=== PATIENT | male | born 1945 | race Two or more races ===

== ENCOUNTER 2024-11-23 13:42 | Inpatient (IN) | payer OTHER, MEDICAID, MEDICARE, SELFPAY ==
[2024-11-23] VITALS (22 sets, daily range): BP systolic 98–176; BP diastolic 49–132; PULSE 79–108; RESP 15–92; TEMP 37–39.9; O2SAT 89–98; BMI 40.5
--- NOTE | 2024-11-23 14:17 | EKG_ITS ---
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
--- NOTE | 2024-11-23 14:17 | XR_ITS ---
Examination: AP chest single view Technique one AP portable upright chest single view Exam date and time: November 23, 2024 1445 hrs. Comparison March 26, 2022 Indications: Sepsis today. Findings: Moderate enlargement cardiac contour Mild vascular congestion. No lobar pneumonia Prominent osteopenia Impression: Moderate enlargement cardiac contour Mild vascular congestion No lobar pneumonia
--- NOTE | 2024-11-23 14:19 | EDNOTE_ITS ---
<Statement entered by Carmina Santos MD - 11/25/24 07:00> As co-signing physician, I was present and available for consult prn. I concur with the plan and care as documented by the midlevel provider. ED SOB =RME/HPI General Chief Complaint: Shortness of Breath/Dyspnea Stated Complaint: SHORTNESS OF BREATH Time Seen by Provider: 11/23/24 14:04 Arrival date/time: 11/23/24 13:42 RME / HPI RME / HPI Narrative: 78-year-old male patient with significant history of BPH, on self catheterization, diabetes hypertension, came in for evaluation regarding shortness of breath. Patient has been having worsening shortness of breath for the last 1 to 2 days, associated with hypoxemia, when the EMS arrived patient was satting 88% on room air. On my initial evaluation patient was satting 92% on room air. Patient also complained of pain discomfort with catheterization. Patient was also noted to be febrile, and tachycardic. Sepsis alert was initiated right away. Related Data Home Medications ?Medication ?Instructions ?Recorded ?Confirmed carvedilol 25 mg tablet (Coreg) 25 mg PO QDAY #0 tabs 04/05/14 07/20/23 spironolactone 25 mg tablet 25 mg PO BID ##0 08/23/15 07/20/23 tamsulosin 0.4 mg capsule (Flomax) 0.4 mg PO BID ##0 0 08/23/15 07/20/23 finasteride 5 mg tablet (Proscar) 5 mg PO QDAY #0 tabs 01/12/17 07/20/23 gemfibrozil 600 mg tablet (Lopid) 600 mg PO HS #0 tabs 01/12/17 07/20/23 valsartan 40 mg tablet (Diovan) 40 mg PO QDAY #0 tabs 01/12/17 07/20/23 atorvastatin 10 mg tablet 10 mg PO QPM 03/21/20 furosemide 20 mg tablet 20 mg PO QDAY 03/21/2007/20 metformin 500 mg tablet 500 mg PO BID 03/21/2007/20 Held on 03/21/20. Instructions: Resume on 03/24/20. clonidine HCl 0.1 mg tablet 0.1 mg PO BID 03/30/2201/05 gabapentin 100 mg capsule 100 mg PO BID 03/30/2207/20 albuterol sulfate 90 mcg/actuation 1 inh inhalation QI D 03/31/22 07/20/23 aerosol inhaler (Ventolin HFA) fluticasone propionate 50 1 spray intranasal QDAY 03/1607/20/23 mcg/actuation nasal spray,suspension Allergies Allergy/AdvReac Type Severity Reaction Status Date / Time No Known Allergies Allergy Verified 03/30/22 12:48 Review of Systems Review of Systems Narrative Review of Systems: Review of system reviewed and within normal limits except mentioned in HPI ED Exam Narrative Physical exam: VITAL SIGNS: Reviewed. GENERAL APPEARANCE: Alert and interactive, follows commands, no acute distress, febrile HEAD AND FACE: Non-traumatic. ENT: PERRL, pink conjunctivitis, eyelid no trauma, Mucous membrane moist. NECK: Supple, nontender, no nuchal rigidity. CHEST: No tenderness, no crepitus, no paradoxical movement, no retractions. LUNGS: Clear, well ventilated, symmetric, no rales, no wheezing, no ronchi, no stridor, good breath sounds bilaterally. HEART: Regular rate, regular rhythm, no murmur, no gallops. ABDOMEN: Soft, positive bowel sounds, nondistended, no guarding, nontender, no rebound, no masses, RECTAL: Deferred. GENITAL: Deferred. NEUROLOGICAL: Gross motor function intact sensory function intact, Appropriate for age. MUSCULOSKELETAL: low back nontender, full range of motion. EXTREMITIES: Nontender, full range of motion. SKIN: Color pink, dry, no rash, no lacerations, no abrasions, no contusions. LYMPHATICS: Deferred. 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 STAT Care 11/23/24 14:17 Completed Continuous Pulse Oximetry STAT Care 11/23/24 14:17 Completed Decision to Admit X1 Care 11/23/24 16:16 Completed EKG (ED ONLY) *Do not use* NOW Care 11/23/24 14:17 Completed Foss [Urinary Catheter] QS Care 11/23/24 14:17 Active Insert IV NOW Care 11/23/24 14:17 Completed NPO STAT Care 11/23/24 14:17 Completed Strict Intake and Output Routine Care 11/23/24 14:17 Ordered EKG (ED Only) Stat Exams 11/23/24 14:17 Draft XR chest 1V SEPSIS PROTOCOL Stat Exams 11/23/24 14:17 Completed B-Type Natriuretic Peptide Stat Lab 11/23/24 14:55 Completed Blood Culture (Lab) Stat Lab 11/23/24 14:55 Received CBC Stat Lab 11/23/24 14:55 Completed Comprehensive Metabolic Panel Stat Lab 11/23/24 14:55 Completed LDH (Lactate Dehydrogenase) Stat Lab 11/23/24 14:55 Completed Lactate (Lactic Acid) Stat Lab 11/23/24 14:55 Completed Lipase Stat Lab 11/23/24 14:55 Completed Magnesium Stat Lab 11/23/24 14:55 Completed Partial Thromboplastin Time Stat Lab 11/23/24 14:55 Completed Phosphorous Stat Lab 11/23/24 14:55 Completed Procalcitonin Stat Lab 11/23/24 14:55 Completed Prothrombin Time with INR Stat Lab 11/23/24 14:55 Completed Troponin I Stat Lab 11/23/24 14:55 Completed Urinalysis Stat Lab 11/23/24 15:11 Completed Urine Culture Stat Lab 11/23/24 15:11 Received Acetaminophen Tab [Tylenol ES Tab] Med 11/23/24 14:17 Discontinued 1,000 mg PO X1 ONE Acetaminophen Tab [Tylenol ES Tab] Med 11/23/24 20:08 Discontinued 1,000 mg PO X1 ONE Ringers Lactated 1000 ml [Lactated Ringers] 1,000 ml Med 11/23/24 16:12 Discontinued IV 999 mls/hr Sodium Chloride 0.9% 1000 ml [Ns] 1,000 ml Med 11/23/24 14:18 Discontinued IV 999 mls/hr cefTRIAXone/D5w 1gm IV premix [Rocephin/D5w 1gm IV Med 11/23/24 14:18 Discontinued premix] 1 gm in 50 ml IV X1 Oxygen Delivery NOW RT 11/23/24 14:17 Completed Vital Signs Vital signs: Vital Signs Pulse Rate 106 H 11/23/24 14:08 Respiratory Rate 25 H 11/23/24 14:08 Blood Pressure 141/91 H 11/23/24 14:08 Pulse Oximetry (%) 93 L 11/23/24 14:08 Shortness of Breath / Dyspnea MDM Narrative MDM Narrative:: 78-year-old male patient with significant history of BPH, on self catheterization, diabetes hypertension, came in for evaluation regarding shortness of breath. Patient has been having worsening shortness of breath for the last 1 to 2 days, associated with hypoxemia, when the EMS arrived patient was satting 88% on room air. On my initial evaluation patient was satting 92% on room air. Patient also complained of pain discomfort with catheterization. Patient was also noted to be febrile, and tachycardic. Sepsis alert was initiated right away. Patient's workup is significant for UTI. Slight leukocytosis noted. Chest x- ray showed no pneumonia. Currently patient is satting 96% on room air. Patient received 2 L of IV fluids, IV ceftriaxone and Tylenol. Case discussed with patient's PCP Dr. Villegas who admitted the patient. Patient data External records reviewed:: None Clinical information provided by:: patient Social determinants that could affect healthcare access:: none Patient has the following chronic illnesses:: Diabetes mellitus hypertension, BPH How is presenting disease/condition affected by chronic disease/condition?: exacerbated by Evaluation data The following diagnostics were reviewed and interpreted by me:: lab results, radiology exam(s) and EKG tracing(s) Lab and/or radiology exams considered but not ordered:: None Interpretation Summary: See results [facility] EKG shows sinus rhythm, ventricular rate of 97 bpm, no ST segment elevation depression noted. Medications / Prescriptions Medications or Prescriptions considered but not ordered:: None Medication administrations:: Medication Administration History Discontinued Medications Acetaminophen (Acetaminophen 500 Mg Tablet) 1,000 mg PO X1 ONE Stop: 11/23/24 14:18 Last Admin: 11/23/24 14:35 Dose: 1,000 mg Documented By: TEMITOPE Acetaminophen (Acetaminophen 500 Mg Tablet) 1,000 mg PO X1 ONE Stop: 11/23/24 20:09 Last Admin: 11/23/24 20:15 Dose: 1,000 mg Documented By: FELECIA Sodium Chloride (Ns) 1,000 mls @ 999 mls/hr IV .Q1H1M ONE Stop: 11/23/24 15:18 Last Infusion: 11/23/24 17:02 Dose: Infused Documented By: Admin: 11/23/24 14:43 Dose: 999 mls/hr Documented By: TEMITOPE Ceftriaxone Sodium/Dextrose (Rocephin/D5w 1gm Iv Premix) 1 gm in 50 mls @ 100 mls/hr IV X1 ONE Stop: 11/23/24 14:47 Last Infusion: 11/23/24 15:30 Dose: Infused Documented By: Infusion: 11/23/24 14:59 Dose: 100 mls/hr Documented By: Infusion: 11/23/24 14:53 Dose: 0 mls/hr Documented By: Admin: 11/23/24 14:53 Dose: 100 mls/hr Documented By: TEMITOPE Lactated Ringer's (Lactated Ringers) 1,000 mls @ 999 mls/hr IV .Q1H1M ONE Stop: 11/23/24 17:12 Last Infusion: 11/23/24 18:40 Dose: Infused Documented By: Admin: 11/23/24 17:11 Dose: 999 mls/hr Documented By: TEMITOPE Ceftriaxone IV, IV fluids Tylenol Consultations Consultation(s) initiated? (list below): No Diagnosis Shortness of Breath Differential Diagnosis: community acquired pneumonia and other (Sepsis, UTI) Most likely diagnosis given after review of the tests above:: Sepsis, UTI Admission Indicated Admission indicated?: indicated Admission Request Was there a request for admission?: Yes Admission Attestation Admission request attestation: Discussed case with [] from Hospitalist service regarding admission. Discussed patients ED course, exam findings, labs, and radiology results. The Hospitalist [agrees,declines] to accept the patient for admission. Disposition Plan Disposition Plan: Admit Discharge Plan Plan Patient Disposition: Admit Acute Care w/in Hospital Prescriptions/Referrals Prescriptions/Med Rec: No Action carvedilol [Coreg] 25 MG tablet 25 mg PO QDAY Qty: 0 spironolactone 25 MG tablet 25 mg PO BID Qty: 0 tamsulosin [Flomax] 0.4 MG capsule,extended release 24hr 0.4 mg PO BID Qty: 0 valsartan [Diovan] 40 MG tablet 40 mg PO QDAY Qty: 0 gemfibrozil [Lopid] 600 MG tablet 600 mg PO HS Qty: 0 finasteride [Proscar] 5 MG tablet 5 mg PO QDAY Qty: 0 metformin 500 mg Tablet 500 mg PO BID atorvastatin 10 mg Tablet 10 mg PO QPM furosemide 20 mg Tablet 20 mg PO QDAY clonidine HCl 0.1 mg tablet 0.1 mg PO BID gabapentin 100 mg capsule 100 mg PO BID fluticasone propionate [Flonase] 50 mcg/actuation [place],Suspension 1 spray INTRANASAL QDAY Rx Instructions: administer into each nostril albuterol sulfate [Ventolin HFA] 90 mcg/actuation Hfa Aerosol Inhaler 1 inh INHALATION QID Referrals: Brandin Villegas MD [Primary Care Provider] - In 1 week Problem List Clinical Impression: Sepsis, UTI (urinary tract infection) Patient/Caregiver Discharge Instructions Print Language: Maltese Stand Alone Forms: Lavinia Award Info., Patient Portal Info Letter
[2024-11-23] MEDS: ACETAMINOPHEN 500 MG TABLET 1000 MG PO ×2 (14:35→20:15)
[2024-11-23] MEDS: SODIUM CHLORIDE 0.9% 1000 ML 1,000 ML 999 ML IV (14:43)
[2024-11-23] MEDS: cefTRIAXone/D5w 1gm IV premix 1 GM/50 ML BAG IV (14:53)
[2024-11-23 15:18] LABS: Lactate (Lactic Acid) 1.5 mMol/L (0.4-2.0)
[2024-11-23 15:23] LABS: Basophils % (Auto) 0 % (0-2.5); Eosinophils % (Auto) 0 % (0-10); Hematocrit 34.4 % (41.0-53.0); Hemoglobin 11.2 g/dL (13.5-16.0); Immature Granulocytes % (Auto) 0 % (0-0); Immature Granulocytes Auto 0.04 Thou/mm3 (0.00-0.00); Lymphocytes # (Auto) 1.2 Thou/mm3 (1.0-4.8); Lymphocytes % (Auto) 9 % (10-50); Mean Corpuscular HGB Conc 32.6 g/dl (31.0-37.0); Mean Corpuscular Hemoglobin 28.6 pg (25.0-35.0); Mean Corpuscular Volume 88 fL (80-100); Monocytes # (Auto) 1.1 Thou/mm3 (0.0-0.8); Monocytes % (Auto) 8 % (0-12); Neutrophils # (Auto) 11.5 Thou/mm3 (1.8-7.7); Neutrophils % (Auto) 83 % (37-80); Nucleated Red Blood Cell # 0.02 Thou/mm3 (0.00-0.00); Nucleated Red Blood Cell % 0 /100 WBC (0); Platelet Count 253 Thou/mm3 (140-440); RDW Standard Deviation 43.3 fL (35.1-43.9); Red Blood Count 3.92 Miln/mm3 (4.50-5.90); White Blood Count 13.8 Thou/mm3 (3.8-10.6)
[2024-11-23 15:30] LABS: Collection Type, Urine Clean Catch
[2024-11-23 15:46] LABS: Bacteria,Urine 4+; Bilirubin,Urine Negative (Negative); Blood,Urine 1+ (Negative); Color,Urine Yellow (Lt Yel-Yel); Glucose, Urine Negative (Negative); Ketones,Urine Negative (Negative); Leukocyte Esterase,Urine Positive (Negative); Nitrite,Urine Negative (Negative); Protein,Urine 1+ (Neg - Trace); RBC,Urine 6 /hpf (0-3); Specific Gravity,Urine 1.014 (1.001-1.035); Squamous Epithelial Cell,Urine < 1 /hpf (0-5); WBC,Urine 41 /hpf (0-5)
[2024-11-23 15:47] LABS: INR 1.1 (0.9-1.3); Partial Thromboplastin Time 35.2 Seconds (22.0-36.0); Prothrombin Time 12.4 Seconds (9.0-12.2)
[2024-11-23 15:51] LABS: B-Type Natriuretic Peptide 109 pg/mL (0-100)
[2024-11-23 15:55] LABS: Clarity,Urine Hazy (Clear/Hazy)
[2024-11-23 16:00] LABS: Alanine Aminotransferase 36 U/L (10-49); Albumin, Serum 3.9 gm/dL (3.4-4.8); Albumin/Globulin Ratio 1.2 (1.2-2.2); Alkaline Phosphatase 117 U/L (46-116); Anion Gap 7 (7-16); Aspartate Amino Transferase 44 U/L (0-34); BUN/Creatinine Ratio 17 Ratio (12-20); Bilirubin,Total 0.9 mg/dL (0.3-1.2); Blood Urea Nitrogen 26 mg/dL (9-23); Calcium 8.7 mg/dL (8.3-10.6); Calcium (Corrected) 8.8 mg/dL (8.5-10.1); Carbon Dioxide 27.6 mMol/L (20.0-31.0); Chloride 97 mMol/L (98-107); Creatinine (Component) 1.5 mg/dL (0.6-1.3); Estimated Creatinine Clearance 46.8 mL/min (>60); Globulin 3.3 gm/dL (2.3-3.5); Glucose 189 mg/dL (74-106); LDH (Lactate Dehydrogenase) 197 U/L (120-246); Lipase 34 U/L (12-53); Osmolality,Calculated 274 (275-295); Phosphorous 1.5 mg/dL (2.4-5.1); Potassium 3.8 mMol/L (3.4-5.1); Procalcitonin 3.01 ng/ml (0.0-0.49); Sodium 132 mMol/L (136-145); Total Protein 7.2 gm/dL (5.7-8.2); Troponin I 0.029 ng/mL (0.0-0.045); eGFR 47 See Note
[2024-11-23] MEDS: RINGERS LACTATED 1000 ML 1,000 ML 999 ML IV (17:11)
--- NOTE | 2024-11-23 17:59 | PC.NURSE ---
PT HAD BM; LIQUID IN NATURE AND BROWN IN COLOR. PT GIVEN PERINEAL CARE WITH WARM BATH CLOTHS; LINEN CHANGE AND NEW CHUCKS PLACED UNDER PT. PT LAYING IN BED COMFORTABLE AT THIS TIME; EQUAL CHEST RISE & FALL NOTED.
--- NOTE | 2024-11-23 19:51 | PC.NURSE ---
Assisted pt up in bed. With that little activity pt was moderatly SOB and O2 sats dropped to 87. placed pt on 2L O2 NC
--- NOTE | 2024-11-23 21:28 | PD.NEPHHP ---
Documentation for date of: 11/23/24 History of Present Illness History of Present Illness Chief complaint: Shortness of breath History of present illness: Mr. 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 Grider) history of CHF, history of pituitary adenoma which was removed presented to the emergency department with significant shortness of breath and her daughter called paramedics. When paramedics arrived his O2 sat was less than 88%. Chest x-ray showed mild vascular congestion and no pneumonia. Admitted to the hospital with hypoxic respiratory failure ED COURSE: T103.8, HR 106, BP 141/91, satting 93% on 2 L NC. WBC 13.8, Hgb 11.2, PLT 253. Normal coag studies. CHEM panel significant for BUN 26, CR 1.5, EGFR 47, GLUCOSE 189, A1c 6.8, phosphorus 1.5, AST 44, AST 36, ALP 117, BNP 109, troponin 0.029, Pro-Calc 3.01. UA showed positive LE, RBC 6, WBC 41, urea 4+. EKG sinus rhythm without acute ST changes. CXR mild vascular congestion, no lobar pneumonia. ED gave 2 L IVF, CEFTRIAXONE 1 g x 1. Will admit for sepsis in settings of UTI. PMHx: HTN, DM, BPH with self cath. PSHx: Coronary artery stent MEDS: Pending med rec ALLERGIES: NKA FHx: Nonsignificant SH: Alcohol, drug or tobacco use. Meds Home Medications and Allergies Home Medications ?Medication ?Instructions ?Recorded ?Confirmed ?Type carvedilol 25 mg tablet (Coreg) 25 mg PO QDAY #0 tabs 04/05/14 07/20/23 History spironolactone 25 mg tablet 25 mg PO BID ##0 08/23/15 07/20/23 History tamsulosin 0.4 mg capsule (Flomax) 0.4 mg PO BID ##0 08/23/15 07/20/23 History finasteride 5 mg tablet (Proscar) 5 mg PO QDAY #0 tabs 01/12/17 07/20/23 History gemfibrozil 600 mg tablet (Lopid) 600 mg PO HS #0 tabs 01/12/17 07/20/23 History valsartan 40 mg tablet (Diovan) 40 mg PO QDAY #0 tabs 01/12/17 07/20/23 History atorvastatin 10 mg tablet 10 mg PO QPM 03/21/20 07/20/23 History furosemide 20 mg tablet 20 mg PO QDAY 03/21/20 07/20/23 History metformin 500 mg tablet 500 mg PO BID 03/21/20 07/20/23 History Held on 03/21/20. Instructions: Resume on 03/24/20. clonidine HCl 0.1 mg tablet 0.1 mg PO BID 03/30/22 07/20/23 History gabapentin 100 mg capsule 100 mg PO BID 03/30/22 07/20/23 History albuterol sulfate 90 mcg/actuation 1 inh inhalation QID 03/31/22 07/20/23 History aerosol inhaler (Ventolin HFA) fluticasone propionate 50 1 spray intranasal QDAY 03/31/22 07/20/23 History mcg/actuation nasal spray,suspension Allergies Allergy/AdvReac Type Severity Reaction Status Date / Time No Known Allergies Allergy Verified 03/30/22 12:48 Exam Vital Signs Temp Pulse Resp BP Pulse Ox O2 Del Method O2 Flow Rate 37.0 C 93 25 H 145/79 H 97 Nasal Cannula 2 11/23/24 20:15 11/23/24 19:31 11/23/24 19:31 11/23/24 19:31 11/23/24 19:31 11/23/24 19:31 11/23/24 19:31 Narrative Exam GENERAL APPEARANCE patient currently seen in the emergency department NECK: Neck supple, no JVD or bruit CARDIOVASCULAR: Heart regular, no murmurs LUNGS/CHEST: Chest clear to auscultation. No rales, rhonchi, wheezing ABDOMEN: Soft, nontender, nondistended. No masses. Normal bowel sounds. EXTREMITIES: No edema, clubbing or cyanosis. SKIN: Skin exam normal without any rashes MUSCULOSKELETAL: Musculoskeletal exam normal PSYCHIATRIC: Normal mood, affect LYMPHATICS: No lymphadenopathy noted NEUROLOGICAL : No neurological deficits Results: Labs 11/25/24 04:43 11/25/24 04:43 Labs: Short CBC 11/23/24 Range/Units 14:55 WBC 13.8 H (3.8-10.6) Thou/mm3 Hgb 11.2 L (13.5-16.0) g/dL Hct 34.4 L (41.0-53.0) % Plt Count 253 (140-440) Thou/mm3 BMP 11/23/24 14:55 Sodium 132 L Potassium 3.8 Chloride 97 L Carbon Dioxide 27.6 BUN 26 H Creatinine 1.5 H Glucose 189 H Calcium 8.7 Cardiac Enzymes 11/23/24 Range/Units 14:55 Troponin I 0.029 (0.0-0.045) ng/mL Liver Function 11/23/24 Range/Units 14:55 Total Bilirubin 0.9 (0.3-1.2) mg/dL AST 44 H (0-34) U/L ALT 36 (10-49) U/L Alkaline Phosphatase 117 H (46-116) U/L Albumin 3.9 (3.4-4.8) gm/dL Urine 11/23/24 Range/Units 15:11 Urine Color Yellow (Lt Yel-Yel) Urine Clarity Hazy (Clear/Hazy) Urine pH 6.0 (5.0-7.0) Ur Specific [place] 1.014 (1.001-1.035) Urine Protein 1+ A (Neg - Trace) Urine Glucose (UA) Negative (Negative) Assessment & Plan Assessment and plan (1) UTI (urinary tract infection): Status: Acute Assessment and plan: Patient noted to have significant UTI with sepsis. Antibiotics, fluids given. Admitted to medical floor (2) Sepsis: Status: Acute Assessment and plan: Patient was given fluids. Hold blood pressure medications (3) Type 2 diabetes mellitus: Status: Acute Assessment and plan: Accu-Cheks, sliding scale (4) Hypertension: Status: Acute Assessment and plan: Currently blood pressure on the lower side (5) Hyperlipidemia: Status: Acute Assessment and plan: On statin (6) Acute renal failure (ARF): Status: Acute Assessment and plan: ROSEANNE secondary to prerenal azotemia. Will hold spironolactone, metformin, Diovan, Lasix. Continue with fluids Additional Assessment & Plan Additional Plan: Estimated length of stay 2 to 3 days DVT prophylaxis heparin GI prophylaxis not needed CODE STATUS full code Quality Measures Quality Measures none Advance care planning discussed with:: patient
[2024-11-23] MEDS: HEPARIN SOD INJ 5000 UNIT/ML VIAL SC (22:48)
[2024-11-24] VITALS (17 sets, daily range): BP systolic 95–143; BP diastolic 54–78; PULSE 58–103; RESP 18–24; TEMP 36.2–36.9; O2SAT 91–100; BMI 44.3; BMI 11.0
[2024-11-24 00:08] LABS: Glucose Estimated Average 148 mg/dL (80-131); Hemoglobin A1C 6.8 % Hgb (4.8-6.0)
--- NOTE | 2024-11-24 01:33 | PC.NURSE ---
Report called to Lolis MARR.
[2024-11-24] MEDS: SODIUM CHLORIDE 0.9% 1000 ML 1,000 ML 125 ML IV ×2 (02:02→02:10)
[2024-11-24] MEDS: HEPARIN SOD INJ 5000 UNIT/ML VIAL SC ×3 (05:21→21:00)
[2024-11-24 05:42] LABS: Basophils % (Auto) 0 % (0-2.5); Eosinophils % (Auto) 0 % (0-10); Hematocrit 35.6 % (41.0-53.0); Hemoglobin 11.4 g/dL (13.5-16.0); Immature Granulocytes % (Auto) 1 % (0-0); Immature Granulocytes Auto 0.06 Thou/mm3 (0.00-0.00); Lymphocytes % (Auto) 8 % (10-50); Mean Corpuscular Hemoglobin 28.4 pg (25.0-35.0); Mean Corpuscular Volume 89 fL (80-100); Monocytes # (Auto) 1.2 Thou/mm3 (0.0-0.8); Monocytes % (Auto) 9 % (0-12); Neutrophils # (Auto) 10.3 Thou/mm3 (1.8-7.7); Neutrophils % (Auto) 82 % (37-80); Nucleated Red Blood Cell % 0 /100 WBC (0); Platelet Count 172 Thou/mm3 (140-440); RDW Standard Deviation 43.9 fL (35.1-43.9); Red Blood Count 4.01 Miln/mm3 (4.50-5.90); White Blood Count 12.7 Thou/mm3 (3.8-10.6)
[2024-11-24 06:10] LABS: Alanine Aminotransferase 38 U/L (10-49); Albumin, Serum 3.7 gm/dL (3.4-4.8); Albumin/Globulin Ratio 1.2 (1.2-2.2); Alkaline Phosphatase 126 U/L (46-116); Anion Gap 7 (7-16); Aspartate Amino Transferase 52 U/L (0-34); BUN/Creatinine Ratio 18 Ratio (12-20); Bilirubin,Total 0.7 mg/dL (0.3-1.2); Blood Urea Nitrogen 27 mg/dL (9-23); Calcium 8.7 mg/dL (8.3-10.6); Calcium (Corrected) 8.9 mg/dL (8.5-10.1); Carbon Dioxide 28.7 mMol/L (20.0-31.0); Cardiac Risk Estimate 6.8 RATIO (4.0-6.7); Chloride 100 mMol/L (98-107); Cholesterol 129 mg/dL (132-200); Creatinine (Component) 1.5 mg/dL (0.6-1.3); Estimated Creatinine Clearance 46.8 mL/min (>60); Globulin 3.2 gm/dL (2.3-3.5); Glucose 164 mg/dL (74-106); HDL Cholesterol 19 mg/dL (40-60); LDL Cholesterol,Calculated 54 mg/dL (0-130); Osmolality,Calculated 281 (275-295); Potassium 4.4 mMol/L (3.4-5.1); Sodium 136 mMol/L (136-145); Total Protein 6.9 gm/dL (5.7-8.2); Triglycerides 281 mg/dL (30-150); eGFR 47 See Note
[2024-11-24] MEDS: INSULIN LISPRO (AdmeLOG) 1 UNIT/0.01 ML UNIT SC ×3 (07:53→17:46)
[2024-11-24] MEDS: GABAPENTIN 100 MG CAPSULE PO ×2 (07:53→20:59)
[2024-11-24] MEDS: TAMSULOSIN HCL 0.4 MG CAPSULE PO ×2 (07:53→20:59)
[2024-11-24] MEDS: cloNIDine HCL 0.1 MG TABLET PO (07:54)
[2024-11-24] MEDS: FINASTERIDE 5 MG TABLET PO (07:55)
[2024-11-24] MEDS: carVEDILOL 12.5 MG TABLET 25 MG PO (07:56)
--- NOTE | 2024-11-24 09:08 | ESHP_ITS ---
Documentation for date of: 11/24/24 [facility] History of Present Illness History of present illness: This is a 70-year-old male PMHx of CAD with stents, HTN, DM, BPH with self- catheterization, presented to ED with SOB. Reports worsening SOB over the last 2 days, found to have saturation of 88% by EMS. He has been using catheterization for years now, has at home nursing assistance. Reports about a week of pain and discomfort with catheterization, associated with subjective fever and racing sensation in his heart. Denies headaches, fall, chills, LOC, syncope, chest pain, cough, abdominal pain, N/V/D/C, hematuria, urinary frequency or urgency. ED COURSE: T103.8, HR 106, BP 141/91, satting 93% on 2 L NC. WBC 13.8, Hgb 11.2, PLT 253. Normal coag studies. CHEM panel significant for BUN 26, CR 1.5, EGFR 47, GLUCOSE 189, A1c 6.8, phosphorus 1.5, AST 44, AST 36, ALP 117, BNP 109, troponin 0.029, Pro-Calc 3.01. UA showed positive LE, RBC 6, WBC 41, urea 4+. EKG sinus rhythm without acute ST changes. CXR mild vascular congestion, no lobar pneumonia. ED gave 2 L IVF, CEFTRIAXONE 1 g x 1. Will admit for sepsis in settings of UTI. PMHx: HTN, DM, BPH with self cath. PSHx: Coronary artery stent MEDS: Pending med rec ALLERGIES: NKA FHx: Nonsignificant SH: Alcohol, drug or tobacco use. Exam Vital Signs Temp Pulse Resp BP Pulse Ox O2 Del Method O2 Flow Rate 98.5 F 83 24 H 143/71 H 91 L Nasal Cannula 2 11/24/24 08:00 11/24/24 08:00 11/24/24 08:00 11/24/24 08:00 11/24/24 08:00 11/24/24 08:00 11/24/24 08:00 Narrative Exam GENERAL * Normal appearing elderly male, NAD HEENT * NCAT.?YOLI. Oral mucosa is moist. Patent Nares NECK * Supple, nontender, no thyromegaly, no meningismus, no JVD, no step offs CHEST * RRR, no m/g/r * CTAB, no w/r/r. Symmetrical chest rise. No intercostal subcostal retraction * Atraumatic, nontender, no crepitus, symmetrical expansion. ABDOMEN * Soft, flat, nontender. No guarding/rebound tenderness/masses. * Bowel sounds presents EXTREMITIES * No edema/cyanosis.? SKIN * Warm and dry, no jaundice/rashes. NEUROMUSCULAR * No lumbar or midline, no CVA, no paraspinal muscle spasm or tenderness. * Moves all 4 extremities well, with full ROM and good CSM. * RANKIN x4, CN II-XII grossly intact. * No focal neurologic deficits. PSYCHIATRY * Normal mood and affect, cooperative, no SI or HI or hallucinations. Results: Labs 11/25/24 04:43 11/25/24 04:43 Labs: Short CBC 11/23/24 11/24/24 Range/Units 14:55 04:47 WBC 13.8 H 12.7 H (3.8-10.6) Thou/mm3 Hgb 11.2 L 11.4 L (13.5-16.0) g/dL Hct 34.4 L 35.6 L (41.0-53.0) % Plt Count 253 172 D (140-440) Thou/mm3 BMP 11/23/24 11/24/24 14:55 04:47 Sodium 132 L 136 Potassium 3.8 4.4 D Chloride 97 L 100 Carbon Dioxide 27.6 28.7 BUN 26 H 27 H Creatinine 1.5 H 1.5 H Glucose 189 H 164 H Calcium 8.7 8.7 Cardiac Enzymes 11/23/24 Range/Units 14:55 Troponin I 0.029 (0.0-0.045) ng/mL Liver Function 11/23/24 11/24/24 Range/Units 14:55 04:47 Total Bilirubin 0.9 0.7 (0.3-1.2) mg/dL AST 44 H 52 H (0-34) U/L ALT 36 38 (10-49) U/L Alkaline Phosphatase 117 H 126 H (46-116) U/L Albumin 3.9 3.7 (3.4-4.8) gm/dL Urine 11/23/24 Range/Units 15:11 Urine Color Yellow (Lt Yel-Yel) Urine Clarity Hazy (Clear/Hazy) Urine pH 6.0 (5.0-7.0) Ur Specific Bedias 1.014 (1.001-1.035) Urine Protein 1+ A (Neg - Trace) Urine Glucose (UA) Negative (Negative) Quality Measures Quality Measures none Advance care planning discussed with:: patient Medications Home Medications and Allergies Home Medications ?Medication ?Instructions ?Recorded ?Confirmed ?Type carvedilol 25 mg tablet (Coreg) 25 mg PO QDAY #0 tabs 04/05/14 07/20/23 History spironolactone 25 mg tablet 25 mg PO BID ##0 08/23/15 07/20/23 History tamsulosin 0.4 mg capsule (Flomax) 0.4 mg PO BID ##0 0 08/23/15 07/20/23 History finasteride 5 mg tablet (Proscar) 5 mg PO QDAY #0 tabs 01/12/17 07/20/23 History gemfibrozil 600 mg tablet (Lopid) 600 mg PO HS #0 tabs 01/12/17 07/20/23 History valsartan 40 mg tablet (Diovan) 40 mg PO QDAY #0 tabs 01/12/17 07/20/23 History atorvastatin 10 mg tablet 10 mg PO QPM 03/21/20 History furosemide 20 mg tablet 20 mg PO QDAY 03/21/2007/20 History metformin 500 mg tablet 500 mg PO BID 03/21/2007/20 History Held on 03/21/20. Instructions: Resume on 03/24/20. clonidine HCl 0.1 mg tablet 0.1 mg PO BID 03/30/2201/05 History gabapentin 100 mg capsule 100 mg PO BID 03/30/2207/20 History albuterol sulfate 90 mcg/actuation 1 inh inhalation QI D 03/31/22 07/20/23 History aerosol inhaler (Ventolin HFA) fluticasone propionate 50 1 spray intranasal QDAY 03/1607/20/23 History mcg/actuation nasal spray,suspension Allergies Allergy/AdvReac Type Severity Reaction Status Date / Time No Known Allergies Allergy Verified 03/30/22 12:48 Visit Medications Albuterol (Albuterol Inh 8 Gm) 1 puff INH QID PRINCESS Stop: 12/24/24 05:59 Atorvastatin Calcium (Atorvastatin Calcium 10 Mg Tablet) 10 mg PO QPM PRINCESS Stop: 12/24/24 20:59 Carvedilol (Carvedilol 12.5 Mg Tablet) 25 mg PO QDAY [facility] Stop: 12/24/24 08:59 Last Admin: 11/24/24 07:56 Dose: 25 mg Clonidine (Clonidine Hcl 0.1 Mg Tablet) 0.1 mg PO BID PRINCESS Stop: 12/24/24 08:59 Last Admin: 11/24/24 07:54 Dose: 0.1 mg Dextrose (Dextrose 50%-Water Inj 50 Ml Syringe) 25 ml IV Q15MIN PRN PRN Reason: BG 50-70 responsive npo pt Stop: 12/23/24 21:20 Finasteride (Finasteride 5 Mg Tablet) 5 mg PO QDAY [facility] Stop: 12/24/24 08:59 Last Admin: 11/24/24 07:55 Dose: 5 mg Fluticasone Propionate (Fluticasone [place] 0.05% 16 Gm Btl) 1 spray NASAL QDAY [facility] Stop: 12/24/24 08:59 Gabapentin (Gabapentin 100 Mg Capsule) 100 mg PO BID [facility] Stop: 12/24/24 08:59 Last Admin: 11/24/24 07:53 Dose: 100 mg Glucagon (Glucagon Inj 1 Mg Vial) 1 mg IM Q15MIN PRN PRN Reason: BG <70, and no IV access Heparin Sodium (Porcine) (Heparin Sod Inj 5000 Unit/Ml Vial) 5,000 unit SC Q8HR PRINCESS Stop: 12/07/24 21:59 Last Admin: 11/24/24 05:21 Dose: 5,000 unit Sodium Chloride (Ns) 1,000 mls @ 125 mls/hr IV .Q10H PRINCESS Stop: 12/23/24 21:25 Last Admin: 11/24/24 02:10 Dose: 125 mls/hr Insulin Human Lispro (Insulin Lispro (Admelog) 1 Unit/0.01 Ml Unit) 0 unit SC AC [facility]; Protocol Stop: 12/24/24 07:29 Last Admin: 11/24/24 07:53 Dose: 1 unit Tamsulosin HCl (Tamsulosin Hcl 0.4 Mg Capsule) 0.4 mg PO BID PRINCESS Stop: 12/24/24 08:59 Last Admin: 11/24/24 07:53 Dose: 0.4 mg Discontinued Medications Acetaminophen (Acetaminophen 500 Mg Tablet) 1,000 mg PO X1 ONE Stop: 11/23/24 14:18 Last Admin: 11/23/24 14:35 Dose: 1,000 mg Acetaminophen (Acetaminophen 500 Mg Tablet) 1,000 mg PO X1 ONE Stop: 11/23/24 20:09 Last Admin: 11/23/24 20:15 Dose: 1,000 mg Sodium Chloride (Ns) 1,000 mls @ 999 mls/hr IV .Q1H1M ONE Stop: 11/23/24 15:18 Last Infusion: 11/23/24 17:02 Dose: Infused Ceftriaxone Sodium/Dextrose (Rocephin/D5w 1gm Iv Premix) 1 gm in 50 mls @ 100 mls/hr IV X1 ONE Stop: 11/23/24 14:47 Last Infusion: 11/23/24 15:30 Dose: Infused Lactated Ringer's (Lactated Ringers) 1,000 mls @ 999 mls/hr IV .Q1H1M ONE Stop: 11/23/24 17:12 Last Infusion: 11/23/24 18:40 Dose: Infused Assessment & Plan Plan In summary: 70-year-old male PMHx of CAD with stents, HTN, DM, BPH with self- catheterization, presented to ED with SOB. Admitted for AHRF 2/2 suspected sepsis in settings of UTI. Acute hypoxemic respiratory failure Suspected sepsis 4/4 SIRS positive UTI Presenting with SOB, desatting 88 at home. Chronic self-catheterization, has 1 week of fever, dysuria and discomfort with catheterization. UTI source likely 2/2 chronic cath use. Has upcoming appt with Dr. Tam later this month. Met 4/4 SIRS criteria. PRO-LIONEL 3.01. Lactic acid normal. UA showed positive LE, RBC 6, WBC 41, urea 4+. EKG sinus rhythm without acute ST changes. CXR mild vascular congestion, no lobar pneumonia. Received total 2 L IVF's and CEFTRIAXONE x 1 in ED. Currently afebrile, tachycardia resolved, RR 24, satting mid 90s on 2 L NC. WBC 14.8 > 12.7. ? Continue NS at 125 cc/80 ? Continue CEFTRIAXONE 2 g daily (11/24 to present) ? Continue ALBUTEROL 1 puff QID ? Pending culture: Urine and blood ? Pending PT ROSEANNE (stable) In settings of dehydration and UTI. No history of CKD. Admission BUN 26, CR 1.5, EGFR 47. Today renal function unchanged. ? Anticipate improvement with IVFs as above ? Renally dose meds, avoid overdiuresis and NEPHROTOXINS ? Daily CMP HTN HLD Hx of CAD s/p stents Currently asymptomatic. Troponin 0.029. EKG sinus rhythm without acute ST changes. Vital stable. ? Continue home CARVEDILOL 25 mg q. day ? Continue home ATORVASTATIN 10 mg daily ? Continue home CLONIDINE 0.1 mg BID ? Daily vitals T2DM A1c 6.8 this visit. GLUCOSE 164 today. ? INSULIN sliding scale ? Accu-Cheks Peripheral neuropathy ? Continue home GABAPENTIN 100 mg BID BPH ? Continue home TAMSULOSIN 0.4 mg BID ? Continue home FINASTERIDE 5 mg daily Mild transaminitis Likely 2/2 poor perfusion in settings of ?sepsis AST 44, AST 36, ALP 117. No history of alcohol use. Ultrasound from 12/2022 showed fatty liver. ? Anticipate improvement with fluids. ? Daily labs Health maintenance Diet: Cardiac GI prophylaxis: Not indicated DVT prophylaxis: HEPARIN subcu Antibiotics: CEFTRIAXONE CODE STATUS: Full code Disposition: Treating UTI and ROSEANNE Patient case was discussed with attending, Dr. Villegas. Oli Gomez DO PGYI Attending Provider Attestation/Addendum Patient seen and examined with resident physician Dr. Baird. Note reviewed, agree with findings and recommendations. Patient admitted with UTI/sepsis Continue with fluids, antibiotics. Clinically he seems to be slightly better than yesterday. Physical therapy ordered
--- NOTE | 2024-11-24 10:40 | PC.SS ---
STRATEGIC INTELLIGENCE OFFICER conducted phone contact with the patient?s daughter, Ludy Kirkpatrick ; to conduct initial assessment and to discuss discharge planning.? Patient resides at home with spouse.? Patient does not possess a walker to assist with ambulation.? Patient does not utilize home oxygen.? Patient currently on 2L nasal cannula.? Patient requires assistance with completion of ADL?s.? Patient has applied for IHSS decision pending.? Patient?s surrogate medical decision maker is daughter, Ludy Kirkpatrick.? Patient?s PCP is Dr. Villegas.? Patient?s director of securities and real estate is Dr. Tinajero.? Patient does not participate with dialysis.? Patient utilizes [employer] [facility] for medication services.? Patient in possession of self-catheter.? If home oxygen required no preferred vendor identified. ?Patient?s daughter requesting rollating walker for the patient due to the patient?s increased weakness. ?If home health recommended no preferred agency identified.? Discharge plan is for the patient to return home.? Family will provide transportation on behalf of the patient. ?No further discharge needs identified by the patient.? No further intervention required at this time, social worker aide will be available to address any further concerns.? Next of Kin: Ludy Kirkpatrick D/C Plan: Home
[2024-11-24] MEDS: cefTRIAXone/D5w 2gm 2 GM/50 ML BAG IV (11:02)
[2024-11-24] MEDS: ALBUTEROL INH 8 GM 1 PUFF INH ×3 (13:45→22:46)
--- NOTE | 2024-11-24 16:08 | PC.PT ---
Federico complete, see documentation. Pt can ambulate with staff and family and should use a walker while he's here for safety.
[2024-11-24] MEDS: ATORVASTATIN CALCIUM 10 MG TABLET PO (20:59)
[2024-11-25] VITALS (37 sets, daily range): BP systolic 88–159; BP diastolic 46–82; PULSE 43–70; RESP 18–33; TEMP 34.4–36.8; O2SAT 93–100; BMI 40.5
[2024-11-25] MEDS: SODIUM CHLORIDE 0.9% 1000 ML 1,000 ML 125 ML IV ×2 (00:09→08:45)
[2024-11-25] MEDS: HEPARIN SOD INJ 5000 UNIT/ML VIAL SC ×3 (05:04→21:54)
[2024-11-25 05:33] LABS: Basophils % (Auto) 0 % (0-2.5); Eosinophils # (Auto) 0.1 Thou/mm3 (0.0-0.5); Eosinophils % (Auto) 1 % (0-10); Hematocrit 34.1 % (41.0-53.0); Hemoglobin 10.6 g/dL (13.5-16.0); Immature Granulocytes % (Auto) 1 % (0-0); Lymphocytes # (Auto) 1.5 Thou/mm3 (1.0-4.8); Lymphocytes % (Auto) 11 % (10-50); Mean Corpuscular HGB Conc 31.1 g/dl (31.0-37.0); Mean Corpuscular Hemoglobin 28.5 pg (25.0-35.0); Mean Corpuscular Volume 92 fL (80-100); Monocytes # (Auto) 1.2 Thou/mm3 (0.0-0.8); Monocytes % (Auto) 9 % (0-12); Neutrophils # (Auto) 10.6 Thou/mm3 (1.8-7.7); Neutrophils % (Auto) 78 % (37-80); Nucleated Red Blood Cell % 0 /100 WBC (0); Platelet Count 214 Thou/mm3 (140-440); Red Blood Count 3.72 Miln/mm3 (4.50-5.90); White Blood Count 13.5 Thou/mm3 (3.8-10.6)
[2024-11-25 06:00] LABS: Alanine Aminotransferase 39 U/L (10-49); Albumin, Serum 3.5 gm/dL (3.4-4.8); Albumin/Globulin Ratio 1.1 (1.2-2.2); Alkaline Phosphatase 150 U/L (46-116); Anion Gap 6 (7-16); Aspartate Amino Transferase 47 U/L (0-34); BUN/Creatinine Ratio 24 Ratio (12-20); Bilirubin,Total 0.5 mg/dL (0.3-1.2); Blood Urea Nitrogen 34 mg/dL (9-23); Calcium 8.3 mg/dL (8.3-10.6); Calcium (Corrected) 8.7 mg/dL (8.5-10.1); Carbon Dioxide 27.3 mMol/L (20.0-31.0); Chloride 103 mMol/L (98-107); Creatinine (Component) 1.4 mg/dL (0.6-1.3); Estimated Creatinine Clearance 52.7 mL/min (>60); Globulin 3.1 gm/dL (2.3-3.5); Glucose 152 mg/dL (74-106); Osmolality,Calculated 282 (275-295); Potassium 4.1 mMol/L (3.4-5.1); Sodium 136 mMol/L (136-145); Total Protein 6.6 gm/dL (5.7-8.2); eGFR 51 See Note
--- NOTE | 2024-11-25 06:19 | PC.NURSE ---
called to give report to Flor RN to Rm [id number], wasn't able to take report said she will call back.
--- NOTE | 2024-11-25 06:33 | PC.NURSE ---
gave report to Flor MARR for RM [id number]
[2024-11-25] MEDS: INSULIN LISPRO (AdmeLOG) 1 UNIT/0.01 ML UNIT SC ×2 (07:38→13:54)
[2024-11-25] MEDS: cloNIDine HCL 0.1 MG TABLET PO (08:43)
[2024-11-25] MEDS: TAMSULOSIN HCL 0.4 MG CAPSULE PO ×2 (08:43→21:54)
[2024-11-25] MEDS: GABAPENTIN 100 MG CAPSULE PO ×2 (08:44→21:54)
[2024-11-25] MEDS: carVEDILOL 12.5 MG TABLET 25 MG PO (08:44)
[2024-11-25] MEDS: FINASTERIDE 5 MG TABLET PO (08:44)
[2024-11-25] MEDS: PHENAZOPYRIDINE HCL 100 MG TABLET PO ×2 (08:56→21:53)
[2024-11-25] MEDS: ACETAMINOPHEN 325 MG TABLET 650 MG PO (08:56)
--- NOTE | 2024-11-25 10:31 | XR_ITS ---
Examination: Abdomen AP single view Technique: AP portable supine abdomen, single view Exam date and time: 11/25/2024, 10:38 AM INDICATION: Phipps, distention. FINDINGS: Stomach appears dilated and partially air-filled. Otherwise nonobstructed nondilated bowel gas pattern. Multiple pelvic phleboliths. Otherwise no evidence of abnormal calcifications or masses. Impression: Dilated stomach. Otherwise nonobstructed nondilated bowel gas pattern
[2024-11-25] MEDS: cefTRIAXone/D5w 2gm 2 GM/50 ML BAG IV (10:50)
--- NOTE | 2024-11-25 10:51 | PC.NURSE ---
Rocephin administered late due to medication being delivered from pharmacy at approx 10:50.
--- NOTE | 2024-11-25 12:03 | XR_ITS ---
Examination: Abdomen AP single view Technique: AP portable supine abdomen, single view Exam date and time: 11/25/2024, 12:18 PM INDICATION: Tube placement COMPARISON: Earlier today FINDINGS: interval placement of NG tube with distal tip positioned within the stomach. Stomach remains gaseously distended without significant change. Otherwise stable exam. IMPRESSION: NG tube appears appropriately positioned as above.
--- NOTE | 2024-11-25 12:10 | XR_ITS ---
Exam: Chest 1 view, AP Date and time of exam: 11/25/2024, 12:13 PM INDICATION: NG tube placement Comparison 11/23/2024 Findings: Normal heart size. No mediastinal adenopathy. No acute fracture No pulmonary edema or pneumonia. Impression: Interval placement of NG tube. Distal tip extends past the inferior edge of the film and is not visualized. Cardiac silhouette remains enlarged. No significant changes. IMPRESSION: NG tube placement as above
--- NOTE | 2024-11-25 12:10 | EKG_ITS ---
[facility] Test Date: 2024-11-25 Pat Name: LEE BAPTISTE [facility] Management Coordinator: MARTÍN : 1945 Requested By: Oli Gomez Order Number: [id number] Reading MD: Oli Gomez Measurements Intervals [place] Rate: 56 P: 103 VT: 178 QRS: -16 QRSD: 110 T: -51 QT: 480 QTc: 464 Interpretive Statements SINUS BRADYCARDIA LOW QRS VOLTAGE IN EXTREMITY LEADS MODERATE ST DEPRESSION PROLONGED QT INTERVAL Compared to ECG 11/23/2024 14:55:55 Low QRS voltage now present ST (T wave) deviation now present Prolonged QT interval now present Sinus rhythm no longer present Myocardial infarct finding no longer present /store/S0/[id number].pdf
[2024-11-25 12:21] LABS: Allen Test Performed/OK; Base Excess -1 (-3-3); HCO3 29 mEq/L (20-26); Inspired Oxygen, FIO2 21 %; O2 Saturation 72 % (91-98); PCO2 83 mmHg (32.0-48.0); Puncture Site Left Brachial
[2024-11-25 12:23] LABS: PO2 43 mmHg (83-108); pH, Arterial 7.15 (7.35-7.45)
[2024-11-25] MEDS: SODIUM CHLORIDE 0.9% 1000 ML 1,000 ML 999 ML IV (12:59)
[2024-11-25] MEDS: ALBUTEROL INH 8 GM 1 PUFF INH (13:05)
--- NOTE | 2024-11-25 13:13 | PD.RESEVENT ---
Documentation for date of: 11/25/24 Event Note Event Note: Around 1:40 AM, rapid was called as patient found lethargic, slightly altered, with low blood pressure. On arrival patient appeared in mild distress, AOA x 2, BP 93/53, HR 57, RR 20, satting 97% on 4L NC. Cardiovascular exam normal. Abdominal exam + BS, distended/nontender abdomen. Neurological exam normal, PERRLA, no facial droop or asymmetry, speech intact, strength and sensation symmetrical and intact in all extremities. Denies fever, chills, headaches, chest pain, sob, cough, GI or urinary symptoms. 1 L NS bolus was initiated with improvement of blood pressure, BP 101/57, MAP 71. Rectal temperature 97.4, BS 220. ABG showed pH 7.15, pCO2 83, PO243, bicarb 29. Patient started on BiPAP 15/. CBC relatively unchanged from this morning with WBC 13.6, Hgb 10.5, PLT 222. Pending CHEM panel and blood culture. EKG showed sinus bradycardia with HR 56. No significant acute ST changes. Abdominal x-ray earlier today showed dilated stomach, repeat x-ray done. Rapid showed persistent distended stomach, appropriate position of NG tube. CXR without acute pulmonary pathology. Will continue on BiPAP, repeat ABG 1 hour after. Follow-up on remainder Agree with the resident's note.
[2024-11-25 13:24] LABS: Basophils % (Auto) 0 % (0-2.5); Eosinophils % (Auto) 0 % (0-10); Hematocrit 34.3 % (41.0-53.0); Hemoglobin 10.5 g/dL (13.5-16.0); Immature Granulocytes % (Auto) 1 % (0-0); Immature Granulocytes Auto 0.11 Thou/mm3 (0.00-0.00); Lymphocytes # (Auto) 1.1 Thou/mm3 (1.0-4.8); Lymphocytes % (Auto) 8 % (10-50); Mean Corpuscular HGB Conc 30.6 g/dl (31.0-37.0); Mean Corpuscular Hemoglobin 28.8 pg (25.0-35.0); Mean Corpuscular Volume 94 fL (80-100); Monocytes # (Auto) 1.1 Thou/mm3 (0.0-0.8); Monocytes % (Auto) 8 % (0-12); Neutrophils # (Auto) 11.2 Thou/mm3 (1.8-7.7); Neutrophils % (Auto) 83 % (37-80); Nucleated Red Blood Cell % 0 /100 WBC (0); Platelet Count 222 Thou/mm3 (140-440); Red Blood Count 3.64 Miln/mm3 (4.50-5.90); White Blood Count 13.6 Thou/mm3 (3.8-10.6)
[2024-11-25 13:57] LABS: Alanine Aminotransferase 36 U/L (10-49); Albumin, Serum 3.5 gm/dL (3.4-4.8); Albumin/Globulin Ratio 1.2 (1.2-2.2); Alkaline Phosphatase 150 U/L (46-116); Anion Gap 7 (7-16); Aspartate Amino Transferase 42 U/L (0-34); BUN/Creatinine Ratio 24 Ratio (12-20); Bilirubin,Total 0.3 mg/dL (0.3-1.2); Blood Urea Nitrogen 34 mg/dL (9-23); Calcium 8.1 mg/dL (8.3-10.6); Calcium (Corrected) 8.5 mg/dL (8.5-10.1); Carbon Dioxide 24.5 mMol/L (20.0-31.0); Chloride 105 mMol/L (98-107); Creatinine (Component) 1.4 mg/dL (0.6-1.3); Estimated Creatinine Clearance 50.2 mL/min (>60); Globulin 2.9 gm/dL (2.3-3.5); Glucose 198 mg/dL (74-106); Osmolality,Calculated 285 (275-295); Sodium 136 mMol/L (136-145); Total Protein 6.4 gm/dL (5.7-8.2); Troponin I < 0.020 ng/mL (0.0-0.045); eGFR 51 See Note
[2024-11-25 14:15] LABS: Base Excess -3 (-3-3); HCO3 26 mEq/L (20-26); O2 Saturation 96 % (91-98); PCO2 71 mmHg (32.0-48.0); PO2 87 mmHg (83-108)
[2024-11-25 14:23] LABS: Allen Test Performed/OK; Puncture Site Right Brachial; pH, Arterial 7.18 (7.35-7.45)
[2024-11-25 14:24] LABS: Inspired Oxygen, FIO2 21 %
--- NOTE | 2024-11-25 14:53 | ESPR_ITS ---
Documentation for date of: 11/25/24 Subjective Subjective Interval history: This is a 70-year-old male PMHx of CAD with stents, HTN, DM, BPH with self- catheterization, presented to ED with SOB. Reports worsening SOB over the last 2 days, found to have saturation of 88% by EMS. He has been using catheterization for years now, has at home nursing assistance. Reports about a week of pain and discomfort with catheterization, associated with subjective fever and racing sensation in his heart. Denies headaches, fall, chills, LOC, syncope, chest pain, cough, abdominal pain, N/V/D/C, hematuria, urinary frequency or urgency. ED COURSE: T103.8, HR 106, BP 141/91, satting 93% on 2 L NC. WBC 13.8, Hgb 11.2, PLT 253. Normal coag studies. CHEM panel significant for BUN 26, CR 1.5, EGFR 47, GLUCOSE 189, A1c 6.8, phosphorus 1.5, AST 44, AST 36, ALP 117, BNP 109, troponin 0.029, Pro-Calc 3.01. UA showed positive LE, RBC 6, WBC 41, urea 4+. EKG sinus rhythm without acute ST changes. CXR mild vascular congestion, no lobar pneumonia. ED gave 2 L IVF, CEFTRIAXONE 1 g x 1. Will admit for sepsis in settings of UTI. PMHx: HTN, DM, BPH with self cath. PSHx: Coronary artery stent MEDS: Pending med rec ALLERGIES: NKA FHx: Nonsignificant SH: Alcohol, drug or tobacco use. 11/25/2024 during morning rounds, complained of feeling tired and bloated. He was AOA x 4, compensated, answer question appropriately. During the afternoon, RR was called as he was found altered and hypotensive (please see event note for details). Initial workup showed respiratory acidosis and hypercapnia. NG tube was placed for stomach acid on x-ray, which has improved. He continued on BiPAP, repeat ABG improved acidosis and hypercapnia. Mentation overall improved, AAO x 4 on repeat evaluation this afternoon. Able to answer questions appropriately. Denies pain. Will continue on BiPAP and repeat ABG later. Exam Vital Signs Temp Pulse Resp BP Pulse Ox O2 Del Method O2 Flow Rate 98.2 F 62 22 H 94/50 L 98 Nasal Cannula 3 11/25/24 12:00 11/25/24 13:10 11/25/24 13:10 11/25/24 12:00 11/25/24 13:10 11/25/24 12:00 11/25/24 12:00 FiO2 50 11/25/24 13:10 Narrative Exam GENERAL * Normal appearing elderly male, NAD HEENT * NCAT.?YOLI. Oral mucosa is moist. Patent Nares NECK * Supple, nontender, no thyromegaly, no meningismus, no JVD, no step offs CHEST * RRR, no m/g/r * CTAB, no w/r/r. Symmetrical chest rise. No intercostal subcostal retraction * Atraumatic, nontender, no crepitus, symmetrical expansion. ABDOMEN * Significantly distended, tympanitic, nontender abdomen. * Bowel sounds presents EXTREMITIES * No edema/cyanosis.? SKIN * Warm and dry, no jaundice/rashes. NEUROMUSCULAR * No lumbar or midline, no CVA, no paraspinal muscle spasm or tenderness. * Moves all 4 extremities well, with full ROM and good CSM. * RANKIN x4, CN II-XII grossly intact. * No focal neurologic deficits. PSYCHIATRY * Normal mood and affect, cooperative, no SI or HI or hallucinations. Objective Labs 11/26/24 04:37 11/26/24 04:37 Labs: Laboratory Results - last 24 hr 11/25/24 11/25/24 11/25/24 04:43 12:15 12:45 WBC 13.5 H 13.6 H RBC 3.72 L 3.64 L Hgb 10.6 L 10.5 L Hct 34.1 L 34.3 L MCV 92 94 MCH 28.5 28.8 MCHC 31.1 30.6 L RDW Std Deviation 47.0 H 48.0 H Plt Count 214 D 222 Neut % (Auto) 78 83 H Lymph % (Auto) 11 8 L [place] % (Auto) 9 8 Eos % (Auto) 1 0 Baso % (Auto) 0 0 Neut # (Auto) 10.6 H 11.2 H Lymph # (Auto) 1.5 1.1 [place] # (Auto) 1.2 H 1.1 H Eos # (Auto) 0.1 0.0 Baso # (Auto) 0.0 0.0 Immature Gran # (Auto) 0.10 H 0.11 H Absolute Nucleated RBC 0.00 0.00 Immature Gran % 1 H 1 H Nucleated RBC % 0 0 Puncture Site Left Brachial ABG pH 7.15 L* ABG pCO2 83 H* ABG pO2 43 L* ABG HCO3 29 H ABG O2 Saturation 72 L ABG Base Excess -1 FiO2 21 Sodium 136 136 Potassium 4.1 5.0 D Chloride 103 105 Carbon Dioxide 27.3 24.5 Anion Gap 6 L 7 BUN 34 H 34 H Creatinine 1.4 H 1.4 H Estim Creat Clear Calc 52.7 L 50.2 L eGFR 51 L 51 L BUN/Creatinine Ratio 24 H 24 H Glucose 152 H 198 H Calculated Osmolality 282 285 Lactic Acid 1.0 Calcium 8.3 8.1 L Corrected Calcium 8.7 8.5 Total Bilirubin 0.5 0.3 AST 47 H 42 H ALT 39 36 Alkaline Phosphatase 150 H D 150 H Troponin I < 0.020 Total Protein 6.6 6.4 Albumin 3.5 3.5 Globulin 3.1 2.9 Albumin/Globulin Ratio 1.1 L 1.2 11/25/24 13:59 WBC RBC Hgb Hct MCV MCH MCHC RDW Std Deviation Plt Count Neut % (Auto) Lymph % (Auto) [place] % (Auto) Eos % (Auto) Baso % (Auto) Neut # (Auto) Lymph # (Auto) [place] # (Auto) Eos # (Auto) Baso # (Auto) Immature Gran # (Auto) Absolute Nucleated RBC Immature Gran % Nucleated RBC % Puncture Site Right Brachial ABG pH 7.18 L* ABG pCO2 71 H* D ABG pO2 87 D ABG HCO3 26 ABG O2 Saturation 96 ABG Base Excess -3 FiO2 21 Sodium Potassium Chloride Carbon Dioxide Anion Gap BUN Creatinine Estim Creat Clear Calc eGFR BUN/Creatinine Ratio Glucose Calculated Osmolality Lactic Acid Calcium Corrected Calcium Total Bilirubin AST ALT Alkaline Phosphatase Troponin I Total Protein Albumin Globulin Albumin/Globulin Ratio ABG Interpretation ABG results: 11/25/24 11/25/24 12:15 13:59 ABG pH 7.15 L* 7.18 L* ABG pCO2 83 H* 71 H* D ABG pO2 43 L* 87 D ABG HCO3 29 H 26 ABG O2 Saturation 72 L 96 ABG Base Excess -1 -3 Quality Measures Quality Measures none Advance care planning discussed with:: patient Assessment & Plan Assessment Current Active Medications: Generic Name Dose Route Start Last Admin Trade Name Freq PRN Reason Stop Dose Admin Acetaminophen 650 mg 11/25/24 08:49 11/25/24 08:56 Acetaminophen 325 Mg Tablet PO 12/25/24 08:48 650 mg Q6HR PRN Administration PAIN Albuterol 1 puff 11/24/24 06:00 11/25/24 13:05 Albuterol Inh 8 Gm INH 12/24/24 05:59 1 puff QID PRINCESS Administration Atorvastatin Calcium 10 mg 11/24/24 21:00 11/24/24 20:59 Atorvastatin Calcium 10 Mg Tablet PO 12/24/24 20:59 10 mg QPM PRINCESS Administration Carvedilol 25 mg 11/24/24 09:00 11/25/24 08:44 Carvedilol 12.5 Mg Tablet PO 12/24/24 08:59 25 mg QDAY PRINCESS Administration Clonidine 0.1 mg 11/24/24 09:00 11/25/24 08:43 Clonidine Hcl 0.1 Mg Tablet PO 12/24/24 08:59 0.1 mg BID PRINCESS Administration Dextrose 25 ml 11/23/24 21:21 Dextrose 50%-Water Inj 50 Ml Syringe IV 12/23/24 21:20 Q15MIN PRN BG 50-70 responsive npo pt Finasteride 5 mg 11/24/24 09:00 11/25/24 08:44 Finasteride 5 Mg Tablet PO 12/24/24 08:59 5 mg QDAY PRINCESS Administration Fluticasone Propionate 1 spray 11/24/24 09:00 11/25/24 12:59 Fluticasone Rahul [place] 0.05% 16 Gm Btl NASAL 12/24/24 08:59 Not Given QDAY PRINCESS Gabapentin 100 mg 11/24/24 09:00 11/25/24 08:44 Gabapentin 100 Mg Capsule PO 12/24/24 08:59 100 mg BID PRINCESS Administration Glucagon 1 mg 11/23/24 21:21 Glucagon Inj 1 Mg Vial IM Q15MIN PRN BG <70, and no IV access Heparin Sodium (Porcine) 5,000 unit 11/23/24 22:00 11/25/24 13:53 Heparin Sod Inj 5000 Unit/Ml Vial SC 12/07/24 21:59 5,000 unit Q8HR PRINCESS Administration Sodium Chloride 1,000 mls @ 125 mls/hr 11/23/24 21:26 11/25/24 08:45 Ns IV 12/23/24 21:25 125 mls/hr .Q10H PRINCESS Administration Ceftriaxone Sodium/Dextrose 2 gm in 50 mls @ 100 mls/hr 11/24/24 09:15 11/25/24 10:50 Rocephin/D5w 2gm IV 12/01/24 09:14 100 mls/hr QDAY PRINCESS Administration Insulin Human Lispro 0 unit 11/24/24 07:30 11/25/24 13:54 Insulin Lispro (Admelog) 1 Unit/0.01 Ml Unit SC 12/24/24 07:29 2 unit AC PRINCESS Administration Protocol Phenazopyridine HCl 100 mg 11/25/24 09:00 11/25/24 08:56 Phenazopyridine Hcl 100 Mg Tablet PO 11/27/24 21:01 100 mg BID PRINCESS Administration Tamsulosin HCl 0.4 mg 11/24/24 09:00 11/25/24 08:43 Tamsulosin Hcl 0.4 Mg Capsule PO 12/24/24 08:59 0.4 mg BID PRINCESS Administration Plan In summary: 70-year-old male PMHx of CAD with stents, HTN, DM, BPH with self- catheterization, presented to ED with SOB. Admitted for AHRF 2/2 suspected sepsis in settings of UTI. RR was called earlier today for AMS and hypotension. Workup showed respiratory acidosis pH 7.15, and hypercapnia 83. CBS unchanged from this morning. EKG bradycardia. CXR no significant finding. BS 220, normal lactic acid, normal troponin, normal electrolytes except for potassium slightly high at 5.0. Renal function stable. Blood cultures pending. Continued on NGT for abdominal distention. Continued on BiPAP. Repeat ABG with improving acidosis. BP improved with 1 L NS bolus. Mentation overall improved, AOA x 3. Physical exam, including neuro is benign, expect for distended, non-tender abdomen. Will continue BIPAP, repeat ABG at 18:00. Acute encephalopathy Acute hypoxemic respiratory failure Primary respiratory acidosis, compensated 4/4 SIRS positive (resolved) E. coli UTI Presenting with SOB, desatting 88 at home. Chronic self-catheterization, has 1 week of fever, dysuria and discomfort with catheterization. UTI source likely 2/2 chronic cath use. Has upcoming appt with Dr. Tam later this month. Met 4/4 SIRS criteria. PRO-LINOEL 3.01. Lactic acid normal. UA showed positive LE, RBC 6, WBC 41, urea 4+. EKG sinus rhythm without acute ST changes. CXR mild vascular congestion, no lobar pneumonia. Received total 2 L IVF's and CEFTRIAXONE x 1 in ED. Currently afebrile, tachycardia resolved, on BiPAP. WBC 13.5, improved. Urine grew E. coli, sensitive to CTX. 48-hour PP negative. ABG today showed pH 7.15, pCO2 83, bicarb 29, with slight AMS. ABG improved after BiPAP, on repeat 7.18, pCO2 71. Mentation improved, now at baseline, AOA x 3. ? Continue NS at 125 cc/80 ? Continue CEFTRIAXONE 2 g daily (11/24 to present) ? Continue ALBUTEROL 1 puff QID ? Pending culture: Urine and blood ? Pending repeat blood culture 11/25 ? Pending PT Mild hyperkalemia Potassium 5.0. Received 2 unit INSULIN SS, anticipate improvement of hyperK. ? KAYEXALATE 30 mg x 1 Abdominal distention On exam this morning, abdomen distended and tympanitic, nontender, bowel sounds present all quadrants. No signs of constipation, had large BM this morning. X-ray showed abdominal gas, no bowel obstruction. Improved with NG tube intermittent suction. ? Continue NG tube ROSEANNE (improving) In settings of dehydration and UTI. No history of CKD. Admission BUN 26, CR 1.5, EGFR 47. Today, BUN 34, CR 1.4, EGFR 51. Good urine output. ? Anticipate improvement with IVFs as above ? Renally dose meds, avoid overdiuresis and NEPHROTOXINS ? Daily CMP HTN HLD Hx of CAD s/p stents Currently asymptomatic. Troponin 0.029. EKG sinus rhythm without acute ST changes. Vital stable. ? Continue home CARVEDILOL 25 mg q. day ? Continue home ATORVASTATIN 10 mg daily ? Continue home CLONIDINE 0.1 mg BID ? Daily vitals T2DM A1c 6.8 this visit. GLUCOSE 1984 today. ? INSULIN sliding scale ? Accu-Cheks Peripheral neuropathy ? Continue home GABAPENTIN 100 mg BID BPH ? Continue home TAMSULOSIN 0.4 mg BID ? Continue home FINASTERIDE 5 mg daily Mild transaminitis (stable) Likely 2/2 poor perfusion in settings of ?sepsis AST 44, AST 36, ALP 117. No history of alcohol use. Ultrasound from 12/2022 showed fatty liver. ? Anticipate improvement with fluids. ? Daily labs Health maintenance Diet: Cardiac GI prophylaxis: Not indicated DVT prophylaxis: HEPARIN subcu Antibiotics: CEFTRIAXONE CODE STATUS: Full code Disposition: Treating UTI and ROSEANNE Patient case was discussed with attending, Dr. Villegas. Oli Gomez DO PGYI Attending Provider Attestation/Addendum Patient seen and examined with resident physician Dr. Baird. Note reviewed, agree with findings and recommendations. Patient admitted with UTI/sepsis Continue with fluids, antibiotics. Patient currently seen in chair. Noted to have significant abdominal distention. KUB ordered. Showed a huge gastric bubble. Complaining of significant distention. NG tube will be inserted.
--- NOTE | 2024-11-25 15:52 | PC.NURSE ---
SURVEY RESEARCH PROFESSOR Called at approx 12pm for altered mental status. Patient who was alert and oriented, talking and sitting in chair this morning for breakfast has become difficult to arouse.
--- NOTE | 2024-11-25 16:36 | EKG_ITS ---
[facility] Test Date: 2024-11-25 Pat Name: LEE BAPTISTE [facility] Gender: Male Manager Background: JAVI : 1945 Requested By: Darwin Black Order Number: [id number] Reading MD: Darwin Black Measurements Intervals [place] Rate: 79 P: -40 GA: 167 QRS: -10 QRSD: 110 T: 57 QT: 394 QTc: 452 Interpretive Statements SINUS RHYTHM LOW QRS VOLTAGE IN EXTREMITY LEADS Compared to ECG 11/25/2024 13:11:59 Sinus bradycardia no longer present ST (T wave) deviation no longer present Prolonged QT interval no longer present /store/S0/[id number]/[id number].pdf
--- NOTE | 2024-11-25 16:36 | XR_ITS ---
Examination: AP chest single view Technique one AP portable supine chest single view Exam date and time: November 25, 2024 1653 hrs. Comparison November 25, 2024 12:16 PM Indications: Hypoxic respiratory failure, post cardiac arrest, post intubation Findings: Moderate CHF Moderate enlargement cardiac contour Endotracheal tube tip 21 mm above mati Orogastric tube is in the stomach Prominent osteopenia No pneumothorax Clavicles and ribs appear grossly intact Impression: Moderate CHF including moderate enlargement cardiac contour Tracheal tube tip 21 mm above mati No pneumothorax Orogastric tube is in the stomach, the tip is below the level of the film
[2024-11-25] MEDS: Norepinephrine/D5W 8mg/250ml 8 MG/250 ML BAG 10.465 MG IV (16:45)
[2024-11-25] MEDS: RINGERS LACTATED 1000 ML 1,000 ML 999 ML IV ×3 (16:49→20:54)
[2024-11-25 16:50] LABS: Basophils # (Auto) 0.1 Thou/mm3 (0.0-0.2); Basophils % (Auto) 0 % (0-2.5); Eosinophils % (Auto) 0 % (0-10); Hematocrit 35.7 % (41.0-53.0); Hemoglobin 11.2 g/dL (13.5-16.0); Immature Granulocytes % (Auto) 1 % (0-0); Immature Granulocytes Auto 0.24 Thou/mm3 (0.00-0.00); Lactate (Lactic Acid) 2.5 mMol/L (0.4-2.0); Lymphocytes # (Auto) 2.7 Thou/mm3 (1.0-4.8); Lymphocytes % (Auto) 16 % (10-50); Mean Corpuscular HGB Conc 31.4 g/dl (31.0-37.0); Mean Corpuscular Hemoglobin 28.8 pg (25.0-35.0); Mean Corpuscular Volume 92 fL (80-100); Monocytes # (Auto) 1.2 Thou/mm3 (0.0-0.8); Monocytes % (Auto) 7 % (0-12); Neutrophils # (Auto) 12.7 Thou/mm3 (1.8-7.7); Neutrophils % (Auto) 75 % (37-80); Nucleated Red Blood Cell % 0 /100 WBC (0); Platelet Count 244 Thou/mm3 (140-440); RDW Standard Deviation 47.8 fL (35.1-43.9); Red Blood Count 3.89 Miln/mm3 (4.50-5.90); White Blood Count 16.9 Thou/mm3 (3.8-10.6)
--- NOTE | 2024-11-25 16:58 | EVENTNT_ITS ---
Documentation for date of: 11/25/24 Event Note Event Note: Eder mcgregor called at approximately 4:15 PM on my arrival, patient was without a pulse with rhythm showing asystole. ACLS performed with 5 rounds prior to ROSC. Family was present at the hospital during the code. Patient was transferred to ICU for continued management. Family was updated in person. LEADING EVENTS: During rounds this morning, he was complaining of abdominal distention. Denies any time of pain at that time. He was A&Ox2, abdomen was distended but non- tender, remainder exam was normal. Abd XR showed stomach gas, without obstruction or pneumoperitoneum. NGT sucction was initiated. Around 1:40PM, RR was called as patient found to have AMS and hypotensive. Work-up at the time showed respiratory acidosis (refer to event note). He was started on BiPAP, 1L NS bolus was given with improvement of BP, NGT suctioning continued. On re-evaluation around 2:30PM, ABG showed improvement. Patient was A&Ox4, conversation, denied any symptoms at the time. Daughter was at bedside, and family was on the phone. He reported feeling better, we had normal conversation, there were no signs of AMS at the time. He denied having history of sleep apnea or underlying cardiopulmonary disease. Around 3:30PM I was called to the room as patient was agitated, wanting to remove the BiPAP. He was examined at bedside, more family was at bedside at the time. We had another discussion regarding continuing BiPAP. He had agreed to continue on BiPAP. There were no signs of agitation or distress at the time. Around 4 PM, he was complaining of feeling nauseous. BiPAP was discontinued and GT suctioning continued. An order for ZOFRAN was placed. Around 4:15 PM, he appeared to have aspirated and was unresponsive. CODE BLUE was initiated. Thank you for the opportunity to participate in the patient's care. Case was discussed with attending, Dr. Villegas. Oli Gomez, DO PGYI Agree with the resident's note. Dr. Baird has been communicating with me regarding plan of care and treatment options. Patient aspirated and went into cardiorespiratory arrest, successfully resuscitated and transferred to ICU for further care. He got intubated. Resident did talk to family.
[2024-11-25 16:59] LABS: Allen Test Not Performed; Base Excess -2 (-3-3); HCO3 28 mEq/L (20-26); O2 Saturation 91 % (91-98); PCO2 82 mmHg (32.0-48.0); PO2 69 mmHg (83-108); Puncture Site Right Radial
[2024-11-25 17:00] LABS: Inspired Oxygen, FIO2 100 %; pH, Arterial 7.14 (7.35-7.45)
[2024-11-25] MEDS: VASOPRESSIN IN NS IVPB 20 UNIT/100 ML BAG 9 UNIT IV (17:00)
[2024-11-25 17:11] LABS: Alanine Aminotransferase 54 U/L (10-49); Albumin, Serum 3.5 gm/dL (3.4-4.8); Albumin/Globulin Ratio 1.1 (1.2-2.2); Alkaline Phosphatase 165 U/L (46-116); Anion Gap 7 (7-16); Aspartate Amino Transferase 76 U/L (0-34); BUN/Creatinine Ratio 24 Ratio (12-20); Bilirubin,Total 0.4 mg/dL (0.3-1.2); Blood Urea Nitrogen 36 mg/dL (9-23); Calcium (Corrected) 9.4 mg/dL (8.5-10.1); Carbon Dioxide 27.4 mMol/L (20.0-31.0); Chloride 105 mMol/L (98-107); Creatinine (Component) 1.5 mg/dL (0.6-1.3); Estimated Creatinine Clearance 46.8 mL/min (>60); Globulin 3.1 gm/dL (2.3-3.5); Glucose 223 mg/dL (74-106); Magnesium 2.4 mg/dL (1.6-2.6); Osmolality,Calculated 292 (275-295); Potassium 4.6 mMol/L (3.4-5.1); Sodium 139 mMol/L (136-145); Total Protein 6.6 gm/dL (5.7-8.2); eGFR 47 See Note
[2024-11-25 17:28] LABS: Troponin I < 0.020 ng/mL (0.0-0.045)
--- NOTE | 2024-11-25 17:29 | PC.RT ---
Withdrew ET Tube 2 cm to 25 cm at the teeth
--- NOTE | 2024-11-25 17:39 | XR_ITS ---
Examination: CT abdomen and pelvis without contrast. Coronal 3-D reconstructions. Sagittal 2-D reconstructions. Date and time of exam:November 26, 2024 0116 hrs. Indications: Abdominal pain and distention beginning 2 days ago CTDI: vol (mGy): 21.5 DLP: (mGycm): 1483 Technique: Axial images of the abdomen have been obtained, 3 mm slice thickness Intravenous contrast material has not been administered. Low dose protocols were performed. One or more of the following dose reduction techniques were used; automated exposure control, adjustment of the mA and/or KV according to patient size, use of iterative reconstruction technique. Findings: Moderate to large right pleural effusion Mild left pleural effusion Mild enlargement cardiac contour Prominent vascular congestion pneumonia both lung bases Liver is enlarged and irregular in contour with fatty infiltration Gallbladder sludge and/or gallstones with thickened gallbladder wall No extrahepatic biliary tract dilatation No pancreatic mass No hydronephrosis Right renal arterial calcification Contrast in bowel loops No pericecal inflammatory change Mild ascites including mild free fluid in the pelvis Colon diverticulosis, no diverticulitis Urinary bladder is contracted around a Foss catheter with urinary bladder wall thickening Impression: Moderate to large left pleural effusion Prominent vascular congestion Bibasilar pneumonia Hepatomegaly, cirrhosis versus primary hepatocellular disease Mild ascites Recommend HIDA scan or MRCP follow-up to confirm acute calculus cholecystitis No bowel obstruction Thickening of the urinary bladder wall, differential would include cystitis
[2024-11-25] MEDS: ROCURONIUM INJ 10 MG/ML VIAL 10 ML 100 MG IV ×2 (17:48→23:03)
[2024-11-25] MEDS: fentaNYL 2,500 MCG/250 ML BAG 2,500 MCG/250 ML BAG IV (17:50)
--- NOTE | 2024-11-25 17:51 | PC.NURSE ---
Addendum entered by Rae Broderick RN 11/26/24 07:28: Patient complained of nausea and began dry heaving. Patient BIPAP removed immediately and patient placed on simple mask 15L. MD Called. This RN went to check on patient and make him aware that he will be getting Zofran shortly. Patient responded ok , and this Rn (Rae Broderick) went to check if the medication had been ordered and approved by pharmacy. Seconds after walking out of the room, patient family began running out of the room screaming. Patient was discovered purple and pulseless. CPR started immediately. Original Note: Patient complained of nausea and dry heaving. Patient BIPAP removed and placed on simple mask 15L. MD Called. This RN went to check on patient and make him aware that he will be getting Zofran shortly. Patient responded that ok , abd this Rn (Rae Broderick) went to gather the check if the medication had been ordered and approved by pharmacy. Seconds after walking out of the room, patient family began running out of the room screaming. Patient was discovered purple and pulseless and CPR started immediately.
--- NOTE | 2024-11-25 18:12 | XR_ITS ---
Examination: AP chest single view Technique: AP portable supine chest single view Exam date and time: November 25, 2024 1823 hrs. Comparison November 25, 2024 1657 hrs. Indications: Post central line placement. Findings: Interval diffuse severe right lung pneumonia Right internal jugular central line tip SVC satisfactory position Tracheal tube tip 3.2 cm above mati Mild CHF with enlarged cardiac contour Orogastric tube is in the stomach, the tip is below the level film Impression: Right internal jugular central line tip SVC satisfactory position Interval severe diffuse right lung pneumonia Mild CHF
--- NOTE | 2024-11-25 18:43 | PD.EDADDENDU ---
Emergency Room Addendum <Stephanie Miranda - Last Filed: 11/25/24 18:46> Addendum Narrative: Chuy mcgregor was called overhead to room 372. On my arrival CPR was in progress and bagged via BVM. I intubated the patient successfully with 7.5 ET measuring 24cm at the teeth. <Carmina Santos MD - Last Filed: 11/27/24 17:14> Addendum Narrative: Responded to CHUY MCGREGOR On my arrival CPR was in progress with patient ventilated via BVM. I intubated the patient emergently. See code sheet for medication , code, and rhythm details. ED Procedures <Stephanie Miranda - Last Filed: 11/25/24 18:46> Intubation Time out performed: No (Performed emergently ) sedative: none Laryngoscope: Hassan ET Tube Size: 7.5 ET Tube Uncuffed: No Tube Secured Depth (cm): 24 Tube Secured Location: teeth Tube Placement Confirmation: visualized tube passing through cords, equal breath sounds bilaterally, no breath sounds over epigastrium and confirmation by capnometry Patient Tolerated Procedure: well and no complications Intubation Complications: none <Carmina Santos MD - Last Filed: 11/27/24 17:14> Intubation Laryngoscope: Lesly
--- NOTE | 2024-11-25 19:07 | PD.RESPROC ---
Procedures Procedure Date / Time 11/25/24 1800 Procedural Time Out Time out performed: 1745 Central Line Placement Right IJ: Indication(s): shock Informed consent obtained: obtained from surrogate decision maker Time out done, and the following verified: correct patient, side and site, procedure, patient position and implants and/or equipment Patient placed on monitor/pulse ox: Yes Hand Hygiene: scrub, soap & water and alcohol-based hand rub Max Sterile Barrier Techniques used: cap, mask, sterile gown, sterile gloves and sterile full body drape Central line prep: Chlorhexidine scrub and sterile drapes applied Local anesthesia used: lidocaine 1% Amount of anesthesia used (mL): 2 Ultrasound used for placement: Yes Sterile Technique if Ultrasound used, including sterile gel: yes Central line lumen inserted: triple Post procedure: sutured in place, good blood return, all ports aspirated, flushed, capped and sterile dressing applied Post procedure x-ray: tip of catheter in good position Patient tolerated procedure: well EBL(ml): 1 Complications: none
--- NOTE | 2024-11-25 19:08 | PD.RESCONSUL ---
HPI Data of Consult Requesting Physician: Brandin Villegas MD Admitting Provider: Brandin Villegas MD Attending Provider: Brandin Villegas MD Primary Care Provider: Brandin Villegas MD Consult Narrative Reason for consult: Post cardiac arrest History of present illness: 78-year-old male with past medical history of CAD status post stents, hypertension, DM2, BPH with self-catheterization, and CHF (no echo on file) was admitted to the medical floors on 11/23/2024 due to sepsis likely secondary to complicated UTI in the setting of ROSEANNE and a positive urine analysis. Patient was admitted to the ICU on 11/25/2024 after cardiac arrest and ROSC was achieved. On this day patient had a rapid response called earlier in the morning due to lethargy, hypotension, and abdominal distention. At this time patient's blood pressure was around 93/53 and he was AO x 2. Primary care team give the patient 1 L bolus of NS which improved the blood pressure and started the patient on BiPAP after he was found to have an ABG of pH 7.15, PCO2 of 83, and PO2 of 43. During this time due to the new onset of abdominal distention and abdominal x-ray was ordered and only showed dilated stomach with nonobstructed nondilated bowel gas pattern, but no perforation. Later on the afternoon patient remained on the BiPAP before complaining of feeling nauseated around 4 PM at this time the BiPAP was discontinued and then patient's NG tube was placed to suctioning. At around 4:15 PM CHUY SENIOR was called to the patient's room as he was found to be pulseless after he appeared to have aspirated. Patient was coded and had a total of 5 rounds of epi, half atropine, 2 amp of sodium bicarb, and ROSC was achieved. At this time patient was intubated and was placed on dopamine drip and transferred to the ICU. Given the acuity of the event most of the history was taken from chart review. PMHx: HTN, DM, BPH with self cath. Surgical Hx: Stents ALLERGIES: NK DA cc:: cc: Brandin Villegas MD Review of Systems Review of Systems ROS Unobtainable: unobtainable due to mental status, unobtainable due to medical condition and due to endotracheal tube Past Medical History Past Medical History NEUROLOGIC: Positive Neurological Disorders and Meningitis CARDIAC: Positive Cardiac Disorders, Myocardial Infarction, Coronary Artery Disease, Hypercholesterolemia and Hypertension RESPIRATORY: Positive Bronchitis GENITOURINARY: Positive Genitourinary Disorders (self caths) and Benign Prostatic Hyperplasia MUSCULOSKELETAL: Positive Musculoskeletal Disorders and Arthritis ENT: Positive Cataracts ENDOCRINE: Positive Endocrine Disorders and Diabetes Mellitus Type 2 HEMATOLOGIC: Positive Blood Disorders and Anemia PSYCHO/SOCIAL: Positive Depression and Anxiety OTHER HISTORY: Positive Chicken Pox Family History FAMILY HISTORY: Positive Family Cardiac Disorders Surgical History SURGICAL: Positive Coronary Stent, Cardiac Catheterization and Angiogram Social History SMOKING STATUS: Never smoker SUBSTANCE USE: does not use ALCOHOL: Never Travel History EBOLA RISK: No Exam Vital Signs Temp Pulse Resp BP Pulse Ox O2 Del Method O2 Flow Rate 98.2 F 62 22 H 159/82 H 94 L Nasal Cannula 3 11/25/24 12:00 11/25/24 18:10 11/25/24 13:10 11/25/24 18:10 11/25/24 18:10 11/25/24 12:00 11/25/24 12:00 FiO2 100 11/25/24 18:15 Narrative Exam General: Mechanically ventilated and sedated Eyes: Pupils reactive to light Ears: No visible ear discharge Nose: No visible nasal discharge. Mouth/Throat: Moist mucous membranes, no redness, no lesions. Neck: Short neck, no cervical lymphadenopathy. Lungs: Clear on the left side, but crackles on the right side. Cardio: Normal S1/S2, regular rhythm, no murmurs, no JVD Abdomen: Firm and distended, no palpable masses, peristalsis present, no guarding or rebound. Extremities: Symmetrical, no significant deformities, trace peripheral edema , non-tender, peripheral pulses presents. Skin: No rashes, no lesions, warm to touch. Neuro: Reactive to painful stimuli, pupils were equally reactive Results Labs 11/25/24 16:46 11/25/24 16:46 Labs: Short CBC 11/25/24 11/25/24 11/25/24 Range/Units 04:43 12:45 16:46 WBC 13.5 H 13.6 H 16.9 H (3.8-10.6) Thou/mm3 Hgb 10.6 L 10.5 L 11.2 L (13.5-16.0) g/dL Hct 34.1 L 34.3 L 35.7 L (41.0-53.0) % Plt Count 214 D 222 244 (140-440) Thou/mm3 BMP 11/25/24 11/25/24 11/25/24 04:43 12:45 16:46 Sodium 136 136 139 Potassium 4.1 5.0 D 4.6 Chloride 103 105 105 Carbon Dioxide 27.3 24.5 27.4 BUN 34 H 34 H 36 H Creatinine 1.4 H 1.4 H 1.5 H Glucose 152 H 198 H 223 H Calcium 8.3 8.1 L 9.0 Cardiac Enzymes 11/25/24 11/25/24 Range/Units 12:45 16:46 Troponin I < 0.020 < 0.020 (0.0-0.045) ng/mL Liver Function 11/25/24 11/25/24 11/25/24 Range/Units 04:43 12:45 16:46 Total Bilirubin 0.5 0.3 0.4 (0.3-1.2) mg/dL AST 47 H 42 H 76 H (0-34) U/L ALT 39 36 54 H (10-49) U/L Alkaline Phosphatase 150 H D 150 H 165 H (46-116) U/L Albumin 3.5 3.5 3.5 (3.4-4.8) gm/dL ABG Interpretation ABG results: 11/25/24 11/25/24 11/25/24 12:15 13:59 16:51 ABG pH 7.15 L* 7.18 L* 7.14 L* ABG pCO2 83 H* 71 H* D 82 H* D ABG pO2 43 L* 87 D 69 L ABG HCO3 29 H 26 28 H ABG O2 Saturation 72 L 96 91 ABG Base Excess -1 -3 -2 Quality Measures Quality Measures none Advance care planning discussed with:: child and legal surragate Medications Home Medications and Allergies Home Medications ?Medication ?Instructions ?Recorded ?Confirmed ?Type carvedilol 25 mg tablet (Coreg) 25 mg PO QDAY #0 tabs 04/05/14 07/20/23 History spironolactone 25 mg tablet 25 mg PO BID ##0 08/23/15 07/20/23 History tamsulosin 0.4 mg capsule (Flomax) 0.4 mg PO BID ##0 08/23/15 07/20/23 History finasteride 5 mg tablet (Proscar) 5 mg PO QDAY #0 tabs 01/12/17 07/20/23 History gemfibrozil 600 mg tablet (Lopid) 600 mg PO HS #0 tabs 01/12/17 07/20/23 History valsartan 40 mg tablet (Diovan) 40 mg PO QDAY #0 tabs 01/12/17 07/20/23 History atorvastatin 10 mg tablet 10 mg PO QPM 03/21/20 07/20/23 History furosemide 20 mg tablet 20 mg PO QDAY 03/21/20 07/20/23 History metformin 500 mg tablet 500 mg PO BID 03/21/20 07/20/23 History Held on 03/21/20. Instructions: Resume on 03/24/20. clonidine HCl 0.1 mg tablet 0.1 mg PO BID 03/30/22 07/20/23 History gabapentin 100 mg capsule 100 mg PO BID 03/30/22 07/20/23 History albuterol sulfate 90 mcg/actuation 1 inh inhalation QID 03/31/22 07/20/23 History aerosol inhaler (Ventolin HFA) fluticasone propionate 50 1 spray intranasal QDAY 03/31/22 07/20/23 History mcg/actuation nasal spray,suspension Allergies Allergy/AdvReac Type Severity Reaction Status Date / Time No Known Allergies Allergy Verified 03/30/22 12:48 Visit Medications Acetaminophen (Acetaminophen 325 Mg Tablet) 650 mg PO Q6HR PRN PRN Reason: PAIN Stop: 12/25/24 08:48 Last Admin: 11/25/24 08:56 Dose: 650 mg Albuterol (Albuterol Inh 8 Gm) 1 puff INH QID [facility] Stop: 12/24/24 05:59 Last Admin: 11/25/24 16:48 Dose: Not Given Atorvastatin Calcium (Atorvastatin Calcium 10 Mg Tablet) 10 mg PO QPM [facility] Stop: 12/24/24 20:59 Last Admin: 11/24/24 20:59 Dose: 10 mg Carvedilol (Carvedilol 12.5 Mg Tablet) 25 mg PO QDAY [facility] Stop: 12/24/24 08:59 Last Admin: 11/25/24 08:44 Dose: 25 mg Clonidine (Clonidine Hcl 0.1 Mg Tablet) 0.1 mg PO BID [facility] Stop: 12/24/24 08:59 Last Admin: 11/25/24 08:43 Dose: 0.1 mg Dextrose (Dextrose 50%-Water Inj 50 Ml Syringe) 25 ml IV Q15MIN PRN PRN Reason: BG 50-70 responsive npo pt Stop: 12/23/24 21:20 Finasteride (Finasteride 5 Mg Tablet) 5 mg PO QDAY [facility] Stop: 12/24/24 08:59 Last Admin: 11/25/24 08:44 Dose: 5 mg Fluticasone Propionate (Fluticasone [place]ul [place] 0.05% 16 Gm Btl) 1 spray NASAL QDAY [facility] Stop: 12/24/24 08:59 Last Admin: 11/25/24 12:59 Dose: Not Given Gabapentin (Gabapentin 100 Mg Capsule) 100 mg PO BID [facility] Stop: 12/24/24 08:59 Last Admin: 11/25/24 08:44 Dose: 100 mg Glucagon (Glucagon Inj 1 Mg Vial) 1 mg IM Q15MIN PRN PRN Reason: BG <70, and no IV access Heparin Sodium (Porcine) (Heparin Sod Inj 5000 Unit/Ml Vial) 5,000 unit SC Q8HR [facility] Stop: 12/07/24 21:59 Last Admin: 11/25/24 13:53 Dose: 5,000 unit Sodium Chloride (Ns) 1,000 mls @ 125 mls/hr IV .Q10H [facility] Stop: 12/23/24 21:25 Last Admin: 11/25/24 08:45 Dose: 125 mls/hr Ceftriaxone Sodium/Dextrose (Rocephin/D5w 2gm) 2 gm in 50 mls @ 100 mls/hr IV QDAY [facility] Stop: 12/01/24 09:14 Last Admin: 11/25/24 10:50 Dose: 100 mls/hr Norepinephrine/Dextrose (Levophed In D5w 8mg/250ml) 8 mg in 250 mls @ 10.465 mls/hr IV .[id number] PRN; Protocol PRN Reason: PER PROTOCOL Stop: 12/25/24 16:36 Last Titration: 11/25/24 18:34 Dose: 0.18 mcg/kg/min, 37.675 mls/hr Vasopressin/Sodium Chloride (Vasostrict/Ns Ivpb) 20 unit in 100 mls @ 9 mls/hr IV .Q11H7M PRN; Protocol PRN Reason: PER PROTOCOL Stop: 12/25/24 16:36 Last Admin: 11/25/24 17:00 Dose: 0.03 unit/min, 9 mls/hr Piperacillin/Tazobactam/Dextrose (Zosyn) 3.375 gm in 50 mls @ 12.5 mls/hr IV Q8HR [facility] Stop: 12/02/24 21:59 Fentanyl Citrate (Sublimaze Inj 2,500 Mcg/250 Ml Bag) 2,500 mcg in 250 mls @ 2.5 mls/hr IV .Q24H PRN; Protocol PRN Reason: PER PROTOCOL Stop: 11/30/24 17:36 Last Admin: 11/25/24 17:50 Dose: 25 mcg/hr, 2.5 mls/hr Vancomycin HCl 1,500 mg/ (Sodium Chloride) 500 mls @ 200 mls/hr IV QDAY@1400 [facility] Stop: 12/02/24 18:29 Insulin Human Lispro (Insulin Lispro (Admelog) 1 Unit/0.01 Ml Unit) 0 unit SC [facility]; Protocol Stop: 12/24/24 07:29 Last Admin: 11/25/24 18:16 Dose: Not Given Pharmacy Consult (Vancomycin Pharmacy To Dose 1 Each Each) 1 each IV QDAY PRN PRN Reason: PROTOCOL Stop: 12/25/24 17:44 Phenazopyridine HCl (Phenazopyridine Hcl 100 Mg Tablet) 100 mg PO BID [facility] Stop: 11/27/24 21:01 Last Admin: 11/25/24 08:56 Dose: 100 mg Tamsulosin HCl (Tamsulosin Hcl 0.4 Mg Capsule) 0.4 mg PO BID [facility] Stop: 12/24/24 08:59 Last Admin: 11/25/24 08:43 Dose: 0.4 mg Discontinued Medications Acetaminophen (Acetaminophen 500 Mg Tablet) 1,000 mg PO X1 ONE Stop: 11/23/24 14:18 Last Admin: 11/23/24 14:35 Dose: 1,000 mg Acetaminophen (Acetaminophen 500 Mg Tablet) 1,000 mg PO X1 ONE Stop: 11/23/24 20:09 Last Admin: 11/23/24 20:15 Dose: 1,000 mg Sodium Chloride (Ns) 1,000 mls @ 999 mls/hr IV .Q1H1M ONE Stop: 11/23/24 15:18 Last Infusion: 11/23/24 17:02 Dose: Infused Ceftriaxone Sodium/Dextrose (Rocephin/D5w 1gm Iv Premix) 1 gm in 50 mls @ 100 mls/hr IV X1 ONE Stop: 11/23/24 14:47 Last Infusion: 11/23/24 15:30 Dose: Infused Lactated Ringer's (Lactated Ringers) 1,000 mls @ 999 mls/hr IV .Q1H1M ONE Stop: 11/23/24 17:12 Last Infusion: 11/23/24 18:40 Dose: Infused Ceftriaxone Sodium 2 gm/ (Sodium Chloride) 50 mls @ 100 mls/hr IV QDAY [facility]ESS Stop: 12/01/24 09:12 Sodium Chloride (Ns) 1,000 mls @ 999 mls/hr IV .Q1H1M ONE Stop: 11/25/24 13:51 Last Admin: 11/25/24 12:59 Dose: 999 mls/hr Lactated Ringer's (Lactated Ringers) 1,000 mls @ 999 mls/hr IV .Q1H1M ONE Stop: 11/25/24 17:49 Last Admin: 11/25/24 16:49 Dose: 999 mls/hr Lactated Ringer's (Lactated Ringers) 1,000 mls @ 999 mls/hr IV .Q1H1M ONE Stop: 11/25/24 17:49 Last Admin: 11/25/24 17:49 Dose: 999 mls/hr Piperacillin Sod/Tazobactam (Sod 4.5 gm/ Sodium Chloride) 100 mls @ 200 mls/hr IV X1 ONE Stop: 11/25/24 18:14 Fentanyl Citrate (Sublimaze Inj 2,500 Mcg/250 Ml Bag) 2,500 mcg in 250 mls @ 2.5 mls/hr IV .Q24H PRN; Protocol PRN Reason: PER PROTOCOL Stop: 11/30/24 17:42 Rocuronium [place] (Rocuronium Inj 10 Mg/Ml Vial 10 Ml) 100 mg IV X1 ONE Stop: 11/25/24 17:35 Last Admin: 11/25/24 17:48 Dose: 100 mg Rocuronium [place] (Rocuronium Inj 10 Mg/Ml Vial 10 Ml) 100 mg IV X1 ONE Stop: 11/25/24 17:43 Sodium Polystyrene Sulfonate (Sod Polystyrene Sulfon Susp 15 Gm/60 Ml Btl) 30 gm NG X1 ONE Stop: 11/25/24 15:33 Assessment & Plan Plan 78-year-old male with past medical history of CAD status post stents, hypertension, DM2, BPH with self-catheterization, and CHF (no echo on file) was upgraded to the ICU on 11/25/2024 due to postcardiac arrest. [employer]: #Acute encephalopathy #Sedated Patient was more confused and agitated earlier prior to the code Could be a component of hypoxia versus metabolic Will continue to monitor neurological recovery CVS: #Shock #Postcardiac arrest Source of shock is unknown at this time Currently on Levophed and vasopressin Started Zosyn and vancomycin for now due to unknown etiology of shock and episode of aspiration Continue ceftriaxone 2 L boluses given Echo ordered #Hx of CAD s/p stents #History of heart failure Patient has a history of heart failure, but there is no echo on file Troponins were negative Will follow-up on echo Respiratory: #Acute hypoxic respiratory failure #Aspiration pneumonia? #Aspiration pneumonitis Patient had episode of aspiration which is causing her to become hypoxic and eventually coded Chest x-ray that showed new infiltrate in the right lower lobe which could be pneumonia versus chest inflammation from gastric acid aspirated. Intubated on 11/25/2024 Started Zosyn and vancomycin Will discontinue vancomycin if MRSA nares negative Renal: #Acute kidney injury Patient came in with creatinine of 1.5 from his baseline of 0.6-0.8 Having good urine output Avoid nephrotoxic agent Renally dose medication IV fluids #Lactic acidosis Lactic acid 2.5 after patient coded This is most likely due to hypoperfusion Will continue to trend GI: #Abdominal distention Abdominal x-ray only showed distended stomach and distended bowel, but no perforation NG tube in place with suction Ordered abdomen/pelvis CT with oral contrast #Transaminitis On review patient has had liver ultrasound that showed mild hepatomegaly Patient has a history of transaminitis in the past AST 76, ALT 54, alkaline phosphatase 165 today Ordered hepatitis panel Ordered abdomen/pelvis CT with oral contrast : #Complicated UTI, E. coli Patient had a positive UA and urine culture grew E. coli Will continue Rocephin for now as E. coli is sensitive to Rocephin Heme: #Normocytic normochromic anemia Patient has a base hemoglobin of around 12-13 Patient hemoglobin today 11.2 Could be hemodilutional No active signs of bleeding We will continue to monitor ID: #E. coli UTI #Possible aspiration pneumonia Blood cultures ordered Sputum cultures ordered Will continue with vancomycin, Zosyn, and Rocephin Will discontinue vancomycin if MRSA nares negative Hospital Maintenance: Diet: NPO DVT ppx: Heparin subcu GI ppx: Protonix IV IV lines: PIV, CIV Sanabria: sanabria cath Code status: Full code Dispo: ICU post cardiac arrest Case disclosed with Attending Dr. Kai Black PGY1
--- NOTE | 2024-11-25 19:09 | PD.RESPROC ---
Procedures Procedure Date / Time 11/25/24 18:25 Procedural Time Out Time out performed: yes Procedure Narrative Procedure Narrative: A time out was performed. My hands were washed immediately prior to the procedure. I wore a surgical cap, mask, sterile gown and sterile gloves throughout the procedure.The Right wrist was prepped using chlorhexidine scrub and draped in sterile fashion. The radial pulse was identified and the wrist was positioned in the usual fashion. Using the Arrow Radial Arterial Line Kit and ultrasound guidance, a needle was inserted into the radial artery. Arterial blood was seen to pulsate in the flash chamber, but when internal guidewire was advanced the arterial blood flow was lost, reattempt to place line again was unsuccessfull therefore moved to Left wrist was prepped. New arterial line kit was used for left radial artery, but was also unsuccessfull at the time of advancing guidewire even though arterial blood flow was seen and on US catheter was in radial artery. At this time it was decided to withdraw and will reattempt tomorrow. Patient did not have any signs of hematoma or other complications and blood loss was 14 ml. Case discussed and supervised by attending Dr. Kai Black MD PGY1 Arterial Line Indication(s): frequent arterial line sampling and shock Informed consent obtained: obtained from surrogate decision maker Time out done, and the following verified: correct patient, side and site, procedure, patient position and implants and/or equipment Technique used: guide wire technique Patient tolerated procedure: well Site: left, right and radial Procedure comment: unsuccessful line placement
[2024-11-25 19:31] LABS: Base Excess -1 (-3-3); HCO3 27 mEq/L (20-26); Inspired Oxygen, FIO2 100 %; O2 Saturation 97 % (91-98); PCO2 58 mmHg (32.0-48.0); PO2 87 mmHg (83-108); pH, Arterial 7.27 (7.35-7.45)
[2024-11-25] MEDS: Vancomycin Inj 1,500 MG in SODIUM CHLORIDE 0.9% 500 ML 500 ML 200 MG IV (19:33)
[2024-11-25 19:35] LABS: Allen Test Performed/OK; Puncture Site Right Radial
[2024-11-25] MEDS: Norepinephrine/D5W 8mg/250ml 8 MG/250 ML BAG 41.861 MG IV (19:44)
[2024-11-25 19:48] LABS: Reflex Lactate? Y
[2024-11-25 20:38] LABS: Lactic Acid, 3 HR 1.3 mMol/L (0.4-2.0)
[2024-11-25] MEDS: PIPER/TAZO INJ 4.5 GM in SODIUM CHLORIDE 0.9% (POP) 100 ML IV (20:53)
[2024-11-25] MEDS: PANTOPRAZOLE INJ 40 MG VIAL IV (21:53)
[2024-11-25] MEDS: ATORVASTATIN CALCIUM 10 MG TABLET PO (21:54)
[2024-11-25] MEDS: PROPOFOL 1,000 MG IVPB 1,000 MG/100 ML VIAL 3.349 MG IV (23:04)
[2024-11-25] MEDS: ALBUTEROL/IPRATROPIUM (Duoneb) RT SOL 3 ML NEBU INH (23:05)
[2024-11-25 23:35] LABS: Base Excess -2 (-3-3); HCO3 26 mEq/L (20-26); Inspired Oxygen, FIO2 21 %; O2 Saturation 98 % (91-98); PCO2 54 mmHg (32.0-48.0); PO2 92 mmHg (83-108); pH, Arterial 7.29 (7.35-7.45)
[2024-11-25 23:51] LABS: Allen Test Performed/OK; Puncture Site Right Radial
[2024-11-26] VITALS (121 sets, daily range): BP systolic 0–163; BP diastolic 0–86; PULSE 40–54; RESP 0–39; TEMP 35.8–36.6; O2SAT 84–99
[2024-11-26] MEDS: INSULIN LISPRO (AdmeLOG) 1 UNIT/0.01 ML UNIT SC ×2 (00:36→06:30)
[2024-11-26] MEDS: VASOPRESSIN IN NS IVPB 20 UNIT/100 ML BAG 9 UNIT IV ×2 (00:58→12:56)
[2024-11-26] MEDS: Norepinephrine/D5W 8mg/250ml 8 MG/250 ML BAG 33.489 MG IV (02:20)
[2024-11-26] MEDS: ALBUTEROL/IPRATROPIUM (Duoneb) RT SOL 3 ML NEBU INH ×5 (02:34→22:10)
--- NOTE | 2024-11-26 03:21 | PRELIM_ITS ---
CT scan of the abdomen and pelvis without intravenous contrast with oral contrast (axial sections with sagittal and coronal reformats) November 26, 2024 0116 hours Clinical History: Abdominal distention. Comparison: None. Findings: Bilateral pleural effusions. Bilateral basal lung consolidations. Dilated left atrium. Coronary arteries calcifications. The pancreas, spleen, kidneys and adrenals are unremarkable on this noncontrast study. Gallstones. Gallbladder wall thickening. Pericholecystic fat stranding. Mild irregular liver margins. No evidence of bowel obstruction. No evidence of appendicitis. There is no mesenteric or retroperitoneal adenopathy. Foss catheter in place. The urinary bladder is not distended, probable thickening of the urinary bladder wall. Diverticulosis of the colon. There is no free air. Small amount of complex free fluid in the right abdomen. Degenerative changes of the imaged portions of the spine. Chronic multilevel disc disease. No acute fractures. Vascular calcifications. Impression: 1. Probable acute calculus cholecystitis. 2. Possible cystitis. 3. Complex free fluid in the right abdomen, probably infectious inflammatory in etiology. Consider surgical consult. 4. Possible cirrhosis. 5. Bilateral pleural effusions. 6. Multifocal pneumonia. Report Electronically Signed By: Domingo Keller 11/26/2024 3:20:40 AM [EST]
[2024-11-26 04:57] LABS: Base Excess -1 (-3-3); HCO3 26 mEq/L (20-26); Inspired Oxygen, FIO2 100 %; O2 Saturation 95 % (91-98); PCO2 56 mmHg (32.0-48.0); PO2 76 mmHg (83-108); pH, Arterial 7.28 (7.35-7.45)
[2024-11-26 05:08] LABS: Puncture Site Right Radial
[2024-11-26 05:09] LABS: Allen Test Performed/OK
[2024-11-26 05:55] LABS: Basophils % (Auto) 0 % (0-2.5); Eosinophils % (Auto) 0 % (0-10); Hematocrit 31.4 % (41.0-53.0); Hemoglobin 9.7 g/dL (13.5-16.0); Immature Granulocytes % (Auto) 1 % (0-0); Immature Granulocytes Auto 0.14 Thou/mm3 (0.00-0.00); Lymphocytes # (Auto) 1.4 Thou/mm3 (1.0-4.8); Lymphocytes % (Auto) 10 % (10-50); Mean Corpuscular HGB Conc 30.9 g/dl (31.0-37.0); Mean Corpuscular Hemoglobin 28.3 pg (25.0-35.0); Mean Corpuscular Volume 92 fL (80-100); Monocytes # (Auto) 0.9 Thou/mm3 (0.0-0.8); Monocytes % (Auto) 7 % (0-12); Neutrophils # (Auto) 11.2 Thou/mm3 (1.8-7.7); Neutrophils % (Auto) 82 % (37-80); Nucleated Red Blood Cell % 0 /100 WBC (0); Platelet Count 266 Thou/mm3 (140-440); Red Blood Count 3.43 Miln/mm3 (4.50-5.90); White Blood Count 13.6 Thou/mm3 (3.8-10.6)
--- NOTE | 2024-11-26 06:00 | XR_ITS ---
Examination: AP chest single view Technique one AP portable semiupright chest single view Exam date and time: November 28, 2024 0537 hrs. Comparison November 25, 2024 Indications: Hypoxic respiratory failure, diffuse right lung pneumonia on November 25, 2024 examination Findings: Diffuse right lung pneumonia Moderate enlargement cardiac contour Moderate vascular congestion. Right internal jugular central line tip SVC satisfactory position Endotracheal tube tip 3.6 cm above mati. Orogastric tube is in the stomach, the tip is below the level of the film Impression: Partial clearing of diffuse pneumonia right lung Mild heart failure
[2024-11-26 06:21] LABS: Alanine Aminotransferase 59 U/L (10-49); Albumin, Serum 3.1 gm/dL (3.4-4.8); Albumin/Globulin Ratio 1.1 (1.2-2.2); Alkaline Phosphatase 145 U/L (46-116); Anion Gap 10 (7-16); Aspartate Amino Transferase 69 U/L (0-34); BUN/Creatinine Ratio 28 Ratio (12-20); Bilirubin,Total 0.5 mg/dL (0.3-1.2); Blood Urea Nitrogen 37 mg/dL (9-23); Calcium 8.2 mg/dL (8.3-10.6); Calcium (Corrected) 8.9 mg/dL (8.5-10.1); Carbon Dioxide 24.5 mMol/L (20.0-31.0); Chloride 104 mMol/L (98-107); Creatinine (Component) 1.3 mg/dL (0.6-1.3); Globulin 2.9 gm/dL (2.3-3.5); Glucose 188 mg/dL (74-106); Magnesium 2.2 mg/dL (1.6-2.6); Osmolality,Calculated 289 (275-295); Potassium 4.9 mMol/L (3.4-5.1); Sodium 138 mMol/L (136-145); eGFR 56 See Note
[2024-11-26] MEDS: ALBUTEROL INH 8 GM 1 PUFF INH ×5 (06:26→18:20)
[2024-11-26] MEDS: HEPARIN SOD INJ 5000 UNIT/ML VIAL SC (06:31)
[2024-11-26] MEDS: PIPER/TAZO 3.375 GM PREMIX 3.375 GM/50 ML BAG IV ×3 (06:32→21:26)
[2024-11-26] MEDS: PANTOPRAZOLE INJ 40 MG VIAL IV (09:49)
[2024-11-26] MEDS: cefTRIAXone/D5w 2gm 2 GM/50 ML BAG IV (09:49)
--- NOTE | 2024-11-26 10:00 | PD.NEPHPROG ---
Documentation for date of: 11/26/24 Subjective Subjective Interval history: Mr. 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 Grider) history of CHF, history of pituitary adenoma which was removed presented to the emergency department with significant shortness of breath and her daughter called paramedics. When paramedics arrived his O2 sat was less than 88%. Chest x-ray showed mild vascular congestion and no pneumonia. Admitted to the hospital with hypoxic respiratory failure ED COURSE: T103.8, HR 106, BP 141/91, satting 93% on 2 L NC. WBC 13.8, Hgb 11.2, PLT 253. Normal coag studies. CHEM panel significant for BUN 26, CR 1.5, EGFR 47, GLUCOSE 189, A1c 6.8, phosphorus 1.5, AST 44, AST 36, ALP 117, BNP 109, troponin 0.029, Pro-Calc 3.01. UA showed positive LE, RBC 6, WBC 41, urea 4+. EKG sinus rhythm without acute ST changes. CXR mild vascular congestion, no lobar pneumonia. ED gave 2 L IVF, CEFTRIAXONE 1 g x 1. Will admit for sepsis in settings of UTI. 11/26/2024 patient currently seen in ICU. Apparently yesterday after I saw the patient with the resident that he had a few events where rapid response was called in the beginning during NG tube insertion for abdominal distention/ileus. Subsequently he coded secondary to aspiration pneumonia, intubated and transferred to ICU. Currently on pressors. Dr. Quinn and ICU team at bedside. Family at bedside. Labs/medications reviewed. On broad-spectrum antibiotics. WBC 13.6, hemoglobin 9.7, platelets 266. ABG showing pH 7.28, [id number], pO2 67, HCO3 26. Sodium 138, potassium 4.9, BUN 37, creatinine 1.3, lactic acid 1.3, calcium 8.9, magnesium 2.2, AST 69, ALT 59, ammonia 50, albumin 3.1,Chest x-ray showed pneumonia in the right lung. Review of Systems Review of Systems ROS Unobtainable: due to endotracheal tube Exam Vital Signs Temp Pulse Resp BP Pulse Ox O2 Del Method O2 Flow Rate 36.6 C 44 L 33 H 107/56 L 93 L Mechanical Ventilation 3 11/26/24 07:15 11/26/24 07:45 11/26/24 06:27 11/26/24 07:45 11/26/24 07:45 11/26/24 07:15 11/25/24 12:00 FiO2 100 11/26/24 07:15 Narrative Exam GENERAL APPEARANCE patient currently seen in ICU. Orotracheal intubation noted CARDIOVASCULAR: Heart regular, no murmurs LUNGS/CHEST: decreased breath sounds bilaterally ABDOMEN: Soft, nontender, significant disten tion. No masses. Normal bowel sounds. EXTREMITIES: No edema, clubbing or cyanosis. SKIN: Skin exam normal without any rashes MUSCULOSKELETAL: in bed NEUROLOGICAL : Intubated, sedated Objective Labs 11/26/24 04:37 11/26/24 04:37 Labs: Laboratory Results - last 24 hr 11/25/24 11/25/24 11/25/24 12:15 12:45 13:59 WBC 13.6 H RBC 3.64 L Hgb 10.5 L Hct 34.3 L MCV 94 MCH 28.8 MCHC 30.6 L RDW Std Deviation 48.0 H Plt Count 222 Neut % (Auto) 83 H Lymph % (Auto) 8 L [place] % (Auto) 8 Eos % (Auto) 0 Baso % (Auto) 0 Neut # (Auto) 11.2 H Lymph # (Auto) 1.1 [place] # (Auto) 1.1 H Eos # (Auto) 0.0 Baso # (Auto) 0.0 Immature Gran # (Auto) 0.11 H Absolute Nucleated RBC 0.00 Immature Gran % 1 H Nucleated RBC % 0 Puncture Site Left Brachial Right Brachial ABG pH 7.15 L* 7.18 L* ABG pCO2 83 H* 71 H* D ABG pO2 43 L* 87 D ABG HCO3 29 H 26 ABG O2 Saturation 72 L 96 ABG Base Excess -1 -3 FiO2 21 21 Sodium 136 Potassium 5.0 D Chloride 105 Carbon Dioxide 24.5 Anion Gap 7 BUN 34 H Creatinine 1.4 H Estim Creat Clear Calc 50.2 L eGFR 51 L BUN/Creatinine Ratio 24 H Glucose 198 H Calculated Osmolality 285 Lactic Acid 1.0 Calcium 8.1 L Corrected Calcium 8.5 Magnesium Total Bilirubin 0.3 AST 42 H ALT 36 Alkaline Phosphatase 150 H Troponin I < 0.020 Total Protein 6.4 Albumin 3.5 Globulin 2.9 Albumin/Globulin Ratio 1.2 11/25/24 11/25/24 11/25/24 16:46 16:51 19:23 WBC 16.9 H RBC 3.89 L Hgb 11.2 L Hct 35.7 L MCV 92 MCH 28.8 MCHC 31.4 RDW Std Deviation 47.8 H Plt Count 244 Neut % (Auto) 75 Lymph % (Auto) 16 [place] % (Auto) 7 Eos % (Auto) 0 Baso % (Auto) 0 Neut # (Auto) 12.7 H Lymph # (Auto) 2.7 [place] # (Auto) 1.2 H Eos # (Auto) 0.0 Baso # (Auto) 0.1 Immature Gran # (Auto) 0.24 H Absolute Nucleated RBC 0.00 Immature Gran % 1 H Nucleated RBC % 0 Puncture Site Right Radial Right Radial ABG pH 7.14 L* 7.27 L D ABG pCO2 82 H* D 58 H D ABG pO2 69 L 87 ABG HCO3 28 H 27 H ABG O2 Saturation 91 97 ABG Base Excess -2 -1 FiO2 100 100 Sodium 139 Potassium 4.6 Chloride 105 Carbon Dioxide 27.4 Anion Gap 7 BUN 36 H Creatinine 1.5 H Estim Creat Clear Calc 46.8 L eGFR 47 L BUN/Creatinine Ratio 24 H Glucose 223 H Calculated Osmolality 292 Lactic Acid 2.5 H Calcium 9.0 Corrected Calcium 9.4 Magnesium 2.4 Total Bilirubin 0.4 AST 76 H ALT 54 H Alkaline Phosphatase 165 H Troponin I < 0.020 Total Protein 6.6 Albumin 3.5 Globulin 3.1 Albumin/Globulin Ratio 1.1 L 11/25/24 11/25/24 11/26/24 20:15 23:21 04:37 WBC 13.6 H RBC 3.43 L Hgb 9.7 L Hct 31.4 L MCV 92 MCH 28.3 MCHC 30.9 L RDW Std Deviation 48.0 H Plt Count 266 Neut % (Auto) 82 H Lymph % (Auto) 10 [place] % (Auto) 7 Eos % (Auto) 0 Baso % (Auto) 0 Neut # (Auto) 11.2 H Lymph # (Auto) 1.4 [place] # (Auto) 0.9 H Eos # (Auto) 0.0 Baso # (Auto) 0.0 Immature Gran # (Auto) 0.14 H Absolute Nucleated RBC 0.00 Immature Gran % 1 H Nucleated RBC % 0 Puncture Site Right Radial ABG pH 7.29 L ABG pCO2 54 H ABG pO2 92 ABG HCO3 26 ABG O2 Saturation 98 ABG Base Excess -2 FiO2 21 Sodium 138 Potassium 4.9 Chloride 104 Carbon Dioxide 24.5 Anion Gap 10 BUN 37 H Creatinine 1.3 Estim Creat Clear Calc 54.0 L eGFR 56 L BUN/Creatinine Ratio 28 H Glucose 188 H Calculated Osmolality 289 Lactic Acid 1.3 Calcium 8.2 L Corrected Calcium 8.9 Magnesium 2.2 Total Bilirubin 0.5 AST 69 H ALT 59 H Alkaline Phosphatase 145 H D Troponin I Total Protein 6.0 Albumin 3.1 L Globulin 2.9 Albumin/Globulin Ratio 1.1 L 11/26/24 04:48 WBC RBC Hgb Hct MCV MCH MCHC RDW Std Deviation Plt Count Neut % (Auto) Lymph % (Auto) [place] % (Auto) Eos % (Auto) Baso % (Auto) Neut # (Auto) Lymph # (Auto) [place] # (Auto) Eos # (Auto) Baso # (Auto) Immature Gran # (Auto) Absolute Nucleated RBC Immature Gran % Nucleated RBC % Puncture Site Right Radial ABG pH 7.28 L ABG pCO2 56 H ABG pO2 76 L ABG HCO3 26 ABG O2 Saturation 95 ABG Base Excess -1 FiO2 100 Sodium Potassium Chloride Carbon Dioxide Anion Gap BUN Creatinine Estim Creat Clear Calc eGFR BUN/Creatinine Ratio Glucose Calculated Osmolality Lactic Acid Calcium Corrected Calcium Magnesium Total Bilirubin AST ALT Alkaline Phosphatase Troponin I Total Protein Albumin Globulin Albumin/Globulin Ratio ABG Interpretation ABG results: 11/25/24 11/25/24 11/25/24 12:15 13:59 16:51 ABG pH 7.15 L* 7.18 L* 7.14 L* ABG pCO2 83 H* 71 H* D 82 H* D ABG pO2 43 L* 87 D 69 L ABG HCO3 29 H 26 28 H ABG O2 Saturation 72 L 96 91 ABG Base Excess -1 -3 -2 11/25/24 11/25/24 11/26/24 19:23 23:21 04:48 ABG pH 7.27 L D 7.29 L 7.28 L ABG pCO2 58 H D 54 H 56 H ABG pO2 87 92 76 L ABG HCO3 27 H 26 26 ABG O2 Saturation 97 98 95 ABG Base Excess -1 -2 -1 Assessment & Plan Assessment and plan (1) UTI (urinary tract infection): Status: Acute (2) Sepsis: Status: Acute (3) Type 2 diabetes mellitus: Status: Acute (4) Hypertension: Status: Acute (5) Hyperlipidemia: Status: Acute (6) Acute renal failure (ARF): Status: Acute Additional Assessment & Plan Additional Plan: 1) UTI (urinary tract infection): Status: Acute Assessment and plan: Patient noted to have significant UTI with sepsis. Antibiotics, fluids given. (2) status post cardiorespiratory arrest secondary to aspiration pneumonia Status: Acute Assessment and plan: on ventilator (3) Type 2 diabetes mellitus: Status: Acute Assessment and plan: Accu-Cheks, sliding scale (4) sepsis//hypotension Status: Acute Assessment and plan: Currently on pressors (5) Hyperlipidemia: Status: Acute Assessment and plan: On statin (6) Acute renal failure (ARF): Status: Acute Assessment and plan: ROSEANNE secondary to prerenal azotemia. Will hold spironolactone, metformin, Diovan, Lasix. Continue with fluids Care discussed with ICU team and family at bedside CODE STATUS full code
--- NOTE | 2024-11-26 10:25 | ESPR_ITS ---
Documentation for date of: 11/26/24 Subjective Subjective Interval history: 78-year-old male with past medical history of CAD status post stents, hypertension, DM2, BPH with self-catheterization, and CHF (no echo on file) was admitted to the medical floors on 11/23/2024 due to sepsis likely secondary to complicated UTI in the setting of ROSEANNE and a positive urine analysis. Patient was admitted to the ICU on 11/25/2024 after cardiac arrest and ROSC was achieved. On this day patient had a rapid response called earlier in the morning due to lethargy, hypotension, and abdominal distention. At this time patient's blood pressure was around 93/53 and he was AO x 2. Primary care team give the patient 1 L bolus of NS which improved the blood pressure and started the patient on BiPAP after he was found to have an ABG of pH 7.15, PCO2 of 83, and PO2 of 43. During this time due to the new onset of abdominal distention and abdominal x-ray was ordered and only showed dilated stomach with nonobstructed nondilated bowel gas pattern, but no perforation. Later on the afternoon patient remained on the BiPAP before complaining of feeling nauseated around 4 PM at this time the BiPAP was discontinued and then patient's NG tube was placed to suctioning. At around 4:15 PM CHUY SENIOR was called to the patient's room as he was found to be pulseless after he appeared to have aspirated. Patient was coded and had a total of 5 rounds of epi, half atropine, 2 amp of sodium bicarb, and ROSC was achieved. At this time patient was intubated and was placed on dopamine drip and transferred to the ICU. 11/26/2024: Patient seen and examined at bedside this morning. Overnight patient became hypothermic at 96.5, but on rectal temperature he was 97.5 this morning. Patient was slowly weaned down on vasopressors, but he was placed on propofol overnight and was given 2 more doses of rocuronium given that he was breathing over the vent. Patient opening eyes spontaneously, had good pain response, pupils were reactive bilaterally. Patient underwent abdomen/pelvis CT with showed consolidation of the lower lobes therefore consent was taken for bronchoscopy. Patient underwent bronchoscopy and there was friable mucosa seen in the bronchoscopy with some bile secretions appreciated also during bronchoscopy. Patient was placed on his left side to help with oxygenation. Will get ammonia levels, ABG, and will start CPT and Mucomyst every 4 hours with DuoNebs. Successfully placed on arterial line today. Exam Vital Signs Temp Pulse Resp BP Pulse Ox O2 Del Method O2 Flow Rate 97.9 F 44 L 33 H 107/56 L 93 L Mechanical Ventilation 3 11/26/24 07:15 11/26/24 07:45 11/26/24 06:27 11/26/24 07:45 11/26/24 07:45 11/26/24 07:15 11/25/24 12:00 FiO2 100 11/26/24 07:15 Narrative Exam General: Mechanically ventilated and sedated, responsive to painful stimuli and has spontaneous eye opening Eyes: Pupils reactive to light and spontaneous eye opening Ears: No visible ear discharge Nose: No visible nasal discharge. Mouth/Throat: Moist mucous membranes, no redness, no lesions. Neck: Short neck, no cervical lymphadenopathy. Lungs: Clear on the left side, but crackles on the right side. Cardio: Normal S1/S2, regular rhythm, no murmurs, no JVD Abdomen: Firm and distended, no palpable masses, peristalsis present, no guarding or rebound. Extremities: Symmetrical, no significant deformities, trace peripheral edema , non-tender, peripheral pulses presents. Skin: No rashes, no lesions, warm to touch. Neuro: Reactive to painful stimuli, pupils were equally reactive, spontaneous eye opening Objective Labs 11/26/24 04:37 11/26/24 04:37 Labs: Laboratory Results - last 24 hr 11/25/24 11/25/24 11/25/24 12:15 12:45 13:59 WBC 13.6 H RBC 3.64 L Hgb 10.5 L Hct 34.3 L MCV 94 MCH 28.8 MCHC 30.6 L RDW Std Deviation 48.0 H Plt Count 222 Neut % (Auto) 83 H Lymph % (Auto) 8 L [place] % (Auto) 8 Eos % (Auto) 0 Baso % (Auto) 0 Neut # (Auto) 11.2 H Lymph # (Auto) 1.1 [place] # (Auto) 1.1 H Eos # (Auto) 0.0 Baso # (Auto) 0.0 Immature Gran # (Auto) 0.11 H Absolute Nucleated RBC 0.00 Immature Gran % 1 H Nucleated RBC % 0 Puncture Site Left Brachial Right Brachial ABG pH 7.15 L* 7.18 L* ABG pCO2 83 H* 71 H* D ABG pO2 43 L* 87 D ABG HCO3 29 H 26 ABG O2 Saturation 72 L 96 ABG Base Excess -1 -3 FiO2 21 21 Sodium 136 Potassium 5.0 D Chloride 105 Carbon Dioxide 24.5 Anion Gap 7 BUN 34 H Creatinine 1.4 H Estim Creat Clear Calc 50.2 L eGFR 51 L BUN/Creatinine Ratio 24 H Glucose 198 H Calculated Osmolality 285 Lactic Acid 1.0 Calcium 8.1 L Corrected Calcium 8.5 Magnesium Total Bilirubin 0.3 AST 42 H ALT 36 Alkaline Phosphatase 150 H Troponin I < 0.020 Total Protein 6.4 Albumin 3.5 Globulin 2.9 Albumin/Globulin Ratio 1.2 11/25/24 11/25/24 11/25/24 16:46 16:51 19:23 WBC 16.9 H RBC 3.89 L Hgb 11.2 L Hct 35.7 L MCV 92 MCH 28.8 MCHC 31.4 RDW Std Deviation 47.8 H Plt Count 244 Neut % (Auto) 75 Lymph % (Auto) 16 [place] % (Auto) 7 Eos % (Auto) 0 Baso % (Auto) 0 Neut # (Auto) 12.7 H Lymph # (Auto) 2.7 [place] # (Auto) 1.2 H Eos # (Auto) 0.0 Baso # (Auto) 0.1 Immature Gran # (Auto) 0.24 H Absolute Nucleated RBC 0.00 Immature Gran % 1 H Nucleated RBC % 0 Puncture Site Right Radial Right Radial ABG pH 7.14 L* 7.27 L D ABG pCO2 82 H* D 58 H D ABG pO2 69 L 87 ABG HCO3 28 H 27 H ABG O2 Saturation 91 97 ABG Base Excess -2 -1 FiO2 100 100 Sodium 139 Potassium 4.6 Chloride 105 Carbon Dioxide 27.4 Anion Gap 7 BUN 36 H Creatinine 1.5 H Estim Creat Clear Calc 46.8 L eGFR 47 L BUN/Creatinine Ratio 24 H Glucose 223 H Calculated Osmolality 292 Lactic Acid 2.5 H Calcium 9.0 Corrected Calcium 9.4 Magnesium 2.4 Total Bilirubin 0.4 AST 76 H ALT 54 H Alkaline Phosphatase 165 H Troponin I < 0.020 Total Protein 6.6 Albumin 3.5 Globulin 3.1 Albumin/Globulin Ratio 1.1 L 11/25/24 11/25/24 11/26/24 20:15 23:21 04:37 WBC 13.6 H RBC 3.43 L Hgb 9.7 L Hct 31.4 L MCV 92 MCH 28.3 MCHC 30.9 L RDW Std Deviation 48.0 H Plt Count 266 Neut % (Auto) 82 H Lymph % (Auto) 10 [place] % (Auto) 7 Eos % (Auto) 0 Baso % (Auto) 0 Neut # (Auto) 11.2 H Lymph # (Auto) 1.4 [place] # (Auto) 0.9 H Eos # (Auto) 0.0 Baso # (Auto) 0.0 Immature Gran # (Auto) 0.14 H Absolute Nucleated RBC 0.00 Immature Gran % 1 H Nucleated RBC % 0 Puncture Site Right Radial ABG pH 7.29 L ABG pCO2 54 H ABG pO2 92 ABG HCO3 26 ABG O2 Saturation 98 ABG Base Excess -2 FiO2 21 Sodium 138 Potassium 4.9 Chloride 104 Carbon Dioxide 24.5 Anion Gap 10 BUN 37 H Creatinine 1.3 Estim Creat Clear Calc 54.0 L eGFR 56 L BUN/Creatinine Ratio 28 H Glucose 188 H Calculated Osmolality 289 Lactic Acid 1.3 Calcium 8.2 L Corrected Calcium 8.9 Magnesium 2.2 Total Bilirubin 0.5 AST 69 H ALT 59 H Alkaline Phosphatase 145 H D Troponin I Total Protein 6.0 Albumin 3.1 L Globulin 2.9 Albumin/Globulin Ratio 1.1 L 11/26/24 04:48 WBC RBC Hgb Hct MCV MCH MCHC RDW Std Deviation Plt Count Neut % (Auto) Lymph % (Auto) [place] % (Auto) Eos % (Auto) Baso % (Auto) Neut # (Auto) Lymph # (Auto) [place] # (Auto) Eos # (Auto) Baso # (Auto) Immature Gran # (Auto) Absolute Nucleated RBC Immature Gran % Nucleated RBC % Puncture Site Right Radial ABG pH 7.28 L ABG pCO2 56 H ABG pO2 76 L ABG HCO3 26 ABG O2 Saturation 95 ABG Base Excess -1 FiO2 100 Sodium Potassium Chloride Carbon Dioxide Anion Gap BUN Creatinine Estim Creat Clear Calc eGFR BUN/Creatinine Ratio Glucose Calculated Osmolality Lactic Acid Calcium Corrected Calcium Magnesium Total Bilirubin AST ALT Alkaline Phosphatase Troponin I Total Protein Albumin Globulin Albumin/Globulin Ratio ABG Interpretation ABG results: 11/25/24 11/25/24 11/25/24 12:15 13:59 16:51 ABG pH 7.15 L* 7.18 L* 7.14 L* ABG pCO2 83 H* 71 H* D 82 H* D ABG pO2 43 L* 87 D 69 L ABG HCO3 29 H 26 28 H ABG O2 Saturation 72 L 96 91 ABG Base Excess -1 -3 -2 11/25/24 11/25/24 11/26/24 19:23 23:21 04:48 ABG pH 7.27 L D 7.29 L 7.28 L ABG pCO2 58 H D 54 H 56 H ABG pO2 87 92 76 L ABG HCO3 27 H 26 26 ABG O2 Saturation 97 98 95 ABG Base Excess -1 -2 -1 Quality Measures Quality Measures none Advance care planning discussed with:: child and legal surragate Assessment & Plan Assessment Current Active Medications: Generic Name Dose Route Start Last Admin Trade Name Freq PRN Reason Stop Dose Admin Acetaminophen 650 mg 11/25/24 08:49 11/25/24 08:56 Acetaminophen 325 Mg Tablet PO 12/25/24 08:48 650 mg Q6HR PRN Administration PAIN Albuterol 1 puff 11/24/24 06:00 11/26/24 06:26 Albuterol Inh 8 Gm INH 12/24/24 05:59 1 puff QID PRINCESS Administration Albuterol/Ipratropium 3 ml 11/25/24 23:00 11/26/24 02:34 Albuterol/Ipratropium (Duoneb) Rt Pati 3 Ml Nebu INH 12/25/24 22:59 3 ml Q4HRRT PRINCESS Administration Atorvastatin Calcium 10 mg 11/24/24 21:00 11/25/24 21:54 Atorvastatin Calcium 10 Mg Tablet PO 12/24/24 20:59 10 mg QPM PRINCESS Administration Carvedilol 25 mg 11/24/24 09:00 11/26/24 08:06 Carvedilol 12.5 Mg Tablet PO 12/24/24 08:59 Not Given QDAY PRINCESS Clonidine 0.1 mg 11/24/24 09:00 11/26/24 08:06 Clonidine Hcl 0.1 Mg Tablet PO 12/24/24 08:59 Not Given BID PRINCESS Dextrose 25 ml 11/23/24 21:21 Dextrose 50%-Water Inj 50 Ml Syringe IV 12/23/24 21:20 Q15MIN PRN BG 50-70 responsive npo pt Finasteride 5 mg 11/24/24 09:00 11/26/24 09:49 Finasteride 5 Mg Tablet PO 12/24/24 08:59 5 mg QDAY PRINCESS Administration Fluticasone Propionate 1 spray 11/24/24 09:00 11/26/24 08:08 Fluticasone Rahul [place] 0.05% 16 Gm Btl NASAL 12/24/24 08:59 Not Given QDAY PRINCESS Gabapentin 100 mg 11/24/24 09:00 11/26/24 08:07 Gabapentin 100 Mg Capsule PO 12/24/24 08:59 Not Given BID PRINCESS Glucagon 1 mg 11/23/24 21:21 Glucagon Inj 1 Mg Vial IM Q15MIN PRN BG <70, and no IV access Heparin Sodium (Porcine) 5,000 unit 11/23/24 22:00 11/26/24 06:31 Heparin Sod Inj 5000 Unit/Ml Vial SC 12/07/24 21:59 5,000 unit Q8HR PRINCESS Administration Sodium Chloride 1,000 mls @ 125 mls/hr 11/23/24 21:26 11/25/24 08:45 Ns IV 12/23/24 21:25 125 mls/hr .Q10H PRINCESS Administration Ceftriaxone Sodium/Dextrose 2 gm in 50 mls @ 100 mls/hr 11/24/24 09:15 11/26/24 09:49 Rocephin/D5w 2gm IV 12/01/24 09:14 100 mls/hr QDAY PRINCESS Administration Norepinephrine/Dextrose 8 mg in 250 mls @ 10.465 mls/hr 11/25/24 16:37 11/26/24 09:45 Levophed In D5w 8mg/250ml IV 12/25/24 16:36 0 mcg/kg/min .[id number] PRN 0 mls/hr PER PROTOCOL Titration Protocol 0.05 MCG/KG/MIN Vasopressin/Sodium Chloride 20 unit in 100 mls @ 9 mls/hr 11/25/24 16:37 11/26/24 00:58 Vasostrict/Ns Ivpb IV 12/25/24 16:36 0.03 unit/min .Q11H7M PRN 9 mls/hr PER PROTOCOL Administration Protocol 0.03 UNIT/MIN Piperacillin/Tazobactam/Dextrose 3.375 gm in 50 mls @ 12.5 mls/hr 11/25/24 22:00 11/26/24 06:32 Zosyn IV 12/02/24 21:59 12.5 mls/hr Q8HR PRINCESS Administration Fentanyl Citrate 2,500 mcg in 250 mls @ 2.5 mls/hr 11/25/24 17:37 11/26/24 07:00 Sublimaze Inj 2,500 Mcg/250 Ml Bag IV 11/30/24 17:36 75 mcg/hr .Q24H PRN 7.5 mls/hr PER PROTOCOL Titration Protocol 25 MCG/HR Vancomycin HCl 1,500 mg/ 500 mls @ 200 mls/hr 11/25/24 18:30 11/25/24 19:33 Sodium Chloride IV 12/02/24 18:29 10 mg/min QDAY@1400 PRINCESS 200 mls/hr Administration 10 MG/MIN Propofol 1,000 mg in 100 mls @ 3.349 mls/hr 11/25/24 22:59 11/26/24 07:15 Diprivan Ivpb IV 12/25/24 22:58 10 mcg/kg/min .Q24H PRN 6.698 mls/hr PER PROTOCOL Titration Protocol 5 MCG/KG/MIN Insulin Human Lispro 0 unit 11/26/24 00:00 11/26/24 06:30 Insulin Lispro (Admelog) 1 Unit/0.01 Ml Unit SC 12/26/24 00:00 1 unit Q6H PRINCESS Administration Protocol Pantoprazole Sodium 40 mg 11/25/24 21:00 11/26/24 09:49 Pantoprazole Inj 40 Mg Vial IV 12/25/24 20:59 40 mg BID PRINCESS Administration Pharmacy Consult 1 each 11/25/24 17:45 Vancomycin Pharmacy To Dose 1 Each Each IV 12/25/24 17:44 QDAY PRN PROTOCOL Phenazopyridine HCl 100 mg 11/25/24 09:00 11/26/24 09:49 Phenazopyridine Hcl 100 Mg Tablet PO 11/27/24 21:01 100 mg BID PRINCESS Administration Tamsulosin HCl 0.4 mg 11/24/24 09:00 11/26/24 08:06 Tamsulosin Hcl 0.4 Mg Capsule PO 12/24/24 08:59 Not Given BID PRINCESS Plan 78-year-old male with past medical history of CAD status post stents, hypertension, DM2, BPH with self-catheterization, and CHF (no echo on file) was upgraded to the ICU on 11/25/2024 due to postcardiac arrest. 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: #Acute encephalopathy #Sedated Patient was more confused and agitated earlier prior to the code Could be a component of hypoxia versus metabolic .Ammonia levels given cirrhosis seen on Abdomen/pelvis CT Increase sedation to achieve a RASS of -4 CVS: #Shock #Postcardiac arrest Source of shock is unknown at this time [place] done overnight showed patient was fluid responsive Got a total of 3 L of IV fluids since ICU admission Currently on Levophed and vasopressin Continue Zosyn and vancomycin for now Echo ordered #Hx of CAD s/p stents #History of heart failure Patient has a history of heart failure, but there is no echo on file Troponins were negative Will follow-up on echo Respiratory: #Acute hypoxic respiratory failure #Aspiration pneumonia? #Aspiration pneumonitis Patient had episode of aspiration which is causing her to become hypoxic and eventually coded Chest x-ray that showed new infiltrate in the right lower lobe which could be pneumonia versus chest inflammation from gastric acid aspirated. Intubated on 11/25/2024 Bronchoscopy on 11/26/2024 that showed friable mucosa with biliary fluid appreciated Continue Zosyn and vancomycin Will discontinue vancomycin if MRSA nares negative Chest physiotherapy, Mucomyst, and DuoNebs every 4 hours Daily ABGs and chest x-rays Renal: #Acute kidney injury, improving Patient came in with creatinine of 1.5 from his baseline of 0.6-0.8 Creatinine 1.3 today Having good urine output Avoid nephrotoxic agent Renally dose medication #Lactic acidosis, resolved GI: #Abdominal distention NG tube in place suction Abdomen/pelvis CT did not show any perforation or bowel obstruction. #Hepatomegaly #Transaminitis On review patient has had liver ultrasound that showed mild hepatomegaly Patient has a history of transaminitis in the past Pending hepatitis panel #Possible calculus cholecystitis Abdomen/pelvis CT that show some calculus cholecystitis Will order abdominal ultrasound to better assess : #Complicated UTI, E. coli Patient had a positive UA and urine culture grew E. coli Will continue with Zosyn and discontinue ceftriaxone Heme: #Normocytic normochromic anemia Patient has a base hemoglobin of around 12-13 Patient hemoglobin today 9.7 Could be hemodilutional given he was aggressively fluid resuscitated overnight No active signs of bleeding We will continue to monitor ID: #E. coli UTI #Possible aspiration pneumonia Blood cultures ordered Sputum cultures ordered Will continue with vancomycin and Zosyn Discontinue Rocephin Will discontinue vancomycin if MRSA nares negative Hospital Maintenance: Diet: NPO DVT ppx: Heparin subcu GI ppx: Protonix IV IV lines: PIV, CIV, A-line Sanabria: sanabria cath Code status: Full code Dispo: ICU post cardiac arrest Case disclosed with Attending Dr. Kai Black PGY1
--- NOTE | 2024-11-26 10:48 | PC.RT ---
RT responsible asked me to chart not given. Uncharted due to pt not being mine at time tx was due.
[2024-11-26] MEDS: LIDOCAINE HCL 1% 20 ML VIAL 5 ML INFL (11:03)
--- NOTE | 2024-11-26 12:30 | PD.RESPROC ---
Procedures Procedure Date / Time 11/26/24 1207 Procedural Time Out Time out performed: yes Procedure Narrative Procedure Narrative: A time out was performed. My hands were washed immediately prior to the procedure. I wore a surgical cap, mask, sterile gown and sterile gloves throughout the procedure.The Right wrist was prepped using chlorhexidine scrub and draped in sterile fashion. The radial pulse was identified and the wrist was positioned in the usual fashion. Using the Arrow Radial Arterial Line Kit, a needle was inserted into the radial artery. Arterial blood was seen to pulsate in the flash chamber. The internal guidewire was advanced easily into the radial artery. The catheter was then advanced over the wire and the needle and wire were withdrawn. The catheter was sutured in place. A sterile opsite was placed over the catheter at the insertion site. The patient tolerated the procedure without any hemodynamic compromise. At the time of procedure completion, the catheter was connected to the incident response specialist and calibrated. Appropriate waveform and blood pressure tracing was observed. Case discussed and supervised by attending Dr. Kai Black MD PGY1 Arterial Line Indication(s): frequent arterial line sampling, hypoxic resp failure and shock Informed consent obtained: obtained from surrogate decision maker Time out done, and the following verified: correct patient, side and site, procedure, patient position and implants and/or equipment Size (Gauge): 20 Technique used: guide wire technique Post-Procedure: line sutured into place and dry sterile dressing placed Patient tolerated procedure: well EBL(ml): 5 Complications: none Site: right and radial Procedure comment: Attending note: I was present for procedure and available for campbell aspects
--- NOTE | 2024-11-26 12:33 | ESPR_ITS ---
Documentation for date of: 11/26/24 Subjective Subjective Interval history: This is a 78-year-old male who was admitted to the ICU yesterday status postcardiac arrest. The patient had been experiencing acute hypercapnic respiratory failure yesterday and placed on a BiPAP. He also had some abdominal distention. Yesterday afternoon he complained of feeling nauseous the BiPAP was removed and he vomited. He aspirated at that point in time and arrested. Patient's downtime was less than 15 minutes prior to ROSC. He was brought to the ICU and initially was difficult to oxygenate. He had high peak inspiratory pressures. Sedation was started and a one-time dose of adriana was given. The vent was adjusted and patient's oxygenation improved. Overnight there were no acute events. He has had decent urinary output and is currently afebrile. This morning he remains on 100% FiO2 with a PEEP of 12 satting in the low 90s. The patient is quick to desat and slow to recover. CT performed yesterday shows dense bilateral consolidation right greater than left. He remains in shock but with decreasing vasopressor requirements. Critical Care Note Critical care time (min.): 45 Exam Vital Signs Temp Pulse Resp BP Pulse Ox O2 Del Method O2 Flow Rate 97.9 F 41 L 32 H 100/49 L 93 L Mechanical Ventilation 3 11/26/24 07:15 11/26/24 11:31 11/26/24 11:31 11/26/24 11:31 11/26/24 11:31 11/26/24 07:15 11/25/24 12:00 FiO2 80 11/26/24 11:31 Narrative Exam Gen- ill appearing, morbidly obese, GCS 9T (E4, V1, M4) HEENT- NC/AT, mucosa hydrated, sclera anicteric, PERRL, ETT/NGT in place Chest- coarse, diminished, no increase in WOB, HRRR Abd- obese, s/nt/bs+ Ext- trace edema b/l LE, pulses palp, no clubbing, no mottling, withdraws to noxious stimuli Vent AC VC Drips levo fent prop vaso Physical Exam Completion Physical Exam Complete?: Yes Objective - Cancer Genetic Counselor Labs 11/27/24 04:22 11/27/24 04:22 Labs: Laboratory Results - last 24 hr 11/25/24 11/25/24 11/25/24 12:45 13:59 16:46 WBC 13.6 H 16.9 H RBC 3.64 L 3.89 L Hgb 10.5 L 11.2 L Hct 34.3 L 35.7 L MCV 94 92 MCH 28.8 28.8 MCHC 30.6 L 31.4 RDW Std Deviation 48.0 H 47.8 H Plt Count 222 244 Neut % (Auto) 83 H 75 Lymph % (Auto) 8 L 16 [place] % (Auto) 8 7 Eos % (Auto) 0 0 Baso % (Auto) 0 0 Neut # (Auto) 11.2 H 12.7 H Lymph # (Auto) 1.1 2.7 [place] # (Auto) 1.1 H 1.2 H Eos # (Auto) 0.0 0.0 Baso # (Auto) 0.0 0.1 Immature Gran # (Auto) 0.11 H 0.24 H Absolute Nucleated RBC 0.00 0.00 Immature Gran % 1 H 1 H Nucleated RBC % 0 0 Puncture Site Right Brachial ABG pH 7.18 L* ABG pCO2 71 H* D ABG pO2 87 D ABG HCO3 26 ABG O2 Saturation 96 ABG Base Excess -3 FiO2 21 Sodium 136 139 Potassium 5.0 D 4.6 Chloride 105 105 Carbon Dioxide 24.5 27.4 Anion Gap 7 7 BUN 34 H 36 H Creatinine 1.4 H 1.5 H Estim Creat Clear Calc 50.2 L 46.8 L eGFR 51 L 47 L BUN/Creatinine Ratio 24 H 24 H Glucose 198 H 223 H Calculated Osmolality 285 292 Lactic Acid 1.0 2.5 H Calcium 8.1 L 9.0 Corrected Calcium 8.5 9.4 Magnesium 2.4 Total Bilirubin 0.3 0.4 AST 42 H 76 H ALT 36 54 H Alkaline Phosphatase 150 H 165 H Troponin I < 0.020 < 0.020 Total Protein 6.4 6.6 Albumin 3.5 3.5 Globulin 2.9 3.1 Albumin/Globulin Ratio 1.2 1.1 L 11/25/24 11/25/24 11/25/24 16:51 19:23 20:15 WBC RBC Hgb Hct MCV MCH MCHC RDW Std Deviation Plt Count Neut % (Auto) Lymph % (Auto) [place] % (Auto) Eos % (Auto) Baso % (Auto) Neut # (Auto) Lymph # (Auto) [place] # (Auto) Eos # (Auto) Baso # (Auto) Immature Gran # (Auto) Absolute Nucleated RBC Immature Gran % Nucleated RBC % Puncture Site Right Radial Right Radial ABG pH 7.14 L* 7.27 L D ABG pCO2 82 H* D 58 H D ABG pO2 69 L 87 ABG HCO3 28 H 27 H ABG O2 Saturation 91 97 ABG Base Excess -2 -1 FiO2 100 100 Sodium Potassium Chloride Carbon Dioxide Anion Gap BUN Creatinine Estim Creat Clear Calc eGFR BUN/Creatinine Ratio Glucose Calculated Osmolality Lactic Acid 1.3 Calcium Corrected Calcium Magnesium Total Bilirubin AST ALT Alkaline Phosphatase Troponin I Total Protein Albumin Globulin Albumin/Globulin Ratio 11/25/24 11/26/24 11/26/24 23:21 04:37 04:48 WBC 13.6 H RBC 3.43 L Hgb 9.7 L Hct 31.4 L MCV 92 MCH 28.3 MCHC 30.9 L RDW Std Deviation 48.0 H Plt Count 266 Neut % (Auto) 82 H Lymph % (Auto) 10 [place] % (Auto) 7 Eos % (Auto) 0 Baso % (Auto) 0 Neut # (Auto) 11.2 H Lymph # (Auto) 1.4 [place] # (Auto) 0.9 H Eos # (Auto) 0.0 Baso # (Auto) 0.0 Immature Gran # (Auto) 0.14 H Absolute Nucleated RBC 0.00 Immature Gran % 1 H Nucleated RBC % 0 Puncture Site Right Radial Right Radial ABG pH 7.29 L 7.28 L ABG pCO2 54 H 56 H ABG pO2 92 76 L ABG HCO3 26 26 ABG O2 Saturation 98 95 ABG Base Excess -2 -1 FiO2 21 100 Sodium 138 Potassium 4.9 Chloride 104 Carbon Dioxide 24.5 Anion Gap 10 BUN 37 H Creatinine 1.3 Estim Creat Clear Calc 54.0 L eGFR 56 L BUN/Creatinine Ratio 28 H Glucose 188 H Calculated Osmolality 289 Lactic Acid Calcium 8.2 L Corrected Calcium 8.9 Magnesium 2.2 Total Bilirubin 0.5 AST 69 H ALT 59 H Alkaline Phosphatase 145 H D Troponin I Total Protein 6.0 Albumin 3.1 L Globulin 2.9 Albumin/Globulin Ratio 1.1 L Assessment & Plan Problem List (1) UTI (urinary tract infection): Status: Acute (2) Sepsis: Status: Acute (3) Type 2 diabetes mellitus: Status: Acute (4) Hypertension: Status: Acute (5) Hyperlipidemia: Status: Acute (6) Acute renal failure (ARF): Status: Acute Additional Plan Additional Plan: In summary this is a 78yo M s/p aspiration and cardiac arrest s/p SKIN DIVER Encephalopathy- in the setting of cardiac arrest, pt does not follow commands however does open eyes. increasing sedation due to vent requirements CV Shock- in the setting of cardiac arrest. given volume for fluid responsiveness yesterday. Resp Acute hypoxic resp failure- intubated, MV, fu on ABG and CXR. dense consolidation seen on CT, b/l R>L 2/2 aspiration - started on mucomyst with nebs q4hr and CPT with percussion to R q4h as well - CT read as pleural effusion however appears to be more dense consolidation Aspiration Pneumonitis- bronch done and biliary secretions noted throughout bronchial tree, on abx for any superimposed bacterial component ARDS- 2/2 aspiration - on LTVV - high PEEP/low FiO2 table - unable to prone due to body habitus - p/f ratio 76 - deep sedation and NMB as needed - permissive hypercapnea Renal ROSEANNE- seen and followed by nephrology. monitor i/os, avoid nephrotoxins, improving GI Transaminitis- long standing for several yrs. viral panel ordered and pending - will need further workup Abd distention- NGT placed for decompression Endo DM- SSI FS q6h Heme Leukocytosis- reactive v infectious Anemia- small drop from yesterday however felt to be dilutional at this point in time DVT proph- heparin 7500 q8 ID Aspiration- on abx UTI- on abx, growing E. coli case d/w ICU team and nephrology labs, imaging, records reviewed ~45ccmin required for eval, exam, review, intervention, discussion and formulation of POC for this critically ill pt with shock and acute resp failure at high risk for further and ongoing decompensation Provider Notation Provider Notation: Although this document has been carefully reviewed, there may still be some phonetic and other typographical errors. These errors are purely grammatical due to imperfections in the software program and should not be construed in any way to compromise the substance of the patient's medical care during this visit. Thank you for the opportunity and privilege in assisting you with this patient's care and management.
[2024-11-26 12:34] LABS: Inspired O2, VO2 Liters 92 L/min; Inspired Oxygen, FIO2 80 %; O2 Saturation 92 % (91-98); PCO2 59 mmHg (32.0-48.0); PO2 67 mmHg (83-108); pH, Arterial 7.28 (7.35-7.45)
[2024-11-26 12:35] LABS: HCO3 26 mEq/L (20-26); Puncture Site Arterial Line
[2024-11-26 12:36] LABS: Allen Test Not Performed
[2024-11-26 12:43] LABS: Base Excess -1 (-3-3)
[2024-11-26] MEDS: PROPOFOL 1,000 MG IVPB 1,000 MG/100 ML VIAL 20.093 MG IV (12:56)
--- NOTE | 2024-11-26 13:03 | PD.INTPROC ---
Procedures Procedure Date / Time 11/26/24 1303 Bronchoscopy Bronscopy indication(s): removal of secretions Informed consent obtained from: surrogate Time out done and the following verified: correct patient, side and site, procedure and patient position Oxygen delivery: via mechanical vent. Trachea: mid appears normal and distal appears normal Macy: sharp in angle RUL & subsegmental branches: inflammation RML & subsegmental branches: inflammation RLL & subsegmental branches: inflammation CHARMAINE & subsegmental branches: inflammation LLL & subsegmental branches: inflammation EBL: 0 Patient tolerated procedure: other (desatted and required manual bagging) Complications: No Procedure comment: petechial hemorrhages noted throughout with submucosa hemorrage much more pronounced on L . NS used to lavage and some clots were aspirated on the L. biliary secretions were noted bilaterally
[2024-11-26 13:09] LABS: Ammonia 50 uMol/L (11-32)
--- NOTE | 2024-11-26 13:50 | XR_ITS ---
Examination: Abdomen sonogram, complete Date and time of exam: November 26, 2024 1450 hours INDICATIONS: CT examination November 26, 2024 cirrhosis, acute calculus cholecystitis. Technique: Multiple real-time grayscale transabdominal sonographic images of the abdomen have been obtained. Findings: Gallbladder sludge versus small stones Gallbladder wall 0.3 cm no edema Common bile duct 0.3 cm Pancreas and aorta obscured by bowel gas Hepatomegaly 19.8 cm irregular contour fatty infiltration Normal hepatopedal portal venous flow Patent IVC Right kidney 11.6 cm renal cortex 1.5 cm Left kidney obscured by patient's defibrillator pad Spleen obscured by the defibrillator pad IMPRESSION: Limited study Small gallstones versus gallbladder sludge Negative for cholecystitis Moderate hepatomegaly primary hepatocellular disease fatty infiltration
[2024-11-26] MEDS: ACETYLCYSTEINE RT SOL 10% 4 ML NEBU 3 ML INH ×3 (14:21→22:10)
[2024-11-26] MEDS: HEPARIN SOD INJ 5000 UNIT/ML VIAL 7500 UNIT SC ×2 (14:32→21:25)
[2024-11-26] MEDS: Vancomycin Inj 1,500 MG in SODIUM CHLORIDE 0.9% 500 ML 500 ML 200 MG IV (14:33)
[2024-11-26] MEDS: PROPOFOL 1,000 MG IVPB 1,000 MG/100 ML VIAL 16.744 MG IV (18:43)
[2024-11-26] MEDS: fentaNYL 2,500 MCG/250 ML BAG 2,500 MCG/250 ML BAG 12.5 MCG IV (20:18)
[2024-11-26] MEDS: ATORVASTATIN CALCIUM 10 MG TABLET PO (20:36)
[2024-11-26] MEDS: TAMSULOSIN HCL 0.4 MG CAPSULE PO (20:36)
[2024-11-26] MEDS: PHENAZOPYRIDINE HCL 100 MG TABLET PO (20:36)
[2024-11-26] MEDS: LACTULOSE SYRUP 20 GM/30 ML UDC PO (21:26)
[2024-11-27] VITALS (106 sets, daily range): BP systolic 0–145; BP diastolic 0–71; PULSE 44–57; RESP 24–54; TEMP 36.3–36.8; O2SAT 92–100; BMI 43.1
[2024-11-27] MEDS: VASOPRESSIN IN NS IVPB 20 UNIT/100 ML BAG 9 UNIT IV ×2 (01:32→12:47)
[2024-11-27 01:44] LABS: Hepatitis A Antibody IgM Non Reactive (Non React); Hepatitis B Core Antibody IgM Non Reactive (Non React); Hepatitis B Surface Antigen Non Reactive (Non React); Hepatitis C Antibody Non Reactive (Non React)
[2024-11-27] MEDS: PROPOFOL 1,000 MG IVPB 1,000 MG/100 ML VIAL 16.744 MG IV ×4 (01:50→19:13)
[2024-11-27] MEDS: ALBUTEROL/IPRATROPIUM (Duoneb) RT SOL 3 ML NEBU INH ×6 (02:45→22:30)
[2024-11-27] MEDS: ACETYLCYSTEINE RT SOL 10% 4 ML NEBU 3 ML INH ×6 (02:45→22:30)
--- NOTE | 2024-11-27 06:00 | XR_ITS ---
Examination: AP chest single view Technique: AP portable semiupright chest single view Exam date and time: November 28, 2019 5054 hrs. Comparison November 26, 2024 Indications: Hypoxic respiratory failure difficulty breathing today Findings: Diffuse bilateral pneumonia again depicted Right internal jugular central line tip SVC satisfactory position Orogastric tube in the stomach. Endotracheal tube tip 4.4 cm above mati Enlarged left ventricle. Pneumonia left base Impression: Bilateral pneumonia ARDS, diffuse and significant in the right lung again noted
[2024-11-27] MEDS: LACTULOSE SYRUP 20 GM/30 ML UDC PO ×3 (06:03→21:49)
[2024-11-27] MEDS: HEPARIN SOD INJ 5000 UNIT/ML VIAL 7500 UNIT SC ×3 (06:04→21:49)
[2024-11-27] MEDS: PIPER/TAZO 3.375 GM PREMIX 3.375 GM/50 ML BAG IV ×3 (06:04→21:49)
[2024-11-27 06:05] LABS: Basophils # (Auto) 0.1 Thou/mm3 (0.0-0.2); Basophils % (Auto) 1 % (0-2.5); Eosinophils # (Auto) 0.1 Thou/mm3 (0.0-0.5); Eosinophils % (Auto) 1 % (0-10); Hematocrit 28.7 % (41.0-53.0); Immature Granulocytes % (Auto) 1 % (0-0); Immature Granulocytes Auto 0.15 Thou/mm3 (0.00-0.00); Lymphocytes # (Auto) 1.6 Thou/mm3 (1.0-4.8); Lymphocytes % (Auto) 15 % (10-50); Mean Corpuscular HGB Conc 31.4 g/dl (31.0-37.0); Mean Corpuscular Hemoglobin 28.5 pg (25.0-35.0); Mean Corpuscular Volume 91 fL (80-100); Monocytes # (Auto) 0.7 Thou/mm3 (0.0-0.8); Monocytes % (Auto) 7 % (0-12); Neutrophils # (Auto) 7.8 Thou/mm3 (1.8-7.7); Neutrophils % (Auto) 75 % (37-80); Nucleated Red Blood Cell # 0.02 Thou/mm3 (0.00-0.00); Nucleated Red Blood Cell % 0 /100 WBC (0); Platelet Count 291 Thou/mm3 (140-440); RDW Standard Deviation 48.7 fL (35.1-43.9); Red Blood Count 3.16 Miln/mm3 (4.50-5.90); White Blood Count 10.4 Thou/mm3 (3.8-10.6)
[2024-11-27] MEDS: ALBUTEROL INH 8 GM 1 PUFF INH ×4 (06:23→18:20)
[2024-11-27 06:29] LABS: Alanine Aminotransferase 55 U/L (10-49); Albumin/Globulin Ratio 1.1 (1.2-2.2); Alkaline Phosphatase 121 U/L (46-116); Anion Gap 9 (7-16); Aspartate Amino Transferase 124 U/L (0-34); BUN/Creatinine Ratio 34 Ratio (12-20); Bilirubin,Total 0.5 mg/dL (0.3-1.2); Blood Urea Nitrogen 41 mg/dL (9-23); Calcium 8.1 mg/dL (8.3-10.6); Calcium (Corrected) 8.9 mg/dL (8.5-10.1); Carbon Dioxide 25.2 mMol/L (20.0-31.0); Chloride 105 mMol/L (98-107); Creatinine (Component) 1.2 mg/dL (0.6-1.3); Estimated Creatinine Clearance 60.5 mL/min (>60); Globulin 2.8 gm/dL (2.3-3.5); Glucose 162 mg/dL (74-106); Magnesium 2.4 mg/dL (1.6-2.6); Osmolality,Calculated 291 (275-295); Potassium 4.7 mMol/L (3.4-5.1); Sodium 139 mMol/L (136-145); Total Protein 5.8 gm/dL (5.7-8.2); eGFR > 60 See Note
[2024-11-27 07:09] LABS: Base Excess 1 (-3-3); HCO3 28 mEq/L (20-26); Inspired Oxygen, FIO2 65 %; O2 Saturation 94 % (91-98); PCO2 55 mmHg (32.0-48.0); PO2 80 mmHg (83-108); pH, Arterial 7.32 (7.35-7.45)
[2024-11-27 07:10] LABS: Puncture Site Arterial Line
[2024-11-27] MEDS: FINASTERIDE 5 MG TABLET PO (08:24)
[2024-11-27] MEDS: TAMSULOSIN HCL 0.4 MG CAPSULE PO (08:24)
[2024-11-27] MEDS: PANTOPRAZOLE INJ 40 MG VIAL IV (08:24)
--- NOTE | 2024-11-27 09:03 | PD.RESPRO ---
Documentation for date of: 11/27/24 Subjective Subjective Interval history: Mr. 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 Grider) history of CHF, history of pituitary adenoma which was removed presented to the emergency department with significant shortness of breath and her daughter called paramedics. When paramedics arrived his O2 sat was less than 88%. Chest x-ray showed mild vascular congestion and no pneumonia. Admitted to the hospital with hypoxic respiratory failure ED COURSE: T103.8, HR 106, BP 141/91, satting 93% on 2 L NC. WBC 13.8, Hgb 11.2, PLT 253. Normal coag studies. CHEM panel significant for BUN 26, CR 1.5, EGFR 47, GLUCOSE 189, A1c 6.8, phosphorus 1.5, AST 44, AST 36, ALP 117, BNP 109, troponin 0.029, Pro-Calc 3.01. UA showed positive LE, RBC 6, WBC 41, urea 4+. EKG sinus rhythm without acute ST changes. CXR mild vascular congestion, no lobar pneumonia. ED gave 2 L IVF, CEFTRIAXONE 1 g x 1. Will admit for sepsis in settings of UTI. 11/26/2024 patient currently seen in ICU. Apparently yesterday after I saw the patient with the resident that he had a few events where rapid response was called in the beginning during NG tube insertion for abdominal distention/ileus. Subsequently he coded secondary to aspiration pneumonia, intubated and transferred to ICU. Currently on pressors. Dr. Quinn and ICU team at bedside. Family at bedside. Labs/medications reviewed. On broad-spectrum antibiotics. WBC 13.6, hemoglobin 9.7, platelets 266. ABG showing pH 7.28, MCM646, pO2 67, HCO3 26. Sodium 138, potassium 4.9, BUN 37, creatinine 1.3, lactic acid 1.3, calcium 8.9, magnesium 2.2, AST 69, ALT 59, ammonia 50, albumin 3.1,Chest x-ray showed pneumonia in the right lung. 11/27/2024 examined in ICU. Sedated on MV, no signs of distress. Broch showed friable mucosa secondary to bile. Suspected ARDS, however improving. On pressors, vitals WNL, although slightly bradycardic. CT from 11/25 with left pleural effusion, vascular congestion, pneumonia, hepatomegaly, ascites, possible cystitis, no bowel obstruction. Abdominal ultrasound pending. Leukocytosis resolved. Hgb 9.0. Renal function stable and normal. AST 124, ALT 55, ALP 121. Hep panel was negative. 24-hour blood culture negative. Sputum culture pending. Exam Vital Signs Temp Pulse Resp BP Pulse Ox O2 Del Method O2 Flow Rate 98.2 F 45 L 32 H 112/60 96 Mechanical Ventilation 90 11/27/24 08:00 11/27/24 08:00 11/27/24 06:24 11/27/24 08:00 11/27/24 08:00 11/27/24 04:01 11/26/24 08:00 FiO2 65 11/27/24 08:00 Narrative Exam GENERAL APPEARANCE patient currently seen in ICU. Orotracheal intubation noted CARDIOVASCULAR: Heart regular, no murmurs LUNGS/CHEST: decreased breath sounds bilaterally ABDOMEN: Soft, nontender, significant distention. No masses. Normal bowel sounds. EXTREMITIES: No edema, clubbing or cyanosis. SKIN: Skin exam normal without any rashes MUSCULOSKELETAL: in bed NEUROLOGICAL : Intubated, sedated Objective Labs 11/27/24 04:22 11/27/24 04:22 Labs: Laboratory Results - last 24 hr 11/25/24 11/26/24 11/26/24 16:46 12:15 12:42 WBC RBC Hgb Hct MCV MCH MCHC RDW Std Deviation Plt Count Neut % (Auto) Lymph % (Auto) [place] % (Auto) Eos % (Auto) Baso % (Auto) Neut # (Auto) Lymph # (Auto) [place] # (Auto) Eos # (Auto) Baso # (Auto) Immature Gran # (Auto) Absolute Nucleated RBC Immature Gran % Nucleated RBC % Puncture Site Arterial Line ABG pH 7.28 L ABG pCO2 59 H ABG pO2 67 L ABG HCO3 26 ABG O2 Saturation 92 ABG Base Excess -1 Oxygen Liter Flow 92 FiO2 80 Sodium Potassium Chloride Carbon Dioxide Anion Gap BUN Creatinine Estim Creat Clear Calc eGFR BUN/Creatinine Ratio Glucose Calculated Osmolality Calcium Corrected Calcium Magnesium Total Bilirubin AST ALT Alkaline Phosphatase Ammonia 50 H Total Protein Albumin Globulin Albumin/Globulin Ratio Hepatitis A IgM Ab Non Reactive Hep Bs Antigen Non Reactive Hep B Core IgM Ab Non Reactive Hepatitis C Antibody Non Reactive 11/27/24 11/27/24 04:22 07:01 WBC 10.4 RBC 3.16 L Hgb 9.0 L Hct 28.7 L MCV 91 MCH 28.5 MCHC 31.4 RDW Std Deviation 48.7 H Plt Count 291 Neut % (Auto) 75 Lymph % (Auto) 15 [place] % (Auto) 7 Eos % (Auto) 1 Baso % (Auto) 1 Neut # (Auto) 7.8 H Lymph # (Auto) 1.6 [place] # (Auto) 0.7 Eos # (Auto) 0.1 Baso # (Auto) 0.1 Immature Gran # (Auto) 0.15 H Absolute Nucleated RBC 0.02 H Immature Gran % 1 H Nucleated RBC % 0 Puncture Site Arterial Line ABG pH 7.32 L ABG pCO2 55 H ABG pO2 80 L ABG HCO3 28 H ABG O2 Saturation 94 ABG Base Excess 1 Oxygen Liter Flow FiO2 65 Sodium 139 Potassium 4.7 Chloride 105 Carbon Dioxide 25.2 Anion Gap 9 BUN 41 H Creatinine 1.2 Estim Creat Clear Calc 60.5 L eGFR > 60 BUN/Creatinine Ratio 34 H Glucose 162 H Calculated Osmolality 291 Calcium 8.1 L Corrected Calcium 8.9 Magnesium 2.4 Total Bilirubin 0.5 AST 124 H ALT 55 H Alkaline Phosphatase 121 H D Ammonia Total Protein 5.8 Albumin 3.0 L Globulin 2.8 Albumin/Globulin Ratio 1.1 L Hepatitis A IgM Ab Hep Bs Antigen Hep B Core IgM Ab Hepatitis C Antibody ABG Interpretation ABG results: 11/25/24 11/25/24 11/25/24 12:15 13:59 16:51 ABG pH 7.15 L* 7.18 L* 7.14 L* ABG pCO2 83 H* 71 H* D 82 H* D ABG pO2 43 L* 87 D 69 L ABG HCO3 29 H 26 28 H ABG O2 Saturation 72 L 96 91 ABG Base Excess -1 -3 -2 11/25/24 11/25/24 11/26/24 19:23 23:21 04:48 ABG pH 7.27 L D 7.29 L 7.28 L ABG pCO2 58 H D 54 H 56 H ABG pO2 87 92 76 L ABG HCO3 27 H 26 26 ABG O2 Saturation 97 98 95 ABG Base Excess -1 -2 -1 11/26/24 11/27/24 12:15 07:01 ABG pH 7.28 L 7.32 L ABG pCO2 59 H 55 H ABG pO2 67 L 80 L ABG HCO3 26 28 H ABG O2 Saturation 92 94 ABG Base Excess -1 1 Quality Measures Quality Measures none Advance care planning discussed with:: patient Assessment & Plan Assessment Current Active Medications: Generic Name Dose Route Start Last Admin Trade Name Freq PRN Reason Stop Dose Admin Acetaminophen 650 mg 11/25/24 08:49 11/25/24 08:56 Acetaminophen 325 Mg Tablet PO 12/25/24 08:48 650 mg Q6HR PRN Administration PAIN Acetylcysteine 3 ml 11/26/24 15:00 11/27/24 06:22 Acetylcysteine Rt Pati 10% 4 Ml Nebu INH 12/26/24 14:59 3 ml Q4HRRT PRINCESS Administration Albuterol 1 puff 11/24/24 06:00 11/27/24 06:23 Albuterol Inh 8 Gm INH 12/24/24 05:59 1 puff QID PRINCESS Administration Albuterol/Ipratropium 3 ml 11/25/24 23:00 11/27/24 06:22 Albuterol/Ipratropium (Duoneb) Rt Apti 3 Ml Nebu INH 12/25/24 22:59 3 ml Q4HRRT PRINCESS Administration Atorvastatin Calcium 10 mg 11/24/24 21:00 11/26/24 20:36 Atorvastatin Calcium 10 Mg Tablet PO 12/24/24 20:59 10 mg QPM PRINCESS Administration Carvedilol 25 mg 11/24/24 09:00 11/26/24 08:06 Carvedilol 12.5 Mg Tablet PO 12/24/24 08:59 Not Given QDAY PRINCESS Clonidine 0.1 mg 11/24/24 09:00 11/26/24 08:06 Clonidine Hcl 0.1 Mg Tablet PO 12/24/24 08:59 Not Given BID PRINCESS Dextrose 25 ml 11/23/24 21:21 Dextrose 50%-Water Inj 50 Ml Syringe IV 12/23/24 21:20 Q15MIN PRN BG 50-70 responsive npo pt Finasteride 5 mg 11/24/24 09:00 11/27/24 08:24 Finasteride 5 Mg Tablet PO 12/24/24 08:59 5 mg QDAY PRINCESS Administration Fluticasone Propionate 1 spray 11/24/24 09:00 11/26/24 08:08 Fluticasone [facility] [place] 0.05% 16 Gm Btl NASAL 12/24/24 08:59 Not Given QDAY PRINCESS Gabapentin 100 mg 11/24/24 09:00 11/26/24 08:07 Gabapentin 100 Mg Capsule PO 12/24/24 08:59 Not Given BID PRINCESS Glucagon 1 mg 11/23/24 21:21 Glucagon Inj 1 Mg Vial IM Q15MIN PRN BG <70, and no IV access Heparin Sodium (Porcine) 7,500 unit 11/26/24 14:00 11/27/24 06:04 Heparin Sod Inj 5000 Unit/Ml Vial SC 12/10/24 13:59 7,500 unit Q8HR PRINCESS Administration Sodium Chloride 1,000 mls @ 125 mls/hr 11/23/24 21:26 11/25/24 08:45 Ns IV 12/23/24 21:25 125 mls/hr .Q10H PRINCESS Administration Norepinephrine/Dextrose 8 mg in 250 mls @ 10.465 mls/hr 11/25/24 16:37 11/27/24 04:20 Levophed In D5w 8mg/250ml IV 12/25/24 16:36 0 mcg/kg/min .[id number] PRN 0 mls/hr PER PROTOCOL Titration Protocol 0.05 MCG/KG/MIN Vasopressin/Sodium Chloride 20 unit in 100 mls @ 9 mls/hr 11/25/24 16:37 11/27/24 01:32 Vasostrict/Ns Ivpb IV 12/25/24 16:36 0.03 unit/min .Q11H7M PRN 9 mls/hr PER PROTOCOL Administration Protocol 0.03 UNIT/MIN Piperacillin/Tazobactam/Dextrose 3.375 gm in 50 mls @ 12.5 mls/hr 11/25/24 22:00 11/27/24 06:04 Zosyn IV 12/02/24 21:59 12.5 mls/hr Q8HR PRINCESS Administration Fentanyl Citrate 2,500 mcg in 250 mls @ 2.5 mls/hr 11/25/24 17:37 11/27/24 06:00 Sublimaze Inj 2,500 Mcg/250 Ml Bag IV 11/30/24 17:36 125 mcg/hr .Q24H PRN 12.5 mls/hr PER PROTOCOL Titration Protocol 25 MCG/HR Vancomycin HCl 1,500 mg/ 500 mls @ 200 mls/hr 11/25/24 18:30 11/26/24 17:57 Sodium Chloride IV 12/02/24 18:29 Infused QDAY@1400 PRINCESS Infusion 10 MG/MIN Propofol 1,000 mg in 100 mls @ 3.349 mls/hr 11/25/24 22:59 11/27/24 07:31 Diprivan Ivpb IV 12/25/24 22:58 25 mcg/kg/min .Q24H PRN 16.744 mls/hr PER PROTOCOL Administration Protocol 5 MCG/KG/MIN Insulin Human Lispro 0 unit 11/26/24 00:00 11/27/24 05:55 Insulin Lispro (Admelog) 1 Unit/0.01 Ml Unit SC 12/26/24 00:00 Not Given Q6H PRINCESS Protocol Lactulose 20 gm 11/26/24 22:00 11/27/24 06:03 Lactulose Syrup 20 Gm/30 Ml Udc PO 12/26/24 21:59 20 gm TID PRINCESS Administration Protocol Pantoprazole Sodium 40 mg 11/27/24 09:00 11/27/24 08:24 Pantoprazole Inj 40 Mg Vial IV 12/27/24 08:59 40 mg QDAY PRINCESS Administration Pharmacy Consult 1 each 11/25/24 17:45 Vancomycin Pharmacy To Dose 1 Each Each IV 12/25/24 17:44 QDAY PRN PROTOCOL Tamsulosin HCl 0.4 mg 11/24/24 09:00 11/27/24 08:24 Tamsulosin Hcl 0.4 Mg Capsule PO 12/24/24 08:59 0.4 mg BID PRINCESS Administration Plan In summary: 70-year-old male PMHx of CAD with stents, HTN, DM, BPH with self-catheterization, presented to ED with SOB. Admitted for AHRF 2/2 suspected sepsis in settings of UTI. ARDS, no in ICU on MV. ROSEANNE Renal function stable and normal. No electrolyte abnormalities. On pressors, vitals WNL except slight bradycardia. ? Renally dose meds, avoid overdiuresis and NEPHROTOXINS ? Daily CMP #Acute encephalopathy #Sedated #Shock #Postcardiac arrest #Hx of CAD s/p stents #History of heart failure #Acute hypoxic respiratory failure #Aspiration pneumonia? #Aspiration pneumonitis #Abdominal distention #Hepatomegaly #Transaminitis #Possible calculus cholecystitis #Complicated UTI, E. coli #Normocytic normochromic anemia #E. coli UTI #Possible aspiration pneumonia Managed by radiology supervisor team Case was discussed with attending, Dr. Villegas. Oli Gomez DO PGYI Attending Provider Attestation/Addendum Patient seen and examined with resident physician Dr. Baird. Note reviewed, agree with findings and recommendations. Patient admitted with UTI/sepsis Continue with fluids, antibiotics. Patient currently seen in ICU. On the ventilator. Bronchoscopy showed friable mucosa. Patient currently seems to be in ARDS. ICU on the case.
--- NOTE | 2024-11-27 09:55 | PD.RESPRO ---
Documentation for date of: 11/27/24 Subjective Subjective Interval history: 78-year-old male with past medical history of CAD status post stents, hypertension, DM2, BPH with self-catheterization, and CHF (no echo on file) was admitted to the medical floors on 11/23/2024 due to sepsis likely secondary to complicated UTI in the setting of ROSEANNE and a positive urine analysis. Patient was admitted to the ICU on 11/25/2024 after cardiac arrest and ROSC was achieved. On this day patient had a rapid response called earlier in the morning due to lethargy, hypotension, and abdominal distention. At this time patient's blood pressure was around 93/53 and he was AO x 2. Primary care team give the patient 1 L bolus of NS which improved the blood pressure and started the patient on BiPAP after he was found to have an ABG of pH 7.15, PCO2 of 83, and PO2 of 43. During this time due to the new onset of abdominal distention and abdominal x-ray was ordered and only showed dilated stomach with nonobstructed nondilated bowel gas pattern, but no perforation. Later on the afternoon patient remained on the BiPAP before complaining of feeling nauseated around 4 PM at this time the BiPAP was discontinued and then patient's NG tube was placed to suctioning. At around 4:15 PM CHUY SENIOR was called to the patient's room as he was found to be pulseless after he appeared to have aspirated. Patient was coded and had a total of 5 rounds of epi, half atropine, 2 amp of sodium bicarb, and ROSC was achieved. At this time patient was intubated and was placed on dopamine drip and transferred to the ICU. 11/26/2024: Patient seen and examined at bedside this morning. Overnight patient became hypothermic at 96.5, but on rectal temperature he was 97.5 this morning. Patient was slowly weaned down on vasopressors, but he was placed on propofol overnight and was given 2 more doses of rocuronium given that he was breathing over the vent. Patient opening eyes spontaneously, had good pain response, pupils were reactive bilaterally. Patient underwent abdomen/pelvis CT with showed consolidation of the lower lobes therefore consent was taken for bronchoscopy. Patient underwent bronchoscopy and there was friable mucosa seen in the bronchoscopy with some bile secretions appreciated also during bronchoscopy. Patient was placed on his left side to help with oxygenation. Will get ammonia levels, ABG, and will start CPT and Mucomyst every 4 hours with DuoNebs. Successfully placed on arterial line today. 11/27/2024: Patient seen and examined at bedside this morning. No overnight events. Patient was taken off Levophed and is currently only on vasopressin. Patient did not have any desaturations overnight and his FiO2 has been weaned down to 50% this a.m. Chest x-ray done this a.m. showed improvement opacities, but there appears to be some retrocardiac opacification blunting the diaphragm on the left side and there is a possible new pleural effusion on the right side. Patient's blood cultures have been negative and sputum cultures have been negative for now. Still pending read of abdominal ultrasound. Echo was taken today, pending read. PF ratio today was 123, will continue patient on CPT, Mucomyst, and DuoNebs every 4 hours as well as maintain him laying mostly on his left side. Exam Vital Signs Temp Pulse Resp BP Pulse Ox O2 Del Method O2 Flow Rate 98.2 F 48 L 32 H 109/63 93 L Mechanical Ventilation 90 11/27/24 08:00 11/27/24 09:45 11/27/24 06:24 11/27/24 09:45 11/27/24 09:45 11/27/24 04:01 11/26/24 08:00 FiO2 65 11/27/24 08:00 Narrative Exam General: Mechanically ventilated and sedated, responsive to painful stimuli and pupils reactive to light. Eyes: Pupils reactive to light Ears: No visible ear discharge Nose: No visible nasal discharge. Mouth/Throat: Moist mucous membranes, no redness, no lesions. Neck: Short neck, no cervical lymphadenopathy. Lungs: Clear to lay on the right side, but still some rhonchi appreciated on the right side and decreased breath sounds on the left. Cardio: Normal S1/S2, regular rhythm, no murmurs, no JVD Abdomen: Firm and distended, no palpable masses, peristalsis present, no guarding or rebound. Extremities: Symmetrical, no significant deformities, 1+ peripheral edema , non-tender, peripheral pulses presents, bilateral upper extremity swelling most likely third spacing Skin: No rashes, no lesions, warm to touch. Neuro: Reactive to painful stimuli, pupils were equally reactive Objective Labs 11/27/24 04:22 11/27/24 04:22 Labs: Laboratory Results - last 24 hr 11/25/24 11/26/24 11/26/24 16:46 12:15 12:42 WBC RBC Hgb Hct MCV MCH MCHC RDW Std Deviation Plt Count Neut % (Auto) Lymph % (Auto) [place] % (Auto) Eos % (Auto) Baso % (Auto) Neut # (Auto) Lymph # (Auto) [place] # (Auto) Eos # (Auto) Baso # (Auto) Immature Gran # (Auto) Absolute Nucleated RBC Immature Gran % Nucleated RBC % Puncture Site Arterial Line ABG pH 7.28 L ABG pCO2 59 H ABG pO2 67 L ABG HCO3 26 ABG O2 Saturation 92 ABG Base Excess -1 Oxygen Liter Flow 92 FiO2 80 Sodium Potassium Chloride Carbon Dioxide Anion Gap BUN Creatinine Estim Creat Clear Calc eGFR BUN/Creatinine Ratio Glucose Calculated Osmolality Calcium Corrected Calcium Magnesium Total Bilirubin AST ALT Alkaline Phosphatase Ammonia 50 H Total Protein Albumin Globulin Albumin/Globulin Ratio Hepatitis A IgM Ab Non Reactive Hep Bs Antigen Non Reactive Hep B Core IgM Ab Non Reactive Hepatitis C Antibody Non Reactive 11/27/24 11/27/24 04:22 07:01 WBC 10.4 RBC 3.16 L Hgb 9.0 L Hct 28.7 L MCV 91 MCH 28.5 MCHC 31.4 RDW Std Deviation 48.7 H Plt Count 291 Neut % (Auto) 75 Lymph % (Auto) 15 [place] % (Auto) 7 Eos % (Auto) 1 Baso % (Auto) 1 Neut # (Auto) 7.8 H Lymph # (Auto) 1.6 [place] # (Auto) 0.7 Eos # (Auto) 0.1 Baso # (Auto) 0.1 Immature Gran # (Auto) 0.15 H Absolute Nucleated RBC 0.02 H Immature Gran % 1 H Nucleated RBC % 0 Puncture Site Arterial Line ABG pH 7.32 L ABG pCO2 55 H ABG pO2 80 L ABG HCO3 28 H ABG O2 Saturation 94 ABG Base Excess 1 Oxygen Liter Flow FiO2 65 Sodium 139 Potassium 4.7 Chloride 105 Carbon Dioxide 25.2 Anion Gap 9 BUN 41 H Creatinine 1.2 Estim Creat Clear Calc 60.5 L eGFR > 60 BUN/Creatinine Ratio 34 H Glucose 162 H Calculated Osmolality 291 Calcium 8.1 L Corrected Calcium 8.9 Magnesium 2.4 Total Bilirubin 0.5 AST 124 H ALT 55 H Alkaline Phosphatase 121 H D Ammonia Total Protein 5.8 Albumin 3.0 L Globulin 2.8 Albumin/Globulin Ratio 1.1 L Hepatitis A IgM Ab Hep Bs Antigen Hep B Core IgM Ab Hepatitis C Antibody ABG Interpretation ABG results: 11/25/24 11/25/24 11/25/24 12:15 13:59 16:51 ABG pH 7.15 L* 7.18 L* 7.14 L* ABG pCO2 83 H* 71 H* D 82 H* D ABG pO2 43 L* 87 D 69 L ABG HCO3 29 H 26 28 H ABG O2 Saturation 72 L 96 91 ABG Base Excess -1 -3 -2 11/25/24 11/25/24 11/26/24 19:23 23:21 04:48 ABG pH 7.27 L D 7.29 L 7.28 L ABG pCO2 58 H D 54 H 56 H ABG pO2 87 92 76 L ABG HCO3 27 H 26 26 ABG O2 Saturation 97 98 95 ABG Base Excess -1 -2 -1 11/26/24 11/27/24 12:15 07:01 ABG pH 7.28 L 7.32 L ABG pCO2 59 H 55 H ABG pO2 67 L 80 L ABG HCO3 26 28 H ABG O2 Saturation 92 94 ABG Base Excess -1 1 Quality Measures Quality Measures none Advance care planning discussed with:: child Assessment & Plan Assessment Current Active Medications: Generic Name Dose Route Start Last Admin Trade Name Freq PRN Reason Stop Dose Admin Acetaminophen 650 mg 11/25/24 08:49 11/25/24 08:56 Acetaminophen 325 Mg Tablet PO 12/25/24 08:48 650 mg Q6HR PRN Administration PAIN Acetylcysteine 3 ml 11/26/24 15:00 11/27/24 06:22 Acetylcysteine Rt Pati 10% 4 Ml Nebu INH 12/26/24 14:59 3 ml Q4HRRT PRINCESS Administration Albuterol 1 puff 11/24/24 06:00 11/27/24 06:23 Albuterol Inh 8 Gm INH 12/24/24 05:59 1 puff QID PRINCESS Administration Albuterol/Ipratropium 3 ml 11/25/24 23:00 11/27/24 06:22 Albuterol/Ipratropium (Duoneb) Rt Pati 3 Ml Nebu INH 12/25/24 22:59 3 ml Q4HRRT PRINCESS Administration Atorvastatin Calcium 10 mg 11/24/24 21:00 11/26/24 20:36 Atorvastatin Calcium 10 Mg Tablet PO 12/24/24 20:59 10 mg QPM PRINCESS Administration Carvedilol 25 mg 11/24/24 09:00 11/26/24 08:06 Carvedilol 12.5 Mg Tablet PO 12/24/24 08:59 Not Given QDAY PRINCESS Clonidine 0.1 mg 11/24/24 09:00 11/26/24 08:06 Clonidine Hcl 0.1 Mg Tablet PO 12/24/24 08:59 Not Given BID PRINCESS Dextrose 25 ml 11/23/24 21:21 Dextrose 50%-Water Inj 50 Ml Syringe IV 12/23/24 21:20 Q15MIN PRN BG 50-70 responsive npo pt Finasteride 5 mg 11/24/24 09:00 11/27/24 08:24 Finasteride 5 Mg Tablet PO 12/24/24 08:59 5 mg QDAY PRINCESS Administration Fluticasone Propionate 1 spray 11/24/24 09:00 11/26/24 08:08 Fluticasone [place] 0.05% 16 Gm Btl NASAL 12/24/24 08:59 Not Given QDAY PRINCESS Gabapentin 100 mg 11/24/24 09:00 11/26/24 08:07 Gabapentin 100 Mg Capsule PO 12/24/24 08:59 Not Given BID PRINCESS Glucagon 1 mg 11/23/24 21:21 Glucagon Inj 1 Mg Vial IM Q15MIN PRN BG <70, and no IV access Heparin Sodium (Porcine) 7,500 unit 11/26/24 14:00 11/27/24 06:04 Heparin Sod Inj 5000 Unit/Ml Vial SC 12/10/24 13:59 7,500 unit Q8HR PRINCESS Administration Sodium Chloride 1,000 mls @ 125 mls/hr 11/23/24 21:26 11/25/24 08:45 Ns IV 12/23/24 21:25 125 mls/hr .Q10H PRINCESS Administration Norepinephrine/Dextrose 8 mg in 250 mls @ 10.465 mls/hr 11/25/24 16:37 11/27/24 04:20 Levophed In D5w 8mg/250ml IV 12/25/24 16:36 0 mcg/kg/min .[id number] PRN 0 mls/hr PER PROTOCOL Titration Protocol 0.05 MCG/KG/MIN Vasopressin/Sodium Chloride 20 unit in 100 mls @ 9 mls/hr 11/25/24 16:37 11/27/24 01:32 Vasostrict/Ns Ivpb IV 12/25/24 16:36 0.03 unit/min .Q11H7M PRN 9 mls/hr PER PROTOCOL Administration Protocol 0.03 UNIT/MIN Piperacillin/Tazobactam/Dextrose 3.375 gm in 50 mls @ 12.5 mls/hr 11/25/24 22:00 11/27/24 06:04 Zosyn IV 12/02/24 21:59 12.5 mls/hr Q8HR PRINCESS Administration Fentanyl Citrate 2,500 mcg in 250 mls @ 2.5 mls/hr 11/25/24 17:37 11/27/24 06:00 Sublimaze Inj 2,500 Mcg/250 Ml Bag IV 11/30/24 17:36 125 mcg/hr .Q24H PRN 12.5 mls/hr PER PROTOCOL Titration Protocol 25 MCG/HR Vancomycin HCl 1,500 mg/ 500 mls @ 200 mls/hr 11/25/24 18:30 11/26/24 17:57 Sodium Chloride IV 12/02/24 18:29 Infused QDAY@1400 PRINCESS Infusion 10 MG/MIN Propofol 1,000 mg in 100 mls @ 3.349 mls/hr 11/25/24 22:59 11/27/24 07:31 Diprivan Ivpb IV 12/25/24 22:58 25 mcg/kg/min .Q24H PRN 16.744 mls/hr PER PROTOCOL Administration Protocol 5 MCG/KG/MIN Insulin Human Lispro 0 unit 11/26/24 00:00 11/27/24 05:55 Insulin Lispro (Admelog) 1 Unit/0.01 Ml Unit SC 12/26/24 00:00 Not Given Q6H PRINCESS Protocol Lactulose 20 gm 11/26/24 22:00 11/27/24 06:03 Lactulose Syrup 20 Gm/30 Ml Udc PO 12/26/24 21:59 20 gm TID PRINCESS Administration Protocol Pantoprazole Sodium 40 mg 11/27/24 09:00 11/27/24 08:24 Pantoprazole Inj 40 Mg Vial IV 12/27/24 08:59 40 mg QDAY PRINCESS Administration Pharmacy Consult 1 each 11/25/24 17:45 Vancomycin Pharmacy To Dose 1 Each Each IV 12/25/24 17:44 QDAY PRN PROTOCOL Tamsulosin HCl 0.4 mg 11/24/24 09:00 11/27/24 08:24 Tamsulosin Hcl 0.4 Mg Capsule PO 12/24/24 08:59 0.4 mg BID PENDING SALE TO [facility] Administration Plan 78-year-old male with past medical history of CAD status post stents, hypertension, DM2, BPH with self-catheterization, and CHF (no echo on file) was upgraded to the ICU on 11/25/2024 due to postcardiac arrest. 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 #Sedated Patient was more confused and agitated earlier prior to the code Could be a component of hypoxia versus metabolic Continue lactulose 20 3 times daily given possible component of hepatic encephalopathy CVS: #Shock #Postcardiac arrest Source of shock is unknown at this time Currently on vasopressin only Continue Zosyn and vancomycin for now until MRSA nares come back Echo pending #Hx of CAD s/p stents #History of heart failure Patient has a history of heart failure, but there is no echo on file Troponins were negative Will follow-up on echo Respiratory: #Acute hypoxic respiratory failure #ARDS #Aspiration pneumonia? #Aspiration pneumonitis Patient had episode of aspiration which is causing him to become hypoxic and eventually coded Intubated on 11/25/2024 Bronchoscopy on 11/26/2024 that showed friable mucosa with biliary fluid appreciated PF ratio of 123 today compared to 76 yesterday Continue Zosyn and vancomycin Will discontinue vancomycin if MRSA nares negative Chest physiotherapy, Mucomyst, and DuoNebs every 4 hours Daily ABGs and chest x-rays Laying mostly on the left side Renal: #Acute kidney injury, improving Patient came in with creatinine of 1.5 from his baseline of 0.6-0.8 Creatinine 1.2 Having good urine output, but less than previous day Avoid nephrotoxic agent Renally dose medication #Lactic acidosis, resolved GI: #Abdominal distention NG tube in place suction Abdomen/pelvis CT did not show any perforation or bowel obstruction. #Hepatomegaly #Transaminitis On review patient has had liver ultrasound that showed mild hepatomegaly Patient has a history of transaminitis in the past Hepatitis panel negative Will stop atorvastatin #Possible calculus cholecystitis Abdomen/pelvis CT that show some calculus cholecystitis Pending abdominal ultrasound read : #Complicated UTI, E. coli Patient had a positive UA and urine culture grew E. coli Will continue with Zosyn. Heme: #Normocytic normochromic anemia Patient has a base hemoglobin of around 12-13 Patient hemoglobin today 9 Could be hemodilutional No active signs of bleeding We will continue to monitor ID: #E. coli UTI #Possible aspiration pneumonia Blood cultures negative in 24 hours Sputum cultures negative Will continue with vancomycin and Zosyn Will discontinue vancomycin if MRSA nares negative Hospital Maintenance: Diet: NPO DVT ppx: Heparin subcu GI ppx: Protonix IV IV lines: PIV, CIV, A-line Sanabria: sanabria cath Code status: Full code Dispo: ICU post cardiac arrest Case disclosed with Attending Dr. Kai Black PGY1
[2024-11-27] MEDS: FLUTICASONE NAS SPRAY 0.05% 16 GM BTL 1 SPRAY NASAL (10:29)
--- NOTE | 2024-11-27 10:33 | ESPR_ITS ---
Documentation for date of: 11/27/24 Subjective Subjective Interval history: This is a 78-year-old male who was admitted to the ICU yesterday status postcardiac arrest. The patient had been experiencing acute hypercapnic respiratory failure yesterday and placed on a BiPAP. He also had some abdominal distention. Yesterday afternoon he complained of feeling nauseous the BiPAP was removed and he vomited. He aspirated at that point in time and arrested. Patient's downtime was less than 15 minutes prior to ROSC. He was brought to the ICU and initially was difficult to oxygenate. He had high peak inspiratory pressures. Sedation was started and a one-time dose of adriana was given. The vent was adjusted and patient's oxygenation improved. Overnight there were no acute events. He has had decent urinary output and is currently afebrile. This morning he remains on 100% FiO2 with a PEEP of 12 satting in the low 90s. The patient is quick to desat and slow to recover. CT performed yesterday shows dense bilateral consolidation right greater than left. He remains in shock but with decreasing vasopressor requirements. 11/27- no acute overnight events, good UOP, afebrile, remains with RASS -4, able to come down on FiO2 from 100% to 60% this AM, underwent bronch yesterday which showed diffuse submucosal hemorrhage L>R along with biliary secretions in the bronchial tree Critical Care Note Critical care time (min.): 40 Exam Vital Signs Temp Pulse Resp BP Pulse Ox O2 Del Method O2 Flow Rate 98.2 F 45 L 33 H 116/47 L 98 Mechanical Ventilation 90 11/27/24 08:00 11/27/24 10:20 11/27/24 10:20 11/27/24 10:17 11/27/24 10:20 11/27/24 04:01 11/26/24 08:00 FiO2 50 11/27/24 10:20 Narrative Exam General-intubated, sedated, morbidly obese HEENT-normocephalic, atraumatic, sclera icteric, pupils small but brisk and reactive, ET tube and NG tube in place Chest-diminished and coarse breath sounds, posterior crackles, heart rate regular, no bruits murmurs auscultated times exam, no increased work of breathing Abdomen-soft, obese, bowel sounds present, no palpable organomegaly Extremities-1+ pitting edema bilateral lower extremities, increased edema of both hands, pulses palpable, no clubbing, no mottling Vent AC VC Drips Propofol Fentanyl Physical Exam Completion Physical Exam Complete?: Yes 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 11/28/24 08:00 11/28/24 08:00 Labs: Laboratory Results - last 24 hr 11/25/24 11/26/24 11/26/24 16:46 12:15 12:42 WBC RBC Hgb Hct MCV MCH MCHC RDW Std Deviation Plt Count Neut % (Auto) Lymph % (Auto) [place] % (Auto) Eos % (Auto) Baso % (Auto) Neut # (Auto) Lymph # (Auto) [place] # (Auto) Eos # (Auto) Baso # (Auto) Immature Gran # (Auto) Absolute Nucleated RBC Immature Gran % Nucleated RBC % Puncture Site Arterial Line ABG pH 7.28 L ABG pCO2 59 H ABG pO2 67 L ABG HCO3 26 ABG O2 Saturation 92 ABG Base Excess -1 Oxygen Liter Flow 92 FiO2 80 Sodium Potassium Chloride Carbon Dioxide Anion Gap BUN Creatinine Estim Creat Clear Calc eGFR BUN/Creatinine Ratio Glucose Calculated Osmolality Calcium Corrected Calcium Magnesium Total Bilirubin AST ALT Alkaline Phosphatase Ammonia 50 H Total Protein Albumin Globulin Albumin/Globulin Ratio Hepatitis A IgM Ab Non Reactive Hep Bs Antigen Non Reactive Hep B Core IgM Ab Non Reactive Hepatitis C Antibody Non Reactive 11/27/24 11/27/24 04:22 07:01 WBC 10.4 RBC 3.16 L Hgb 9.0 L Hct 28.7 L MCV 91 MCH 28.5 MCHC 31.4 RDW Std Deviation 48.7 H Plt Count 291 Neut % (Auto) 75 Lymph % (Auto) 15 [place] % (Auto) 7 Eos % (Auto) 1 Baso % (Auto) 1 Neut # (Auto) 7.8 H Lymph # (Auto) 1.6 [place] # (Auto) 0.7 Eos # (Auto) 0.1 Baso # (Auto) 0.1 Immature Gran # (Auto) 0.15 H Absolute Nucleated RBC 0.02 H Immature Gran % 1 H Nucleated RBC % 0 Puncture Site Arterial Line ABG pH 7.32 L ABG pCO2 55 H ABG pO2 80 L ABG HCO3 28 H ABG O2 Saturation 94 ABG Base Excess 1 Oxygen Liter Flow FiO2 65 Sodium 139 Potassium 4.7 Chloride 105 Carbon Dioxide 25.2 Anion Gap 9 BUN 41 H Creatinine 1.2 Estim Creat Clear Calc 60.5 L eGFR > 60 BUN/Creatinine Ratio 34 H Glucose 162 H Calculated Osmolality 291 Calcium 8.1 L Corrected Calcium 8.9 Magnesium 2.4 Total Bilirubin 0.5 AST 124 H ALT 55 H Alkaline Phosphatase 121 H D Ammonia Total Protein 5.8 Albumin 3.0 L Globulin 2.8 Albumin/Globulin Ratio 1.1 L Hepatitis A IgM Ab Hep Bs Antigen Hep B Core IgM Ab Hepatitis C Antibody Assessment & Plan Problem List (1) UTI (urinary tract infection): Status: Acute (2) Sepsis: Status: Acute (3) Type 2 diabetes mellitus: Status: Acute (4) Hypertension: Status: Acute (5) Hyperlipidemia: Status: Acute (6) Acute renal failure (ARF): Status: Acute Additional Plan Additional Plan: In summary this is a 78yo M s/p aspiration and 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 increasing sedation due to vent requirements - Remains on deep sedation CV Shock- in the setting of cardiac arrest. given volume for fluid responsiveness yesterday. - Likely distributive in nature - Bedside echo done and shows adequate LV contractility however it is not hyperdynamic, no significant pericardial effusion - No signs of hypovolemic or obstructive etiology - On broad-spectrum antibiotics, cultures pending, significant decrease in vasopressor requirements Resp Acute hypoxic resp failure- intubated, MV, fu on ABG and CXR. dense consolidation seen on CT, b/l R>L 2/2 aspiration - started on mucomyst with nebs q4hr and CPT with percussion to R q4h as well - CT read as pleural effusion however appears to be more dense consolidation Aspiration Pneumonitis- bronch done and biliary secretions noted throughout bronchial tree, on abx for any superimposed bacterial component ARDS- 2/2 aspiration - on LTVV - high PEEP/low FiO2 table and wean accordingly - unable to prone due to body habitus - p/f ratio 76 -> improved to 120s today - deep sedation however has not required neuromuscular blockade - permissive hypercapnea - Improving FiO2 requirements Renal ROSEANNE- seen and followed by nephrology. monitor i/os, avoid nephrotoxins, improving - Good urinary output GI Transaminitis- long standing for several yrs. viral panel ordered and resulted negative - will need further workup -On a statin and will hold for now -Question underlying FINK -Started on lactulose for slightly elevated ammonia Abd distention- NGT placed for decompression - Patient currently is having bowel movements - Some improvement from arrival Endo DM- SSI FS q6h Heme Leukocytosis- reactive v infectious Anemia- small drop from yesterday however felt to be dilutional at this point in time -Stable with no active bleed DVT proph- heparin 7500 q8 ID Aspiration- on abx UTI- on abx, growing E. coli case d/w ICU team and nephrology labs, imaging, records reviewed ~40ccmin required for eval, exam, review, intervention, discussion and formulation of POC for this critically ill pt with shock and acute resp failure at high risk for further and ongoing decompensation Provider Notation Provider Notation: Although this document has been carefully reviewed, there may still be some phonetic and other typographical errors. These errors are purely grammatical due to imperfections in the software program and should not be construed in any way to compromise the substance of the patient's medical care during this visit. Thank you for the opportunity and privilege in assisting you with this patient's care and management.
[2024-11-27] MEDS: INSULIN LISPRO (AdmeLOG) 1 UNIT/0.01 ML UNIT SC ×2 (11:47→17:54)
--- NOTE | 2024-11-27 13:48 | PC.DIETICIAN ---
Nutrition prescription If EN is indicated, consider: Vital 1.2 at 20 ml/hr via OG/NG tube by pump. Advance 10 ml every 8 hrs to goal rate of 50 ml/hr x 24 hrs. If no IV fluids, water flushes of 25 ml/hr (or per MD).
--- NOTE | 2024-11-27 14:00 | PC.SS ---
SS follow up note; GI workup, Cultures pending. Discharge plan to be discussed closer to discharge.
[2024-11-27] MEDS: fentaNYL 2,500 MCG/250 ML BAG 2,500 MCG/250 ML BAG 12.5 MCG IV (14:06)
[2024-11-27] MEDS: Vancomycin Inj 1,500 MG in SODIUM CHLORIDE 0.9% 500 ML 500 ML 200 MG IV (14:20)
--- NOTE | 2024-11-27 17:48 | ECHO_ITS ---
Transthoracic Echo Report Ht (in): 65 Wt (lb): 262 Exam Location: Portable Status: Inpatient Compensation Expert: ROSIBEL Burgess^^^^ Indications: Procedure Performed: BP: 112 / 60 HR: MEASUREMENTS (Male / Female) Normal Values 2D ECHO LV Diastolic Diameter PLAX 5.2 cm 4.2 - 5.9 / 3.9 - 5.3 cm LV Systolic Diameter PLAX 3.3 cm IVS Diastolic Thickness 1.1 cm 0.6 - 1.0 / 0.6 - 0.9 cm LVPW Diastolic Thickness 1.1 cm 0.6 - 1.0 / 0.6 - 0.9 cm LV Relative Wall Thickness 0.4 LVOT Diameter 1.7 cm Aortic Root Diameter 3.2 cm LA Systolic Diameter LX 4.3 cm 3.0 - 4.0 / 2.7 - 3.8 cm LV Ejection Fraction MOD 4C 69.6 % LV Ejection Fraction 4C AL 70.5 % LA Volume Index 45.7 cm?/m? 16 - 28 cm?/m? Ascending Aorta Diameter 3.8 cm DOPPLER AV Peak Velocity 231.5 cm/s AV Peak Gradient 21.4 mmHg AV Mean Gradient 13.0 mmHg AV Velocity Time Integral 68.1 cm LVOT Peak Velocity 70.2 cm/s LVOT Peak Gradient 2.0 mmHg LVOT Velocity Time Integral 22.2 cm AV Area Cont Eq vti 0.7 cm? AV Area Cont Eq pk 0.7 cm? MV Area PHT 3.4 cm? MR Peak Velocity 255.0 cm/s MR Peak Gradient 26.0 mmHg Mitral E Point Velocity 80.1 cm/s Mitral A Point Velocity 56.3 cm/s Mitral E to A Ratio 1.4 LV E' Lateral Velocity 6.9 cm/s Mitral E to LV E' Lateral Ratio 11.6 LV E' Septal Velocity 13.5 cm/s Mitral E to LV E' Septal Ratio 5.9 TR Peak Velocity 224.0 cm/s TR Peak Gradient 20.1 mmHg PV Peak Velocity 64.6 cm/s PV Peak Gradient 1.7 mmHg RVOT Peak Velocity 72.4 cm/s FINDINGS Left Ventricle Normal left ventricular size, wall thickness, systolic function with no obvious regional wall motion abnormalities. There is grade II diastolic dysfunction of the left ventricle (pseudonormal filling pattern). The ejection fraction is visually estimated at 60-65 %. Right Ventricle The right ventricle is normal in size and systolic function. The estimated right ventricular systolic pressure, 25 mmHg. Left Atrium Mildly increased left atrial volume 45.7 mL/m?. Right Atrium The right atrium is normal by two-dimensional imaging, color flow and Doppler imaging with no structural abnormalities, no thrombus formation present. Atrial Septum The interatrial septum appears normal with no evidence of a shunt. Aorta The aorta is normal by two-dimensional, color flow and Doppler interrogation. Mitral Valve Trace to mild mitral regurgitation. Mild mitral annular calcification. Aortic Valve Mild aortic valve stenosis, mean gradient 13 mmHg, . Diffuse calcification of the aortic valve. Tricuspid Valve There is mild tricuspid valve regurgitation. Pulmonic Valve Trivial pulmonic valve regurgitation. Vessels The pulmonary artery appears normal. The inferior vena cava pulmonary and hepatic veins appear normal. Pericardium The pericardium is normal by two-dimensional imaging. There is no significant pericardial effusion. CONCLUSIONS indication: post cardiac arrest Mildly dilated left atrium. Aortic valve sclerosis and calcification with mild to moderate aortic stenosis aortic velocity 2.3 m/s with a mean gradient of 13 mmHg. Normal-sized left ventricle with mild concentric LVH normal wall motion ejection fraction 55 to 60%. Right atrium right ventricle appeared normal. Right ventricle function is normal. Mitral annulus calcification mild mitral regurgitation. Mild tricuspid valve regurgitation. Normal pulmonary artery pressures. Joseline Ervin (Electronically Signed) Final Date: 27 November 2024 17:46
[2024-11-28] VITALS (68 sets, daily range): BP systolic 91–189; BP diastolic 40–106; PULSE 44–73; RESP 9–38; TEMP 36.4–37.1; O2SAT 83–100; BMI 43.9
[2024-11-28] MEDS: VASOPRESSIN IN NS IVPB 20 UNIT/100 ML BAG 9 UNIT IV (00:14)
[2024-11-28] MEDS: ACETYLCYSTEINE RT SOL 10% 4 ML NEBU 3 ML INH ×6 (02:05→22:30)
[2024-11-28] MEDS: ALBUTEROL/IPRATROPIUM (Duoneb) RT SOL 3 ML NEBU INH ×6 (02:05→22:30)
[2024-11-28] MEDS: PROPOFOL 1,000 MG IVPB 1,000 MG/100 ML VIAL 16.744 MG IV ×2 (02:36→07:54)
[2024-11-28] MEDS: fentaNYL 2,500 MCG/250 ML BAG 2,500 MCG/250 ML BAG 12.5 MCG IV (03:46)
[2024-11-28 04:51] LABS: Base Excess 1 (-3-3); HCO3 27 mEq/L (20-26); Inspired Oxygen, FIO2 50 %; O2 Saturation 98 % (91-98); PCO2 50 mmHg (32.0-48.0); PO2 148 mmHg (83-108); pH, Arterial 7.35 (7.35-7.45)
[2024-11-28 04:53] LABS: Allen Test Not Performed; Puncture Site Arterial Line
[2024-11-28] MEDS: PIPER/TAZO 3.375 GM PREMIX 3.375 GM/50 ML BAG IV (05:56)
[2024-11-28] MEDS: LACTULOSE SYRUP 20 GM/30 ML UDC PO ×2 (05:56→21:53)
[2024-11-28] MEDS: HEPARIN SOD INJ 5000 UNIT/ML VIAL 7500 UNIT SC ×3 (05:56→21:54)
--- NOTE | 2024-11-28 06:00 | XR_ITS ---
Examination: AP chest single view Technique one AP portable semiupright chest single view Exam date and time: November 28, 2024 0603 hrs. Comparison November 27, 2024 Indications: Hypoxic respiratory pneumonia ARDS pattern on earlier chest films Findings: Bilateral extensive lung opacity, pneumonia and pulmonary edema, again more severe the right lung Endotracheal tube tip 4.9 cm above mati. The orogastric tube is in the stomach There is probable layering bilateral pleural fluid Right internal jugular central line tip SVC satisfactory position Impression: Extensive bilateral pneumonia ARDS again noted, most severe in the right lung Associated at least mild heart failure
[2024-11-28 06:11] LABS: Magnesium 2.5 mg/dL (1.6-2.6)
[2024-11-28] MEDS: FLUTICASONE NAS SPRAY 0.05% 16 GM BTL 1 SPRAY NASAL (08:14)
[2024-11-28] MEDS: PANTOPRAZOLE INJ 40 MG VIAL IV (08:23)
[2024-11-28] MEDS: DEXMEDETOMIDINE 200 MCG IVPB 200 MCG/50 ML BOTTLE 6.05 MCG IV (08:33)
[2024-11-28 08:37] LABS: Basophils # (Auto) 0.1 Thou/mm3 (0.0-0.2); Basophils % (Auto) 1 % (0-2.5); Eosinophils # (Auto) 0.4 Thou/mm3 (0.0-0.5); Eosinophils % (Auto) 3 % (0-10); Hematocrit 29.1 % (41.0-53.0); Hemoglobin 8.9 g/dL (13.5-16.0); Immature Granulocytes % (Auto) 5 % (0-0); Immature Granulocytes Auto 0.62 Thou/mm3 (0.00-0.00); Lymphocytes # (Auto) 1.9 Thou/mm3 (1.0-4.8); Lymphocytes % (Auto) 15 % (10-50); Mean Corpuscular HGB Conc 30.6 g/dl (31.0-37.0); Mean Corpuscular Hemoglobin 28.2 pg (25.0-35.0); Mean Corpuscular Volume 92 fL (80-100); Monocytes # (Auto) 0.6 Thou/mm3 (0.0-0.8); Monocytes % (Auto) 5 % (0-12); Neutrophils # (Auto) 8.8 Thou/mm3 (1.8-7.7); Neutrophils % (Auto) 71 % (37-80); Nucleated Red Blood Cell # 0.14 Thou/mm3 (0.00-0.00); Nucleated Red Blood Cell % 1 /100 WBC (0); Platelet Count 357 Thou/mm3 (140-440); RDW Standard Deviation 49.6 fL (35.1-43.9); Red Blood Count 3.16 Miln/mm3 (4.50-5.90); White Blood Count 12.4 Thou/mm3 (3.8-10.6)
[2024-11-28 08:45] LABS: Alanine Aminotransferase 53 U/L (10-49); Albumin, Serum 3.2 gm/dL (3.4-4.8); Albumin/Globulin Ratio 1.1 (1.2-2.2); Alkaline Phosphatase 122 U/L (46-116); Anion Gap 7 (7-16); Aspartate Amino Transferase 124 U/L (0-34); BUN/Creatinine Ratio 34 Ratio (12-20); Bilirubin,Total 0.7 mg/dL (0.3-1.2); Blood Urea Nitrogen 37 mg/dL (9-23); Calcium 8.2 mg/dL (8.3-10.6); Calcium (Corrected) 8.8 mg/dL (8.5-10.1); Carbon Dioxide 28.4 mMol/L (20.0-31.0); Chloride 108 mMol/L (98-107); Creatinine (Component) 1.1 mg/dL (0.6-1.3); Estimated Creatinine Clearance 66.8 mL/min (>60); Globulin 2.8 gm/dL (2.3-3.5); Glucose 147 mg/dL (74-106); Osmolality,Calculated 296 (275-295); Potassium 4.3 mMol/L (3.4-5.1); Sodium 143 mMol/L (136-145); eGFR > 60 See Note
--- NOTE | 2024-11-28 09:17 | ESPR_ITS ---
Documentation for date of: 11/28/24 Subjective Subjective Interval history: Mr. 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 Grider) history of CHF, history of pituitary adenoma which was removed presented to the emergency department with significant shortness of breath and her daughter called paramedics. When paramedics arrived his O2 sat was less than 88%. Chest x-ray showed mild vascular congestion and no pneumonia. Admitted to the hospital with hypoxic respiratory failure ED COURSE: T103.8, HR 106, BP 141/91, satting 93% on 2 L NC. WBC 13.8, Hgb 11.2, PLT 253. Normal coag studies. CHEM panel significant for BUN 26, CR 1.5, EGFR 47, GLUCOSE 189, A1c 6.8, phosphorus 1.5, AST 44, AST 36, ALP 117, BNP 109, troponin 0.029, Pro-Calc 3.01. UA showed positive LE, RBC 6, WBC 41, urea 4+. EKG sinus rhythm without acute ST changes. CXR mild vascular congestion, no lobar pneumonia. ED gave 2 L IVF, CEFTRIAXONE 1 g x 1. Will admit for sepsis in settings of UTI. 11/26/2024 patient currently seen in ICU. Apparently yesterday after I saw the patient with the resident that he had a few events where rapid response was called in the beginning during NG tube insertion for abdominal distention/ileus. Subsequently he coded secondary to aspiration pneumonia, intubated and transferred to ICU. Currently on pressors. Dr. Quinn and ICU team at bedside. Family at bedside. Labs/medications reviewed. On broad-spectrum antibiotics. WBC 13.6, hemoglobin 9.7, platelets 266. ABG showing pH 7.28, HDM646, pO2 67, HCO3 26. Sodium 138, potassium 4.9, BUN 37, creatinine 1.3, lactic acid 1.3, calcium 8.9, magnesium 2.2, AST 69, ALT 59, ammonia 50, albumin 3.1,Chest x-ray showed pneumonia in the right lung. 11/27/2024 examined in ICU. Sedated on MV, no signs of distress. Broch showed friable mucosa secondary to bile. Suspected ARDS, however improving. On pressors, vitals WNL, although slightly bradycardic. CT from 11/25 with left pleural effusion, vascular congestion, pneumonia, hepatomegaly, ascites, possible cystitis, no bowel obstruction. Abdominal ultrasound pending. Leukocytosis resolved. Hgb 9.0. Renal function stable and normal. AST 124, ALT 55, ALP 121. Hep panel was negative. 24-hour blood culture negative. Sputum culture pending. 11/28/2024 examined in ICU at bedside. Off sedation, planning to extubate today. Appears alert. Pressors are off, BP 123/63. Echo showed EV 55 to 60%, mild to moderate aortic stenosis. CXR today showing ARDS, worse on the right. Has trace bilateral LE edema on exam. Renal function stable. Exam Vital Signs Temp Pulse Resp BP Pulse Ox O2 Del Method O2 Flow Rate 98.8 F 54 L 33 H 123/63 93 L Mechanical Ventilation 90 11/28/24 04:00 11/28/24 09:00 11/28/24 06:18 11/28/24 09:00 11/28/24 09:00 11/27/24 04:01 11/26/24 08:00 FiO2 40 11/28/24 08:00 Narrative Exam GENERAL APPEARANCE patient currently seen in ICU. Orotracheal intubation noted CARDIOVASCULAR: Heart regular, no murmurs LUNGS/CHEST: decreased breath sounds bilaterally ABDOMEN: Soft, nontender, significant distention. No masses. Normal bowel sounds. EXTREMITIES: Trace edema, no clubbing or cyanosis. SKIN: Skin exam normal without any rashes MUSCULOSKELETAL: in bed NEUROLOGICAL : Intubated, sedated Objective Labs 11/29/24 04:52 11/29/24 04:52 Labs: Laboratory Results - last 24 hr 11/28/24 11/28/24 04:38 08:00 WBC 12.4 H RBC 3.16 L Hgb 8.9 L Hct 29.1 L MCV 92 MCH 28.2 MCHC 30.6 L RDW Std Deviation 49.6 H Plt Count 357 D Neut % (Auto) 71 Lymph % (Auto) 15 [place] % (Auto) 5 Eos % (Auto) 3 Baso % (Auto) 1 Neut # (Auto) 8.8 H Lymph # (Auto) 1.9 [place] # (Auto) 0.6 Eos # (Auto) 0.4 Baso # (Auto) 0.1 Immature Gran # (Auto) 0.62 H Absolute Nucleated RBC 0.14 H Immature Gran % 5 H Nucleated RBC % 1 H Puncture Site Arterial Line ABG pH 7.35 ABG pCO2 50 H ABG pO2 148 H D ABG HCO3 27 H ABG O2 Saturation 98 ABG Base Excess 1 FiO2 50 Sodium 143 Potassium 4.3 Chloride 108 H Carbon Dioxide 28.4 Anion Gap 7 BUN 37 H Creatinine 1.1 Estim Creat Clear Calc 66.8 eGFR > 60 BUN/Creatinine Ratio 34 H Glucose 147 H Calculated Osmolality 296 H Calcium 8.2 L Corrected Calcium 8.8 Magnesium 2.5 Total Bilirubin 0.7 AST 124 H ALT 53 H Alkaline Phosphatase 122 H Total Protein 6.0 Albumin 3.2 L Globulin 2.8 Albumin/Globulin Ratio 1.1 L ABG Interpretation ABG results: 11/25/24 11/25/24 11/25/24 12:15 13:59 16:51 ABG pH 7.15 L* 7.18 L* 7.14 L* ABG pCO2 83 H* 71 H* D 82 H* D ABG pO2 43 L* 87 D 69 L ABG HCO3 29 H 26 28 H ABG O2 Saturation 72 L 96 91 ABG Base Excess -1 -3 -2 11/25/24 11/25/24 11/26/24 19:23 23:21 04:48 ABG pH 7.27 L D 7.29 L 7.28 L ABG pCO2 58 H D 54 H 56 H ABG pO2 87 92 76 L ABG HCO3 27 H 26 26 ABG O2 Saturation 97 98 95 ABG Base Excess -1 -2 -1 11/26/24 11/27/24 11/28/24 12:15 07:01 04:38 ABG pH 7.28 L 7.32 L 7.35 ABG pCO2 59 H 55 H 50 H ABG pO2 67 L 80 L 148 H D ABG HCO3 26 28 H 27 H ABG O2 Saturation 92 94 98 ABG Base Excess -1 1 1 Quality Measures Quality Measures none Advance care planning discussed with:: patient (sedated) Assessment & Plan Assessment Current Active Medications: Generic Name Dose Route Start Last Admin Trade Name Freq PRN Reason Stop Dose Admin Acetaminophen 650 mg 11/25/24 08:49 11/25/24 08:56 Acetaminophen 325 Mg Tablet PO 12/25/24 08:48 650 mg Q6HR PRN Administration PAIN Acetylcysteine 3 ml 11/26/24 15:00 11/28/24 06:17 Acetylcysteine Rt Pati 10% 4 Ml Nebu INH 12/26/24 14:59 3 ml Q4HRRT PRINECSS Administration Albuterol/Ipratropium 3 ml 11/25/24 23:00 11/28/24 06:10 Albuterol/Ipratropium (Duoneb) Rt Pati 3 Ml Nebu INH 12/25/24 22:59 3 ml Q4HRRT PRINCESS Administration Carvedilol 25 mg 11/24/24 09:00 11/26/24 08:06 Carvedilol 12.5 Mg Tablet PO 12/24/24 08:59 Not Given QDAY PRINCESS Clonidine 0.1 mg 11/24/24 09:00 11/26/24 08:06 Clonidine Hcl 0.1 Mg Tablet PO 12/24/24 08:59 Not Given BID PRINCESS Dextrose 25 ml 11/23/24 21:21 Dextrose 50%-Water Inj 50 Ml Syringe IV 12/23/24 21:20 Q15MIN PRN BG 50-70 responsive npo pt Finasteride 5 mg 11/24/24 09:00 11/28/24 08:23 Finasteride 5 Mg Tablet PO 12/24/24 08:59 Not Given QDAY PRINCESS Fluticasone Propionate 1 spray 11/24/24 09:00 11/28/24 08:14 Fluticasone Rahul [place] 0.05% 16 Gm Btl NASAL 12/24/24 08:59 16 gm QDAY PRINCESS Administration Gabapentin 100 mg 11/24/24 09:00 11/26/24 08:07 Gabapentin 100 Mg Capsule PO 12/24/24 08:59 Not Given BID PRINCESS Glucagon 1 mg 11/23/24 21:21 Glucagon Inj 1 Mg Vial IM Q15MIN PRN BG <70, and no IV access Heparin Sodium (Porcine) 7,500 unit 11/26/24 14:00 11/28/24 05:56 Heparin Sod Inj 5000 Unit/Ml Vial SC 12/10/24 13:59 7,500 unit Q8HR PRINCESS Administration Sodium Chloride 1,000 mls @ 125 mls/hr 11/23/24 21:26 11/25/24 08:45 Ns IV 12/23/24 21:25 125 mls/hr .Q10H PRINCESS Administration Norepinephrine/Dextrose 8 mg in 250 mls @ 10.465 mls/hr 11/25/24 16:37 11/27/24 04:20 Levophed In D5w 8mg/250ml IV 12/25/24 16:36 0 mcg/kg/min .[id number] PRN 0 mls/hr PER PROTOCOL Titration Protocol 0.05 MCG/KG/MIN Vasopressin/Sodium Chloride 20 unit in 100 mls @ 9 mls/hr 11/25/24 16:37 11/28/24 00:14 Vasostrict/Ns Ivpb IV 12/25/24 16:36 0.03 unit/min .Q11H7M PRN 9 mls/hr PER PROTOCOL Administration Protocol 0.03 UNIT/MIN Piperacillin/Tazobactam/Dextrose 3.375 gm in 50 mls @ 12.5 mls/hr 11/25/24 22:00 11/28/24 05:56 Zosyn IV 12/02/24 21:59 12.5 mls/hr Q8HR PRINCESS Administration Fentanyl Citrate 2,500 mcg in 250 mls @ 2.5 mls/hr 11/25/24 17:37 11/28/24 06:00 Sublimaze Inj 2,500 Mcg/250 Ml Bag IV 11/30/24 17:36 125 mcg/hr .Q24H PRN 12.5 mls/hr PER PROTOCOL Titration Protocol 25 MCG/HR Vancomycin HCl 1,500 mg/ 500 mls @ 200 mls/hr 11/25/24 18:30 11/27/24 18:45 Sodium Chloride IV 12/02/24 18:29 Infused QDAY@1400 PRINCESS Infusion 10 MG/MIN Propofol 1,000 mg in 100 mls @ 3.349 mls/hr 11/25/24 22:59 11/28/24 07:54 Diprivan Ivpb IV 12/25/24 22:58 25 mcg/kg/min .Q24H PRN 16.744 mls/hr PER PROTOCOL Administration Protocol 5 MCG/KG/MIN Dexmedetomidine/Sodium Chloride 200 mcg in 50 mls @ 6.05 mls/hr 11/28/24 08:26 11/28/24 08:33 Precedex Ivpb IV 12/28/24 08:25 0.2 mcg/kg/hr .Q8H16M PRN 6.05 mls/hr Per PROTOCOL Administration Protocol 0.2 MCG/KG/HR Insulin Human Lispro 0 unit 11/26/24 00:00 11/28/24 06:20 Insulin Lispro (Admelog) 1 Unit/0.01 Ml Unit SC 12/26/24 00:00 Not Given Q6H PRINCESS Protocol Lactulose 20 gm 11/26/24 22:00 11/28/24 05:56 Lactulose Syrup 20 Gm/30 Ml Udc PO 12/26/24 21:59 20 gm TID PRINCESS Administration Protocol Pantoprazole Sodium 40 mg 11/27/24 09:00 11/28/24 08:23 Pantoprazole Inj 40 Mg Vial IV 12/27/24 08:59 40 mg QDAY PRINCESS Administration Pharmacy Consult 1 each 11/25/24 17:45 Vancomycin Pharmacy To Dose 1 Each Each IV 12/25/24 17:44 QDAY PRN PROTOCOL Plan In summary: 70-year-old male PMHx of CAD with stents, HTN, DM, BPH with self- catheterization, presented to ED with SOB. Admitted for AHRF 2/2 suspected sepsis in settings of UTI. ARDS, no in ICU on MV. ROSEANNE Renal function stable and normal. No electrolyte abnormalities. Off pressors, BP 123/63, HR 54 Trace LE edema tj on exam. ? Renally dose meds, avoid overdiuresis and NEPHROTOXINS ? Daily CMP #Acute encephalopathy #Sedated #Shock #Postcardiac arrest #Hx of CAD s/p stents #History of heart failure #Acute hypoxic respiratory failure #Aspiration pneumonia? #Aspiration pneumonitis #Abdominal distention #Hepatomegaly #Transaminitis #Possible calculus cholecystitis #Complicated UTI, E. coli #Normocytic normochromic anemia #E. coli UTI #Possible aspiration pneumonia Managed by superintendent pipelines team Case was discussed with attending, Dr. Villegas. Oli Gomez DO PGYI Attending Provider Attestation/Addendum Patient seen and examined with resident physician Dr. Baird. Note reviewed, agree with findings and recommendations. Patient admitted with UTI/sepsis Continue with fluids, antibiotics. Patient currently seen in ICU. On the ventilator. Bronchoscopy showed friable mucosa. Patient currently seems to be in ARDS. ICU on the case.
[2024-11-28] MEDS: DEXMEDETOMIDINE 200 MCG IVPB 200 MCG/50 ML BOTTLE 42.35 MCG IV ×7 (09:37→17:34)
--- NOTE | 2024-11-28 09:38 | PD.RESPRO ---
Documentation for date of: 11/28/24 Subjective Subjective Interval history: 78-year-old male with past medical history of CAD status post stents, hypertension, DM2, BPH with self-catheterization, and CHF (no echo on file) was admitted to the medical floors on 11/23/2024 due to sepsis likely secondary to complicated UTI in the setting of ROSEANNE and a positive urine analysis. Patient was admitted to the ICU on 11/25/2024 after cardiac arrest and ROSC was achieved. On this day patient had a rapid response called earlier in the morning due to lethargy, hypotension, and abdominal distention. At this time patient's blood pressure was around 93/53 and he was AO x 2. Primary care team give the patient 1 L bolus of NS which improved the blood pressure and started the patient on BiPAP after he was found to have an ABG of pH 7.15, PCO2 of 83, and PO2 of 43. During this time due to the new onset of abdominal distention and abdominal x-ray was ordered and only showed dilated stomach with nonobstructed nondilated bowel gas pattern, but no perforation. Later on the afternoon patient remained on the BiPAP before complaining of feeling nauseated around 4 PM at this time the BiPAP was discontinued and then patient's NG tube was placed to suctioning. At around 4:15 PM CHUY SENIOR was called to the patient's room as he was found to be pulseless after he appeared to have aspirated. Patient was coded and had a total of 5 rounds of epi, half atropine, 2 amp of sodium bicarb, and ROSC was achieved. At this time patient was intubated and was placed on dopamine drip and transferred to the ICU. 11/26/2024: Patient seen and examined at bedside this morning. Overnight patient became hypothermic at 96.5, but on rectal temperature he was 97.5 this morning. Patient was slowly weaned down on vasopressors, but he was placed on propofol overnight and was given 2 more doses of rocuronium given that he was breathing over the vent. Patient opening eyes spontaneously, had good pain response, pupils were reactive bilaterally. Patient underwent abdomen/pelvis CT with showed consolidation of the lower lobes therefore consent was taken for bronchoscopy. Patient underwent bronchoscopy and there was friable mucosa seen in the bronchoscopy with some bile secretions appreciated also during bronchoscopy. Patient was placed on his left side to help with oxygenation. Will get ammonia levels, ABG, and will start CPT and Mucomyst every 4 hours with DuoNebs. Successfully placed on arterial line today. 11/27/2024: Patient seen and examined at bedside this morning. No overnight events. Patient was taken off Levophed and is currently only on vasopressin. Patient did not have any desaturations overnight and his FiO2 has been weaned down to 50% this a.m. Chest x-ray done this a.m. showed improvement opacities, but there appears to be some retrocardiac opacification blunting the diaphragm on the left side and there is a possible new pleural effusion on the right side. Patient's blood cultures have been negative and sputum cultures have been negative for now. Still pending read of abdominal ultrasound. Echo was taken today, pending read. PF ratio today was 123, will continue patient on CPT, Mucomyst, and DuoNebs every 4 hours as well as maintain him laying mostly on his left side. 11/28/2024: Patient was seen and examined at bedside this morning. No overnight events. Patient continues to be only on vasopressin for now and has been having good urine output overnight. FiO2 has been weaned down to 40% today with PF ratio of 370. Chest x-ray done this a.m. that shows some improvement. Blood cultures and sputum cultures were negative. Echo was read and showed ejection fraction of 55 to 60% with mild MR, TR, and mild to moderate . Discontinue Zosyn and vancomycin, start Rocephin until 12/01/2024. Patient is currently off vasopressors at this time and off propofol, start Precedex. Will continue to change ventilator settings for possible extubation in the next 24 to 48 hours. Exam Vital Signs Temp Pulse Resp BP Pulse Ox O2 Del Method O2 Flow Rate 98.8 F 54 L 33 H 123/63 93 L Mechanical Ventilation 90 11/28/24 04:00 11/28/24 09:00 11/28/24 06:18 11/28/24 09:00 11/28/24 09:00 11/27/24 04:01 11/26/24 08:00 FiO2 40 11/28/24 08:00 Narrative Exam General: Mechanically ventilated, responsive to painful stimuli and pupils reactive to light. Eyes: Pupils reactive to light Ears: No visible ear discharge Nose: No visible nasal discharge. Mouth/Throat: Moist mucous membranes, no redness, no lesions. Neck: Short neck, no cervical lymphadenopathy. Lungs: Clear to lay on the right side, but still some rhonchi appreciated on the right side and decreased breath sounds on the left. Cardio: Normal S1/S2, regular rhythm, no murmurs, no JVD Abdomen: Firm and distended, but softer today, no palpable masses, peristalsis present, no guarding or rebound. Extremities: Symmetrical, no significant deformities, 1+ peripheral edema , non-tender, peripheral pulses presents, bilateral upper extremity swelling most likely third spacing Skin: No rashes, no lesions, warm to touch. Neuro: Reactive to painful stimuli, pupils were equally reactive Objective Labs 11/28/24 08:00 11/28/24 08:00 Labs: Laboratory Results - last 24 hr 11/28/24 11/28/24 04:38 08:00 WBC 12.4 H RBC 3.16 L Hgb 8.9 L Hct 29.1 L MCV 92 MCH 28.2 MCHC 30.6 L RDW Std Deviation 49.6 H Plt Count 357 D Neut % (Auto) 71 Lymph % (Auto) 15 [place] % (Auto) 5 Eos % (Auto) 3 Baso % (Auto) 1 Neut # (Auto) 8.8 H Lymph # (Auto) 1.9 [place] # (Auto) 0.6 Eos # (Auto) 0.4 Baso # (Auto) 0.1 Immature Gran # (Auto) 0.62 H Absolute Nucleated RBC 0.14 H Immature Gran % 5 H Nucleated RBC % 1 H Puncture Site Arterial Line ABG pH 7.35 ABG pCO2 50 H ABG pO2 148 H D ABG HCO3 27 H ABG O2 Saturation 98 ABG Base Excess 1 FiO2 50 Sodium 143 Potassium 4.3 Chloride 108 H Carbon Dioxide 28.4 Anion Gap 7 BUN 37 H Creatinine 1.1 Estim Creat Clear Calc 66.8 eGFR > 60 BUN/Creatinine Ratio 34 H Glucose 147 H Calculated Osmolality 296 H Calcium 8.2 L Corrected Calcium 8.8 Magnesium 2.5 Total Bilirubin 0.7 AST 124 H ALT 53 H Alkaline Phosphatase 122 H Total Protein 6.0 Albumin 3.2 L Globulin 2.8 Albumin/Globulin Ratio 1.1 L ABG Interpretation ABG results: 11/25/24 11/25/24 11/25/24 12:15 13:59 16:51 ABG pH 7.15 L* 7.18 L* 7.14 L* ABG pCO2 83 H* 71 H* D 82 H* D ABG pO2 43 L* 87 D 69 L ABG HCO3 29 H 26 28 H ABG O2 Saturation 72 L 96 91 ABG Base Excess -1 -3 -2 11/25/24 11/25/24 11/26/24 19:23 23:21 04:48 ABG pH 7.27 L D 7.29 L 7.28 L ABG pCO2 58 H D 54 H 56 H ABG pO2 87 92 76 L ABG HCO3 27 H 26 26 ABG O2 Saturation 97 98 95 ABG Base Excess -1 -2 -1 11/26/24 11/27/24 11/28/24 12:15 07:01 04:38 ABG pH 7.28 L 7.32 L 7.35 ABG pCO2 59 H 55 H 50 H ABG pO2 67 L 80 L 148 H D ABG HCO3 26 28 H 27 H ABG O2 Saturation 92 94 98 ABG Base Excess -1 1 1 Quality Measures Quality Measures none Advance care planning discussed with:: child Assessment & Plan Assessment Current Active Medications: Generic Name Dose Route Start Last Admin Trade Name Freq PRN Reason Stop Dose Admin Acetaminophen 650 mg 11/25/24 08:49 11/25/24 08:56 Acetaminophen 325 Mg Tablet PO 12/25/24 08:48 650 mg Q6HR PRN Administration PAIN Acetylcysteine 3 ml 11/26/24 15:00 11/28/24 06:17 Acetylcysteine Rt Pati 10% 4 Ml Nebu INH 12/26/24 14:59 3 ml Q4HRRT PRINCESS Administration Albuterol/Ipratropium 3 ml 11/25/24 23:00 11/28/24 06:10 Albuterol/Ipratropium (Duoneb) Rt Pati 3 Ml Nebu INH 12/25/24 22:59 3 ml Q4HRRT PRINCESS Administration Carvedilol 25 mg 11/24/24 09:00 11/26/24 08:06 Carvedilol 12.5 Mg Tablet PO 12/24/24 08:59 Not Given QDAY PRINCESS Clonidine 0.1 mg 11/24/24 09:00 11/26/24 08:06 Clonidine Hcl 0.1 Mg Tablet PO 12/24/24 08:59 Not Given BID PRINCESS Dextrose 25 ml 11/23/24 21:21 Dextrose 50%-Water Inj 50 Ml Syringe IV 12/23/24 21:20 Q15MIN PRN BG 50-70 responsive npo pt Finasteride 5 mg 11/24/24 09:00 11/28/24 08:23 Finasteride 5 Mg Tablet PO 12/24/24 08:59 Not Given QDAY PRINCESS Fluticasone Propionate 1 spray 11/24/24 09:00 11/28/24 08:14 Fluticasone [place]ul [place] 0.05% 16 Gm Btl NASAL 12/24/24 08:59 16 gm QDAY PRINCESS Administration Gabapentin 100 mg 11/24/24 09:00 11/26/24 08:07 Gabapentin 100 Mg Capsule PO 12/24/24 08:59 Not Given BID PRINCESS Glucagon 1 mg 11/23/24 21:21 Glucagon Inj 1 Mg Vial IM Q15MIN PRN BG <70, and no IV access Heparin Sodium (Porcine) 7,500 unit 11/26/24 14:00 11/28/24 05:56 Heparin Sod Inj 5000 Unit/Ml Vial SC 12/10/24 13:59 7,500 unit Q8HR PRINCESS Administration Sodium Chloride 1,000 mls @ 125 mls/hr 11/23/24 21:26 11/25/24 08:45 Ns IV 12/23/24 21:25 125 mls/hr .Q10H PRINCESS Administration Norepinephrine/Dextrose 8 mg in 250 mls @ 10.465 mls/hr 11/25/24 16:37 11/27/24 04:20 Levophed In D5w 8mg/250ml IV 12/25/24 16:36 0 mcg/kg/min .[id number] PRN 0 mls/hr PER PROTOCOL Titration Protocol 0.05 MCG/KG/MIN Vasopressin/Sodium Chloride 20 unit in 100 mls @ 9 mls/hr 11/25/24 16:37 11/28/24 00:14 Vasostrict/Ns Ivpb IV 12/25/24 16:36 0.03 unit/min .Q11H7M PRN 9 mls/hr PER PROTOCOL Administration Protocol 0.03 UNIT/MIN Fentanyl Citrate 2,500 mcg in 250 mls @ 2.5 mls/hr 11/25/24 17:37 11/28/24 07:58 Sublimaze Inj 2,500 Mcg/250 Ml Bag IV 11/30/24 17:36 0 mcg/hr .Q24H PRN 0 mls/hr PER PROTOCOL Titration Protocol 25 MCG/HR Dexmedetomidine/Sodium Chloride 200 mcg in 50 mls @ 6.05 mls/hr 11/28/24 08:26 11/28/24 09:00 Precedex Ivpb IV 12/28/24 08:25 1.4 mcg/kg/hr .Q8H16M PRN 42.35 mls/hr Per PROTOCOL Titration Protocol 0.2 MCG/KG/HR Ceftriaxone Sodium/Dextrose 1 gm in 50 mls @ 100 mls/hr 11/28/24 09:32 Rocephin/D5w 1gm Iv Premix IV 12/05/24 09:31 QDAY [facility] Insulin Human Lispro 0 unit 11/26/24 00:00 11/28/24 06:20 Insulin Lispro (Admelog) 1 Unit/0.01 Ml Unit SC 12/26/24 00:00 Not Given Q6H PRINCESS Protocol Lactulose 20 gm 11/28/24 21:00 Lactulose Syrup 20 Gm/30 Ml Udc PO 12/28/24 20:59 BID PRINCESS Protocol Pantoprazole Sodium 40 mg 11/27/24 09:00 11/28/24 08:23 Pantoprazole Inj 40 Mg Vial IV 12/27/24 08:59 40 mg QDAY [facility] Administration Plan 78-year-old male with past medical history of CAD status post stents, hypertension, DM2, BPH with self-catheterization, and CHF (no echo on file) was upgraded to the ICU on 11/25/2024 due to postcardiac arrest. 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: #Acute encephalopathy #Sedated Continue lactulose 20 twice daily given possible component of hepatic encephalopathy CVS: #Shock #Postcardiac arrest Source of shock is unknown at this time Currently off vasopressors Discontinue Zosyn and vancomycin Start Rocephin until 12/01/2024 #Hx of CAD s/p stents #History of heart failure Patient has a history of heart failure, but there is no echo on file Troponins were negative #HFpEF (55 to 60% EF) #Mild MR and TR #Mild to moderate Echo showed EF of 55 to 60% with some mild MR and TR as well as mild to moderate We will hold off on beta-blockers and NICO or ARB's We will give Lasix 40 x 1 Will consider starting goal-directed medical therapy once patient is more stable Respiratory: #Acute hypoxic respiratory failure #ARDS #Aspiration pneumonia? #Aspiration pneumonitis Patient had episode of aspiration which is causing him to become hypoxic and eventually coded Intubated on 11/25/2024 Bronchoscopy on 11/26/2024 that showed friable mucosa with biliary fluid appreciated PF ratio of 370 today Discontinue Zosyn and vancomycin Start Rocephin until 12/01/2024 Will continue to wean off sedation for possible extubation once PEEP is decreased Chest physiotherapy, Mucomyst, and DuoNebs every 4 hours Daily ABGs and chest x-rays Laying mostly on the left side Renal: #Acute kidney injury, resolved Patient came in with creatinine of 1.5 from his baseline of 0.6-0.8 Creatinine 1.1 Having better urine output today than yesterday. Avoid nephrotoxic agent Renally dose medication #Lactic acidosis, resolved GI: #Abdominal distention Abdomen was softer today NG tube in place, will start diet Abdomen/pelvis CT did not show any perforation or bowel obstruction. #Hepatomegaly #Transaminitis On review patient has had liver ultrasound that showed mild hepatomegaly Patient has a history of transaminitis in the past Hepatitis panel negative #Possible gallstones Abdomen ultrasound showed some possible gallstones versus gallbladder sludge, but negative for cholecystitis : #Complicated UTI, E. coli Patient had a positive UA and urine culture grew E. coli Will continue with Zosyn. Heme: #Normocytic normochromic anemia Patient has a base hemoglobin of around 12-13 Patient hemoglobin today 8.9 Could be hemodilutional No active signs of bleeding We will continue to monitor ID: #E. coli UTI #Possible aspiration pneumonia Blood cultures negative in 48 hours Sputum cultures negative Discontinue Zosyn and vancomycin Start Rocephin until 12/01/2024 Hospital Maintenance: Diet: tube feeds DVT ppx: Heparin subcu GI ppx: Protonix IV IV lines: PIV, CIV, A-line Sanabria: sanabria cath Code status: Full code Dispo: ICU post cardiac arrest Case disclosed with Attending Dr. Kai Black PGY1
[2024-11-28] MEDS: FUROSEMIDE INJ 10 MG/ML 4ML VIAL 40 MG IVP (09:44)
[2024-11-28] MEDS: cefTRIAXone/D5w 1gm IV premix 1 GM/50 ML BAG IV (09:44)
[2024-11-28] MEDS: QUEtiapine FUMARATE 25 MG TABLET 50 MG GT (10:58)
[2024-11-28] MEDS: INSULIN LISPRO (AdmeLOG) 1 UNIT/0.01 ML UNIT SC (12:00)
[2024-11-28 13:13] LABS: Vancomycin,Trough 15.7 mcg/mL (5.0-10.0)
--- NOTE | 2024-11-28 14:28 | PD.INTPROG ---
Documentation for date of: 11/28/24 Subjective Subjective Interval history: This is a 78-year-old male who was admitted to the ICU yesterday status postcardiac arrest. The patient had been experiencing acute hypercapnic respiratory failure yesterday and placed on a BiPAP. He also had some abdominal distention. Yesterday afternoon he complained of feeling nauseous the BiPAP was removed and he vomited. He aspirated at that point in time and arrested. Patient's downtime was less than 15 minutes prior to ROSC. He was brought to the ICU and initially was difficult to oxygenate. He had high peak inspiratory pressures. Sedation was started and a one-time dose of adriana was given. The vent was adjusted and patient's oxygenation improved. Overnight there were no acute events. He has had decent urinary output and is currently afebrile. This morning he remains on 100% FiO2 with a PEEP of 12 satting in the low 90s. The patient is quick to desat and slow to recover. CT performed yesterday shows dense bilateral consolidation right greater than left. He remains in shock but with decreasing vasopressor requirements. 11/27- no acute overnight events, good UOP, afebrile, remains with RASS -4, able to come down on FiO2 from 100% to 60% this AM, underwent bronch yesterday which showed diffuse submucosal hemorrhage L>R along with biliary secretions in the bronchial tree 11/28- no acute overnight events, afebrile, good UOP, continued improvement on FiO2 needs, when sedation is held pt wakes up however does not follow commands at this time, able to be weened off of vaso today Critical Care Note Critical care time (min.): 38 Exam Vital Signs Temp Pulse Resp BP Pulse Ox O2 Del Method O2 Flow Rate 98.8 F 66 33 H 165/95 H 93 L Mechanical Ventilation 90 11/28/24 04:00 11/28/24 13:00 11/28/24 11:23 11/28/24 13:00 11/28/24 13:00 11/27/24 04:01 11/26/24 08:00 FiO2 40 11/28/24 12:00 Narrative Exam Gen- intubated, sedated, obese, NAD, GCS 11T (E4, M6, V1) HEENT- NC/AT, mucosa hydrated, NGT/ETT in place, PERRL, sclera anicteric Chest- LCTAB anterior, HRRR, no increase in WOB Abd- obese , s/nt/bs+ Ext- edema 1+ pitting b/l LE, pulses palp, no clubbing, no mottling, moves all 4 however not to command at this time Vent AC VC Drips precedex fent vaso Physical Exam Completion Physical Exam Complete?: Yes Objective - [employer] Labs 11/28/24 08:00 11/28/24 08:00 Labs: Laboratory Results - last 24 hr 11/28/24 11/28/24 11/28/24 04:38 08:00 12:35 WBC 12.4 H RBC 3.16 L Hgb 8.9 L Hct 29.1 L MCV 92 MCH 28.2 MCHC 30.6 L RDW Std Deviation 49.6 H Plt Count 357 D Neut % (Auto) 71 Lymph % (Auto) 15 [place] % (Auto) 5 Eos % (Auto) 3 Baso % (Auto) 1 Neut # (Auto) 8.8 H Lymph # (Auto) 1.9 [place] # (Auto) 0.6 Eos # (Auto) 0.4 Baso # (Auto) 0.1 Immature Gran # (Auto) 0.62 H Absolute Nucleated RBC 0.14 H Immature Gran % 5 H Nucleated RBC % 1 H Puncture Site Arterial Line ABG pH 7.35 ABG pCO2 50 H ABG pO2 148 H D ABG HCO3 27 H ABG O2 Saturation 98 ABG Base Excess 1 FiO2 50 Sodium 143 Potassium 4.3 Chloride 108 H Carbon Dioxide 28.4 Anion Gap 7 BUN 37 H Creatinine 1.1 Estim Creat Clear Calc 66.8 eGFR > 60 BUN/Creatinine Ratio 34 H Glucose 147 H Calculated Osmolality 296 H Calcium 8.2 L Corrected Calcium 8.8 Magnesium 2.5 Total Bilirubin 0.7 AST 124 H ALT 53 H Alkaline Phosphatase 122 H Total Protein 6.0 Albumin 3.2 L Globulin 2.8 Albumin/Globulin Ratio 1.1 L Vancomycin Trough 15.7 H Assessment & Plan Problem List (1) UTI (urinary tract infection): Status: Acute (2) Sepsis: Status: Acute (3) Type 2 diabetes mellitus: Status: Acute (4) Hypertension: Status: Acute (5) Hyperlipidemia: Status: Acute (6) Acute renal failure (ARF): Status: Acute Additional Plan Additional Plan: In summary this is a 78yo M 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 increasing sedation due to vent requirements - off of deep sedation today - does not follow commands but does move spontaneously - likely a degree of hypoxic injury CV Shock- in the setting of cardiac arrest. - off of vasopressors today - resolved HFpEF- noted on echo - nl EF - will need diuretics at baseline Resp Acute hypoxic resp failure- intubated, MV, fu on ABG and CXR. dense consolidation seen on CT, b/l R>L 2/2 aspiration - started on mucomyst with nebs q4hr and CPT with percussion to R q4h as well-> will stop after 48hrs - CT read as pleural effusion however appears to be more dense consolidation - FiO2 needs improving Aspiration Pneumonitis- bronch done and biliary secretions noted throughout bronchial tree, on abx for any superimposed bacterial component - abx x 7 days - descalate from vanc/zosyn ARDS- 2/2 aspiration - on LTVV - high PEEP/low FiO2 table and wean accordingly -pf ratio improving - less FiO2 needs and weening PEEP down Renal ROSEANNE- seen and followed by nephrology. monitor i/os, avoid nephrotoxins, improving - Good urinary output GI Transaminitis- long standing for several yrs. viral panel ordered and resulted negative - will need further workup -On a statin and will hold for now -Question underlying FINK -Started on lactulose for slightly elevated ammonia - decrease today to BID Abd distention- NGT placed for decompression - Patient currently is having bowel movements - Some improvement from arrival Endo DM- SSI FS q6h Heme Leukocytosis- reactive v infectious Anemia- small drop from yesterday however felt to be dilutional at this point in time -Stable with no active bleed DVT proph- heparin 7500 q8 ID Aspiration- on abx UTI- on abx, growing E. coli - complete 5 days case d/w ICU team and nephrology labs, imaging, records reviewed ~38ccmin required for eval, exam, review, intervention, discussion and formulation of POC for this critically ill pt with shock and acute resp failure at high risk for further and ongoing decompensation Provider Notation Provider Notation: Although this document has been carefully reviewed, there may still be some phonetic and other typographical errors. These errors are purely grammatical due to imperfections in the software program and should not be construed in any way to compromise the substance of the patient's medical care during this visit. Thank you for the opportunity and privilege in assisting you with this patient's care and management.
[2024-11-28] MEDS: DEXMEDETOMIDINE 400 MCG IVPB 400 MCG/100 ML BAG 42.35 MCG IV ×2 (19:01→21:52)
[2024-11-29] VITALS (33 sets, daily range): BP systolic 99–238; BP diastolic 41–110; PULSE 61–128; RESP 20–37; TEMP 36.4–37.1; O2SAT 88–100; BMI 42.0
[2024-11-29] MEDS: DEXMEDETOMIDINE 400 MCG IVPB 400 MCG/100 ML BAG 42.35 MCG IV ×3 (00:22→10:00)
[2024-11-29] MEDS: ALBUTEROL/IPRATROPIUM (Duoneb) RT SOL 3 ML NEBU INH ×5 (02:30→22:51)
[2024-11-29] MEDS: ACETYLCYSTEINE RT SOL 10% 4 ML NEBU 3 ML INH ×4 (02:30→22:51)
[2024-11-29] MEDS: fentaNYL 2,500 MCG/250 ML BAG 2,500 MCG/250 ML BAG 17.5 MCG IV ×2 (04:52→17:52)
[2024-11-29 04:53] LABS: Base Excess -12 (-3-3); HCO3 12 mEq/L (20-26); Inspired Oxygen, FIO2 45 %; O2 Saturation 99 % (91-98); PCO2 21 mmHg (32.0-48.0); PO2 98 mmHg (83-108); pH, Arterial 7.38 (7.35-7.45)
[2024-11-29 04:56] LABS: Puncture Site Arterial Line
[2024-11-29 05:07] LABS: Basophils # (Auto) 0.1 Thou/mm3 (0.0-0.2); Basophils % (Auto) 1 % (0-2.5); Eosinophils # (Auto) 0.2 Thou/mm3 (0.0-0.5); Eosinophils % (Auto) 1 % (0-10); Hematocrit 33.1 % (41.0-53.0); Hemoglobin 10.6 g/dL (13.5-16.0); Immature Granulocytes % (Auto) 5 % (0-0); Immature Granulocytes Auto 0.75 Thou/mm3 (0.00-0.00); Lymphocytes # (Auto) 1.1 Thou/mm3 (1.0-4.8); Lymphocytes % (Auto) 8 % (10-50); Mean Corpuscular Hemoglobin 28.6 pg (25.0-35.0); Mean Corpuscular Volume 89 fL (80-100); Monocytes # (Auto) 0.5 Thou/mm3 (0.0-0.8); Monocytes % (Auto) 4 % (0-12); Neutrophils # (Auto) 11.6 Thou/mm3 (1.8-7.7); Neutrophils % (Auto) 81 % (37-80); Nucleated Red Blood Cell # 0.12 Thou/mm3 (0.00-0.00); Nucleated Red Blood Cell % 1 /100 WBC (0); Platelet Count 458 Thou/mm3 (140-440); RDW Standard Deviation 47.1 fL (35.1-43.9); Red Blood Count 3.71 Miln/mm3 (4.50-5.90); White Blood Count 14.3 Thou/mm3 (3.8-10.6)
[2024-11-29 05:27] LABS: Alanine Aminotransferase 51 U/L (10-49); Albumin, Serum 3.6 gm/dL (3.4-4.8); Albumin/Globulin Ratio 1.2 (1.2-2.2); Alkaline Phosphatase 153 U/L (46-116); Anion Gap 7 (7-16); Aspartate Amino Transferase 109 U/L (0-34); BUN/Creatinine Ratio 25 Ratio (12-20); Bilirubin,Total 1.1 mg/dL (0.3-1.2); Blood Urea Nitrogen 28 mg/dL (9-23); Calcium 8.8 mg/dL (8.3-10.6); Calcium (Corrected) 9.1 mg/dL (8.5-10.1); Chloride 112 mMol/L (98-107); Creatinine (Component) 1.1 mg/dL (0.6-1.3); Estimated Creatinine Clearance 66.8 mL/min (>60); Globulin 3.1 gm/dL (2.3-3.5); Glucose 168 mg/dL (74-106); Magnesium 2.2 mg/dL (1.6-2.6); Osmolality,Calculated 305 (275-295); Potassium 3.8 mMol/L (3.4-5.1); Sodium 149 mMol/L (136-145); Total Protein 6.7 gm/dL (5.7-8.2); eGFR > 60 See Note
[2024-11-29] MEDS: HEPARIN SOD INJ 5000 UNIT/ML VIAL 7500 UNIT SC ×3 (06:00→21:53)
--- NOTE | 2024-11-29 06:00 | XR_ITS ---
Examination: AP chest single view Technique: AP portable supine chest single view Exam date and time: November 29, 2024 0337 hrs. Comparison November 28, 2024 Indications: Hypoxic respiratory failure postintubation post insertion central line Findings: Right internal jugular central line tip SVC satisfactory position Enlarged cardiac contour with extensive bilateral pneumonia and/or pulmonary edema Endotracheal tube tip 5.1 cm above mati Prominent osteopenia Impression: Interval right internal jugular central line tip SVC satisfactory position, no pneumothorax
[2024-11-29] MEDS: cefTRIAXone/D5w 1gm IV premix 1 GM/50 ML BAG IV (10:23)
[2024-11-29] MEDS: LACTULOSE SYRUP 20 GM/30 ML UDC PO ×2 (10:23→21:55)
[2024-11-29] MEDS: PANTOPRAZOLE INJ 40 MG VIAL IV (10:23)
[2024-11-29] MEDS: FLUTICASONE NAS SPRAY 0.05% 16 GM BTL 1 SPRAY NASAL (10:24)
[2024-11-29] MEDS: FINASTERIDE 5 MG TABLET PO (10:24)
[2024-11-29] MEDS: FUROSEMIDE INJ 10 MG/ML 4ML VIAL 40 MG IVP (10:44)
--- NOTE | 2024-11-29 12:41 | ESPR_ITS ---
Documentation for date of: 11/29/24 Subjective Subjective Interval history: Mr. 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 Grider) history of CHF, history of pituitary adenoma which was removed presented to the emergency department with significant shortness of breath and her daughter called paramedics. When paramedics arrived his O2 sat was less than 88%. Chest x-ray showed mild vascular congestion and no pneumonia. Admitted to the hospital with hypoxic respiratory failure ED COURSE: T103.8, HR 106, BP 141/91, satting 93% on 2 L NC. WBC 13.8, Hgb 11.2, PLT 253. Normal coag studies. CHEM panel significant for BUN 26, CR 1.5, EGFR 47, GLUCOSE 189, A1c 6.8, phosphorus 1.5, AST 44, AST 36, ALP 117, BNP 109, troponin 0.029, Pro-Calc 3.01. UA showed positive LE, RBC 6, WBC 41, urea 4+. EKG sinus rhythm without acute ST changes. CXR mild vascular congestion, no lobar pneumonia. ED gave 2 L IVF, CEFTRIAXONE 1 g x 1. Will admit for sepsis in settings of UTI. 11/26/2024 patient currently seen in ICU. Apparently yesterday after I saw the patient with the resident that he had a few events where rapid response was called in the beginning during NG tube insertion for abdominal distention/ileus. Subsequently he coded secondary to aspiration pneumonia, intubated and transferred to ICU. Currently on pressors. Dr. Quinn and ICU team at bedside. Family at bedside. Labs/medications reviewed. On broad-spectrum antibiotics. WBC 13.6, hemoglobin 9.7, platelets 266. ABG showing pH 7.28, [id number], pO2 67, HCO3 26. Sodium 138, potassium 4.9, BUN 37, creatinine 1.3, lactic acid 1.3, calcium 8.9, magnesium 2.2, AST 69, ALT 59, ammonia 50, albumin 3.1,Chest x-ray showed pneumonia in the right lung. 11/27/2024 examined in ICU. Sedated on MV, no signs of distress. Broch showed friable mucosa secondary to bile. Suspected ARDS, however improving. On pressors, vitals WNL, although slightly bradycardic. CT from 11/25 with left pleural effusion, vascular congestion, pneumonia, hepatomegaly, ascites, possible cystitis, no bowel obstruction. Abdominal ultrasound pending. Leukocytosis resolved. Hgb 9.0. Renal function stable and normal. AST 124, ALT 55, ALP 121. Hep panel was negative. 24-hour blood culture negative. Sputum culture pending. 11/28/2024 examined in ICU at bedside. Off sedation, planning to extubate today. Appears alert. Pressors are off, BP 123/63. Echo showed EV 55 to 60%, mild to moderate aortic stenosis. CXR today showing ARDS, worse on the right. Has trace bilateral LE edema on exam. Renal function stable. 11/29/2024 examined at bedside in ICU. Continue to be off pressors, BP 170/79, HR 62. Continue on mechanical ventilation. CXR still showing diffuse pulmonary edema. Labs are showing sodium 149, chloride 112, BUN 28, CR 1.1, GLUCOSE 168, AST 109, ALT 51, ALP 123, WBC 14.3, Hgb 10.6, PLT 458. Blood culture negative after 48 hours. ET culture negative. Received a dose of LASIX, urine output is good, has trace bilateral extremity edema on exam. Exam Vital Signs Temp Pulse Resp BP Pulse Ox O2 Del Method O2 Flow Rate 98.3 F 62 33 H 164/82 H 97 Mechanical Ventilation 90 11/28/24 20:00 11/29/24 11:27 11/29/24 11:27 11/29/24 11:00 11/29/24 11:27 11/27/24 04:01 11/26/24 08:00 FiO2 50 11/29/24 11:27 Narrative Exam General: Mechanically ventilated, responsive to painful stimuli and pupils reactive to light. Eyes: Pupils reactive to light Ears: No visible ear discharge Nose: No visible nasal discharge. Mouth/Throat: Moist mucous membranes, no redness, no lesions. Neck: Short neck, no cervical lymphadenopathy. Lungs: Clear to lay on the right side, but still some rhonchi appreciated on the right side and decreased breath sounds on the left. Cardio: Normal S1/S2, regular rhythm, no murmurs, no JVD Abdomen: Firm and distended, but softer today, no palpable masses, peristalsis present, no guarding or rebound. Extremities: Symmetrical, no significant deformities, 1+ peripheral edema , non- tender, peripheral pulses presents, bilateral upper extremity swelling most likely third spacing Skin: No rashes, no lesions, warm to touch. Neuro: Reactive to painful stimuli, pupils were equally reactive Objective Labs 11/29/24 04:52 11/29/24 04:52 Labs: Laboratory Results - last 24 hr 11/28/24 11/29/24 11/29/24 12:35 04:45 04:52 WBC 14.3 H RBC 3.71 L Hgb 10.6 L Hct 33.1 L MCV 89 MCH 28.6 MCHC 32.0 RDW Std Deviation 47.1 H Plt Count 458 H D Neut % (Auto) 81 H Lymph % (Auto) 8 L [place] % (Auto) 4 Eos % (Auto) 1 Baso % (Auto) 1 Neut # (Auto) 11.6 H Lymph # (Auto) 1.1 [place] # (Auto) 0.5 Eos # (Auto) 0.2 Baso # (Auto) 0.1 Immature Gran # (Auto) 0.75 H Absolute Nucleated RBC 0.12 H Immature Gran % 5 H Nucleated RBC % 1 H Puncture Site Arterial Line ABG pH 7.38 ABG pCO2 21 L D ABG pO2 98 D ABG HCO3 12 L ABG O2 Saturation 99 H ABG Base Excess -12 L FiO2 45 Sodium 149 H Potassium 3.8 D Chloride 112 H Carbon Dioxide 30.0 Anion Gap 7 BUN 28 H Creatinine 1.1 Estim Creat Clear Calc 66.8 eGFR > 60 BUN/Creatinine Ratio 25 H Glucose 168 H Calculated Osmolality 305 H Calcium 8.8 Corrected Calcium 9.1 Magnesium 2.2 Total Bilirubin 1.1 AST 109 H ALT 51 H Alkaline Phosphatase 153 H D Total Protein 6.7 Albumin 3.6 Globulin 3.1 Albumin/Globulin Ratio 1.2 Vancomycin Trough 15.7 H ABG Interpretation ABG results: 11/25/24 11/25/24 11/25/24 12:15 13:59 16:51 ABG pH 7.15 L* 7.18 L* 7.14 L* ABG pCO2 83 H* 71 H* D 82 H* D ABG pO2 43 L* 87 D 69 L ABG HCO3 29 H 26 28 H ABG O2 Saturation 72 L 96 91 ABG Base Excess -1 -3 -2 11/25/24 11/25/24 11/26/24 19:23 23:21 04:48 ABG pH 7.27 L D 7.29 L 7.28 L ABG pCO2 58 H D 54 H 56 H ABG pO2 87 92 76 L ABG HCO3 27 H 26 26 ABG O2 Saturation 97 98 95 ABG Base Excess -1 -2 -1 11/26/24 11/27/24 11/28/24 12:15 07:01 04:38 ABG pH 7.28 L 7.32 L 7.35 ABG pCO2 59 H 55 H 50 H ABG pO2 67 L 80 L 148 H D ABG HCO3 26 28 H 27 H ABG O2 Saturation 92 94 98 ABG Base Excess -1 1 1 11/29/24 04:45 ABG pH 7.38 ABG pCO2 21 L D ABG pO2 98 D ABG HCO3 12 L ABG O2 Saturation 99 H ABG Base Excess -12 L Quality Measures Quality Measures none Advance care planning discussed with:: patient Assessment & Plan Assessment Current Active Medications: Generic Name Dose Route Start Last Admin Trade Name Freq PRN Reason Stop Dose Admin Acetaminophen 650 mg 11/25/24 08:49 11/25/24 08:56 Acetaminophen 325 Mg Tablet PO 12/25/24 08:48 650 mg Q6HR PRN Administration PAIN Acetylcysteine 3 ml 11/26/24 15:00 11/29/24 11:27 Acetylcysteine Rt Pati 10% 4 Ml Nebu INH 12/26/24 14:59 Not Given Q4HRRT PRINCESS Albuterol/Ipratropium 3 ml 11/25/24 23:00 11/29/24 11:27 Albuterol/Ipratropium (Duoneb) Rt Pati 3 Ml Nebu INH 12/25/24 22:59 3 ml Q4HRRT PRINCESS Administration Dextrose 25 ml 11/23/24 21:21 Dextrose 50%-Water Inj 50 Ml Syringe IV 12/23/24 21:20 Q15MIN PRN BG 50-70 responsive npo pt Finasteride 5 mg 11/24/24 09:00 11/29/24 10:24 Finasteride 5 Mg Tablet PO 12/24/24 08:59 5 mg QDAY PRINCESS Administration Fluticasone Propionate 1 spray 11/24/24 09:00 11/29/24 10:24 Fluticasone Rahul [place] 0.05% 16 Gm Btl NASAL 12/24/24 08:59 16 gm QDAY PRINCESS Administration Glucagon 1 mg 11/23/24 21:21 Glucagon Inj 1 Mg Vial IM Q15MIN PRN BG <70, and no IV access Heparin Sodium (Porcine) 7,500 unit 11/26/24 14:00 11/29/24 06:00 Heparin Sod Inj 5000 Unit/Ml Vial SC 12/10/24 13:59 7,500 unit Q8HR PRINCESS Administration Sodium Chloride 1,000 mls @ 125 mls/hr 11/23/24 21:26 11/25/24 08:45 Ns IV 12/23/24 21:25 125 mls/hr .Q10H PRINCESS Administration Norepinephrine/Dextrose 8 mg in 250 mls @ 10.465 mls/hr 11/25/24 16:37 11/27/24 04:20 Levophed In D5w 8mg/250ml IV 12/25/24 16:36 0 mcg/kg/min .[id number] PRN 0 mls/hr PER PROTOCOL Titration Protocol 0.05 MCG/KG/MIN Vasopressin/Sodium Chloride 20 unit in 100 mls @ 9 mls/hr 11/25/24 16:37 11/28/24 08:00 Vasostrict/Ns Ivpb IV 12/25/24 16:36 0 unit/min .[id number] PRN 0 mls/hr PER PROTOCOL Titration Protocol 0.03 UNIT/MIN Fentanyl Citrate 2,500 mcg in 250 mls @ 2.5 mls/hr 11/25/24 17:37 11/29/24 06:00 Sublimaze Inj 2,500 Mcg/250 Ml Bag IV 11/30/24 17:36 175 mcg/hr .Q24H PRN 17.5 mls/hr PER PROTOCOL Titration Protocol 25 MCG/HR Ceftriaxone Sodium/Dextrose 1 gm in 50 mls @ 100 mls/hr 11/28/24 09:32 11/29/24 10:23 Rocephin/D5w 1gm Iv Premix IV 12/01/24 09:31 100 mls/hr QDAY PRINCESS Administration Dexmedetomidine/Sodium Chloride 400 mcg in 100 mls @ 6.05 mls/hr 11/28/24 17:39 11/29/24 10:00 Precedex Ivpb IV 12/28/24 08:25 1.4 mcg/kg/hr .[id number] PRN 42.35 mls/hr Per PROTOCOL Administration Protocol 0.2 MCG/KG/HR Insulin Human Lispro 0 unit 11/26/24 00:00 11/29/24 06:03 Insulin Lispro (Admelog) 1 Unit/0.01 Ml Unit SC 12/26/24 00:00 Not Given Q6H PRINCESS Protocol Lactulose 20 gm 11/28/24 21:00 11/29/24 10:23 Lactulose Syrup 20 Gm/30 Ml Udc PO 12/28/24 20:59 20 gm BID PRINCESS Administration Protocol Metoclopramide HCl 5 mg 11/29/24 14:00 Metoclopramide Inj 5 Mg/Ml Vial 2 Ml IVP 12/29/24 13:59 Q8HR PRINCESS Protocol Pantoprazole Sodium 40 mg 11/27/24 09:00 11/29/24 10:23 Pantoprazole Inj 40 Mg Vial IV 12/27/24 08:59 40 mg QDAY PRINCESS Administration Plan In summary: 70-year-old male PMHx of CAD with stents, HTN, DM, BPH with self- catheterization, presented to ED with SOB. Admitted for AHRF 2/2 suspected sepsis in settings of UTI. ARDS, no in ICU on MV. ROSEANNE Renal function stable and normal. No electrolyte abnormalities. Off pressors, BP 170/79, HR 62. Received LASIX 40 x 1 yesterday, urine output is good, has trace LE edema tj on exam. ? Agree with LASIX 40 mg ? Renally dose meds, avoid overdiuresis and NEPHROTOXINS ? Daily CMP #Acute encephalopathy #Sedated #Shock #Postcardiac arrest #Hx of CAD s/p stents #History of heart failure #Acute hypoxic respiratory failure #Aspiration pneumonia? #Aspiration pneumonitis #Abdominal distention #Hepatomegaly #Transaminitis #Possible calculus cholecystitis #Complicated UTI, E. coli #Normocytic normochromic anemia #E. coli UTI #Possible aspiration pneumonia Managed by clubhouse manager team Case was discussed with attending, Dr. Villegas. Oli Gomez DO PGYI Attending Provider Attestation/Addendum Patient seen and examined with resident physician Dr. Baird. Note reviewed, agree with findings and recommendations. Patient admitted with UTI/sepsis Continue with fluids, antibiotics. Patient currently seen in ICU. On the ventilator. Bronchoscopy showed friable mucosa. Patient currently seems to be in ARDS. ICU on the case. Significant abdominal distention noted. Spoke to Dr. Quinn-ELENA tube to suction. Tube feeds held. Patient was given lactulose yesterday.
--- NOTE | 2024-11-29 13:12 | PD.RESPRO ---
Documentation for date of: 11/29/24 Subjective Subjective Interval history: 78-year-old male with past medical history of CAD status post stents, hypertension, DM2, BPH with self-catheterization, and CHF (no echo on file) was admitted to the medical floors on 11/23/2024 due to sepsis likely secondary to complicated UTI in the setting of [facility] and a positive urine analysis. Patient was admitted to the ICU on 11/25/2024 after cardiac arrest and ROSC was achieved. On this day patient had a rapid response called earlier in the morning due to lethargy, hypotension, and abdominal distention. At this time patient's blood pressure was around 93/53 and he was AO x 2. Primary care team give the patient 1 L bolus of NS which improved the blood pressure and started the patient on BiPAP after he was found to have an ABG of pH 7.15, PCO2 of 83, and PO2 of 43. During this time due to the new onset of abdominal distention and abdominal x-ray was ordered and only showed dilated stomach with nonobstructed nondilated bowel gas pattern, but no perforation. Later on the afternoon patient remained on the BiPAP before complaining of feeling nauseated around 4 PM at this time the BiPAP was discontinued and then patient's NG tube was placed to suctioning. At around 4:15 PM CHUY SENIOR was called to the patient's room as he was found to be pulseless after he appeared to have aspirated. Patient was coded and had a total of 5 rounds of epi, half atropine, 2 amp of sodium bicarb, and ROSC was achieved. At this time patient was intubated and was placed on dopamine drip and transferred to the ICU. 11/26/2024: Patient seen and examined at bedside this morning. Overnight patient became hypothermic at 96.5, but on rectal temperature he was 97.5 this morning. Patient was slowly weaned down on vasopressors, but he was placed on propofol overnight and was given 2 more doses of rocuronium given that he was breathing over the vent. Patient opening eyes spontaneously, had good pain response, pupils were reactive bilaterally. Patient underwent abdomen/pelvis CT with showed consolidation of the lower lobes therefore consent was taken for bronchoscopy. Patient underwent bronchoscopy and there was friable mucosa seen in the bronchoscopy with some bile secretions appreciated also during bronchoscopy. Patient was placed on his left side to help with oxygenation. Will get ammonia levels, ABG, and will start CPT and Mucomyst every 4 hours with DuoNebs. Successfully placed on arterial line today. 11/27/2024: Patient seen and examined at bedside this morning. No overnight events. Patient was taken off Levophed and is currently only on vasopressin. Patient did not have any desaturations overnight and his FiO2 has been weaned down to 50% this a.m. Chest x-ray done this a.m. showed improvement opacities, but there appears to be some retrocardiac opacification blunting the diaphragm on the left side and there is a possible new pleural effusion on the right side. Patient's blood cultures have been negative and sputum cultures have been negative for now. Still pending read of abdominal ultrasound. Echo was taken today, pending read. PF ratio today was 123, will continue patient on CPT, Mucomyst, and DuoNebs every 4 hours as well as maintain him laying mostly on his left side. 11/28/2024: Patient was seen and examined at bedside this morning. No overnight events. Patient continues to be only on vasopressin for now and has been having good urine output overnight. FiO2 has been weaned down to 40% today with PF ratio of 370. Chest x-ray done this a.m. that shows some improvement. Blood cultures and sputum cultures were negative. Echo was read and showed ejection fraction of 55 to 60% with mild MR, TR, and mild to moderate . Discontinue Zosyn and vancomycin, start Rocephin until 12/01/2024. Patient is currently off vasopressors at this time and off propofol, start precedex Will continue to change ventilator settings for possible extubation in the next 24 to 48 hours. 11/29/2024: Patient is seen examined bedside this morning. Overnight patient was placed on more sedation given that he was a little bit more agitated and biting on the ET tube. Patient had good urine output and was total negative of 3.1 L during the morning. Chest x-ray today showed that there seems to be some congestion and patient has been having elevated blood pressure this morning therefore we will give Lasix 40 x 1 again today. Patient's oxygen requirements did increase a little bit with FiO2 going up to 50% from 45% this morning. Patient's WBCs, but no spiking fevers and blood cultures continue to be negative. Will give Reglan given he was more distended today. Exam Vital Signs Temp Pulse Resp BP Pulse Ox O2 Del Method O2 Flow Rate 98.7 F 61 33 H 167/76 H 99 Mechanical Ventilation 90 11/29/24 12:00 11/29/24 13:00 11/29/24 11:27 11/29/24 13:00 11/29/24 13:00 11/29/24 12:00 11/26/24 08:00 FiO2 50 11/29/24 12:00 Narrative Exam General: Mechanically ventilated, responsive to painful stimuli and pupils reactive to light. Eyes: Pupils reactive to light Ears: No visible ear discharge Nose: No visible nasal discharge. Mouth/Throat: Moist mucous membranes, no redness, no lesions. Neck: Short neck, no cervical lymphadenopathy. Lungs: Clear to lay on the right side, but still some rhonchi appreciated on the right side and decreased breath sounds on the left. Cardio: Normal S1/S2, regular rhythm, no murmurs, no JVD Abdomen: Firm and distended when compared to yesterday, but softer today, no palpable masses, peristalsis present, no guarding or rebound. Extremities: Symmetrical, no significant deformities, trace peripheral edema , non-tender, peripheral pulses presents, bilateral upper extremity swelling unchanged Skin: No rashes, no lesions, warm to touch. Neuro: Reactive to painful stimuli, pupils were equally reactive Objective Labs 11/29/24 04:52 11/29/24 04:52 Labs: Laboratory Results - last 24 hr 11/28/24 11/29/24 11/29/24 12:35 04:45 04:52 WBC 14.3 H RBC 3.71 L Hgb 10.6 L Hct 33.1 L MCV 89 MCH 28.6 MCHC 32.0 RDW Std Deviation 47.1 H Plt Count 458 H D Neut % (Auto) 81 H Lymph % (Auto) 8 L [place] % (Auto) 4 Eos % (Auto) 1 Baso % (Auto) 1 Neut # (Auto) 11.6 H Lymph # (Auto) 1.1 [place]ites[place] # (Auto) 0.5 Eos # (Auto) 0.2 Baso # (Auto) 0.1 Immature Gran # (Auto) 0.75 H Absolute Nucleated RBC 0.12 H Immature Gran % 5 H Nucleated RBC % 1 H Puncture Site Arterial Line ABG pH 7.38 ABG pCO2 21 L D ABG pO2 98 D ABG HCO3 12 L ABG O2 Saturation 99 H ABG Base Excess -12 L FiO2 45 Sodium 149 H Potassium 3.8 D Chloride 112 H Carbon Dioxide 30.0 Anion Gap 7 BUN 28 H Creatinine 1.1 Estim Creat Clear Calc 66.8 eGFR > 60 BUN/Creatinine Ratio 25 H Glucose 168 H Calculated Osmolality 305 H Calcium 8.8 Corrected Calcium 9.1 Magnesium 2.2 Total Bilirubin 1.1 AST 109 H ALT 51 H Alkaline Phosphatase 153 H D Total Protein 6.7 Albumin 3.6 Globulin 3.1 Albumin/Globulin Ratio 1.2 Vancomycin Trough 15.7 H ABG Interpretation ABG results: 11/25/24 11/25/24 11/25/24 12:15 13:59 16:51 ABG pH 7.15 L* 7.18 L* 7.14 L* ABG pCO2 83 H* 71 H* D 82 H* D ABG pO2 43 L* 87 D 69 L ABG HCO3 29 H 26 28 H ABG O2 Saturation 72 L 96 91 ABG Base Excess -1 -3 -2 11/25/24 11/25/24 11/26/24 19:23 23:21 04:48 ABG pH 7.27 L D 7.29 L 7.28 L ABG pCO2 58 H D 54 H 56 H ABG pO2 87 92 76 L ABG HCO3 27 H 26 26 ABG O2 Saturation 97 98 95 ABG Base Excess -1 -2 -1 11/26/24 11/27/24 11/28/24 12:15 07:01 04:38 ABG pH 7.28 L 7.32 L 7.35 ABG pCO2 59 H 55 H 50 H ABG pO2 67 L 80 L 148 H D ABG HCO3 26 28 H 27 H ABG O2 Saturation 92 94 98 ABG Base Excess -1 1 1 11/29/24 04:45 ABG pH 7.38 ABG pCO2 21 L D ABG pO2 98 D ABG HCO3 12 L ABG O2 Saturation 99 H ABG Base Excess -12 L Quality Measures Quality Measures none Advance care planning discussed with:: child Assessment & Plan Assessment Current Active Medications: Generic Name Dose Route Start Last Admin Trade Name Freq PRN Reason Stop Dose Admin Acetaminophen 650 mg 11/25/24 08:49 11/25/24 08:56 Acetaminophen 325 Mg Tablet PO 12/25/24 08:48 650 mg Q6HR PRN Administration PAIN Acetylcysteine 3 ml 11/26/24 15:00 11/29/24 11:27 Acetylcysteine Rt Pati 10% 4 Ml Nebu INH 12/26/24 14:59 Not Given Q4HRRT PRINCESS Albuterol/Ipratropium 3 ml 11/25/24 23:00 11/29/24 11:27 Albuterol/Ipratropium (Duoneb) Rt Pati 3 Ml Nebu INH 12/25/24 22:59 3 ml Q4HRRT PRINCESS Administration Dextrose 25 ml 11/23/24 21:21 Dextrose 50%-Water Inj 50 Ml Syringe IV 12/23/24 21:20 Q15MIN PRN BG 50-70 responsive npo pt Finasteride 5 mg 11/24/24 09:00 11/29/24 10:24 Finasteride 5 Mg Tablet PO 12/24/24 08:59 5 mg QDAY PRINCESS Administration Fluticasone Propionate 1 spray 11/24/24 09:00 11/29/24 10:24 Fluticasone [place]ul [place] 0.05% 16 Gm Btl NASAL 12/24/24 08:59 16 gm QDAY PRINCESS Administration Glucagon 1 mg 11/23/24 21:21 Glucagon Inj 1 Mg Vial IM Q15MIN PRN BG <70, and no IV access Heparin Sodium (Porcine) 7,500 unit 11/26/24 14:00 11/29/24 06:00 Heparin Sod Inj 5000 Unit/Ml Vial SC 12/10/24 13:59 7,500 unit Q8HR PRINCESS Administration Sodium Chloride 1,000 mls @ 125 mls/hr 11/23/24 21:26 11/25/24 08:45 Ns IV 12/23/24 21:25 125 mls/hr .Q10H PRINCESS Administration Norepinephrine/Dextrose 8 mg in 250 mls @ 10.465 mls/hr 11/25/24 16:37 11/27/24 04:20 Levophed In D5w 8mg/250ml IV 12/25/24 16:36 0 mcg/kg/min .[id number] PRN 0 mls/hr PER PROTOCOL Titration Protocol 0.05 MCG/KG/MIN Vasopressin/Sodium Chloride 20 unit in 100 mls @ 9 mls/hr 11/25/24 16:37 11/28/24 08:00 Vasostrict/Ns Ivpb IV 12/25/24 16:36 0 unit/min .[id number] PRN 0 mls/hr PER PROTOCOL Titration Protocol 0.03 UNIT/MIN Fentanyl Citrate 2,500 mcg in 250 mls @ 2.5 mls/hr 11/25/24 17:37 11/29/24 13:08 Sublimaze Inj 2,500 Mcg/250 Ml Bag IV 11/30/24 17:36 175 mcg/hr .Q24H PRN 17.5 mls/hr PER PROTOCOL Titration Protocol 25 MCG/HR Ceftriaxone Sodium/Dextrose 1 gm in 50 mls @ 100 mls/hr 11/28/24 09:32 11/29/24 10:23 Rocephin/D5w 1gm Iv Premix IV 12/01/24 09:31 100 mls/hr QDAY PRINCESS Administration Dexmedetomidine/Sodium Chloride 400 mcg in 100 mls @ 6.05 mls/hr 11/28/24 17:39 11/29/24 13:00 Precedex Ivpb IV 12/28/24 08:25 Infused .[id number] PRN Titration Per PROTOCOL Protocol 0.2 MCG/KG/HR Insulin Human Lispro 0 unit 11/26/24 00:00 11/29/24 12:51 Insulin Lispro (Admelog) 1 Unit/0.01 Ml Unit SC 12/26/24 00:00 Not Given Q6H PRINCESS Protocol Lactulose 20 gm 11/28/24 21:00 11/29/24 10:23 Lactulose Syrup 20 Gm/30 Ml Udc PO 12/28/24 20:59 20 gm BID PRINCESS Administration Protocol Metoclopramide HCl 5 mg 11/29/24 14:00 Metoclopramide Inj 5 Mg/Ml Vial 2 Ml IVP 12/29/24 13:59 Q8HR PRINCESS Protocol Pantoprazole Sodium 40 mg 11/27/24 09:00 11/29/24 10:23 Pantoprazole Inj 40 Mg Vial IV 12/27/24 08:59 40 mg QDAY PRINCESS Administration Plan 78-year-old male with past medical history of CAD status post stents, hypertension, DM2, BPH with self-catheterization, and CHF (no echo on file) was upgraded to the ICU on 11/25/2024 due to postcardiac arrest. [employer]: #Acute encephalopathy #Sedated Continue lactulose 20 twice daily given possible component of hepatic encephalopathy CVS: #Shock, resolved #Postcardiac arrest Continue Rocephin until 12/01/2024 #Hx of CAD s/p stents #History of heart failure Patient has a history of heart failure, but there is no echo on file Troponins were negative #HFpEF (55 to 60% EF) #Mild MR and TR #Mild to moderate Echo showed EF of 55 to 60% with some mild MR and TR as well as mild to moderate We will hold off on beta-blockers and NICO or ARB's We will give Lasix 40 x 1 again today Will consider starting goal-directed medical therapy once patient is more stable Respiratory: #Acute hypoxic respiratory failure #ARDS #Aspiration pneumonia? #Aspiration pneumonitis Patient had episode of aspiration which is causing him to become hypoxic and eventually coded Discontinue Zosyn and vancomycin Intubated on 11/25/2024 Bronchoscopy on 11/26/2024 that showed friable mucosa with biliary fluid appreciated PF ratio of 218 today Continue Rocephin until 12/01/2024 Will continue to wean off sedation for possible extubation once PEEP is decreased Chest physiotherapy, Mucomyst, and DuoNebs every 4 hours Daily ABGs and chest x-rays Laying mostly on the left side Renal: #Acute kidney injury, resolved #Lactic acidosis, resolved GI: #Abdominal distention Abdomen was softer today NG tube in place, will hold tube feed as abdomen more distended today Abdomen/pelvis CT did not show any perforation or bowel obstruction. Started on Reglan #Hepatomegaly #Transaminitis On review patient has had liver ultrasound that showed mild hepatomegaly Patient has a history of transaminitis in the past Hepatitis panel negative #Possible gallstones Abdomen ultrasound showed some possible gallstones versus gallbladder sludge, but negative for cholecystitis : #Complicated UTI, E. coli Patient had a positive UA and urine culture grew E. coli Will continue with Zosyn. Heme: #Normocytic normochromic anemia Patient has a base hemoglobin of around 12-13 Patient hemoglobin today 10.6 Could be hemodilutional No active signs of bleeding We will continue to monitor ID: #E. coli UTI #Possible aspiration pneumonia Blood cultures negative in 48 hours Sputum cultures negative Continue Rocephin until 12/01/2024 Hospital Maintenance: Diet: holding tube feeds DVT ppx: Heparin subcu GI ppx: Protonix IV IV lines: PIV, CIV, A-line Sanabria: sanabria cath Code status: Full code Dispo: ICU post cardiac arrest Case disclosed with Attending Dr. Kai Black PGY1 Attending Provider Attestation/Addendum pt seen and examined with resident. agree with above. in brief this is a 78yo M s/p cardiac arrest with ARDS and aspiration pna improving on the vent. yesterday he was started on tube feeds and this AM his stomach is distended and tense with a decrease in his sats noted. His NGT was placed to suction and once his abd was soft there was improvement in his respiratory mechanics noted once more. able to go down on his fio2 and PEEP today. anticipate continued improvement tmw and poss SBT trial case d/w ICU team and nephrology labs, imaging, records reviewed d/w family at bedside ~40ccmin required for eval, exam, review, intervention, discussion and formulation of POC for this critically ill pt with resp failure at high risk for further and ongoing decompensation
[2024-11-29] MEDS: DEXMEDETOMIDINE 400 MCG IVPB 400 MCG/100 ML BAG 36.3 MCG IV ×4 (13:33→23:12)
[2024-11-29] MEDS: METOCLOPRAMIDE INJ 5 MG/ML VIAL 2 ML IVP ×2 (14:19→21:55)
--- NOTE | 2024-11-29 16:01 | PC.SS ---
SS update: patient is off sedation, possible extubation today.
--- NOTE | 2024-11-29 16:41 | PC.RT ---
cpt not given at scheduled time, rt in procedure and not available
[2024-11-29 17:52] LABS: Base Excess 8 (-3-3); HCO3 34 mEq/L (20-26); Inspired Oxygen, FIO2 40 %; O2 Saturation 90 % (91-98); PCO2 54 mmHg (32.0-48.0); PO2 63 mmHg (83-108); Puncture Site Arterial Line; pH, Arterial 7.41 (7.35-7.45)
[2024-11-29 17:53] LABS: Allen Test Not Performed
--- NOTE | 2024-11-29 18:30 | EKG_ITS ---
[facility] Test Date: 2024-11-29 Pat Name: LEE BAPTISTE Department: Room: [facility] [[email or web address] Gender: Male [employer] Curator: IRMA : 1945 Requested By: Darwin Black Order Number: [id number] Reading MD: Darwin Black Measurements Intervals [place] Rate: 92 P: [place]: QRS: 1 QRSD: 119 T: 32 QT: 385 QTc: 477 Interpretive Statements ATRIAL FIBRILLATION LOW QRS VOLTAGE PATTERN CONSISTENT WITH PULMONARY DISEASE MODERATE INTRAVENTRICULAR CONDUCTION DELAY Compared to ECG 11/25/2024 16:45:19 Intraventricular conduction delay now present Sinus rhythm no longer present /store/S0/[id number].pdf
--- NOTE | 2024-11-29 18:53 | PC.NURSE ---
AT 1800, Dr. Couch and Dr. Jackson notified of pt in Afib, EKG order received and completed
[2024-11-30] VITALS (50 sets, daily range): BP systolic 140–187; BP diastolic 56–102; PULSE 66–108; RESP 10–31; TEMP 36.2–37.2; O2SAT 87–100; BMI 43.1
[2024-11-30] MEDS: DEXMEDETOMIDINE 400 MCG IVPB 400 MCG/100 ML BAG 36.3 MCG IV ×3 (02:33→09:29)
[2024-11-30] MEDS: ACETYLCYSTEINE RT SOL 10% 4 ML NEBU 3 ML INH ×6 (02:43→22:20)
[2024-11-30] MEDS: ALBUTEROL/IPRATROPIUM (Duoneb) RT SOL 3 ML NEBU INH ×6 (02:44→22:21)
[2024-11-30 05:24] LABS: Basophils # (Auto) 0.1 Thou/mm3 (0.0-0.2); Basophils % (Auto) 1 % (0-2.5); Eosinophils # (Auto) 0.3 Thou/mm3 (0.0-0.5); Eosinophils % (Auto) 2 % (0-10); Hematocrit 34.1 % (41.0-53.0); Hemoglobin 10.3 g/dL (13.5-16.0); Immature Granulocytes % (Auto) 5 % (0-0); Immature Granulocytes Auto 0.63 Thou/mm3 (0.00-0.00); Lymphocytes # (Auto) 2.3 Thou/mm3 (1.0-4.8); Lymphocytes % (Auto) 18 % (10-50); Mean Corpuscular HGB Conc 30.2 g/dl (31.0-37.0); Mean Corpuscular Hemoglobin 28.5 pg (25.0-35.0); Mean Corpuscular Volume 95 fL (80-100); Monocytes # (Auto) 0.8 Thou/mm3 (0.0-0.8); Monocytes % (Auto) 6 % (0-12); Neutrophils # (Auto) 8.7 Thou/mm3 (1.8-7.7); Neutrophils % (Auto) 68 % (37-80); Nucleated Red Blood Cell # 0.05 Thou/mm3 (0.00-0.00); Nucleated Red Blood Cell % 0 /100 WBC (0); Platelet Count 441 Thou/mm3 (140-440); RDW Standard Deviation 49.9 fL (35.1-43.9); Red Blood Count 3.61 Miln/mm3 (4.50-5.90); White Blood Count 12.7 Thou/mm3 (3.8-10.6)
[2024-11-30 05:28] LABS: Base Excess 8 (-3-3); HCO3 34 mEq/L (20-26); Inspired Oxygen, FIO2 40 %; O2 Saturation 90 % (91-98); PCO2 57 mmHg (32.0-48.0); pH, Arterial 7.39 (7.35-7.45)
[2024-11-30 05:34] LABS: PO2 59 mmHg (83-108); Puncture Site Arterial Line
[2024-11-30 05:49] LABS: Alanine Aminotransferase 40 U/L (10-49); Albumin, Serum 3.5 gm/dL (3.4-4.8); Albumin/Globulin Ratio 1.1 (1.2-2.2); Alkaline Phosphatase 150 U/L (46-116); Anion Gap 8 (7-16); Aspartate Amino Transferase 78 U/L (0-34); BUN/Creatinine Ratio 23 Ratio (12-20); Bilirubin,Total 1.2 mg/dL (0.3-1.2); Blood Urea Nitrogen 25 mg/dL (9-23); Calcium 8.7 mg/dL (8.3-10.6); Calcium (Corrected) 9.1 mg/dL (8.5-10.1); Carbon Dioxide 33.4 mMol/L (20.0-31.0); Chloride 114 mMol/L (98-107); Creatinine (Component) 1.1 mg/dL (0.6-1.3); Estimated Creatinine Clearance 65.2 mL/min (>60); Globulin 3.1 gm/dL (2.3-3.5); Glucose 161 mg/dL (74-106); Magnesium 2.2 mg/dL (1.6-2.6); Osmolality,Calculated 314 (275-295); Potassium 3.8 mMol/L (3.4-5.1); Sodium 155 mMol/L (136-145); Total Protein 6.6 gm/dL (5.7-8.2); eGFR > 60 See Note
--- NOTE | 2024-11-30 06:00 | XR_ITS ---
Examination: AP chest single view Technique one AP portable semiupright chest single view Exam date and time: November 30, 2024 0533 hrs. Comparison November 29, 2024 Indications: Hypoxic respiratory failure, pneumonia or pulmonary edema on earlier chest films, postintubation Findings: Mild enlargement cardiac contour Prominent vascular congestion Pulmonary edema and pneumonia bilaterally with dense pneumonia at the left base Orogastric tube is in the stomach, the tip is below the level of the film. Right internal jugular central line tip SVC The endotracheal tube is 6.4 cm above mati Impression: Again noted heart failure pattern with bilateral pneumonia, dense pneumonia at the left base
[2024-11-30] MEDS: METOCLOPRAMIDE INJ 5 MG/ML VIAL 2 ML IVP ×3 (06:01→21:09)
[2024-11-30] MEDS: HEPARIN SOD INJ 5000 UNIT/ML VIAL 7500 UNIT SC ×3 (06:01→21:10)
[2024-11-30] MEDS: PANTOPRAZOLE INJ 40 MG VIAL IV (09:00)
[2024-11-30] MEDS: LACTULOSE SYRUP 20 GM/30 ML UDC PO (09:00)
[2024-11-30] MEDS: FINASTERIDE 5 MG TABLET PO (09:00)
[2024-11-30] MEDS: cefTRIAXone/D5w 1gm IV premix 1 GM/50 ML BAG IV (09:00)
[2024-11-30] MEDS: FLUTICASONE NAS SPRAY 0.05% 16 GM BTL 1 SPRAY NASAL (09:00)
--- NOTE | 2024-11-30 10:52 | ESPR_ITS ---
Documentation for date of: 11/30/24 Subjective Subjective Interval history: Mr. 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 Grider) history of CHF, history of pituitary adenoma which was removed presented to the emergency department with significant shortness of breath and her daughter called paramedics. When paramedics arrived his O2 sat was less than 88%. Chest x-ray showed mild vascular congestion and no pneumonia. Admitted to the hospital with hypoxic respiratory failure ED COURSE: T103.8, HR 106, BP 141/91, satting 93% on 2 L NC. WBC 13.8, Hgb 11.2, PLT 253. Normal coag studies. CHEM panel significant for BUN 26, CR 1.5, EGFR 47, GLUCOSE 189, A1c 6.8, phosphorus 1.5, AST 44, AST 36, ALP 117, BNP 109, troponin 0.029, Pro-Calc 3.01. UA showed positive LE, RBC 6, WBC 41, urea 4+. EKG sinus rhythm without acute ST changes. CXR mild vascular congestion, no lobar pneumonia. ED gave 2 L IVF, CEFTRIAXONE 1 g x 1. Will admit for sepsis in settings of UTI. 11/26/2024 patient currently seen in ICU. Apparently yesterday after I saw the patient with the resident that he had a few events where rapid response was called in the beginning during NG tube insertion for abdominal distention/ileus. Subsequently he coded secondary to aspiration pneumonia, intubated and transferred to ICU. Currently on pressors. Dr. Quinn and ICU team at bedside. Family at bedside. Labs/medications reviewed. On broad-spectrum antibiotics. WBC 13.6, hemoglobin 9.7, platelets 266. ABG showing pH 7.28, [id number], pO2 67, HCO3 26. Sodium 138, potassium 4.9, BUN 37, creatinine 1.3, lactic acid 1.3, calcium 8.9, magnesium 2.2, AST 69, ALT 59, ammonia 50, albumin 3.1,Chest x-ray showed pneumonia in the right lung. 11/27/2024 examined in ICU. Sedated on MV, no signs of distress. Broch showed friable mucosa secondary to bile. Suspected ARDS, however improving. On pressors, vitals WNL, although slightly bradycardic. CT from 11/25 with left pleural effusion, vascular congestion, pneumonia, hepatomegaly, ascites, possible cystitis, no bowel obstruction. Abdominal ultrasound pending. Leukocytosis resolved. Hgb 9.0. Renal function stable and normal. AST 124, ALT 55, ALP 121. Hep panel was negative. 24-hour blood culture negative. Sputum culture pending. 11/28/2024 examined in ICU at bedside. Off sedation, planning to extubate today. Appears alert. Pressors are off, BP 123/63. Echo showed EV 55 to 60%, mild to moderate aortic stenosis. CXR today showing ARDS, worse on the right. Has trace bilateral LE edema on exam. Renal function stable. 11/29/2024 examined at bedside in ICU. Continue to be off pressors, BP 170/79, HR 62. Continue on mechanical ventilation. CXR still showing diffuse pulmonary edema. Labs are showing sodium 149, chloride 112, BUN 28, CR 1.1, GLUCOSE 168, AST 109, ALT 51, ALP 123, WBC 14.3, Hgb 10.6, PLT 458. Blood culture negative after 48 hours. ET culture negative. Received a dose of LASIX, urine output is good, has trace bilateral extremity edema on exam. 11/30/2024 examined at bedside in ICU. Sedation off, alert on exam. Vitals stable, BP 177/68. Sodium 155, chloride 114, BUN 25, CR 1.1, GFR >60, GLUCOSE 161, LFTs improving. WBC 12.7, Hgb 10.3, PLT 441. 48-hour blood culture negative. Had 2.8 L urine output overnight with LASIX. Has trace edema on exam. Plan for downgrade today. Exam Vital Signs Temp Pulse Resp BP Pulse Ox O2 Del Method O2 Flow Rate 98.1 F 70 15 177/68 H 99 Mechanical Ventilation 90 11/30/24 08:00 11/30/24 10:17 11/30/24 10:03 11/30/24 10:17 11/30/24 10:17 11/30/24 08:00 11/26/24 08:00 FiO2 35 11/30/24 10:17 Narrative Exam General: Mechanically ventilated, responsive to painful stimuli and pupils reactive to light. Eyes: Pupils reactive to light Ears: No visible ear discharge Nose: No visible nasal discharge. Mouth/Throat: Moist mucous membranes, no redness, no lesions. Neck: Short neck, no cervical lymphadenopathy. Lungs: Clear to lay on the right side, but still some rhonchi appreciated on the right side and decreased breath sounds on the left. Cardio: Normal S1/S2, regular rhythm, no murmurs, no JVD Abdomen: Firm and distended, but softer today, no palpable masses, peristalsis present, no guarding or rebound. Extremities: Symmetrical, no significant deformities, trace peripheral edema , non-tender, peripheral pulses presents Skin: No rashes, no lesions, warm to touch. Neuro: Reactive to painful stimuli, pupils were equally reactive Objective Labs 12/01/24 04:30 12/01/24 04:30 Labs: Laboratory Results - last 24 hr 11/29/24 11/30/24 11/30/24 15:40 04:46 04:50 WBC 12.7 H RBC 3.61 L Hgb 10.3 L Hct 34.1 L MCV 95 MCH 28.5 MCHC 30.2 L RDW Std Deviation 49.9 H Plt Count 441 H Neut % (Auto) 68 Lymph % (Auto) 18 [place] % (Auto) 6 Eos % (Auto) 2 Baso % (Auto) 1 Neut # (Auto) 8.7 H Lymph # (Auto) 2.3 [place] # (Auto) 0.8 Eos # (Auto) 0.3 Baso # (Auto) 0.1 Immature Gran # (Auto) 0.63 H Absolute Nucleated RBC 0.05 H Immature Gran % 5 H Nucleated RBC % 0 Puncture Site Arterial Line Arterial Line ABG pH 7.41 7.39 ABG pCO2 54 H D 57 H ABG pO2 63 L D 59 L* ABG HCO3 34 H 34 H ABG O2 Saturation 90 L 90 L ABG Base Excess 8 H 8 H FiO2 40 40 Sodium 155 H Potassium 3.8 Chloride 114 H Carbon Dioxide 33.4 H Anion Gap 8 BUN 25 H Creatinine 1.1 Estim Creat Clear Calc 65.2 eGFR > 60 BUN/Creatinine Ratio 23 H Glucose 161 H Calculated Osmolality 314 H Calcium 8.7 Corrected Calcium 9.1 Magnesium 2.2 Total Bilirubin 1.2 AST 78 H ALT 40 Alkaline Phosphatase 150 H Total Protein 6.6 Albumin 3.5 Globulin 3.1 Albumin/Globulin Ratio 1.1 L ABG Interpretation ABG results: 11/25/24 11/25/24 11/25/24 12:15 13:59 16:51 ABG pH 7.15 L* 7.18 L* 7.14 L* ABG pCO2 83 H* 71 H* D 82 H* D ABG pO2 43 L* 87 D 69 L ABG HCO3 29 H 26 28 H ABG O2 Saturation 72 L 96 91 ABG Base Excess -1 -3 -2 11/25/24 11/25/24 11/26/24 19:23 23:21 04:48 ABG pH 7.27 L D 7.29 L 7.28 L ABG pCO2 58 H D 54 H 56 H ABG pO2 87 92 76 L ABG HCO3 27 H 26 26 ABG O2 Saturation 97 98 95 ABG Base Excess -1 -2 -1 11/26/24 11/27/24 11/28/24 12:15 07:01 04:38 ABG pH 7.28 L 7.32 L 7.35 ABG pCO2 59 H 55 H 50 H ABG pO2 67 L 80 L 148 H D ABG HCO3 26 28 H 27 H ABG O2 Saturation 92 94 98 ABG Base Excess -1 1 1 11/29/24 11/29/24 11/30/24 04:45 15:40 04:50 ABG pH 7.38 7.41 7.39 ABG pCO2 21 L D 54 H D 57 H ABG pO2 98 D 63 L D 59 L* ABG HCO3 12 L 34 H 34 H ABG O2 Saturation 99 H 90 L 90 L ABG Base Excess -12 L 8 H 8 H Quality Measures Quality Measures none Advance care planning discussed with:: patient Assessment & Plan Assessment Current Active Medications: Generic Name Dose Route Start Last Admin Trade Name Freq PRN Reason Stop Dose Admin Acetaminophen 650 mg 11/25/24 08:49 11/25/24 08:56 Acetaminophen 325 Mg Tablet PO 12/25/24 08:48 650 mg Q6HR PRN Administration PAIN Acetylcysteine 3 ml 11/26/24 15:00 11/30/24 10:02 Acetylcysteine Rt Pati 10% 4 Ml Nebu INH 12/26/24 14:59 3 ml Q4HRRT PRINCESS Administration Albuterol/Ipratropium 3 ml 11/25/24 23:00 11/30/24 10:02 Albuterol/Ipratropium (Duoneb) Rt Pati 3 Ml Nebu INH 12/25/24 22:59 3 ml Q4HRRT PRINCESS Administration Dextrose 25 ml 11/23/24 21:21 Dextrose 50%-Water Inj 50 Ml Syringe IV 12/23/24 21:20 Q15MIN PRN BG 50-70 responsive npo pt Finasteride 5 mg 11/24/24 09:00 11/30/24 09:00 Finasteride 5 Mg Tablet PO 12/24/24 08:59 5 mg QDAY PRINCESS Administration Fluticasone Propionate 1 spray 11/24/24 09:00 11/30/24 09:00 Fluticasone Rahul Cunningham 0.05% 16 Gm Btl NASAL 12/24/24 08:59 1 gm QDAY PRINCESS Administration Glucagon 1 mg 11/23/24 21:21 Glucagon Inj 1 Mg Vial IM Q15MIN PRN BG <70, and no IV access Heparin Sodium (Porcine) 7,500 unit 11/26/24 14:00 11/30/24 06:01 Heparin Sod Inj 5000 Unit/Ml Vial SC 12/10/24 13:59 7,500 unit Q8HR PRINCESS Administration Norepinephrine/Dextrose 8 mg in 250 mls @ 10.465 mls/hr 11/25/24 16:37 11/27/24 04:20 Levophed In D5w 8mg/250ml IV 12/25/24 16:36 0 mcg/kg/min .[id number] PRN 0 mls/hr PER PROTOCOL Titration Protocol 0.05 MCG/KG/MIN Vasopressin/Sodium Chloride 20 unit in 100 mls @ 9 mls/hr 11/25/24 16:37 11/28/24 08:00 Vasostrict/Ns Ivpb IV 12/25/24 16:36 0 unit/min .[id number] PRN 0 mls/hr PER PROTOCOL Titration Protocol 0.03 UNIT/MIN Fentanyl Citrate 2,500 mcg in 250 mls @ 2.5 mls/hr 11/25/24 17:37 11/30/24 06:00 Sublimaze Inj 2,500 Mcg/250 Ml Bag IV 11/30/24 17:36 175 mcg/hr .Q24H PRN 17.5 mls/hr PER PROTOCOL Titration Protocol 25 MCG/HR Ceftriaxone Sodium/Dextrose 1 gm in 50 mls @ 100 mls/hr 11/28/24 09:32 11/30/24 09:00 Rocephin/D5w 1gm Iv Premix IV 12/01/24 09:31 100 mls/hr QDAY PRINCESS Administration Dexmedetomidine/Sodium Chloride 400 mcg in 100 mls @ 6.05 mls/hr 11/28/24 17:39 11/30/24 09:29 Precedex Ivpb IV 12/28/24 08:25 1.2 mcg/kg/hr .[id number] PRN 36.3 mls/hr Per PROTOCOL Administration Protocol 0.2 MCG/KG/HR Insulin Human Lispro 0 unit 11/26/24 00:00 11/30/24 05:56 Insulin Lispro (Admelog) 1 Unit/0.01 Ml Unit SC 12/26/24 00:00 Not Given Q6H PRINCESS Protocol Lactulose 20 gm 11/28/24 21:00 11/30/24 09:00 Lactulose Syrup 20 Gm/30 Ml Udc PO 12/28/24 20:59 20 gm BID PRINCESS Administration Protocol Metoclopramide HCl 5 mg 11/29/24 14:00 11/30/24 06:01 Metoclopramide Inj 5 Mg/Ml Vial 2 Ml IVP 12/29/24 13:59 5 mg Q8HR PRINCESS Administration Protocol Pantoprazole Sodium 40 mg 11/27/24 09:00 11/30/24 09:00 Pantoprazole Inj 40 Mg Vial IV 12/27/24 08:59 40 mg QDAY PRINCESS Administration Plan In summary: 70-year-old male PMHx of CAD with stents, HTN, DM, BPH with self- catheterization, presented to ED with SOB. Admitted for AHRF 2/2 suspected sepsis in settings of UTI. ARDS, no in ICU on MV. ROSEANNE Renal function stable and normal. No electrolyte abnormalities. Off pressors, BP 170/79, HR 62. Had 2.8L urine output following LASIX. Trace peripheral edema on exam ? Renally dose meds, avoid overdiuresis and NEPHROTOXINS ? Daily CMP #Acute encephalopathy #Sedated #Shock #Postcardiac arrest #Hx of CAD s/p stents #History of heart failure #Acute hypoxic respiratory failure #Aspiration pneumonia? #Aspiration pneumonitis #Abdominal distention #Hepatomegaly #Transaminitis #Possible calculus cholecystitis #Complicated UTI, E. coli #Normocytic normochromic anemia #E. coli UTI #Possible aspiration pneumonia Managed by foster parent team Case was discussed with attending, Dr. Villegas. Oli Gomez DO PGYI Attending Provider Attestation/Addendum Patient seen and examined with resident physician Dr. Baird. Note reviewed, agree with findings and recommendations. Patient admitted with UTI/sepsis Continue with fluids, antibiotics. Patient currently seen in ICU. On the ventilator. Bronchoscopy showed friable mucosa. Patient currently seems to be in ARDS. ICU on the case. Possible extubation today. Abdominal distention slightly better today.
--- NOTE | 2024-11-30 11:25 | PD.RESPRO ---
Documentation for date of: 11/30/24 Subjective Subjective Interval history: 78-year-old male with past medical history of CAD status post stents, hypertension, DM2, BPH with self-catheterization, and CHF (no echo on file) was admitted to the medical floors on 11/23/2024 due to sepsis likely secondary to complicated UTI in the setting of [facility] and a positive urine analysis. Patient was admitted to the ICU on 11/25/2024 after cardiac arrest and ROSC was achieved. On this day patient had a rapid response called earlier in the morning due to lethargy, hypotension, and abdominal distention. At this time patient's blood pressure was around 93/53 and he was AO x 2. Primary care team give the patient 1 L bolus of NS which improved the blood pressure and started the patient on BiPAP after he was found to have an ABG of pH 7.15, PCO2 of 83, and PO2 of 43. During this time due to the new onset of abdominal distention and abdominal x-ray was ordered and only showed dilated stomach with nonobstructed nondilated bowel gas pattern, but no perforation. Later on the afternoon patient remained on the BiPAP before complaining of feeling nauseated around 4 PM at this time the BiPAP was discontinued and then patient's NG tube was placed to suctioning. At around 4:15 PM CHUY SENIOR was called to the patient's room as he was found to be pulseless after he appeared to have aspirated. Patient was coded and had a total of 5 rounds of epi, half atropine, 2 amp of sodium bicarb, and ROSC was achieved. At this time patient was intubated and was placed on dopamine drip and transferred to the ICU. 11/26/2024: Patient seen and examined at bedside this morning. Overnight patient became hypothermic at 96.5, but on rectal temperature he was 97.5 this morning. Patient was slowly weaned down on vasopressors, but he was placed on propofol overnight and was given 2 more doses of rocuronium given that he was breathing over the vent. Patient opening eyes spontaneously, had good pain response, pupils were reactive bilaterally. Patient underwent abdomen/pelvis CT with showed consolidation of the lower lobes therefore consent was taken for bronchoscopy. Patient underwent bronchoscopy and there was friable mucosa seen in the bronchoscopy with some bile secretions appreciated also during bronchoscopy. Patient was placed on his left side to help with oxygenation. Will get ammonia levels, ABG, and will start CPT and Mucomyst every 4 hours with DuoNebs. Successfully placed on arterial line today. 11/27/2024: Patient seen and examined at bedside this morning. No overnight events. Patient was taken off Levophed and is currently only on vasopressin. Patient did not have any desaturations overnight and his FiO2 has been weaned down to 50% this a.m. Chest x-ray done this a.m. showed improvement opacities, but there appears to be some retrocardiac opacification blunting the diaphragm on the left side and there is a possible new pleural effusion on the right side. Patient's blood cultures have been negative and sputum cultures have been negative for now. Still pending read of abdominal ultrasound. Echo was taken today, pending read. PF ratio today was 123, will continue patient on CPT, Mucomyst, and DuoNebs every 4 hours as well as maintain him laying mostly on his left side. 11/28/2024: Patient was seen and examined at bedside this morning. No overnight events. Patient continues to be only on vasopressin for now and has been having good urine output overnight. FiO2 has been weaned down to 40% today with PF ratio of 370. Chest x-ray done this a.m. that shows some improvement. Blood cultures and sputum cultures were negative. Echo was read and showed ejection fraction of 55 to 60% with mild MR, TR, and mild to moderate . Discontinue Zosyn and vancomycin, start Rocephin until 12/01/2024. Patient is currently off vasopressors at this time and off propofol, start precedex Will continue to change ventilator settings for possible extubation in the next 24 to 48 hours. 11/29/2024: Patient is seen examined bedside this morning. Overnight patient was placed on more sedation given that he was a little bit more agitated and biting on the ET tube. Patient had good urine output and was total negative of 3.1 L during the morning. Chest x-ray today showed that there seems to be some congestion and patient has been having elevated blood pressure this morning therefore we will give Lasix 40 x 1 again today. Patient's oxygen requirements did increase a little bit with FiO2 going up to 50% from 45% this morning. Patient's WBCs, but no spiking fevers and blood cultures continue to be negative. Will give Reglan given he was more distended today. 11/30/2024: Patient was seen examined at bedside this morning. Yesterday evening EKG that showed A-fib, but patient is rate controlled therefore not going to start any rate control medication for now. Wean patient off sedation and successfully extubated today. Patient at this time is stable enough to be downgraded to the medical floors. Exam Vital Signs Temp Pulse Resp BP Pulse Ox O2 Del Method O2 Flow Rate 98.1 F 70 15 177/68 H 99 Mechanical Ventilation 90 11/30/24 08:00 11/30/24 10:17 11/30/24 10:03 11/30/24 10:17 11/30/24 10:17 11/30/24 08:00 11/26/24 08:00 FiO2 35 11/30/24 10:17 Narrative Exam General: On oxymask, hoarse voice, Eyes: Pupils reactive to light, able to track Ears: No visible ear discharge Nose: No visible nasal discharge. Mouth/Throat: Moist mucous membranes, no redness, no lesions. Neck: Short neck, no cervical lymphadenopathy. Lungs: Clear MARY upper lobes, mildly decreased in R lower lobes Cardio: Normal S1/S2, regular rhythm, no murmurs, no JVD Abdomen: Softer than yester, but still firm and distended,, no palpable masses, peristalsis present, no guarding or rebound. Extremities: Symmetrical, no significant deformities, trace peripheral edema , non-tender, peripheral pulses presents, bilateral upper extremity swelling improving Skin: No rashes, no lesions, warm to touch. Neuro: Able to follow commands, extubated, moving all extremities Objective Labs 11/30/24 04:46 11/30/24 04:46 Labs: Laboratory Results - last 24 hr 11/29/24 11/30/24 11/30/24 15:40 04:46 04:50 WBC 12.7 H RBC 3.61 L Hgb 10.3 L Hct 34.1 L MCV 95 MCH 28.5 MCHC 30.2 L RDW Std Deviation 49.9 H Plt Count 441 H Neut % (Auto) 68 Lymph % (Auto) 18 [place] % (Auto) 6 Eos % (Auto) 2 Baso % (Auto) 1 Neut # (Auto) 8.7 H Lymph # (Auto) 2.3 [place] # (Auto) 0.8 Eos # (Auto) 0.3 Baso # (Auto) 0.1 Immature Gran # (Auto) 0.63 H Absolute Nucleated RBC 0.05 H Immature Gran % 5 H Nucleated RBC % 0 Puncture Site Arterial Line Arterial Line ABG pH 7.41 7.39 ABG pCO2 54 H D 57 H ABG pO2 63 L D 59 L* ABG HCO3 34 H 34 H ABG O2 Saturation 90 L 90 L ABG Base Excess 8 H 8 H FiO2 40 40 Sodium 155 H Potassium 3.8 Chloride 114 H Carbon Dioxide 33.4 H Anion Gap 8 BUN 25 H Creatinine 1.1 Estim Creat Clear Calc 65.2 eGFR > 60 BUN/Creatinine Ratio 23 H Glucose 161 H Calculated Osmolality 314 H Calcium 8.7 Corrected Calcium 9.1 Magnesium 2.2 Total Bilirubin 1.2 AST 78 H ALT 40 Alkaline Phosphatase 150 H Total Protein 6.6 Albumin 3.5 Globulin 3.1 Albumin/Globulin Ratio 1.1 L ABG Interpretation ABG results: 11/25/24 11/25/24 11/25/24 12:15 13:59 16:51 ABG pH 7.15 L* 7.18 L* 7.14 L* ABG pCO2 83 H* 71 H* D 82 H* D ABG pO2 43 L* 87 D 69 L ABG HCO3 29 H 26 28 H ABG O2 Saturation 72 L 96 91 ABG Base Excess -1 -3 -2 11/25/24 11/25/24 11/26/24 19:23 23:21 04:48 ABG pH 7.27 L D 7.29 L 7.28 L ABG pCO2 58 H D 54 H 56 H ABG pO2 87 92 76 L ABG HCO3 27 H 26 26 ABG O2 Saturation 97 98 95 ABG Base Excess -1 -2 -1 11/26/24 11/27/24 11/28/24 12:15 07:01 04:38 ABG pH 7.28 L 7.32 L 7.35 ABG pCO2 59 H 55 H 50 H ABG pO2 67 L 80 L 148 H D ABG HCO3 26 28 H 27 H ABG O2 Saturation 92 94 98 ABG Base Excess -1 1 1 11/29/24 11/29/24 11/30/24 04:45 15:40 04:50 ABG pH 7.38 7.41 7.39 ABG pCO2 21 L D 54 H D 57 H ABG pO2 98 D 63 L D 59 L* ABG HCO3 12 L 34 H 34 H ABG O2 Saturation 99 H 90 L 90 L ABG Base Excess -12 L 8 H 8 H Quality Measures Quality Measures none Advance care planning discussed with:: patient and child Assessment & Plan Assessment Current Active Medications: Generic Name Dose Route Start Last Admin Trade Name Freq PRN Reason Stop Dose Admin Acetaminophen 650 mg 11/25/24 08:49 11/25/24 08:56 Acetaminophen 325 Mg Tablet PO 12/25/24 08:48 650 mg Q6HR PRN Administration PAIN Acetylcysteine 3 ml 11/26/24 15:00 11/30/24 10:02 Acetylcysteine Rt Pati 10% 4 Ml Nebu INH 12/26/24 14:59 3 ml Q4HRRT PRINCESS Administration Albuterol/Ipratropium 3 ml 11/25/24 23:00 11/30/24 10:02 Albuterol/Ipratropium (Duoneb) Rt Pati 3 Ml Nebu INH 12/25/24 22:59 3 ml Q4HRRT PRINCESS Administration Carvedilol 12.5 mg 11/30/24 17:30 Carvedilol 12.5 Mg Tablet PO 12/30/24 17:29 BIDWM PRINCESS Dextrose 25 ml 11/23/24 21:21 Dextrose 50%-Water Inj 50 Ml Syringe IV 12/23/24 21:20 Q15MIN PRN BG 50-70 responsive npo pt Finasteride 5 mg 11/24/24 09:00 11/30/24 09:00 Finasteride 5 Mg Tablet PO 12/24/24 08:59 5 mg QDAY PRINCESS Administration Fluticasone Propionate 1 spray 11/24/24 09:00 11/30/24 09:00 Fluticasone [place] 0.05% 16 Gm Btl NASAL 12/24/24 08:59 1 gm QDAY PRINCESS Administration Glucagon 1 mg 11/23/24 21:21 Glucagon Inj 1 Mg Vial IM Q15MIN PRN BG <70, and no IV access Heparin Sodium (Porcine) 7,500 unit 11/26/24 14:00 11/30/24 06:01 Heparin Sod Inj 5000 Unit/Ml Vial SC 12/10/24 13:59 7,500 unit Q8HR PRINCESS Administration Norepinephrine/Dextrose 8 mg in 250 mls @ 10.465 mls/hr 11/25/24 16:37 11/27/24 04:20 Levophed In D5w 8mg/250ml IV 12/25/24 16:36 0 mcg/kg/min .[id number] PRN 0 mls/hr PER PROTOCOL Titration Protocol 0.05 MCG/KG/MIN Vasopressin/Sodium Chloride 20 unit in 100 mls @ 9 mls/hr 11/25/24 16:37 11/28/24 08:00 Vasostrict/Ns Ivpb IV 12/25/24 16:36 0 unit/min .[id number] PRN 0 mls/hr PER PROTOCOL Titration Protocol 0.03 UNIT/MIN Fentanyl Citrate 2,500 mcg in 250 mls @ 2.5 mls/hr 11/25/24 17:37 11/30/24 06:00 Sublimaze Inj 2,500 Mcg/250 Ml Bag IV 11/30/24 17:36 175 mcg/hr .Q24H PRN 17.5 mls/hr PER PROTOCOL Titration Protocol 25 MCG/HR Ceftriaxone Sodium/Dextrose 1 gm in 50 mls @ 100 mls/hr 11/28/24 09:32 11/30/24 09:00 Rocephin/D5w 1gm Iv Premix IV 12/01/24 09:31 100 mls/hr QDAY PRINCESS Administration Dexmedetomidine/Sodium Chloride 400 mcg in 100 mls @ 6.05 mls/hr 11/28/24 17:39 11/30/24 09:29 Precedex Ivpb IV 12/28/24 08:25 1.2 mcg/kg/hr .[id number] PRN 36.3 mls/hr Per PROTOCOL Administration Protocol 0.2 MCG/KG/HR Insulin Human Lispro 0 unit 11/26/24 00:00 11/30/24 05:56 Insulin Lispro (Admelog) 1 Unit/0.01 Ml Unit SC 12/26/24 00:00 Not Given Q6H PRINCESS Protocol Lactulose 20 gm 11/28/24 21:00 11/30/24 09:00 Lactulose Syrup 20 Gm/30 Ml Udc PO 12/28/24 20:59 20 gm BID PRINCESS Administration Protocol Metoclopramide HCl 5 mg 11/29/24 14:00 11/30/24 06:01 Metoclopramide Inj 5 Mg/Ml Vial 2 Ml IVP 12/29/24 13:59 5 mg Q8HR PRINCESS Administration Protocol Pantoprazole Sodium 40 mg 11/27/24 09:00 11/30/24 09:00 Pantoprazole Inj 40 Mg Vial IV 12/27/24 08:59 40 mg QDAY PRINCESS Administration Valsartan 40 mg 11/30/24 11:15 Valsartan 40 Mg Tablet PO 12/30/24 11:14 QDAY PRINCESS Plan 78-year-old male with past medical history of CAD status post stents, hypertension, DM2, BPH with self-catheterization, and CHF (no echo on file) was upgraded to the ICU on 11/25/2024 due to postcardiac arrest. 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 encephalopathy Off sedation Able to follow commands CVS: #Shock, resolved #Postcardiac arrest Continue Rocephin until 12/01/2024 #Hx of CAD s/p stents #History of heart failure Patient has a history of heart failure, but there is no echo on file Troponins were negative #HFpEF (55 to 60% EF) #Mild MR and TR #Mild to moderate Echo showed EF of 55 to 60% with some mild MR and TR as well as mild to moderate Started Coreg 12.5mg and valsartan 40mg #A-Fib EKG yesterday showed patient went into A-Fib Today going in and out of A-fib, but rate controlled Respiratory: #Acute hypoxic respiratory failure #ARDS #Aspiration pneumonia? #Aspiration pneumonitis Patient had episode of aspiration which is causing him to become hypoxic and eventually coded Discontinue Zosyn and vancomycin Intubated on 11/25/2024 Bronchoscopy on 11/26/2024 that showed friable mucosa with biliary fluid appreciated PF ratio of 148 today Continue Rocephin until 12/01/2024 Extubated 11/30/2024 Renal: #Acute kidney injury, resolved #Lactic acidosis, resolved GI: #Abdominal distention Abdomen was softer today NG tube in place Abdomen/pelvis CT did not show any perforation or bowel obstruction. Continue on Reglan #Hepatomegaly #Transaminitis On review patient has had liver ultrasound that showed mild hepatomegaly Patient has a history of transaminitis in the past Hepatitis panel negative #Possible gallstones Abdomen ultrasound showed some possible gallstones versus gallbladder sludge, but negative for cholecystitis : #Complicated UTI, E. coli Patient had a positive UA and urine culture grew E. coli Will continue with rocephin. Heme: #Normocytic normochromic anemia Patient has a base hemoglobin of around 12-13 Patient hemoglobin today 10.3 Could be hemodilutional No active signs of bleeding We will continue to monitor ID: #E. coli UTI #Possible aspiration pneumonia Blood cultures negative in 48 hours Sputum cultures negative Continue Rocephin until 12/01/2024 Hospital Maintenance: Diet: holding tube feeds DVT ppx: Heparin subcu GI ppx: Protonix IV IV lines: PIV, CIV, A-line [place]: sanabria cath Code status: Full code Dispo: ICU post cardiac arrest Case disclosed with Attending Dr. Kai Black PGY1
[2024-11-30] MEDS: VALSARTAN 40 MG TABLET PO (11:59)
--- NOTE | 2024-11-30 15:41 | PD.RESPRO ---
Documentation for date of: 11/30/24 Subjective Subjective Interval history: Mr. 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 Grider) history of CHF, history of pituitary adenoma which was removed presented to the emergency department with significant shortness of breath and her daughter called paramedics. When paramedics arrived his O2 sat was less than 88%. Chest x-ray showed mild vascular congestion and no pneumonia. Admitted to the hospital with hypoxic respiratory failure ED COURSE: T103.8, HR 106, BP 141/91, satting 93% on 2 L NC. WBC 13.8, Hgb 11.2, PLT 253. Normal coag studies. CHEM panel significant for BUN 26, CR 1.5, EGFR 47, GLUCOSE 189, A1c 6.8, phosphorus 1.5, AST 44, AST 36, ALP 117, BNP 109, troponin 0.029, Pro-Calc 3.01. UA showed positive LE, RBC 6, WBC 41, urea 4+. EKG sinus rhythm without acute ST changes. CXR mild vascular congestion, no lobar pneumonia. ED gave 2 L IVF, CEFTRIAXONE 1 g x 1. Will admit for sepsis in settings of UTI. 11/26/2024 patient currently seen in ICU. Apparently yesterday after I saw the patient with the resident that he had a few events where rapid response was called in the beginning during NG tube insertion for abdominal distention/ileus. Subsequently he coded secondary to aspiration pneumonia, intubated and transferred to ICU. Currently on pressors. Dr. Quinn and ICU team at bedside. Family at bedside. Labs/medications reviewed. On broad-spectrum antibiotics. WBC 13.6, hemoglobin 9.7, platelets 266. ABG showing pH 7.28, [id number], pO2 67, HCO3 26. Sodium 138, potassium 4.9, BUN 37, creatinine 1.3, lactic acid 1.3, calcium 8.9, magnesium 2.2, AST 69, ALT 59, ammonia 50, albumin 3.1,Chest x-ray showed pneumonia in the right lung. 11/27/2024 examined in ICU. Sedated on MV, no signs of distress. Broch showed friable mucosa secondary to bile. Suspected ARDS, however improving. On pressors, vitals WNL, although slightly bradycardic. CT from 11/25 with left pleural effusion, vascular congestion, pneumonia, hepatomegaly, ascites, possible cystitis, no bowel obstruction. Abdominal ultrasound pending. Leukocytosis resolved. Hgb 9.0. Renal function stable and normal. AST 124, ALT 55, ALP 121. Hep panel was negative. 24-hour blood culture negative. Sputum culture pending. 11/28/2024 examined in ICU at bedside. Off sedation, planning to extubate today. Appears alert. Pressors are off, BP 123/63. Echo showed EV 55 to 60%, mild to moderate aortic stenosis. CXR today showing ARDS, worse on the right. Has trace bilateral LE edema on exam. Renal function stable. 11/29/2024 examined at bedside in ICU. Continue to be off pressors, BP 170/79, HR 62. Continue on mechanical ventilation. CXR still showing diffuse pulmonary edema. Labs are showing sodium 149, chloride 112, BUN 28, CR 1.1, GLUCOSE 168, AST 109, ALT 51, ALP 123, WBC 14.3, Hgb 10.6, PLT 458. Blood culture negative after 48 hours. ET culture negative. Received a dose of LASIX, urine output is good, has trace bilateral extremity edema on exam. 11/30/2024 examined at bedside in ICU, daughter at bedside. A&O x3, following command, conversating. On NGT suction and oxymask. Labs today showing sodium 155, he is on water flushes, renal function normal, urine output normal, LFTS improving, leukocytosis improving, Hgb 10.3 and improving. Vitals stable, BP 173/76. Exam Vital Signs Temp Pulse Resp BP Pulse Ox O2 Del Method O2 Flow Rate 98.1 F 75 20 173/76 H 87 L Oxy Mask 1 11/30/24 12:00 11/30/24 15:00 11/30/24 15:11/30/24 15:11/30/24 15:11/30/24 12:00 11/30/24 14:45 FiO2 35 11/30/24 10:17 Narrative Exam General: Appears well, NGT in place, on oximask, NAD Eyes: Pupils reactive to light Ears: No visible ear discharge Nose: No visible nasal discharge. Mouth/Throat: Moist mucous membranes, no redness, no lesions. Neck: Short neck, no cervical lymphadenopathy. Lungs: Clear to lay on the right side, but still some rhonchi appreciated on the right side and decreased breath sounds on the left. Cardio: Normal S1/S2, regular rhythm, no murmurs, no JVD Abdomen: Firm and distended, but softer today, no palpable masses, peristalsis present, no guarding or rebound. Extremities: Symmetrical, no significant deformities, trace peripheral edema , non-tender, peripheral pulses presents Skin: No rashes, no lesions, warm to touch. Extremities well perfuse. Neuro: A&O x3, Reactive to painful stimuli, pupils were equally reactive. Muscle strength and sensation intact and symmetrical in all extremities. Objective Labs 12/01/24 04:30 12/01/24 04:30 Labs: Laboratory Results - last 24 hr 11/29/24 11/30/24 11/30/24 15:40 04:46 04:50 WBC 12.7 H RBC 3.61 L Hgb 10.3 L Hct 34.1 L MCV 95 MCH 28.5 MCHC 30.2 L RDW Std Deviation 49.9 H Plt Count 441 H Neut % (Auto) 68 Lymph % (Auto) 18 Mcintosh % (Auto) 6 Eos % (Auto) 2 Baso % (Auto) 1 Neut # (Auto) 8.7 H Lymph # (Auto) 2.3 Mcintosh # (Auto) 0.8 Eos # (Auto) 0.3 Baso # (Auto) 0.1 Immature Gran # (Auto) 0.63 H Absolute Nucleated RBC 0.05 H Immature Gran % 5 H Nucleated RBC % 0 Puncture Site Arterial Line Arterial Line ABG pH 7.41 7.39 ABG pCO2 54 H D 57 H ABG pO2 63 L D 59 L* ABG HCO3 34 H 34 H ABG O2 Saturation 90 L 90 L ABG Base Excess 8 H 8 H FiO2 40 40 Sodium 155 H Potassium 3.8 Chloride 114 H Carbon Dioxide 33.4 H Anion Gap 8 BUN 25 H Creatinine 1.1 Estim Creat Clear Calc 65.2 eGFR > 60 BUN/Creatinine Ratio 23 H Glucose 161 H Calculated Osmolality 314 H Calcium 8.7 Corrected Calcium 9.1 Magnesium 2.2 Total Bilirubin 1.2 AST 78 H ALT 40 Alkaline Phosphatase 150 H Total Protein 6.6 Albumin 3.5 Globulin 3.1 Albumin/Globulin Ratio 1.1 L ABG Interpretation ABG results: 11/25/24 11/25/24 11/25/24 12:15 13:59 16:51 ABG pH 7.15 L* 7.18 L* 7.14 L* ABG pCO2 83 H* 71 H* D 82 H* D ABG pO2 43 L* 87 D 69 L ABG HCO3 29 H 26 28 H ABG O2 Saturation 72 L 96 91 ABG Base Excess -1 -3 -2 11/25/24 11/25/24 11/26/24 19:23 23:21 04:48 ABG pH 7.27 L D 7.29 L 7.28 L ABG pCO2 58 H D 54 H 56 H ABG pO2 87 92 76 L ABG HCO3 27 H 26 26 ABG O2 Saturation 97 98 95 ABG Base Excess -1 -2 -1 11/26/24 11/27/24 11/28/24 12:15 07:01 04:38 ABG pH 7.28 L 7.32 L 7.35 ABG pCO2 59 H 55 H 50 H ABG pO2 67 L 80 L 148 H D ABG HCO3 26 28 H 27 H ABG O2 Saturation 92 94 98 ABG Base Excess -1 1 1 11/29/24 11/29/24 11/30/24 04:45 15:40 04:50 ABG pH 7.38 7.41 7.39 ABG pCO2 21 L D 54 H D 57 H ABG pO2 98 D 63 L D 59 L* ABG HCO3 12 L 34 H 34 H ABG O2 Saturation 99 H 90 L 90 L ABG Base Excess -12 L 8 H 8 H Quality Measures Quality Measures none Advance care planning discussed with:: patient and child Assessment & Plan Assessment Current Active Medications: Generic Name Dose Route Start Last Admin Trade Name Freq PRN Reason Stop Dose Admin Acetaminophen 650 mg 11/25/24 08:49 11/25/24 08:56 Acetaminophen 325 Mg Tablet PO 12/25/24 08:48 650 mg Q6HR PRN Administration PAIN Acetylcysteine 3 ml 11/26/24 15:00 11/30/24 14:38 Acetylcysteine Rt Pati 10% 4 Ml Nebu INH 12/26/24 14:59 3 ml Q4HRRT PRINCESS Administration Albuterol/Ipratropium 3 ml 11/25/24 23:00 11/30/24 14:38 Albuterol/Ipratropium (Duoneb) Rt Pati 3 Ml Nebu INH 12/25/24 22:59 3 ml Q4HRRT PRINCESS Administration Carvedilol 12.5 mg 11/30/24 17:30 Carvedilol 12.5 Mg Tablet PO 12/30/24 17:29 BIDWM PRINCESS Dextrose 25 ml 11/23/24 21:21 Dextrose 50%-Water Inj 50 Ml Syringe IV 12/23/24 21:20 Q15MIN PRN BG 50-70 responsive npo pt Finasteride 5 mg 11/24/24 09:00 11/30/24 09:00 Finasteride 5 Mg Tablet PO 12/24/24 08:59 5 mg QDAY PRINCESS Administration Fluticasone Propionate 1 spray 11/24/24 09:00 11/30/24 09:00 Fluticasone Rahul [place] 0.05% 16 Gm Btl NASAL 12/24/24 08:59 1 gm QDAY PRINCESS Administration Glucagon 1 mg 11/23/24 21:21 Glucagon Inj 1 Mg Vial IM Q15MIN PRN BG <70, and no IV access Heparin Sodium (Porcine) 7,500 unit 11/26/24 14:00 11/30/24 13:21 Heparin Sod Inj 5000 Unit/Ml Vial SC 12/10/24 13:59 7,500 unit Q8HR PRINCESS Administration Norepinephrine/Dextrose 8 mg in 250 mls @ 10.465 mls/hr 11/25/24 16:37 11/27/24 04:20 Levophed In D5w 8mg/250ml IV 12/25/24 16:36 0 mcg/kg/min .[id number] PRN 0 mls/hr PER PROTOCOL Titration Protocol 0.05 MCG/KG/MIN Vasopressin/Sodium Chloride 20 unit in 100 mls @ 9 mls/hr 11/25/24 16:37 11/28/24 08:00 Vasostrict/Ns Ivpb IV 12/25/24 16:36 0 unit/min .[id number] PRN 0 mls/hr PER PROTOCOL Titration Protocol 0.03 UNIT/MIN Fentanyl Citrate 2,500 mcg in 250 mls @ 2.5 mls/hr 11/25/24 17:37 11/30/24 06:00 Sublimaze Inj 2,500 Mcg/250 Ml Bag IV 11/30/24 17:36 175 mcg/hr .Q24H PRN 17.5 mls/hr PER PROTOCOL Titration Protocol 25 MCG/HR Ceftriaxone Sodium/Dextrose 1 gm in 50 mls @ 100 mls/hr 11/28/24 09:32 11/30/24 09:00 Rocephin/D5w 1gm Iv Premix IV 12/01/24 09:31 100 mls/hr QDAY PRINCESS Administration Dexmedetomidine/Sodium Chloride 400 mcg in 100 mls @ 6.05 mls/hr 11/28/24 17:39 11/30/24 09:29 Precedex Ivpb IV 12/28/24 08:25 1.2 mcg/kg/hr .[id number] PRN 36.3 mls/hr Per PROTOCOL Administration Protocol 0.2 MCG/KG/HR Insulin Human Lispro 0 unit 11/26/24 00:00 11/30/24 11:57 Insulin Lispro (Admelog) 1 Unit/0.01 Ml Unit SC 12/26/24 00:00 Not Given Q6H PRINCESS Protocol Lactulose 20 gm 11/28/24 21:00 11/30/24 09:00 Lactulose Syrup 20 Gm/30 Ml Udc PO 12/28/24 20:59 20 gm BID PRINCESS Administration Protocol Metoclopramide HCl 5 mg 11/29/24 14:00 11/30/24 13:20 Metoclopramide Inj 5 Mg/Ml Vial 2 Ml IVP 12/29/24 13:59 5 mg Q8HR PRINCESS Administration Protocol Pantoprazole Sodium 40 mg 11/27/24 09:00 11/30/24 09:00 Pantoprazole Inj 40 Mg Vial IV 12/27/24 08:59 40 mg QDAY PRINCESS Administration Valsartan 40 mg 11/30/24 11:15 11/30/24 11:59 Valsartan 40 Mg Tablet PO 12/30/24 11:14 40 mg QDAY PRINCESS Administration Plan In summary: 70-year-old male PMHx of CAD with stents, HTN, DM, BPH with self-catheterization, presented to ED with SOB. Admitted for AHRF 2/2 suspected sepsis in settings of UTI. S/p ICU admission following cardiac arrest 2/2 AHRF/ARDS 2/2 aspitation. Downgraded to floor, doing well, a&ox3, following command. BP 173/76 on VALSARTAN and COREG, we resumed home CLONIDINE. Potassium 155, on water flushes TID. Acute encephalopathy (resolved) Off sedation Following command without focal neurological deficits ? PT Hypernatremia Sodium 155 likely dehydrational Continue water flushes 70 cc/H per NGT ?Paraxismal Afib Post cardiac arrest CAD s/p stent HFpEF EF 55-60% Had cardiac arrest 2/2 regurgitation and hypoxemia. Required ICU admission and pressure support. Off perssors, vitals stable. Troponin negative since admission Tele showing occasional a-fib ECHO showed EF of 55 to 60% with some mild MR and TR as well as mild to moderate . ? Continue COREG 12.5 mg daily ? Continue VALSARTAIN 40 mg daily Acute hypoxic respiratory failure (improving) Aspiration pneumonia? vs pneumonitis Aspirated while on BiPAP, followed by cardiac arrest. S/p ICU admission for MV 2/2 AHRF, ARDS, bronch showed bile in lungs and friable mucosa. Previously on VANC and ZOSYN, de-esculated to CTX. Extubated successfuly on 12/30/24 On OXIMASK, satting well. Blood and ET cx negative ? On CEFTRIAXONE (11/28/24 to present) ROSEANNE Renal function stable and normal. No electrolyte abnormalities. Off pressors, BP 170/79, HR 62. Had 2.8L urine output following LASIX. Trace peripheral edema on exam ? Renally dose meds, avoid overdiuresis and NEPHROTOXINS ? Daily CMP Complicated E. coli UTI Urine grew E. coli Currently afebrile, WBC improving ? On CEFTRIAXONE as above HTN HLD ? Discontinued VALSARTAN 50 mg ? Resumed home CLONIDINE 0.1 mg BID ? On CARVEDILOL 12.5 mg q. day *home dose 25 mg ? Continue home ATORVASTATIN 10 mg daily T2DM A1c 6.8 this visit. GLUCOSE 164 today. ? INSULIN sliding scale ? Accu-Cheks Abdominal distention CT negative for perforation or bowel obstruction. CXR earlier showed gas in stomach. Hep panel negative Persistent distention on exam ? On REGLAN ? Started MIRAAX ? Continue NGT suction Hepatomegaly Transaminitis Possible gallstones US from previous admission showed mild hepatomegaly Previously had transaminitis US this admission showed possible gallstones vs sludge, negative cholecystitis. Hepatitis panel negative LFTs down trending ? Daily labs Normocytic normochromic anemia Chronic, Hgb 10.3 (baseline 12-13) Likely dilutional No s/s of abnormal bleed, normal coag studies ? Daily CBC ? Transfuse if Hgb < 8 BPH ? On FINASTERIDE 5 mg daily Lactic acidosis (resolved) Shock (resolved) ARDS (resolved) In setting of cardiac arrest. Health maintenance Diet: NPO GI prophylaxis: PROTONIX DVT prophylaxis: HEPARIN subQ Antibiotics: CEFTRIAXONE CODE STATUS: FULL CODE Disposition: Treating UTI and Encephalopathy Case was discussed with attending, Dr. Villegas. Oli Gomez DO PGYI Attending Provider Attestation/Addendum Patient seen and examined with resident physician Dr. Baird. Note reviewed, agree with findings and recommendations. Patient admitted with UTI/sepsis Continue with fluids, antibiotics. Patient currently seen in ICU. On the ventilator. Bronchoscopy showed friable mucosa. Patient currently seems to be in ARDS. ICU on the case. Possible extubation today. Abdominal distention slightly better today.
[2024-11-30] MEDS: carVEDILOL 12.5 MG TABLET PO (17:26)
[2024-11-30] MEDS: POLYETHYLENE GLYCOL 17 GM PACKET PO (17:26)
[2024-11-30] MEDS: cloNIDine HCL 0.1 MG TABLET PO (20:18)
--- NOTE | 2024-11-30 22:54 | PC.RT ---
Pt refusing therapy at this time due to discomfort
[2024-12-01] VITALS (27 sets, daily range): BP systolic 164–199; BP diastolic 74–99; PULSE 54–72; RESP 14–27; TEMP 36.2–37.1; O2SAT 90–100; BMI 12.0
[2024-12-01] MEDS: ACETYLCYSTEINE RT SOL 10% 4 ML NEBU 3 ML INH ×6 (02:39→22:04)
[2024-12-01] MEDS: ALBUTEROL/IPRATROPIUM (Duoneb) RT SOL 3 ML NEBU INH ×6 (02:40→22:04)
[2024-12-01 05:08] LABS: Basophils # (Auto) 0.1 Thou/mm3 (0.0-0.2); Basophils % (Auto) 1 % (0-2.5); Eosinophils # (Auto) 0.3 Thou/mm3 (0.0-0.5); Eosinophils % (Auto) 2 % (0-10); Hematocrit 37.8 % (41.0-53.0); Hemoglobin 11.6 g/dL (13.5-16.0); Immature Granulocytes % (Auto) 3 % (0-0); Immature Granulocytes Auto 0.39 Thou/mm3 (0.00-0.00); Lymphocytes # (Auto) 1.7 Thou/mm3 (1.0-4.8); Lymphocytes % (Auto) 12 % (10-50); Mean Corpuscular HGB Conc 30.7 g/dl (31.0-37.0); Mean Corpuscular Hemoglobin 28.2 pg (25.0-35.0); Mean Corpuscular Volume 92 fL (80-100); Monocytes # (Auto) 0.8 Thou/mm3 (0.0-0.8); Monocytes % (Auto) 5 % (0-12); Neutrophils # (Auto) 11.2 Thou/mm3 (1.8-7.7); Neutrophils % (Auto) 78 % (37-80); Nucleated Red Blood Cell % 0 /100 WBC (0); Platelet Count 394 Thou/mm3 (140-440); RDW Standard Deviation 48.4 fL (35.1-43.9); Red Blood Count 4.12 Miln/mm3 (4.50-5.90); White Blood Count 14.4 Thou/mm3 (3.8-10.6)
[2024-12-01] MEDS: HEPARIN SOD INJ 5000 UNIT/ML VIAL 7500 UNIT SC ×3 (05:47→21:13)
[2024-12-01] MEDS: METOCLOPRAMIDE INJ 5 MG/ML VIAL 2 ML IVP ×3 (05:47→21:11)
[2024-12-01 05:58] LABS: Alanine Aminotransferase 42 U/L (10-49); Albumin, Serum 3.6 gm/dL (3.4-4.8); Albumin/Globulin Ratio 1.2 (1.2-2.2); Alkaline Phosphatase 140 U/L (46-116); Anion Gap 11 (7-16); Aspartate Amino Transferase 78 U/L (0-34); BUN/Creatinine Ratio 24 Ratio (12-20); Bilirubin,Total 1.3 mg/dL (0.3-1.2); Blood Urea Nitrogen 24 mg/dL (9-23); Calcium 8.9 mg/dL (8.3-10.6); Calcium (Corrected) 9.2 mg/dL (8.5-10.1); Carbon Dioxide 32.4 mMol/L (20.0-31.0); Chloride 115 mMol/L (98-107); Estimated Creatinine Clearance 70.1 mL/min (>60); Globulin 3.1 gm/dL (2.3-3.5); Glucose 144 mg/dL (74-106); Magnesium 2.4 mg/dL (1.6-2.6); Osmolality,Calculated 319 (275-295); Potassium 3.5 mMol/L (3.4-5.1); Sodium 158 mMol/L (136-145); Total Protein 6.7 gm/dL (5.7-8.2); eGFR > 60 See Note
[2024-12-01] MEDS: POLYETHYLENE GLYCOL 17 GM PACKET PO (08:41)
[2024-12-01] MEDS: carVEDILOL 12.5 MG TABLET 25 MG PO ×2 (08:41→16:35)
[2024-12-01] MEDS: cefTRIAXone/D5w 1gm IV premix 1 GM/50 ML BAG IV (08:42)
[2024-12-01] MEDS: cloNIDine HCL 0.1 MG TABLET PO ×2 (08:42→21:13)
[2024-12-01] MEDS: VALSARTAN 40 MG TABLET PO (08:42)
[2024-12-01] MEDS: FINASTERIDE 5 MG TABLET PO (08:43)
[2024-12-01] MEDS: FLUTICASONE NAS SPRAY 0.05% 16 GM BTL 1 SPRAY NASAL (08:51)
--- NOTE | 2024-12-01 10:27 | PD.RESPRO ---
Documentation for date of: 12/01/24 Subjective Subjective Interval history: Mr. 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 Grider) history of CHF, history of pituitary adenoma which was removed presented to the emergency department with significant shortness of breath and her daughter called paramedics. When paramedics arrived his O2 sat was less than 88%. Chest x-ray showed mild vascular congestion and no pneumonia. Admitted to the hospital with hypoxic respiratory failure ED COURSE: T103.8, HR 106, BP 141/91, satting 93% on 2 L NC. WBC 13.8, Hgb 11.2, PLT 253. Normal coag studies. CHEM panel significant for BUN 26, CR 1.5, EGFR 47, GLUCOSE 189, A1c 6.8, phosphorus 1.5, AST 44, AST 36, ALP 117, BNP 109, troponin 0.029, Pro-Calc 3.01. UA showed positive LE, RBC 6, WBC 41, urea 4+. EKG sinus rhythm without acute ST changes. CXR mild vascular congestion, no lobar pneumonia. ED gave 2 L IVF, CEFTRIAXONE 1 g x 1. Will admit for sepsis in settings of UTI. 11/26/2024 patient currently seen in ICU. Apparently yesterday after I saw the patient with the resident that he had a few events where rapid response was called in the beginning during NG tube insertion for abdominal distention/ileus. Subsequently he coded secondary to aspiration pneumonia, intubated and transferred to ICU. Currently on pressors. Dr. Quinn and ICU team at bedside. Family at bedside. Labs/medications reviewed. On broad-spectrum antibiotics. WBC 13.6, hemoglobin 9.7, platelets 266. ABG showing pH 7.28, [id number], pO2 67, HCO3 26. Sodium 138, potassium 4.9, BUN 37, creatinine 1.3, lactic acid 1.3, calcium 8.9, magnesium 2.2, AST 69, ALT 59, ammonia 50, albumin 3.1,Chest x-ray showed pneumonia in the right lung. 11/27/2024 examined in ICU. Sedated on MV, no signs of distress. Broch showed friable mucosa secondary to bile. Suspected ARDS, however improving. On pressors, vitals WNL, although slightly bradycardic. CT from 11/25 with left pleural effusion, vascular congestion, pneumonia, hepatomegaly, ascites, possible cystitis, no bowel obstruction. Abdominal ultrasound pending. Leukocytosis resolved. Hgb 9.0. Renal function stable and normal. AST 124, ALT 55, ALP 121. Hep panel was negative. 24-hour blood culture negative. Sputum culture pending. 11/28/2024 examined in ICU at bedside. Off sedation, planning to extubate today. Appears alert. Pressors are off, BP 123/63. Echo showed EV 55 to 60%, mild to moderate aortic stenosis. CXR today showing ARDS, worse on the right. Has trace bilateral LE edema on exam. Renal function stable. 11/29/2024 examined at bedside in ICU. Continue to be off pressors, BP 170/79, HR 62. Continue on mechanical ventilation. CXR still showing diffuse pulmonary edema. Labs are showing sodium 149, chloride 112, BUN 28, CR 1.1, GLUCOSE 168, AST 109, ALT 51, ALP 123, WBC 14.3, Hgb 10.6, PLT 458. Blood culture negative after 48 hours. ET culture negative. Received a dose of LASIX, urine output is good, has trace bilateral extremity edema on exam. 11/30/2024 examined at bedside in ICU, daughter at bedside. A&O x3, following command, conversating. On NGT suction and oxymask. Labs today showing sodium 155, he is on water flushes, renal function normal, urine output normal, LFTS improving, leukocytosis improving, Hgb 10.3 and improving. Vitals stable, BP 173/76. 12/01/24: Patient seen and examined in ICU. There were no major overnight events the patient no complaints this morning. Serum sodium today was 158 and creatinine remained stable at 1.3 with a BUN of 24. Will start patient on D5W at 100 cc/h alongside 200 cc 4 times daily of free water flushes. Patient's abdomen continues to be distended without tenderness to palpation. Patient has adequate urine output. Will start simethicone for his distended bowels. Will keep the NG tube at this time due to the distention and will attempt to remove and advance diet in the next 24 to 48 hours. Patient is still very high risk for aspiration. Exam Vital Signs Temp Pulse Resp BP Pulse Ox O2 Del Method O2 Flow Rate 98.2 F 64 18 179/87 H 98 Nasal Cannula 1.5 12/01/24 04:00 12/01/24 10:02 12/01/24 10:02 12/01/24 08:42 12/01/24 10:02 12/01/24 04:00 12/01/24 10:02 FiO2 35 11/30/24 10:17 Narrative Exam Constitutional: Well nourished and in no acute distress. NGT in place CVS: RRR, S1 and S2 present, no murmurs, rubs or gallops . RESP: CTAB, no SOB, no rales, rhonchi or wheezing. No respiratory Distress GI: Very distended but nontender with bowel sounds present. MSK: Full range of motion, No trauma or deformities or masses. Skin: Warm to touch, Dry. No rashes or lesions. No hematomas Neuro: applications system analyst II-XII grossly intact. Sensation grossly intact. Psych: (AAO) x3 . Appropriate mood and affect. Objective Labs 12/03/24 05:17 12/03/24 05:17 Labs: Laboratory Results - last 24 hr 12/01/24 04:30 WBC 14.4 H RBC 4.12 L Hgb 11.6 L Hct 37.8 L MCV 92 MCH 28.2 MCHC 30.7 L RDW Std Deviation 48.4 H Plt Count 394 D Neut % (Auto) 78 Lymph % (Auto) 12 [place] % (Auto) 5 Eos % (Auto) 2 Baso % (Auto) 1 Neut # (Auto) 11.2 H Lymph # (Auto) 1.7 [place] # (Auto) 0.8 Eos # (Auto) 0.3 Baso # (Auto) 0.1 Immature Gran # (Auto) 0.39 H Absolute Nucleated RBC 0.00 Immature Gran % 3 H Nucleated RBC % 0 Sodium 158 H Potassium 3.5 Chloride 115 H Carbon Dioxide 32.4 H Anion Gap 11 BUN 24 H Creatinine 1.0 Estim Creat Clear Calc 70.1 eGFR > 60 BUN/Creatinine Ratio 24 H Glucose 144 H Calculated Osmolality 319 H Calcium 8.9 Corrected Calcium 9.2 Magnesium 2.4 Total Bilirubin 1.3 H AST 78 H ALT 42 Alkaline Phosphatase 140 H Total Protein 6.7 Albumin 3.6 Globulin 3.1 Albumin/Globulin Ratio 1.2 ABG Interpretation ABG results: 11/25/24 11/25/24 11/25/24 12:15 13:59 16:51 ABG pH 7.15 L* 7.18 L* 7.14 L* ABG pCO2 83 H* 71 H* D 82 H* D ABG pO2 43 L* 87 D 69 L ABG HCO3 29 H 26 28 H ABG O2 Saturation 72 L 96 91 ABG Base Excess -1 -3 -2 11/25/24 11/25/24 11/26/24 19:23 23:21 04:48 ABG pH 7.27 L D 7.29 L 7.28 L ABG pCO2 58 H D 54 H 56 H ABG pO2 87 92 76 L ABG HCO3 27 H 26 26 ABG O2 Saturation 97 98 95 ABG Base Excess -1 -2 -1 11/26/24 11/27/24 11/28/24 12:15 07:01 04:38 ABG pH 7.28 L 7.32 L 7.35 ABG pCO2 59 H 55 H 50 H ABG pO2 67 L 80 L 148 H D ABG HCO3 26 28 H 27 H ABG O2 Saturation 92 94 98 ABG Base Excess -1 1 1 11/29/24 11/29/24 11/30/24 04:45 15:40 04:50 ABG pH 7.38 7.41 7.39 ABG pCO2 21 L D 54 H D 57 H ABG pO2 98 D 63 L D 59 L* ABG HCO3 12 L 34 H 34 H ABG O2 Saturation 99 H 90 L 90 L ABG Base Excess -12 L 8 H 8 H Quality Measures Quality Measures none Advance care planning discussed with:: patient Assessment & Plan Assessment Current Active Medications: Generic Name Dose Route Start Last Admin Trade Name Freq PRN Reason Stop Dose Admin Acetaminophen 650 mg 11/25/24 08:49 11/25/24 08:56 Acetaminophen 325 Mg Tablet PO 12/25/24 08:48 650 mg Q6HR PRN Administration PAIN Acetylcysteine 3 ml 11/26/24 15:00 12/01/24 10:02 Acetylcysteine Rt Pati 10% 4 Ml Nebu INH 12/26/24 14:59 3 ml Q4HRRT PIRNCESS Administration Albuterol/Ipratropium 3 ml 11/25/24 23:00 12/01/24 10:02 Albuterol/Ipratropium (Duoneb) Rt Pati 3 Ml Nebu INH 12/25/24 22:59 3 ml Q4HRRT PRINCESS Administration Carvedilol 25 mg 12/01/24 08:00 12/01/24 08:41 Carvedilol 12.5 Mg Tablet PO 12/31/24 07:59 25 mg BIDWM PRINCESS Administration Clonidine 0.1 mg 11/30/24 21:00 12/01/24 08:42 Clonidine Hcl 0.1 Mg Tablet PO 12/30/24 20:59 0.1 mg BID PRINCESS Administration Dextrose 25 ml 11/23/24 21:21 Dextrose 50%-Water Inj 50 Ml Syringe IV 12/23/24 21:20 Q15MIN PRN BG 50-70 responsive npo pt Finasteride 5 mg 11/24/24 09:00 12/01/24 08:43 Finasteride 5 Mg Tablet PO 12/24/24 08:59 5 mg QDAY PRINCESS Administration Fluticasone Propionate 1 spray 11/24/24 09:00 12/01/24 08:51 Fluticasone Rahul [place] 0.05% 16 Gm Btl NASAL 12/24/24 08:59 1 spray QDAY PRINCESS Administration Glucagon 1 mg 11/23/24 21:21 Glucagon Inj 1 Mg Vial IM Q15MIN PRN BG <70, and no IV access Heparin Sodium (Porcine) 7,500 unit 11/26/24 14:00 12/01/24 05:47 Heparin Sod Inj 5000 Unit/Ml Vial SC 12/10/24 13:59 7,500 unit Q8HR PRINCESS Administration Insulin Human Lispro 0 unit 11/26/24 00:00 12/01/24 05:46 Insulin Lispro (Admelog) 1 Unit/0.01 Ml Unit SC 12/26/24 00:00 Not Given Q6H PRINCESS Protocol Metoclopramide HCl 5 mg 11/29/24 14:00 12/01/24 05:47 Metoclopramide Inj 5 Mg/Ml Vial 2 Ml IVP 12/29/24 13:59 5 mg Q8HR PRINCESS Administration Protocol Polyethylene Glycol 17 gm 11/30/24 16:00 12/01/24 08:41 Polyethylene Glycol 17 Gm Packet PO 12/30/24 15:59 17 gm QDAY PRINCESS Administration Valsartan 40 mg 11/30/24 11:15 12/01/24 08:42 Valsartan 40 Mg Tablet PO 12/30/24 11:14 40 mg QDAY PRINCESS Administration Plan In summary: 70-year-old male PMHx of CAD with stents, HTN, DM, BPH with self-catheterization, presented to ED with SOB. Admitted for AHRF 2/2 suspected sepsis in settings of UTI. S/p ICU admission following cardiac arrest 2/2 AHRF/ARDS 2/2 aspitation. Hypernatremia Sodium 158 plan: ? D5W at 100 cc/h ? Increase free water flushes to 200 cc every 4 hours likely dehydrational ?Paraxismal Afib Post cardiac arrest CAD s/p stent HFpEF EF 55-60% Had cardiac arrest 2/2 regurgitation and hypoxemia. Required ICU admission and pressure support. Off perssors, vitals stable. Troponin negative since admission Tele showing occasional a-fib ECHO showed EF of 55 to 60% with some mild MR and TR as well as mild to moderate . ? Continue COREG 12.5 mg daily ? Continue VALSARTAIN 40 mg daily Acute hypoxic respiratory failure (improving) Aspiration pneumonia? vs pneumonitis Aspirated while on BiPAP, followed by cardiac arrest. S/p ICU admission for MV 2/2 AHRF, ARDS, bronch showed bile in lungs and friable mucosa. Previously on VANC and ZOSYN, de-esculated to CTX. Extubated successfuly on 12/30/24 On OXIMASK, satting well. Blood and ET cx negative ? On CEFTRIAXONE (11/28/24 to present) ROSEANNE Renal function stable and normal. No electrolyte abnormalities. Off pressors, BP 170/79, HR 62. Had 2.8L urine output following LASIX. Trace peripheral edema on exam ? Renally dose meds, avoid overdiuresis and NEPHROTOXINS ? Daily CMP Complicated E. coli UTI Urine grew E. coli Currently afebrile, WBC improving ? On CEFTRIAXONE as above HTN HLD ? Discontinued VALSARTAN 50 mg ? Resumed home CLONIDINE 0.1 mg BID ? On CARVEDILOL 12.5 mg q. day *home dose 25 mg ? Continue home ATORVASTATIN 10 mg daily T2DM A1c 6.8 this visit. GLUCOSE 164 today. ? INSULIN sliding scale ? Accu-Cheks Abdominal distention CT negative for perforation or bowel obstruction. CXR earlier showed gas in stomach. Hep panel negative Persistent distention on exam ? On REGLAN ? Started MIRAAX ? Continue NGT suction ? Start simethicone 80 mg 4 times daily as needed for gas Hepatomegaly Transaminitis Possible gallstones US from previous admission showed mild hepatomegaly Previously had transaminitis US this admission showed possible gallstones vs sludge, negative cholecystitis. Hepatitis panel negative LFTs down trending ? Daily labs Normocytic normochromic anemia Chronic, Hgb 10.3 (baseline 12-13) Likely dilutional No s/s of abnormal bleed, normal coag studies ? Daily CBC ? Transfuse if Hgb < 8 BPH ? On FINASTERIDE 5 mg daily Acute encephalopathy (resolved) Off sedation Following command without focal neurological deficits ? PT Lactic acidosis (resolved) Shock (resolved) ARDS (resolved) In setting of cardiac arrest. Health maintenance Diet: NPO GI prophylaxis: PROTONIX DVT prophylaxis: HEPARIN subQ Antibiotics: CEFTRIAXONE CODE STATUS: FULL CODE Disposition: Treating UTI and Encephalopathy I discussed patient's care with attending physician, Dr Nelly Alonso PGY3 Attending Provider Attestation/Addendum patient seen and examined with resident physician Dr. Alonso. Note reviewed, agree with findings and recommendations. Patient admitted with UTI/sepsis Continue with fluids, antibiotics. Patient currently seen in ICU under telemetry status. Extubated. Still having significant abdominal distention. Continue with Gas-X. Held her lactulose.
[2024-12-01] MEDS: DEXTROSE 5%-WATER 1,000 ML 100 ML IV (11:00)
--- NOTE | 2024-12-01 13:27 | PC.SS ---
SS follow up: spoke with patient's daughter, Ludy regarding PT's recommendation for SNF. At this time the patient's daughter informs that the discharge plan continues to be home. Ludy is requesting home health. No preferred agency.
[2024-12-02] VITALS (23 sets, daily range): BP systolic 98–186; BP diastolic 58–110; PULSE 55–70; RESP 12–33; TEMP 36.2–36.9; O2SAT 89–100
[2024-12-02] MEDS: ALBUTEROL/IPRATROPIUM (Duoneb) RT SOL 3 ML NEBU INH ×6 (02:25→22:35)
[2024-12-02] MEDS: ACETYLCYSTEINE RT SOL 10% 4 ML NEBU 3 ML INH ×4 (02:25→14:59)
[2024-12-02] MEDS: DEXTROSE 5%-WATER 1,000 ML 100 ML IV ×2 (02:53→12:57)
[2024-12-02] MEDS: METOCLOPRAMIDE INJ 5 MG/ML VIAL 2 ML IVP (05:42)
[2024-12-02] MEDS: HEPARIN SOD INJ 5000 UNIT/ML VIAL 7500 UNIT SC ×3 (05:42→21:20)
[2024-12-02] MEDS: INSULIN LISPRO (AdmeLOG) 1 UNIT/0.01 ML UNIT SC ×2 (05:43→12:31)
[2024-12-02 05:44] LABS: Hematocrit 38.4 % (41.0-53.0); Hemoglobin 11.8 g/dL (13.5-16.0); Lymphocytes % (Auto) 11 % (10-50); Mean Corpuscular HGB Conc 30.7 g/dl (31.0-37.0); Mean Corpuscular Hemoglobin 28.2 pg (25.0-35.0); Mean Corpuscular Volume 92 fL (80-100); Neutrophils % (Auto) 79 % (37-80); Platelet Count 309 Thou/mm3 (140-440); RDW Standard Deviation 47.8 fL (35.1-43.9); Red Blood Count 4.18 Miln/mm3 (4.50-5.90); White Blood Count 13.8 Thou/mm3 (3.8-10.6)
[2024-12-02 05:45] LABS: Basophils # (Auto) 0.1 Thou/mm3 (0.0-0.2); Basophils % (Auto) 0 % (0-2.5); Eosinophils # (Auto) 0.6 Thou/mm3 (0.0-0.5); Eosinophils % (Auto) 4 % (0-10); Immature Granulocytes % (Auto) 1 % (0-0); Immature Granulocytes Auto 0.11 Thou/mm3 (0.00-0.00); Lymphocytes # (Auto) 1.6 Thou/mm3 (1.0-4.8); Monocytes # (Auto) 0.5 Thou/mm3 (0.0-0.8); Monocytes % (Auto) 4 % (0-12); Nucleated Red Blood Cell # 0.03 Thou/mm3 (0.00-0.00); Nucleated Red Blood Cell % 0 /100 WBC (0)
[2024-12-02 06:07] LABS: Alanine Aminotransferase 37 U/L (10-49); Albumin, Serum 3.3 gm/dL (3.4-4.8); Albumin/Globulin Ratio 1.1 (1.2-2.2); Alkaline Phosphatase 127 U/L (46-116); Anion Gap 10 (7-16); Aspartate Amino Transferase 51 U/L (0-34); BUN/Creatinine Ratio 21 Ratio (12-20); Bilirubin,Total 0.8 mg/dL (0.3-1.2); Blood Urea Nitrogen 17 mg/dL (9-23); Calcium 8.3 mg/dL (8.3-10.6); Calcium (Corrected) 8.9 mg/dL (8.5-10.1); Carbon Dioxide 32.5 mMol/L (20.0-31.0); Chloride 110 mMol/L (98-107); Creatinine (Component) 0.8 mg/dL (0.6-1.3); Estimated Creatinine Clearance 87.7 mL/min (>60); Globulin 3.1 gm/dL (2.3-3.5); Glucose 160 mg/dL (74-106); Osmolality,Calculated 306 (275-295); Potassium 3.2 mMol/L (3.4-5.1); Sodium 152 mMol/L (136-145); Total Protein 6.4 gm/dL (5.7-8.2); eGFR > 60 See Note
--- NOTE | 2024-12-02 06:36 | PC.NURSE ---
Dr. Gurinder Webb notified of patient pulling out NG tube, ok given to try reinsertion. Notified MD Webb reinsertion was unsuccessful due to patient not tolerating procedure and episodes of desaturations to the low 90s. POC updated, patient vital signs stable and patient in bed calmly.
[2024-12-02] MEDS: FINASTERIDE 5 MG TABLET PO (08:32)
[2024-12-02] MEDS: POLYETHYLENE GLYCOL 17 GM PACKET PO (08:32)
[2024-12-02] MEDS: VALSARTAN 40 MG TABLET PO (08:32)
[2024-12-02] MEDS: cloNIDine HCL 0.1 MG TABLET PO ×2 (08:32→21:19)
[2024-12-02] MEDS: FLUTICASONE NAS SPRAY 0.05% 16 GM BTL 1 SPRAY NASAL (08:33)
[2024-12-02] MEDS: carVEDILOL 12.5 MG TABLET 25 MG PO ×2 (08:39→17:06)
[2024-12-02] MEDS: POTASSIUM CHL 10 mEq IVPB 10 MEQ/100 ML BAG 100 MEQ IV ×4 (09:23→12:57)
[2024-12-02] MEDS: POTASSIUM CHLORIDE 10% 20 MEQ/15 ML UDC 40 MEQ PO (10:03)
[2024-12-02] MEDS: NIFEdipine XL 30 MG TABCR PO (10:39)
[2024-12-02] MEDS: VALSARTAN 80 MG TABLET 160 MG PO (10:39)
--- NOTE | 2024-12-02 11:27 | XR_ITS ---
Examination: Abdomen AP single view Technique: AP portable supine abdomen, single view Exam date and time: December 02, 2024 1231 hrs. Indications: Distention today. Findings: Air distended stomach No free air Mild colonic ileus Opacity resembling a bracelet overlies the upper right abdomen, but clinical correlation advised Impression: Significantly air distended stomach
--- NOTE | 2024-12-02 12:10 | PD.RESPRO ---
Documentation for date of: 12/02/24 Subjective Subjective Interval history: Mr. 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 Grider) history of CHF, history of pituitary adenoma which was removed presented to the emergency department with significant shortness of breath and her daughter called paramedics. When paramedics arrived his O2 sat was less than 88%. Chest x-ray showed mild vascular congestion and no pneumonia. Admitted to the hospital with hypoxic respiratory failure ED COURSE: T103.8, HR 106, BP 141/91, satting 93% on 2 L NC. WBC 13.8, Hgb 11.2, PLT 253. Normal coag studies. CHEM panel significant for BUN 26, CR 1.5, EGFR 47, GLUCOSE 189, A1c 6.8, phosphorus 1.5, AST 44, AST 36, ALP 117, BNP 109, troponin 0.029, Pro-Calc 3.01. UA showed positive LE, RBC 6, WBC 41, urea 4+. EKG sinus rhythm without acute ST changes. CXR mild vascular congestion, no lobar pneumonia. ED gave 2 L IVF, CEFTRIAXONE 1 g x 1. Will admit for sepsis in settings of UTI. 11/26/2024 patient currently seen in ICU. Apparently yesterday after I saw the patient with the resident that he had a few events where rapid response was called in the beginning during NG tube insertion for abdominal distention/ileus. Subsequently he coded secondary to aspiration pneumonia, intubated and transferred to ICU. Currently on pressors. Dr. Quinn and ICU team at bedside. Family at bedside. Labs/medications reviewed. On broad-spectrum antibiotics. WBC 13.6, hemoglobin 9.7, platelets 266. ABG showing pH 7.28, [id number], pO2 67, HCO3 26. Sodium 138, potassium 4.9, BUN 37, creatinine 1.3, lactic acid 1.3, calcium 8.9, magnesium 2.2, AST 69, ALT 59, ammonia 50, albumin 3.1,Chest x-ray showed pneumonia in the right lung. 11/27/2024 examined in ICU. Sedated on MV, no signs of distress. Broch showed friable mucosa secondary to bile. Suspected ARDS, however improving. On pressors, vitals WNL, although slightly bradycardic. CT from 11/25 with left pleural effusion, vascular congestion, pneumonia, hepatomegaly, ascites, possible cystitis, no bowel obstruction. Abdominal ultrasound pending. Leukocytosis resolved. Hgb 9.0. Renal function stable and normal. AST 124, ALT 55, ALP 121. Hep panel was negative. 24-hour blood culture negative. Sputum culture pending. 11/28/2024 examined in ICU at bedside. Off sedation, planning to extubate today. Appears alert. Pressors are off, BP 123/63. Echo showed EV 55 to 60%, mild to moderate aortic stenosis. CXR today showing ARDS, worse on the right. Has trace bilateral LE edema on exam. Renal function stable. 11/29/2024 examined at bedside in ICU. Continue to be off pressors, BP 170/79, HR 62. Continue on mechanical ventilation. CXR still showing diffuse pulmonary edema. Labs are showing sodium 149, chloride 112, BUN 28, CR 1.1, GLUCOSE 168, AST 109, ALT 51, ALP 123, WBC 14.3, Hgb 10.6, PLT 458. Blood culture negative after 48 hours. ET culture negative. Received a dose of LASIX, urine output is good, has trace bilateral extremity edema on exam. 11/30/2024 examined at bedside in ICU, daughter at bedside. A&O x3, following command, conversating. On NGT suction and oxymask. Labs today showing sodium 155, he is on water flushes, renal function normal, urine output normal, LFTS improving, leukocytosis improving, Hgb 10.3 and improving. Vitals stable, BP 173/76. 12/01/24: Patient seen and examined in ICU. There were no major overnight events the patient no complaints this morning. Serum sodium today was 158 and creatinine remained stable at 1.3 with a BUN of 24. Will start patient on D5W at 100 cc/h alongside 200 cc 4 times daily of free water flushes. Patient's abdomen continues to be distended without tenderness to palpation. Patient has adequate urine output. Will start simethicone for his distended bowels. Will keep the NG tube at this time due to the distention and will attempt to remove and advance diet in the next 24 to 48 hours. Patient is still very high risk for aspiration. 12/02/2024 Examined at bedside. Feels well today, A&O, appears at baseline. Working with PT. Able to sit in chair with assistance today. Persistent abdominal distension, denies pain or fever. Having loose bowel. Sodium 152 improving, potassium 3.2, CR 0.8, LFTs improving, WBC 13.8, Hgb 11.8. BP still elevated, we adjusted meds. Urine output adequate. NGT off. Pending KUB, will resume diet when able. Exam Vital Signs Temp Pulse Resp BP Pulse Ox O2 Del Method O2 Flow Rate 97.1 F 69 20 183/110 H 99 Nasal Cannula 2 12/02/24 08:00 12/02/24 10:51 12/02/24 10:51 12/02/24 10:39 12/02/24 10:51 12/02/24 08:00 12/02/24 10:51 FiO2 35 11/30/24 10:17 Narrative Exam Constitutional: Well nourished and in no acute distress. NGT in place CVS: RRR, S1 and S2 present, no murmurs, rubs or gallops . RESP: CTAB, no SOB, no rales, rhonchi or wheezing. No respiratory Distress GI: Very distended but nontender with bowel sounds present. MSK: Full range of motion, No trauma or deformities or masses. Skin: Warm to touch, Dry. No rashes or lesions. 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 Sensation grossly intact. Psych: (AAO) x3 . Appropriate mood and affect. Objective Labs 12/03/24 05:17 12/03/24 05:17 Labs: Laboratory Results - last 24 hr 12/02/24 04:34 WBC 13.8 H RBC 4.18 L Hgb 11.8 L Hct 38.4 L MCV 92 MCH 28.2 MCHC 30.7 L RDW Std Deviation 47.8 H Plt Count 309 D Neut % (Auto) 79 Lymph % (Auto) 11 [place] % (Auto) 4 Eos % (Auto) 4 Baso % (Auto) 0 Neut # (Auto) 11.0 H Lymph # (Auto) 1.6 [place] # (Auto) 0.5 Eos # (Auto) 0.6 H Baso # (Auto) 0.1 Immature Gran # (Auto) 0.11 H Absolute Nucleated RBC 0.03 H Immature Gran % 1 H Nucleated RBC % 0 Sodium 152 H Potassium 3.2 L Chloride 110 H Carbon Dioxide 32.5 H Anion Gap 10 BUN 17 Creatinine 0.8 Estim Creat Clear Calc 87.7 eGFR > 60 BUN/Creatinine Ratio 21 H Glucose 160 H Calculated Osmolality 306 H Calcium 8.3 Corrected Calcium 8.9 Magnesium 2.0 Total Bilirubin 0.8 D AST 51 H ALT 37 Alkaline Phosphatase 127 H Total Protein 6.4 Albumin 3.3 L Globulin 3.1 Albumin/Globulin Ratio 1.1 L ABG Interpretation ABG results: 11/25/24 11/25/24 11/25/24 12:15 13:59 16:51 ABG pH 7.15 L* 7.18 L* 7.14 L* ABG pCO2 83 H* 71 H* D 82 H* D ABG pO2 43 L* 87 D 69 L ABG HCO3 29 H 26 28 H ABG O2 Saturation 72 L 96 91 ABG Base Excess -1 -3 -2 11/25/24 11/25/24 11/26/24 19:23 23:21 04:48 ABG pH 7.27 L D 7.29 L 7.28 L ABG pCO2 58 H D 54 H 56 H ABG pO2 87 92 76 L ABG HCO3 27 H 26 26 ABG O2 Saturation 97 98 95 ABG Base Excess -1 -2 -1 11/26/24 11/27/24 11/28/24 12:15 07:01 04:38 ABG pH 7.28 L 7.32 L 7.35 ABG pCO2 59 H 55 H 50 H ABG pO2 67 L 80 L 148 H D ABG HCO3 26 28 H 27 H ABG O2 Saturation 92 94 98 ABG Base Excess -1 1 1 11/29/24 11/29/24 11/30/24 04:45 15:40 04:50 ABG pH 7.38 7.41 7.39 ABG pCO2 21 L D 54 H D 57 H ABG pO2 98 D 63 L D 59 L* ABG HCO3 12 L 34 H 34 H ABG O2 Saturation 99 H 90 L 90 L ABG Base Excess -12 L 8 H 8 H Quality Measures Quality Measures none Advance care planning discussed with:: patient Assessment & Plan Assessment Current Active Medications: Generic Name Dose Route Start Last Admin Trade Name Freq PRN Reason Stop Dose Admin Acetaminophen 650 mg 11/25/24 08:49 11/25/24 08:56 Acetaminophen 325 Mg Tablet PO 12/25/24 08:48 650 mg Q6HR PRN Administration PAIN Acetylcysteine 3 ml 11/26/24 15:00 12/02/24 10:51 Acetylcysteine Rt Pati 10% 4 Ml Nebu INH 12/26/24 14:59 3 ml Q4HRRT PRINCESS Administration Albuterol/Ipratropium 3 ml 11/25/24 23:00 12/02/24 10:51 Albuterol/Ipratropium (Duoneb) Rt Pati 3 Ml Nebu INH 12/25/24 22:59 3 ml Q4HRRT PRINCESS Administration Carvedilol 25 mg 12/01/24 08:00 12/02/24 08:39 Carvedilol 12.5 Mg Tablet PO 12/31/24 07:59 25 mg BIDWM PRINCESS Administration Clonidine 0.1 mg 11/30/24 21:00 12/02/24 08:32 Clonidine Hcl 0.1 Mg Tablet PO 12/30/24 20:59 0.1 mg BID PRINCESS Administration Dextrose 25 ml 11/23/24 21:21 Dextrose 50%-Water Inj 50 Ml Syringe IV 12/23/24 21:20 Q15MIN PRN BG 50-70 responsive npo pt Finasteride 5 mg 11/24/24 09:00 12/02/24 08:32 Finasteride 5 Mg Tablet PO 12/24/24 08:59 5 mg QDAY PRINCESS Administration Fluticasone Propionate 1 spray 11/24/24 09:00 12/02/24 08:33 Fluticasone Rahul Coram 0.05% 16 Gm Btl NASAL 12/24/24 08:59 1 spray QDAY PRINCESS Administration Glucagon 1 mg 11/23/24 21:21 Glucagon Inj 1 Mg Vial IM Q15MIN PRN BG <70, and no IV access Heparin Sodium (Porcine) 7,500 unit 11/26/24 14:00 12/02/24 05:42 Heparin Sod Inj 5000 Unit/Ml Vial SC 12/10/24 13:59 7,500 unit Q8HR PRINCESS Administration Hydralazine HCl 10 mg 12/02/24 10:10 Hydralazine Inj 20 Mg/Ml Vial IV 01/01/25 10:09 Q6H PRN SBP > 160 Dextrose 1,000 mls @ 100 mls/hr 12/01/24 10:45 12/02/24 08:31 D5w IV 12/31/24 10:44 Not Given .Q10H PRINCESS Potassium Chloride 10 meq in 100 mls @ 100 mls/hr 12/02/24 09:15 12/02/24 11:52 Kcl Ivpb IV 12/02/24 13:14 100 mls/hr Q1H PRINCESS Administration Insulin Human Lispro 0 unit 11/26/24 00:00 12/02/24 05:43 Insulin Lispro (Admelog) 1 Unit/0.01 Ml Unit SC 12/26/24 00:00 1 unit Q6H PRINCESS Administration Protocol Nifedipine 30 mg 12/02/24 10:15 12/02/24 10:39 Nifedipine Xl 30 Mg Tabcr PO 01/01/25 10:14 30 mg QDAY PRINCESS Administration Simethicone 80 mg 12/01/24 10:43 Simethicone 80 Mg Chew PO 12/31/24 10:42 QID PRN GAS Valsartan 160 mg 12/02/24 10:15 12/02/24 10:39 Valsartan 80 Mg Tablet PO 01/01/25 10:14 160 mg QDAY PRINCESS Administration Plan In summary: 70-year-old male PMHx of CAD with stents, HTN, DM, BPH with self-catheterization, presented to ED with SOB. Admitted for AHRF 2/2 suspected sepsis in settings of UTI. S/p ICU admission following cardiac arrest 2/2 AHRF/ARDS 2/2 aspitation. Hypernatremia Sodium 152 ? D5W at 100 cc/h ? On free water flushes to 200 cc every 4 hours likely dehydrational Abdominal distention CT negative for perforation or bowel obstruction. CXR earlier showed gas in stomach. Hep panel negative Persistent distention on exam NG tube discontinued Having soft stool, regular and MIRALAX discontinued On SIMETHICONE 80 mg 4 BID ? Pending KUB ? Frequent ambulation ?Paraxismal Afib Post cardiac arrest CAD s/p stent HFpEF EF 55-60% Had cardiac arrest 2/2 regurgitation and hypoxemia. Required ICU admission and pressure support. Off perssors, vitals stable. Troponin negative since admission Tele showing occasional a-fib ECHO showed EF of 55 to 60% with some mild MR and TR as well as mild to moderate . No signs of arrythmia Acute hypoxic respiratory failure (improving) Aspiration pneumonia? vs pneumonitis Aspirated while on BiPAP, followed by cardiac arrest. S/p ICU admission for MV 2/2 AHRF, ARDS, bronch showed bile in lungs and friable mucosa. Previously on VANC and ZOSYN, de-esculated to CTX. Extubated successfuly on 12/30/24 On OXIMASK, satting well. Completed CEFTRIAXONE 11/28 to 12/01 Blood and ET cx negative, afebrile, leukocytosis resolving ROSEANNE (resolved) Renal function stable and normal. No electrolyte abnormalities. Off pressors, BP 170/79, HR 62. Had 2.8L urine output following LASIX. Trace peripheral edema on exam ? Renally dose meds, avoid overdiuresis and NEPHROTOXINS ? Daily CMP Complicated E. coli UTI Urine grew E. coli Currently afebrile, WBC improving Completed CEFTRIAXONE HTN HLD BP 183/110, HR 69. ? On COREG 25 mg daily ? On CLONIDINE 0.1 mg BID ? Added NIFEDIPINE 30 mg QDAY ? Increased VALSARTAIN to 160 mg daily ? HYDRALAZINE 10 mg PRN for SBP > 160 T2DM A1c 6.8 this visit. GLUCOSE 164 today. ? INSULIN sliding scale ? Accu-Cheks Hepatomegaly Transaminitis Possible gallstones US from previous admission showed mild hepatomegaly Previously had transaminitis US this admission showed possible gallstones vs sludge, negative cholecystitis. Hepatitis panel negative LFTs down trending ? Daily labs Normocytic normochromic anemia Chronic, Hgb 10.3 (baseline 12-13) Likely dilutional No s/s of abnormal bleed, normal coag studies ? Daily CBC ? Transfuse if Hgb < 8 BPH ? On FINASTERIDE 5 mg daily Acute encephalopathy (resolved) Off sedation Following command without focal neurological deficits ? PT Lactic acidosis (resolved) Shock (resolved) ARDS (resolved) In setting of cardiac arrest. Health maintenance Diet: NPO GI prophylaxis: PROTONIX DVT prophylaxis: HEPARIN subQ Antibiotics: CEFTRIAXONE CODE STATUS: FULL CODE Disposition: Treating UTI and Encephalopathy I discussed patient's care with attending physician, Dr Nelly Alonso PGY3 Attending Provider Attestation/Addendum patient seen and examined with resident physician Dr. Baird. Note reviewed, agree with findings and recommendations. Patient admitted with UTI/sepsis Continue with fluids, antibiotics. Patient currently seen in ICU under telemetry status. Extubated. Still having significant abdominal distention. Continue with Gas-X. Held Reglan, lactulose. Labs/medications reviewed. Sodium, potassium corrected.KUB showed air distended stomach. If no improvement will drop an NG tube. Out of bed to chair
[2024-12-02] MEDS: ACETAMINOPHEN 325 MG TABLET 650 MG PO (15:04)
--- NOTE | 2024-12-02 16:59 | PC.NURSE ---
Patient transferred to [facility] as telemetry patient. Hand off report given to Yady MARR. At time of transfer pt is alert and oriented, aware of transfer to different floor for continued care. No s/s of distress noted. All belongings gathered and sent with patient.
[2024-12-02] MEDS: SIMETHICONE 80 MG CHEW PO ×2 (17:06→21:19)
[2024-12-03] VITALS (16 sets, daily range): BP systolic 128–156; BP diastolic 58–80; PULSE 60–88; RESP 18–88; TEMP 36.2–37.2; O2SAT 90–98; BMI 41.3
[2024-12-03 05:33] LABS: Basophils # (Auto) 0.1 Thou/mm3 (0.0-0.2); Basophils % (Auto) 1 % (0-2.5); Eosinophils # (Auto) 0.6 Thou/mm3 (0.0-0.5); Eosinophils % (Auto) 4 % (0-10); Hematocrit 34.9 % (41.0-53.0); Immature Granulocytes % (Auto) 0 % (0-0); Immature Granulocytes Auto 0.05 Thou/mm3 (0.00-0.00); Lymphocytes # (Auto) 1.9 Thou/mm3 (1.0-4.8); Lymphocytes % (Auto) 14 % (10-50); Mean Corpuscular HGB Conc 31.5 g/dl (31.0-37.0); Mean Corpuscular Hemoglobin 28.7 pg (25.0-35.0); Mean Corpuscular Volume 91 fL (80-100); Monocytes # (Auto) 0.5 Thou/mm3 (0.0-0.8); Monocytes % (Auto) 4 % (0-12); Neutrophils # (Auto) 10.1 Thou/mm3 (1.8-7.7); Neutrophils % (Auto) 77 % (37-80); Nucleated Red Blood Cell % 0 /100 WBC (0); Platelet Count 346 Thou/mm3 (140-440); RDW Standard Deviation 46.6 fL (35.1-43.9); Red Blood Count 3.83 Miln/mm3 (4.50-5.90); White Blood Count 13.2 Thou/mm3 (3.8-10.6)
[2024-12-03] MEDS: HEPARIN SOD INJ 5000 UNIT/ML VIAL 7500 UNIT SC ×2 (05:44→21:18)
[2024-12-03] MEDS: SIMETHICONE 80 MG CHEW PO ×4 (05:44→21:18)
[2024-12-03] MEDS: DEXTROSE 5%-WATER 1,000 ML 100 ML IV ×2 (05:55→16:36)
[2024-12-03] MEDS: ALBUTEROL/IPRATROPIUM (Duoneb) RT SOL 3 ML NEBU INH ×5 (06:08→22:33)
[2024-12-03] MEDS: INSULIN LISPRO (AdmeLOG) 1 UNIT/0.01 ML UNIT SC ×2 (06:08→11:09)
[2024-12-03 06:39] LABS: Alanine Aminotransferase 31 U/L (10-49); Albumin, Serum 3.3 gm/dL (3.4-4.8); Albumin/Globulin Ratio 1.2 (1.2-2.2); Alkaline Phosphatase 110 U/L (46-116); Anion Gap 8 (7-16); Aspartate Amino Transferase 38 U/L (0-34); BUN/Creatinine Ratio 15 Ratio (12-20); Bilirubin,Total 0.8 mg/dL (0.3-1.2); Blood Urea Nitrogen 12 mg/dL (9-23); Calcium 8.4 mg/dL (8.3-10.6); Carbon Dioxide 31.5 mMol/L (20.0-31.0); Chloride 111 mMol/L (98-107); Creatinine (Component) 0.8 mg/dL (0.6-1.3); Estimated Creatinine Clearance 88.7 mL/min (>60); Globulin 2.8 gm/dL (2.3-3.5); Glucose 163 mg/dL (74-106); Magnesium 1.8 mg/dL (1.6-2.6); Osmolality,Calculated 301 (275-295); Potassium 3.1 mMol/L (3.4-5.1); Sodium 150 mMol/L (136-145); Total Protein 6.1 gm/dL (5.7-8.2); eGFR > 60 See Note
--- NOTE | 2024-12-03 08:55 | PC.SS ---
SS follow up note; BP being managed and medication being adjusted.
[2024-12-03] MEDS: carVEDILOL 12.5 MG TABLET 25 MG PO ×2 (09:09→16:36)
[2024-12-03] MEDS: FINASTERIDE 5 MG TABLET PO (09:09)
[2024-12-03] MEDS: VALSARTAN 80 MG TABLET 160 MG PO (09:10)
[2024-12-03] MEDS: cloNIDine HCL 0.1 MG TABLET PO ×2 (09:10→21:17)
[2024-12-03] MEDS: NIFEdipine XL 30 MG TABCR PO (09:10)
[2024-12-03] MEDS: Magnesium Sulfate 2 GM Ivpb 2 GM/50 ML BAG IV (10:04)
[2024-12-03] MEDS: POTASSIUM CHL 10 mEq IVPB 10 MEQ/100 ML BAG 100 MEQ IV ×2 (10:04→11:01)
[2024-12-03 15:39] LABS: Base Excess 9 (-3-3); HCO3 35 mEq/L (20-26); Inspired Oxygen, FIO2 21 %; O2 Saturation 87 % (91-98); PCO2 55 mmHg (32.0-48.0); pH, Arterial 7.41 (7.35-7.45)
[2024-12-03 15:45] LABS: PO2 55 mmHg (83-108)
[2024-12-03 15:46] LABS: Allen Test Not Performed; Puncture Site Right Brachial
--- NOTE | 2024-12-03 16:20 | XR_ITS ---
Examination: AP chest single view Technique: AP portable semiupright chest single view Exam date and time: December 03, 2024 1642 hrs. Indications: Post orogastric placement Findings: Orogastric tube in stomach satisfactory position Moderate enlargement cardiac contour with pneumonia and pleural disease left base Significant vascular congestion Impression: Orogastric tube in satisfactory position
[2024-12-03] MEDS: POTASSIUM CHLORIDE 10% 20 MEQ/15 ML UDC 40 MEQ PO (16:36)
--- NOTE | 2024-12-03 16:57 | ESPR_ITS ---
Documentation for date of: 12/03/24 Subjective Subjective Interval history: Mr. 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 Grider) history of CHF, history of pituitary adenoma which was removed presented to the emergency department with significant shortness of breath and her daughter called paramedics. When paramedics arrived his O2 sat was less than 88%. Chest x-ray showed mild vascular congestion and no pneumonia. Admitted to the hospital with hypoxic respiratory failure ED COURSE: T103.8, HR 106, BP 141/91, satting 93% on 2 L NC. WBC 13.8, Hgb 11.2, PLT 253. Normal coag studies. CHEM panel significant for BUN 26, CR 1.5, EGFR 47, GLUCOSE 189, A1c 6.8, phosphorus 1.5, AST 44, AST 36, ALP 117, BNP 109, troponin 0.029, Pro-Calc 3.01. UA showed positive LE, RBC 6, WBC 41, urea 4+. EKG sinus rhythm without acute ST changes. CXR mild vascular congestion, no lobar pneumonia. ED gave 2 L IVF, CEFTRIAXONE 1 g x 1. Will admit for sepsis in settings of UTI. 11/26/2024 patient currently seen in ICU. Apparently yesterday after I saw the patient with the resident that he had a few events where rapid response was called in the beginning during NG tube insertion for abdominal distention/ileus. Subsequently he coded secondary to aspiration pneumonia, intubated and transferred to ICU. Currently on pressors. Dr. Quinn and ICU team at bedside. Family at bedside. Labs/medications reviewed. On broad-spectrum antibiotics. WBC 13.6, hemoglobin 9.7, platelets 266. ABG showing pH 7.28, [id number], pO2 67, HCO3 26. Sodium 138, potassium 4.9, BUN 37, creatinine 1.3, lactic acid 1.3, calcium 8.9, magnesium 2.2, AST 69, ALT 59, ammonia 50, albumin 3.1,Chest x-ray showed pneumonia in the right lung. 12/03/2024 patient currently seen in medical floor. He seems to be very confused today. A KUB showed a gastric bubble. Had a long conversation with Ludy's daughter. Requested to stay at patient's bedside. Labs/medications reviewed. I ordered stat ABG which showed some hypoxia. Blood pressure 137/70, heart rate 68. Hemoglobin 11, WBC 13.2. ABG showing pH 7.41, [id number], pO2 55, HCO3 35. Sodium 150, potassium 3.1, bicarbonate 31.5, creatinine 0.8, glucose 163, calcium 9, magnesium 1.8, LFTs normal, albumin 2.3. Patient currently in full CODE STATUS. Review of Systems Review of Systems Narrative Review of Systems: Limited due to his mentation-patient seems to be confused Exam Vital Signs Temp Pulse Resp BP Pulse Ox O2 Del Method O2 Flow Rate 36.4 C 68 18 145/58 H 92 L Nasal Cannula 3 12/03/24 08:00 12/03/24 09:10 12/03/24 08:00 12/03/24 09:10 12/03/24 08:00 12/03/24 08:00 12/03/24 08:00 FiO2 35 11/30/24 10:17 Narrative Exam GENERAL APPEARANCE: Patient currently seen in medical floor. Seems to be very confused. NECK: Neck supple, no JVD or bruit CARDIOVASCULAR: Heart regular, no murmurs LUNGS/CHEST: Chest clear to auscultation. No rales, rhonchi, wheezing ABDOMEN: Distended, bowel sounds present. EXTREMITIES: No edema, clubbing or cyanosis. SKIN: Skin exam normal without any rashes MUSCULOSKELETAL: in bed NEUROLOGICAL : confused Objective Labs 12/03/24 05:17 12/03/24 05:17 Labs: Laboratory Results - last 24 hr 12/03/24 05:17 WBC 13.2 H RBC 3.83 L Hgb 11.0 L Hct 34.9 L MCV 91 MCH 28.7 MCHC 31.5 RDW Std Deviation 46.6 H Plt Count 346 D Neut % (Auto) 77 Lymph % (Auto) 14 [place] % (Auto) 4 Eos % (Auto) 4 Baso % (Auto) 1 Neut # (Auto) 10.1 H Lymph # (Auto) 1.9 [place] # (Auto) 0.5 Eos # (Auto) 0.6 H Baso # (Auto) 0.1 Immature Gran # (Auto) 0.05 H Absolute Nucleated RBC 0.00 Immature Gran % 0 Nucleated RBC % 0 Sodium 150 H Potassium 3.1 L Chloride 111 H Carbon Dioxide 31.5 H Anion Gap 8 BUN 12 Creatinine 0.8 Estim Creat Clear Calc 88.7 eGFR > 60 BUN/Creatinine Ratio 15 Glucose 163 H Calculated Osmolality 301 H Calcium 8.4 Corrected Calcium 9.0 Magnesium 1.8 Total Bilirubin 0.8 AST 38 H ALT 31 Alkaline Phosphatase 110 Total Protein 6.1 Albumin 3.3 L Globulin 2.8 Albumin/Globulin Ratio 1.2 ABG Interpretation ABG results: 11/25/24 11/25/24 11/25/24 12:15 13:59 16:51 ABG pH 7.15 L* 7.18 L* 7.14 L* ABG pCO2 83 H* 71 H* D 82 H* D ABG pO2 43 L* 87 D 69 L ABG HCO3 29 H 26 28 H ABG O2 Saturation 72 L 96 91 ABG Base Excess -1 -3 -2 11/25/24 11/25/24 11/26/24 19:23 23:21 04:48 ABG pH 7.27 L D 7.29 L 7.28 L ABG pCO2 58 H D 54 H 56 H ABG pO2 87 92 76 L ABG HCO3 27 H 26 26 ABG O2 Saturation 97 98 95 ABG Base Excess -1 -2 -1 11/26/24 11/27/24 11/28/24 12:15 07:01 04:38 ABG pH 7.28 L 7.32 L 7.35 ABG pCO2 59 H 55 H 50 H ABG pO2 67 L 80 L 148 H D ABG HCO3 26 28 H 27 H ABG O2 Saturation 92 94 98 ABG Base Excess -1 1 1 11/29/24 11/29/24 11/30/24 04:45 15:40 04:50 ABG pH 7.38 7.41 7.39 ABG pCO2 21 L D 54 H D 57 H ABG pO2 98 D 63 L D 59 L* ABG HCO3 12 L 34 H 34 H ABG O2 Saturation 99 H 90 L 90 L ABG Base Excess -12 L 8 H 8 H Assessment & Plan Assessment and plan (1) UTI (urinary tract infection): Status: Acute (2) Sepsis: Status: Acute (3) Type 2 diabetes mellitus: Status: Acute (4) Hypertension: Status: Acute (5) Hyperlipidemia: Status: Acute (6) Acute renal failure (ARF): Status: Acute Additional Assessment & Plan Additional Plan: 1) UTI (urinary tract infection): Status: Acute Assessment and plan: Patient noted to have significant UTI with sepsis. Antibiotics, fluids given. Sepsis seems to be resolved (2) AMS//hypoxia Status: Acute Assessment and plan: ?? Metabolic encephalopathy- IVF, O2 exam (3) Type 2 diabetes mellitus: Status: Acute Assessment and plan: Accu-Cheks, sliding scale (4) bowel obstruction Status: Acute Assessment and plan: NG tube will be inserted (5) Hyperlipidemia: Status: Acute Assessment and plan: On statin Plan of care discussed with family at bedside CODE STATUS full code Procedures Arterial Line Size (Gauge): 20
[2024-12-04] VITALS (17 sets, daily range): BP systolic 135–169; BP diastolic 70–86; PULSE 65–80; RESP 17–95; TEMP 36.2–37.1; O2SAT 93–100; BMI 41.3; BMI 12.0
[2024-12-04] MEDS: DEXTROSE 5%-WATER 1,000 ML 100 ML IV ×2 (02:23→14:52)
[2024-12-04] MEDS: ALBUTEROL/IPRATROPIUM (Duoneb) RT SOL 3 ML NEBU INH ×6 (02:33→23:21)
--- NOTE | 2024-12-04 04:44 | PC.NURSE ---
Call made to Dr Marina, informed of patient pulled out his NGTube, states to re-insert and connect to suction. Patient abdomen still distended.
[2024-12-04] MEDS: HEPARIN SOD INJ 5000 UNIT/ML VIAL 7500 UNIT SC ×2 (05:32→13:15)
[2024-12-04] MEDS: SIMETHICONE 80 MG CHEW PO ×4 (05:35→20:27)
[2024-12-04] MEDS: INSULIN LISPRO (AdmeLOG) 1 UNIT/0.01 ML UNIT SC ×2 (05:44→11:31)
[2024-12-04 06:07] LABS: Basophils # (Auto) 0.1 Thou/mm3 (0.0-0.2); Basophils % (Auto) 1 % (0-2.5); Eosinophils # (Auto) 0.6 Thou/mm3 (0.0-0.5); Eosinophils % (Auto) 5 % (0-10); Hematocrit 35.5 % (41.0-53.0); Immature Granulocytes % (Auto) 1 % (0-0); Immature Granulocytes Auto 0.06 Thou/mm3 (0.00-0.00); Lymphocytes # (Auto) 1.7 Thou/mm3 (1.0-4.8); Lymphocytes % (Auto) 13 % (10-50); Mean Corpuscular Hemoglobin 28.8 pg (25.0-35.0); Mean Corpuscular Volume 93 fL (80-100); Monocytes # (Auto) 0.6 Thou/mm3 (0.0-0.8); Monocytes % (Auto) 4 % (0-12); Neutrophils # (Auto) 10.1 Thou/mm3 (1.8-7.7); Neutrophils % (Auto) 77 % (37-80); Nucleated Red Blood Cell % 0 /100 WBC (0); Platelet Count 352 Thou/mm3 (140-440); RDW Standard Deviation 47.5 fL (35.1-43.9); Red Blood Count 3.82 Miln/mm3 (4.50-5.90)
[2024-12-04 06:36] LABS: Alanine Aminotransferase 28 U/L (10-49); Albumin, Serum 3.4 gm/dL (3.4-4.8); Albumin/Globulin Ratio 1.1 (1.2-2.2); Alkaline Phosphatase 113 U/L (46-116); Anion Gap 6 (7-16); Aspartate Amino Transferase 31 U/L (0-34); BUN/Creatinine Ratio 11 Ratio (12-20); Bilirubin,Total 0.7 mg/dL (0.3-1.2); Blood Urea Nitrogen 8 mg/dL (9-23); Calcium 8.4 mg/dL (8.3-10.6); Calcium (Corrected) 8.9 mg/dL (8.5-10.1); Carbon Dioxide 32.9 mMol/L (20.0-31.0); Chloride 109 mMol/L (98-107); Creatinine (Component) 0.7 mg/dL (0.6-1.3); Estimated Creatinine Clearance 101.4 mL/min (>60); Globulin 3.1 gm/dL (2.3-3.5); Glucose 163 mg/dL (74-106); Magnesium 1.9 mg/dL (1.6-2.6); Osmolality,Calculated 296 (275-295); Sodium 148 mMol/L (136-145); Total Protein 6.5 gm/dL (5.7-8.2); eGFR > 60 See Note
[2024-12-04] MEDS: POTASSIUM CHL 10 mEq IVPB 10 MEQ/100 ML BAG 100 MEQ IV ×4 (08:23→11:27)
[2024-12-04] MEDS: POTASSIUM CHLORIDE 20 mEq TABCR 40 MEQ PO (08:24)
[2024-12-04] MEDS: cloNIDine HCL 0.1 MG TABLET PO ×2 (08:24→20:27)
[2024-12-04] MEDS: carVEDILOL 12.5 MG TABLET 25 MG PO ×2 (08:24→16:38)
[2024-12-04] MEDS: FINASTERIDE 5 MG TABLET PO (08:25)
[2024-12-04] MEDS: VALSARTAN 80 MG TABLET 160 MG PO (08:25)
[2024-12-04] MEDS: NIFEdipine XL 30 MG TABCR PO (08:25)
--- NOTE | 2024-12-04 09:24 | PD.RESPRO ---
Documentation for date of: 12/04/24 Subjective Subjective Interval history: Mr. 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 Grider) history of CHF, history of pituitary adenoma which was removed presented to the emergency department with significant shortness of breath and her daughter called paramedics. When paramedics arrived his O2 sat was less than 88%. Chest x-ray showed mild vascular congestion and no pneumonia. Admitted to the hospital with hypoxic respiratory failure ED COURSE: T103.8, HR 106, BP 141/91, satting 93% on 2 L NC. WBC 13.8, Hgb 11.2, PLT 253. Normal coag studies. CHEM panel significant for BUN 26, CR 1.5, EGFR 47, GLUCOSE 189, A1c 6.8, phosphorus 1.5, AST 44, AST 36, ALP 117, BNP 109, troponin 0.029, Pro-Calc 3.01. UA showed positive LE, RBC 6, WBC 41, urea 4+. EKG sinus rhythm without acute ST changes. CXR mild vascular congestion, no lobar pneumonia. ED gave 2 L IVF, CEFTRIAXONE 1 g x 1. Will admit for sepsis in settings of UTI. 11/26/2024 patient currently seen in ICU. Apparently yesterday after I saw the patient with the resident that he had a few events where rapid response was called in the beginning during NG tube insertion for abdominal distention/ileus. Subsequently he coded secondary to aspiration pneumonia, intubated and transferred to ICU. Currently on pressors. Dr. Quinn and ICU team at bedside. Family at bedside. Labs/medications reviewed. On broad-spectrum antibiotics. WBC 13.6, hemoglobin 9.7, platelets 266. ABG showing pH 7.28, [id number], pO2 67, HCO3 26. Sodium 138, potassium 4.9, BUN 37, creatinine 1.3, lactic acid 1.3, calcium 8.9, magnesium 2.2, AST 69, ALT 59, ammonia 50, albumin 3.1,Chest x-ray showed pneumonia in the right lung. 11/27/2024 examined in ICU. Sedated on MV, no signs of distress. Broch showed friable mucosa secondary to bile. Suspected ARDS, however improving. On pressors, vitals WNL, although slightly bradycardic. CT from 11/25 with left pleural effusion, vascular congestion, pneumonia, hepatomegaly, ascites, possible cystitis, no bowel obstruction. Abdominal ultrasound pending. Leukocytosis resolved. Hgb 9.0. Renal function stable and normal. AST 124, ALT 55, ALP 121. Hep panel was negative. 24-hour blood culture negative. Sputum culture pending. 11/28/2024 examined in ICU at bedside. Off sedation, planning to extubate today. Appears alert. Pressors are off, BP 123/63. Echo showed EV 55 to 60%, mild to moderate aortic stenosis. CXR today showing ARDS, worse on the right. Has trace bilateral LE edema on exam. Renal function stable. 11/29/2024 examined at bedside in ICU. Continue to be off pressors, BP 170/79, HR 62. Continue on mechanical ventilation. CXR still showing diffuse pulmonary edema. Labs are showing sodium 149, chloride 112, BUN 28, CR 1.1, GLUCOSE 168, AST 109, ALT 51, ALP 123, WBC 14.3, Hgb 10.6, PLT 458. Blood culture negative after 48 hours. ET culture negative. Received a dose of LASIX, urine output is good, has trace bilateral extremity edema on exam. 11/30/2024 examined at bedside in ICU, daughter at bedside. A&O x3, following command, conversating. On NGT suction and oxymask. Labs today showing sodium 155, he is on water flushes, renal function normal, urine output normal, LFTS improving, leukocytosis improving, Hgb 10.3 and improving. Vitals stable, BP 173/76. 12/01/24: Patient seen and examined in ICU. There were no major overnight events the patient no complaints this morning. Serum sodium today was 158 and creatinine remained stable at 1.3 with a BUN of 24. Will start patient on D5W at 100 cc/h alongside 200 cc 4 times daily of free water flushes. Patient's abdomen continues to be distended without tenderness to palpation. Patient has adequate urine output. Will start simethicone for his distended bowels. Will keep the NG tube at this time due to the distention and will attempt to remove and advance diet in the next 24 to 48 hours. Patient is still very high risk for aspiration. 12/02/2024 Examined at bedside. Feels well today, A&O, appears at baseline. Working with PT. Able to sit in chair with assistance today. Persistent abdominal distension, denies pain or fever. Having loose bowel. Sodium 152 improving, potassium 3.2, CR 0.8, LFTs improving, WBC 13.8, Hgb 11.8. BP still elevated, we adjusted meds. Urine output adequate. NGT off. Pending KUB, will resume diet when able. 12/03/2024 patient currently seen in medical floor. He seems to be very confused today. A KUB showed a gastric bubble. Had a long conversation with Ludy's daughter. Requested to stay at patient's bedside. Labs/medications reviewed. I ordered stat ABG which showed some hypoxia. Blood pressure 137/70, heart rate 68. Hemoglobin 11, WBC 13.2. ABG showing pH 7.41, [id number], pO2 55, HCO3 35. Sodium 150, potassium 3.1, bicarbonate 31.5, creatinine 0.8, glucose 163, calcium 9, magnesium 1.8, LFTs normal, albumin 2.3. Patient currently in full CODE STATUS. 12/04/24 Patient seen and examined in med [facility] [place]. He was very confused last night, asking about his wallet. He was more alert this morning but he continues to ask for his wallet. His daughter was at bedside who help reorient him. Patient's NG tube collected 500cc of gastric contents. Patient's abdomen is much more soft his morning. Will consult GI for patient's gastric paresis. Appreciate recommendations. Exam Vital Signs Temp Pulse Resp BP Pulse Ox O2 Del Method O2 Flow Rate 97.1 F 68 18 151/70 H 94 L Room Air 3 12/04/24 07:58 12/04/24 08:25 12/04/24 07:58 12/04/24 08:25 12/04/24 07:58 12/04/24 07:58 12/04/24 07:45 FiO2 35 11/30/24 10:17 Narrative Exam Constitutional: Well nourished and in no acute distress. NGT in place CVS: RRR, S1 and S2 present, no murmurs, rubs or gallops . RESP: CTAB, no SOB, no rales, rhonchi or wheezing. No respiratory Distress GI: Distended but nontender with bowel sounds present. MSK: Full range of motion, No trauma or deformities or masses. Skin: Warm to touch, Dry. No rashes or lesions. No hematomas Neuro: director of quality improvement II-XII grossly intact. Sensation grossly intact. Psych: (AAO) x3 . Appropriate mood and affect. Objective Labs 12/05/24 05:10 12/05/24 05:10 Labs: Laboratory Results - last 24 hr 12/03/24 12/04/24 15:33 04:39 WBC 13.0 H RBC 3.82 L Hgb 11.0 L Hct 35.5 L MCV 93 MCH 28.8 MCHC 31.0 RDW Std Deviation 47.5 H Plt Count 352 Neut % (Auto) 77 Lymph % (Auto) 13 [place] % (Auto) 4 Eos % (Auto) 5 Baso % (Auto) 1 Neut # (Auto) 10.1 H Lymph # (Auto) 1.7 [place] # (Auto) 0.6 Eos # (Auto) 0.6 H Baso # (Auto) 0.1 Immature Gran # (Auto) 0.06 H Absolute Nucleated RBC 0.00 Immature Gran % 1 H Nucleated RBC % 0 Puncture Site Right Brachial ABG pH 7.41 ABG pCO2 55 H ABG pO2 55 L* ABG HCO3 35 H ABG O2 Saturation 87 L ABG Base Excess 9 H FiO2 21 Sodium 148 H Potassium 3.0 L Chloride 109 H Carbon Dioxide 32.9 H Anion Gap 6 L BUN 8 L Creatinine 0.7 Estim Creat Clear Calc 101.4 eGFR > 60 BUN/Creatinine Ratio 11 L Glucose 163 H Calculated Osmolality 296 H Calcium 8.4 Corrected Calcium 8.9 Phosphorus 3.0 Magnesium 1.9 Total Bilirubin 0.7 AST 31 ALT 28 Alkaline Phosphatase 113 Total Protein 6.5 Albumin 3.4 Globulin 3.1 Albumin/Globulin Ratio 1.1 L ABG Interpretation ABG results: 11/25/24 11/25/24 11/25/24 12:15 13:59 16:51 ABG pH 7.15 L* 7.18 L* 7.14 L* ABG pCO2 83 H* 71 H* D 82 H* D ABG pO2 43 L* 87 D 69 L ABG HCO3 29 H 26 28 H ABG O2 Saturation 72 L 96 91 ABG Base Excess -1 -3 -2 11/25/24 11/25/24 11/26/24 19:23 23:21 04:48 ABG pH 7.27 L D 7.29 L 7.28 L ABG pCO2 58 H D 54 H 56 H ABG pO2 87 92 76 L ABG HCO3 27 H 26 26 ABG O2 Saturation 97 98 95 ABG Base Excess -1 -2 -1 11/26/24 11/27/24 11/28/24 12:15 07:01 04:38 ABG pH 7.28 L 7.32 L 7.35 ABG pCO2 59 H 55 H 50 H ABG pO2 67 L 80 L 148 H D ABG HCO3 26 28 H 27 H ABG O2 Saturation 92 94 98 ABG Base Excess -1 1 1 11/29/24 11/29/24 11/30/24 04:45 15:40 04:50 ABG pH 7.38 7.41 7.39 ABG pCO2 21 L D 54 H D 57 H ABG pO2 98 D 63 L D 59 L* ABG HCO3 12 L 34 H 34 H ABG O2 Saturation 99 H 90 L 90 L ABG Base Excess -12 L 8 H 8 H 12/03/24 15:33 ABG pH 7.41 ABG pCO2 55 H ABG pO2 55 L* ABG HCO3 35 H ABG O2 Saturation 87 L ABG Base Excess 9 H Quality Measures Quality Measures none Advance care planning discussed with:: patient and child Assessment & Plan Assessment Current Active Medications: Generic Name Dose Route Start Last Admin Trade Name Freq PRN Reason Stop Dose Admin Acetaminophen 650 mg 11/25/24 08:49 12/02/24 15:04 Acetaminophen 325 Mg Tablet PO 12/25/24 08:48 650 mg Q6HR PRN Administration PAIN Albuterol/Ipratropium 3 ml 11/25/24 23:00 12/04/24 07:43 Albuterol/Ipratropium (Duoneb) Rt Pati 3 Ml Nebu INH 12/25/24 22:59 3 ml Q4HRRT PRINCESS Administration Carvedilol 25 mg 12/01/24 08:00 12/04/24 08:24 Carvedilol 12.5 Mg Tablet PO 12/31/24 07:59 25 mg BIDWM PRINCESS Administration Clonidine 0.1 mg 11/30/24 21:00 12/04/24 08:24 Clonidine Hcl 0.1 Mg Tablet PO 12/30/24 20:59 0.1 mg BID PRINCESS Administration Dextrose 25 ml 11/23/24 21:21 Dextrose 50%-Water Inj 50 Ml Syringe IV 12/23/24 21:20 Q15MIN PRN BG 50-70 responsive npo pt Finasteride 5 mg 11/24/24 09:00 12/04/24 08:25 Finasteride 5 Mg Tablet PO 12/24/24 08:59 5 mg QDAY PRINCESS Administration Fluticasone Propionate 1 spray 11/24/24 09:00 12/03/24 10:07 Fluticasone Rahul [place] 0.05% 16 Gm Btl NASAL 12/24/24 08:59 Not Given QDAY PRINCESS Glucagon 1 mg 11/23/24 21:21 Glucagon Inj 1 Mg Vial IM Q15MIN PRN BG <70, and no IV access Heparin Sodium (Porcine) 7,500 unit 11/26/24 14:00 12/04/24 05:32 Heparin Sod Inj 5000 Unit/Ml Vial SC 12/10/24 13:59 7,500 unit Q8HR PRINCESS Administration Hydralazine HCl 10 mg 12/02/24 10:10 Hydralazine Inj 20 Mg/Ml Vial IV 01/01/25 10:09 Q6H PRN SBP > 160 Dextrose 1,000 mls @ 100 mls/hr 12/01/24 10:45 12/04/24 02:23 D5w IV 12/31/24 10:44 100 mls/hr .Q10H PRINCESS Administration Potassium Chloride 10 meq in 100 mls @ 100 mls/hr 12/04/24 07:30 12/04/24 09:23 Kcl Ivpb IV 12/04/24 11:29 Infused Q1H PRINCESS Infusion Insulin Human Lispro 0 unit 11/26/24 00:00 12/04/24 05:44 Insulin Lispro (Admelog) 1 Unit/0.01 Ml Unit SC 12/26/24 00:00 1 unit Q6H PRINCESS Administration Protocol Lorazepam 0.5 mg 12/03/24 20:22 Lorazepam 2 Mg/Ml Vial IVP 12/08/24 20:21 Q8HR PRN ANXIETY Nifedipine 30 mg 12/02/24 10:15 12/04/24 08:25 Nifedipine Xl 30 Mg Tabcr PO 01/01/25 10:14 30 mg QDAY PRINCESS Administration Simethicone 80 mg 12/02/24 17:00 12/04/24 05:35 Simethicone 80 Mg Chew PO 01/01/25 16:59 80 mg QID PRINCESS Administration Valsartan 160 mg 12/02/24 10:15 12/04/24 08:25 Valsartan 80 Mg Tablet PO 01/01/25 10:14 160 mg QDAY PRINCESS Administration Plan In summary: 70-year-old male PMHx of CAD with stents, HTN, DM, BPH with self-catheterization, presented to ED with SOB. Admitted for AHRF 2/2 suspected sepsis in settings of UTI. S/p ICU admission following cardiac arrest 2/2 AHRF/ARDS 2/[address] negative for perforation or bowel obstruction. CXR earlier showed gas in stomach. Hep panel negative Persistent distention on exam NG tube discontinued Having soft stool, regular and MIRALAX discontinued On SIMETHICONE 80 mg 4 BID KUB revealed large gastric bubble ? Frequent ambulation - Continue NG tube - Referred to registered dietitician to start PPN - Consulted GI for further recommendations on patient's gastric paresis Hypernatremia Sodium 148 ? D5W at 100 cc/h ? On free water flushes to 200 cc every 4 hours likely dehydrational ?Paraxismal Afib Post cardiac arrest CAD s/p stent HFpEF EF 55-60% Had cardiac arrest 2/2 regurgitation and hypoxemia. Required ICU admission and pressure support. Off perssors, vitals stable. Troponin negative since admission Tele showing occasional a-fib ECHO showed EF of 55 to 60% with some mild MR and TR as well as mild to moderate . No signs of arrythmia Acute hypoxic respiratory failure (improving) Aspiration pneumonia? vs pneumonitis Aspirated while on BiPAP, followed by cardiac arrest. S/p ICU admission for MV 2/2 AHRF, ARDS, bronch showed bile in lungs and friable mucosa. Previously on VANC and ZOSYN, de-esculated to CTX. Extubated successfuly on 12/30/24 On OXIMASK, satting well. Completed CEFTRIAXONE 11/28 to 12/01 Blood and ET cx negative, afebrile, leukocytosis resolving ROSEANNE (resolved) Renal function stable and normal. No electrolyte abnormalities. Off pressors, BP 170/79, HR 62. Had 2.8L urine output following LASIX. Trace peripheral edema on exam ? Renally dose meds, avoid overdiuresis and NEPHROTOXINS ? Daily CMP Complicated E. coli UTI Urine grew E. coli Currently afebrile, WBC improving Completed CEFTRIAXONE HTN HLD BP 183/110, HR 69. ? On COREG 25 mg daily ? On CLONIDINE 0.1 mg BID ? Added NIFEDIPINE 30 mg QDAY ? Increased VALSARTAIN to 160 mg daily ? HYDRALAZINE 10 mg PRN for SBP > 160 T2DM A1c 6.8 this visit. ? INSULIN sliding scale ? Accu-Cheks Hepatomegaly Transaminitis Possible gallstones US from previous admission showed mild hepatomegaly Previously had transaminitis US this admission showed possible gallstones vs sludge, negative cholecystitis. Hepatitis panel negative LFTs down trending ? Daily labs Normocytic normochromic anemia Chronic, Hgb 10.3 (baseline 12-13) Likely dilutional No s/s of abnormal bleed, normal coag studies ? Daily CBC ? Transfuse if Hgb < 8 BPH ? On FINASTERIDE 5 mg daily Acute encephalopathy (resolved) Off sedation Following command without focal neurological deficits ? PT Lactic acidosis (resolved) Shock (resolved) ARDS (resolved) In setting of cardiac arrest. Health maintenance Diet: NPO GI prophylaxis: PROTONIX DVT prophylaxis: HEPARIN subQ Antibiotics: CEFTRIAXONE CODE STATUS: FULL CODE Disposition: Treating UTI and Encephalopathy I discussed patient's care with attending physician, Dr Nelly Alonso PGY3 Attending Provider Attestation/Addendum Patient seen and examined with resident physician Dr. Alonso. Patient was confused and short of breath. NGT was inserted. Will start PPN.
[2024-12-04] MEDS: FLUTICASONE NAS SPRAY 0.05% 16 GM BTL 1 SPRAY NASAL (09:38)
--- NOTE | 2024-12-04 10:15 | PC.SS ---
SS follow up note; GI consult pending, Patient is on IV ABX and still confused at the time. At time of discharge patient will return home with .
[2024-12-04] MEDS: MAGNESIUM SULF IV (18:33)
[2024-12-04] MEDS: [UNRECOGNIZED DRUG - OTHER] IV (18:33)
[2024-12-04] MEDS: POTASSIUM ACET IV (18:33)
[2024-12-04] MEDS: FAT EMULSIONS 20% IV 500 ML 32 ML IV (18:33)
[2024-12-04] MEDS: MULTIVITAMIN IV (18:33)
--- NOTE | 2024-12-04 18:38 | PD.IMCONS ---
HPI Data of Consult Requesting Physician: Brandin Villegas MD Primary Care Provider: Brandin Villegas MD Consult Narrative Reason for consult: Distended abdomen History of present illness: 78 years old male who was admitted for 06/04/2027 with altered mental status and shortness of breath as his daughter had called the rubber flap cutter patients patient is confused Abdominal x-ray showed distended stomach for which NGT was placed and an about 400 to 500 cc of material was suctioned And abdomen is much less distended CT scan of the abdomen pelvis without contrast on admission showed large right pleural effusion and small left pleural effusion hepatomegaly cirrhosis and mild ascites Patient does have a history of coronary status post PTCA essential hypertension morbid obesity hyperlipidemia BPH causing urinary bladder outlet obstruction requiring self-catheterization patient has already seen our local urologist cc:: cc: Brandin Villegas MD Review of Systems Review of Systems ROS Unobtainable: unobtainable due to medical condition Past Medical History Surgical History OTHER SURGICAL HX: As in the history of present illness Meds Home Medications and Allergies Home Medications ?Medication ?Instructions ?Recorded ?Confirmed ?Type carvedilol 25 mg tablet (Coreg) 25 mg PO QDAY #0 tabs 04/05/14 07/20/23 History spironolactone 25 mg tablet 25 mg PO BID ##0 08/23/15 07/20/23 History tamsulosin 0.4 mg capsule (Flomax) 0.4 mg PO BID ##0 08/23/15 07/20/23 History finasteride 5 mg tablet (Proscar) 5 mg PO QDAY #0 tabs 01/12/17 07/20/23 History gemfibrozil 600 mg tablet (Lopid) 600 mg PO HS #0 tabs 01/12/17 07/20/23 History valsartan 40 mg tablet (Diovan) 40 mg PO QDAY #0 tabs 01/12/17 07/20/23 History atorvastatin 10 mg tablet 10 mg PO QPM 03/21/20 07/20/23 History furosemide 20 mg tablet 20 mg PO QDAY 03/21/20 07/20/23 History metformin 500 mg tablet 500 mg PO BID 03/21/20 07/20/23 History Held on 03/21/20. Instructions: Resume on 03/24/20. clonidine HCl 0.1 mg tablet 0.1 mg PO BID 03/30/22 07/20/23 History gabapentin 100 mg capsule 100 mg PO BID 03/30/22 07/20/23 History albuterol sulfate 90 mcg/actuation 1 inh inhalation QID 03/31/22 07/20/23 History aerosol inhaler (Ventolin HFA) fluticasone propionate 50 1 spray intranasal QDAY 03/31/22 07/20/23 History mcg/actuation nasal spray,suspension Allergies Allergy/AdvReac Type Severity Reaction Status Date / Time No Known Allergies Allergy Verified 03/30/22 12:48 Exam Vital Signs Temp Pulse Resp BP Pulse Ox O2 Del Method O2 Flow Rate 97.4 F 70 23 H 143/73 H 100 Room Air 2 12/04/24 16:00 12/04/24 18:14 12/04/24 18:14 12/04/24 16:38 12/04/24 18:14 12/04/24 16:00 12/04/24 18:14 FiO2 35 11/30/24 10:17 Constitutional Comments: Somewhat confused Routine Respiratory Exam Comments: Decreased breath sounds Routine Abdominal Exam Comments: Hypoactive bowel sounds Results Labs 12/06/24 05:02 12/06/24 05:02 Labs: Short CBC 12/04/24 Range/Units 04:39 WBC 13.0 H (3.8-10.6) Thou/mm3 Hgb 11.0 L (13.5-16.0) g/dL Hct 35.5 L (41.0-53.0) % Plt Count 352 (140-440) Thou/mm3 BMP 12/04/24 04:39 Sodium 148 H Potassium 3.0 L Chloride 109 H Carbon Dioxide 32.9 H BUN 8 L Creatinine 0.7 Glucose 163 H Calcium 8.4 Liver Function 12/04/24 Range/Units 04:39 Total Bilirubin 0.7 (0.3-1.2) mg/dL AST 31 (0-34) U/L ALT 28 (10-49) U/L Alkaline Phosphatase 113 (46-116) U/L Albumin 3.4 (3.4-4.8) gm/dL ABG Interpretation ABG results: 11/25/24 11/25/24 11/25/24 12:15 13:59 16:51 ABG pH 7.15 L* 7.18 L* 7.14 L* ABG pCO2 83 H* 71 H* D 82 H* D ABG pO2 43 L* 87 D 69 L ABG HCO3 29 H 26 28 H ABG O2 Saturation 72 L 96 91 ABG Base Excess -1 -3 -2 11/25/24 11/25/24 11/26/24 19:23 23:21 04:48 ABG pH 7.27 L D 7.29 L 7.28 L ABG pCO2 58 H D 54 H 56 H ABG pO2 87 92 76 L ABG HCO3 27 H 26 26 ABG O2 Saturation 97 98 95 ABG Base Excess -1 -2 -1 11/26/24 11/27/24 11/28/24 12:15 07:01 04:38 ABG pH 7.28 L 7.32 L 7.35 ABG pCO2 59 H 55 H 50 H ABG pO2 67 L 80 L 148 H D ABG HCO3 26 28 H 27 H ABG O2 Saturation 92 94 98 ABG Base Excess -1 1 1 11/29/24 11/29/24 11/30/24 04:45 15:40 04:50 ABG pH 7.38 7.41 7.39 ABG pCO2 21 L D 54 H D 57 H ABG pO2 98 D 63 L D 59 L* ABG HCO3 12 L 34 H 34 H ABG O2 Saturation 99 H 90 L 90 L ABG Base Excess -12 L 8 H 8 H 12/03/24 15:33 ABG pH 7.41 ABG pCO2 55 H ABG pO2 55 L* ABG HCO3 35 H ABG O2 Saturation 87 L ABG Base Excess 9 H Assessment and Plan Additional Assessment & Plan Additional Plan: # Gastroparesis versus gastric outlet obstruction Plan Continue with the NGT suction Consent will be obtained for fiberoptic esophagogastroduodenoscopy with possible therapeutic intervention possible biopsies for further evaluation which has been scheduled for tomorrow Keep the patient n.p.o. Other medical problems include Coronary artery disease status post PTCA Essential hypertension Morbid obesity Hyperlipidemia BPH with bladder outlet obstruction requiring self-catheterization ordered in the care of urologist Hepatomegaly with hepatocellular disease possible cirrhosis Thank you very much for the opportunity to participate in the care of this patient Procedures Arterial Line Size (Gauge): 20
[2024-12-04] MEDS: HEPARIN SOD INJ 5000 UNIT/ML VIAL SC (20:31)
[2024-12-05] VITALS (20 sets, daily range): BP systolic 116–169; BP diastolic 63–95; PULSE 67–81; RESP 14–93; TEMP 36.2–36.9; O2SAT 90–100; BMI 39.6
[2024-12-05] MEDS: ALBUTEROL/IPRATROPIUM (Duoneb) RT SOL 3 ML NEBU INH ×6 (02:40→22:20)
[2024-12-05 06:49] LABS: Basophils # (Auto) 0.1 Thou/mm3 (0.0-0.2); Basophils % (Auto) 1 % (0-2.5); Eosinophils # (Auto) 0.5 Thou/mm3 (0.0-0.5); Eosinophils % (Auto) 4 % (0-10); Hematocrit 35.5 % (41.0-53.0); Immature Granulocytes % (Auto) 0 % (0-0); Immature Granulocytes Auto 0.06 Thou/mm3 (0.00-0.00); Lymphocytes # (Auto) 1.9 Thou/mm3 (1.0-4.8); Lymphocytes % (Auto) 13 % (10-50); Mean Corpuscular Hemoglobin 28.8 pg (25.0-35.0); Mean Corpuscular Volume 93 fL (80-100); Monocytes # (Auto) 0.6 Thou/mm3 (0.0-0.8); Monocytes % (Auto) 4 % (0-12); Neutrophils # (Auto) 11.6 Thou/mm3 (1.8-7.7); Neutrophils % (Auto) 79 % (37-80); Nucleated Red Blood Cell % 0 /100 WBC (0); Platelet Count 382 Thou/mm3 (140-440); RDW Standard Deviation 47.5 fL (35.1-43.9); Red Blood Count 3.82 Miln/mm3 (4.50-5.90); White Blood Count 14.8 Thou/mm3 (3.8-10.6)
[2024-12-05 07:09] LABS: Alanine Aminotransferase 23 U/L (10-49); Albumin, Serum 3.6 gm/dL (3.4-4.8); Albumin/Globulin Ratio 1.2 (1.2-2.2); Alkaline Phosphatase 109 U/L (46-116); Anion Gap 6 (7-16); Aspartate Amino Transferase 25 U/L (0-34); BUN/Creatinine Ratio 10 Ratio (12-20); Bilirubin,Total 0.5 mg/dL (0.3-1.2); Blood Urea Nitrogen 8 mg/dL (9-23); Calcium 8.7 mg/dL (8.3-10.6); Carbon Dioxide 33.9 mMol/L (20.0-31.0); Chloride 106 mMol/L (98-107); Creatinine (Component) 0.8 mg/dL (0.6-1.3); Estimated Creatinine Clearance 86.7 mL/min (>60); Glucose 153 mg/dL (74-106); Magnesium 2.2 mg/dL (1.6-2.6); Osmolality,Calculated 291 (275-295); Phosphorous 2.3 mg/dL (2.4-5.1); Potassium 3.3 mMol/L (3.4-5.1); Sodium 146 mMol/L (136-145); Total Protein 6.6 gm/dL (5.7-8.2); eGFR > 60 See Note
[2024-12-05] MEDS: carVEDILOL 12.5 MG TABLET 25 MG PO ×2 (09:05→17:12)
[2024-12-05] MEDS: cloNIDine HCL 0.1 MG TABLET PO ×2 (09:05→20:38)
[2024-12-05] MEDS: HEPARIN SOD INJ 5000 UNIT/ML VIAL SC ×2 (09:05→20:49)
[2024-12-05] MEDS: VALSARTAN 80 MG TABLET 160 MG PO (09:06)
[2024-12-05] MEDS: POTASSIUM CHLORIDE 20 mEq TABCR 40 MEQ PO (09:06)
[2024-12-05] MEDS: NIFEdipine XL 30 MG TABCR PO (09:06)
[2024-12-05] MEDS: FINASTERIDE 5 MG TABLET PO (09:06)
[2024-12-05] MEDS: METOCLOPRAMIDE INJ 5 MG/ML VIAL 2 ML IVP ×2 (09:15→20:43)
--- NOTE | 2024-12-05 10:10 | PD.RESPRO ---
Documentation for date of: 12/05/24 Subjective Subjective Interval history: Mr. 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 Grider) history of CHF, history of pituitary adenoma which was removed presented to the emergency department with significant shortness of breath and her daughter called paramedics. When paramedics arrived his O2 sat was less than 88%. Chest x-ray showed mild vascular congestion and no pneumonia. Admitted to the hospital with hypoxic respiratory failure ED COURSE: T103.8, HR 106, BP 141/91, satting 93% on 2 L NC. WBC 13.8, Hgb 11.2, PLT 253. Normal coag studies. CHEM panel significant for BUN 26, CR 1.5, EGFR 47, GLUCOSE 189, A1c 6.8, phosphorus 1.5, AST 44, AST 36, ALP 117, BNP 109, troponin 0.029, Pro-Calc 3.01. UA showed positive LE, RBC 6, WBC 41, urea 4+. EKG sinus rhythm without acute ST changes. CXR mild vascular congestion, no lobar pneumonia. ED gave 2 L IVF, CEFTRIAXONE 1 g x 1. Will admit for sepsis in settings of UTI. Refer to previous notes for advance from 11/26/24 through 12/03/24. 12/04/24 [facility] He was very confused last night, asking about his wallet. He was more alert this morning but he continues to ask for his wallet. His daughter was at bedside who help reorient him. Patient's NG tube collected 500cc of gastric contents. Patient's abdomen is much more soft his morning. Will consult GI for patient's gastric paresis. Appreciate recommendations. 12/05/2024 seen and examined on [facility] following EGD. Feels better today. Although abdominal distention slightly worse, as expected after EGD, nontender. EGD showed distal esophageal ulcers, erosive gastritis with hemorrhage, biopsy obtained. NG tube discontinued. Continue with REGLAN and PROTONIX per GI recommendations. Will resume clear liquid diet after 12 hours. BP 147/79. Sodium improving 146, potassium 3.3 repleted, CR stable 0.8, GFR stable >60, phosphorus 2.3. WBC 14.8, Hgb 11.0, PLT 382. He requires max-assistance based on PT eval. Will discharge to SNF tomorrow 12/06. Exam Vital Signs Temp Pulse Resp BP Pulse Ox O2 Del Method O2 Flow Rate 98 F 74 21 H 147/79 H 90 L Nasal Cannula 4 12/05/24 08:00 12/05/24 09:06 12/05/24 08:24 12/05/24 09:06 12/05/24 08:24 12/05/24 08:00 12/05/24 08:24 FiO2 35 11/30/24 10:17 Narrative Exam Constitutional: Well nourished and in no acute distress. NGT in place CVS: RRR, S1 and S2 present, no murmurs, rubs or gallops . RESP: CTAB, no SOB, no rales, rhonchi or wheezing. No respiratory Distress GI: Distended but nontender with bowel sounds present. MSK: Full range of motion, No trauma or deformities or masses. Skin: Warm to touch, Dry. No rashes or lesions. No hematomas Neuro: youth care specialist II-XII grossly intact. Sensation grossly intact. Psych: (AAO) x3 . Appropriate mood and affect. Objective Labs 12/05/24 05:10 12/05/24 05:10 Labs: Laboratory Results - last 24 hr 12/05/24 05:10 WBC 14.8 H RBC 3.82 L Hgb 11.0 L Hct 35.5 L MCV 93 MCH 28.8 MCHC 31.0 RDW Std Deviation 47.5 H Plt Count 382 D Neut % (Auto) 79 Lymph % (Auto) 13 [place] % (Auto) 4 Eos % (Auto) 4 Baso % (Auto) 1 Neut # (Auto) 11.6 H Lymph # (Auto) 1.9 [place] # (Auto) 0.6 Eos # (Auto) 0.5 Baso # (Auto) 0.1 Immature Gran # (Auto) 0.06 H Absolute Nucleated RBC 0.00 Immature Gran % 0 Nucleated RBC % 0 Sodium 146 H Potassium 3.3 L Chloride 106 Carbon Dioxide 33.9 H Anion Gap 6 L BUN 8 L Creatinine 0.8 Estim Creat Clear Calc 86.7 eGFR > 60 BUN/Creatinine Ratio 10 L Glucose 153 H Calculated Osmolality 291 Calcium 8.7 Corrected Calcium 9.0 Phosphorus 2.3 L Magnesium 2.2 Total Bilirubin 0.5 AST 25 ALT 23 Alkaline Phosphatase 109 Total Protein 6.6 Albumin 3.6 Globulin 3.0 Albumin/Globulin Ratio 1.2 ABG Interpretation ABG results: 11/25/24 11/25/24 11/25/24 12:15 13:59 16:51 ABG pH 7.15 L* 7.18 L* 7.14 L* ABG pCO2 83 H* 71 H* D 82 H* D ABG pO2 43 L* 87 D 69 L ABG HCO3 29 H 26 28 H ABG O2 Saturation 72 L 96 91 ABG Base Excess -1 -3 -2 11/25/24 11/25/24 11/26/24 19:23 23:21 04:48 ABG pH 7.27 L D 7.29 L 7.28 L ABG pCO2 58 H D 54 H 56 H ABG pO2 87 92 76 L ABG HCO3 27 H 26 26 ABG O2 Saturation 97 98 95 ABG Base Excess -1 -2 -1 11/26/24 11/27/24 11/28/24 12:15 07:01 04:38 ABG pH 7.28 L 7.32 L 7.35 ABG pCO2 59 H 55 H 50 H ABG pO2 67 L 80 L 148 H D ABG HCO3 26 28 H 27 H ABG O2 Saturation 92 94 98 ABG Base Excess -1 1 1 11/29/24 11/29/24 11/30/24 04:45 15:40 04:50 ABG pH 7.38 7.41 7.39 ABG pCO2 21 L D 54 H D 57 H ABG pO2 98 D 63 L D 59 L* ABG HCO3 12 L 34 H 34 H ABG O2 Saturation 99 H 90 L 90 L ABG Base Excess -12 L 8 H 8 H 12/03/24 15:33 ABG pH 7.41 ABG pCO2 55 H ABG pO2 55 L* ABG HCO3 35 H ABG O2 Saturation 87 L ABG Base Excess 9 H Quality Measures Quality Measures none Advance care planning discussed with:: patient Assessment & Plan Assessment Current Active Medications: Generic Name Dose Route Start Last Admin Trade Name Freq PRN Reason Stop Dose Admin Acetaminophen 650 mg 11/25/24 08:49 12/02/24 15:04 Acetaminophen 325 Mg Tablet PO 12/25/24 08:48 650 mg Q6HR PRN Administration PAIN Albuterol/Ipratropium 3 ml 11/25/24 23:00 12/05/24 06:15 Albuterol/Ipratropium (Duoneb) Rt Pati 3 Ml Nebu INH 12/25/24 22:59 3 ml Q4HRRT PRINCESS Administration Carvedilol 25 mg 12/01/24 08:00 12/05/24 09:05 Carvedilol 12.5 Mg Tablet PO 12/31/24 07:59 25 mg BIDWM PRINCESS Administration Clonidine 0.1 mg 11/30/24 21:00 12/05/24 09:05 Clonidine Hcl 0.1 Mg Tablet PO 12/30/24 20:59 0.1 mg BID PRINCESS Administration Dextrose 25 ml 11/23/24 21:21 Dextrose 50%-Water Inj 50 Ml Syringe IV 12/23/24 21:20 Q15MIN PRN BG 50-70 responsive npo pt Finasteride 5 mg 11/24/24 09:00 12/05/24 09:06 Finasteride 5 Mg Tablet PO 12/24/24 08:59 5 mg QDAY PRINCESS Administration Fluticasone Propionate 1 spray 11/24/24 09:00 12/04/24 09:38 Fluticasone Rahul Bethel 0.05% 16 Gm Btl NASAL 12/24/24 08:59 1 spray QDAY PRINCESS Administration Glucagon 1 mg 11/23/24 21:21 Glucagon Inj 1 Mg Vial IM Q15MIN PRN BG <70, and no IV access Heparin Sodium (Porcine) 5,000 unit 12/04/24 21:00 12/05/24 09:05 Heparin Sod Inj 5000 Unit/Ml Vial SC 12/18/24 20:59 5,000 unit Q12HR PRINCESS Administration Hydralazine HCl 10 mg 12/02/24 10:10 Hydralazine Inj 20 Mg/Ml Vial IV 01/01/25 10:09 Q6H PRN SBP > 160 Potassium Acetate 40 meq/ 2,034 mls @ 50 mls/hr 12/04/24 18:00 12/04/24 18:33 Magnesium Sulfate 2 gm/ IV 12/05/24 17:59 50 mls/hr Multivitamins/Minerals 10 ml/ .Q24H PRINCESS Administration Amino Acids Fat Emulsion Intravenous 500 mls @ 32 mls/hr 12/04/24 18:00 12/04/24 18:33 Intralipid 20% Iv IV 01/03/25 17:59 32 mls/hr [id number] PRINCESS Administration Insulin Human Lispro 0 unit 11/26/24 00:00 12/05/24 05:31 Insulin Lispro (Admelog) 1 Unit/0.01 Ml Unit SC 12/26/24 00:00 Not Given Q6H PRINCESS Protocol Lorazepam 0.5 mg 12/03/24 20:22 Lorazepam 2 Mg/Ml Vial IVP 12/08/24 20:21 Q8HR PRN ANXIETY Metoclopramide HCl 5 mg 12/05/24 09:15 Metoclopramide Inj 5 Mg/Ml Vial 2 Ml IVP 01/04/25 09:14 BID PRINCESS Protocol Nifedipine 30 mg 12/02/24 10:15 12/05/24 09:06 Nifedipine Xl 30 Mg Tabcr PO 01/01/25 10:14 30 mg QDAY PRINCESS Administration Pantoprazole Sodium 40 mg 12/05/24 21:00 Pantoprazole Inj 40 Mg Vial IVP 01/04/25 20:59 BID PRINCESS Simethicone 80 mg 12/02/24 17:00 12/05/24 05:30 Simethicone 80 Mg Chew PO 01/01/25 16:59 Not Given QID PRINCESS Valsartan 160 mg 12/02/24 10:15 12/05/24 09:06 Valsartan 80 Mg Tablet PO 01/01/25 10:14 160 mg QDAY PRINCESS Administration Plan In summary: 70-year-old male PMHx of CAD with stents, HTN, DM, BPH with self-catheterization, presented to ED with SOB. Admitted for AHRF 2/2 suspected sepsis in settings of UTI. S/p ICU admission following cardiac arrest 2/2 AHRF/ARDS 2/2 aspiration. Appreciate recommendations from GI team. Working with PT, still requires max assistance. Discharge to SNF tomorrow 12/06. Abdominal distention CT negative for perforation or bowel obstruction. CXR earlier showed gas in stomach. Hep panel negative EGD showed distal esophageal ulcers, erosive gastritis with hemorrhage, biopsy obtained, recommendations as below. NG tube discontinued ? Continue REGLAN 5 mg IV BID ? Continue PROTONIX 40 mg IV BID ? Resume clear liquid diet at 8 PM 12/05 ? Follow-up EGD biopsy results Hypernatremia Sodium 146 D5W discontinued ? On free water flushes to 200 cc every 4 hours likely dehydrational Hypokalemia Hypophosphatemia Likely malnutrition, NPO. Potassium 3.3, repleted Phosphorus 2.3, repleted ?Paraxismal Afib Post cardiac arrest CAD s/p stent HFpEF EF 55-60% Had cardiac arrest 2/2 regurgitation and hypoxemia. Required ICU admission and pressure support, downgraded. ECHO showed EF of 55 to 60% with some mild MR and TR as well as mild to moderate . No signs of arrythmia Acute hypoxic respiratory failure (improving) Aspiration pneumonia? vs pneumonitis Aspirated while on BiPAP, followed by cardiac arrest. S/p ICU admission for MV 2/2 AHRF, ARDS, bronch showed bile in lungs and friable mucosa. Previously on VANC and ZOSYN, de-esculated to CTX. Extubated successfuly on 12/30/24 On OXIMASK, satting well. Completed CEFTRIAXONE 11/28 to 12/01 Blood and ET cx negative, afebrile, leukocytosis resolving ROSEANNE (resolved) Renal function stable and normal. No electrolyte abnormalities. Off pressors, BP 170/79, HR 62. Had 2.8L urine output following LASIX. Trace peripheral edema on exam ? Renally dose meds, avoid overdiuresis and NEPHROTOXINS ? Daily CMP Complicated E. coli UTI Urine grew E. coli Currently afebrile, WBC improving Completed CEFTRIAXONE HTN HLD BP 147/79m HR 74 ? On COREG 25 mg daily ? On CLONIDINE 0.1 mg BID ? Added NIFEDIPINE 30 mg QDAY ? Increased VALSARTAIN to 160 mg daily ? HYDRALAZINE 10 mg PRN for SBP > 160 T2DM A1c 6.8 this visit. ? INSULIN sliding scale ? Accu-Cheks Hepatomegaly Transaminitis Possible gallstones US from previous admission showed mild hepatomegaly Previously had transaminitis US this admission showed possible gallstones vs sludge, negative cholecystitis. Hepatitis panel negative LFTs down trending ? Daily labs Normocytic normochromic anemia Chronic, Hgb 10.3 (baseline 12-13) Likely dilutional No s/s of abnormal bleed, normal coag studies ? Daily CBC ? Transfuse if Hgb < 8 BPH ? On FINASTERIDE 5 mg daily Acute encephalopathy (resolved) Off sedation Following command without focal neurological deficits ? PT Lactic acidosis (resolved) Shock (resolved) ARDS (resolved) In setting of cardiac arrest. Health maintenance Diet: NPO GI prophylaxis: PROTONIX DVT prophylaxis: HEPARIN subQ Antibiotics: CEFTRIAXONE CODE STATUS: FULL CODE Disposition: Treating UTI and Encephalopathy I discussed patient's care with attending physician, Dr Nelly Alonso PGY3 Attending Provider Attestation/Addendum Patient seen and examined with resident physician Dr. Baird. Patient was confused and short of breath. NGT was inserted. Patient was started on PPN. Dr. Quick was consulted. Endoscopy showed gastritis. He removed the NG tube and recommended clear liquid diet after 12 hours. Recommended Reglan and PPI. Patient more alert and awake today. Will send him to rehab in the next couple of days if stable. Abdominal distention is better.
[2024-12-05] MEDS: SIMETHICONE 80 MG CHEW PO ×3 (12:32→20:38)
[2024-12-05] MEDS: POT PHOS 15 mMol in NS 250 ML 15 MMOL/250 ML BAG 62.5 MMOL IV (12:53)
[2024-12-05] MEDS: POTASSIUM PHOS IV (17:12)
[2024-12-05] MEDS: POTASSIUM ACET IV (17:12)
[2024-12-05] MEDS: MULTIVITAMIN IV (17:12)
[2024-12-05] MEDS: [UNRECOGNIZED DRUG - OTHER] IV (17:12)
[2024-12-05] MEDS: ACETAMINOPHEN 325 MG TABLET 650 MG PO (20:37)
[2024-12-05] MEDS: PANTOPRAZOLE INJ 40 MG VIAL IVP (20:40)
--- NOTE | 2024-12-05 20:48 | EKG_ITS ---
[facility] Test Date: 2024-12-05 Pat Name: LEE BAPTISTE Department: [facility] Gender: Male Braider Operator: SHAHNAZ : 1945 Requested By: Radha King Order Number: [id number] Reading MD: Radha King Measurements Intervals [place] Rate: 65 P: 42 TX: 154 QRS: -28 QRSD: 107 T: 98 QT: 444 QTc: 464 Interpretive Statements SINUS RHYTHM BORDERLINE LEFT AXIS DEVIATION NONSPECIFIC ST & T-WAVE ABNORMALITY Compared to ECG 11/29/2024 18:45:32 T-wave abnormality now present Atrial fibrillation no longer present Intraventricular conduction delay no longer present /store/S0/[id number]
[2024-12-05 23:07] LABS: Troponin I < 0.020 ng/mL (0.0-0.045)
[2024-12-05] MEDS: HYDROcodone/APAP 5/325 TABLET 1 TAB PO (23:56)
[2024-12-05] MEDS: INSULIN LISPRO (AdmeLOG) 1 UNIT/0.01 ML UNIT SC (23:57)
[2024-12-06] VITALS (17 sets, daily range): BP systolic 98–139; BP diastolic 50–70; PULSE 56–94; RESP 16–94; TEMP 36.2–36.7; O2SAT 91–99; BMI 39.6; BMI 13.0
[2024-12-06] MEDS: ALBUTEROL/IPRATROPIUM (Duoneb) RT SOL 3 ML NEBU INH ×6 (02:40→22:49)
[2024-12-06] MEDS: SIMETHICONE 80 MG CHEW PO ×4 (05:18→20:28)
[2024-12-06 06:31] LABS: Basophils # (Auto) 0.1 Thou/mm3 (0.0-0.2); Basophils % (Auto) 1 % (0-2.5); Eosinophils # (Auto) 0.4 Thou/mm3 (0.0-0.5); Eosinophils % (Auto) 4 % (0-10); Hematocrit 33.2 % (41.0-53.0); Hemoglobin 10.4 g/dL (13.5-16.0); Immature Granulocytes % (Auto) 0 % (0-0); Immature Granulocytes Auto 0.04 Thou/mm3 (0.00-0.00); Lymphocytes # (Auto) 1.9 Thou/mm3 (1.0-4.8); Lymphocytes % (Auto) 17 % (10-50); Mean Corpuscular HGB Conc 31.3 g/dl (31.0-37.0); Mean Corpuscular Hemoglobin 29.2 pg (25.0-35.0); Mean Corpuscular Volume 93 fL (80-100); Monocytes # (Auto) 0.8 Thou/mm3 (0.0-0.8); Monocytes % (Auto) 7 % (0-12); Neutrophils # (Auto) 8.1 Thou/mm3 (1.8-7.7); Neutrophils % (Auto) 72 % (37-80); Nucleated Red Blood Cell % 0 /100 WBC (0); Platelet Count 284 Thou/mm3 (140-440); RDW Standard Deviation 48.2 fL (35.1-43.9); Red Blood Count 3.56 Miln/mm3 (4.50-5.90); White Blood Count 11.3 Thou/mm3 (3.8-10.6)
[2024-12-06 07:32] LABS: Alanine Aminotransferase 16 U/L (10-49); Albumin, Serum 3.3 gm/dL (3.4-4.8); Albumin/Globulin Ratio 1.1 (1.2-2.2); Alkaline Phosphatase 99 U/L (46-116); Anion Gap 7 (7-16); Aspartate Amino Transferase 20 U/L (0-34); BUN/Creatinine Ratio 21 Ratio (12-20); Bilirubin,Total 0.5 mg/dL (0.3-1.2); Blood Urea Nitrogen 17 mg/dL (9-23); Calcium 8.4 mg/dL (8.3-10.6); Carbon Dioxide 30.5 mMol/L (20.0-31.0); Chloride 108 mMol/L (98-107); Creatinine (Component) 0.8 mg/dL (0.6-1.3); Estimated Creatinine Clearance 86.7 mL/min (>60); Globulin 2.9 gm/dL (2.3-3.5); Glucose 149 mg/dL (74-106); Magnesium 2.2 mg/dL (1.6-2.6); Osmolality,Calculated 293 (275-295); Sodium 145 mMol/L (136-145); Total Protein 6.2 gm/dL (5.7-8.2); eGFR > 60 See Note
[2024-12-06] MEDS: FINASTERIDE 5 MG TABLET PO (08:24)
[2024-12-06] MEDS: carVEDILOL 12.5 MG TABLET 25 MG PO (08:25)
[2024-12-06] MEDS: VALSARTAN 80 MG TABLET 160 MG PO (08:25)
[2024-12-06] MEDS: cloNIDine HCL 0.1 MG TABLET PO (08:25)
[2024-12-06] MEDS: HEPARIN SOD INJ 5000 UNIT/ML VIAL SC ×2 (08:26→20:38)
[2024-12-06] MEDS: METOCLOPRAMIDE INJ 5 MG/ML VIAL 2 ML IVP (08:26)
[2024-12-06] MEDS: PANTOPRAZOLE INJ 40 MG VIAL IVP (08:26)
[2024-12-06] MEDS: NIFEdipine XL 30 MG TABCR PO (08:26)
--- NOTE | 2024-12-06 08:54 | PD.RESPRO ---
Documentation for date of: 12/06/24 Subjective Subjective Interval history: Mr. 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 Grider) history of CHF, history of pituitary adenoma which was removed presented to the emergency department with significant shortness of breath and her daughter called paramedics. When paramedics arrived his O2 sat was less than 88%. Chest x-ray showed mild vascular congestion and no pneumonia. Admitted to the hospital with hypoxic respiratory failure ED COURSE: T103.8, HR 106, BP 141/91, satting 93% on 2 L NC. WBC 13.8, Hgb 11.2, PLT 253. Normal coag studies. CHEM panel significant for BUN 26, CR 1.5, EGFR 47, GLUCOSE 189, A1c 6.8, phosphorus 1.5, AST 44, AST 36, ALP 117, BNP 109, troponin 0.029, Pro-Calc 3.01. UA showed positive LE, RBC 6, WBC 41, urea 4+. EKG sinus rhythm without acute ST changes. CXR mild vascular congestion, no lobar pneumonia. ED gave 2 L IVF, CEFTRIAXONE 1 g x 1. Will admit for sepsis in settings of UTI. Refer to previous notes for advance from 11/26/24 through 12/03/24. 12/04/24 Patient seen and examined in [facility]. He was very confused last night, asking about his wallet. He was more alert this morning but he continues to ask for his wallet. His daughter was at bedside who help reorient him. Patient's NG tube collected 500cc of gastric contents. Patient's abdomen is much more soft his morning. Will consult GI for patient's gastric paresis. Appreciate recommendations. 12/05/2024 seen and examined on [facility] following EGD. Feels better today. Although abdominal distention slightly worse, as expected after EGD, nontender. EGD showed distal esophageal ulcers, erosive gastritis with hemorrhage, biopsy obtained. NG tube discontinued. Continue with REGLAN and PROTONIX per GI recommendations. Will resume clear liquid diet after 12 hours. BP 147/79. Sodium improving 146, potassium 3.3 repleted, CR stable 0.8, GFR stable >60, phosphorus 2.3. WBC 14.8, Hgb 11.0, PLT 382. He requires max-assistance based on PT eval. Will discharge to SNF tomorrow 12/06. 12/06/2024 patient seen and examined in [facility] today. There were no major overnight events the patient had no complaints morning. She continues to have some complaint of the left chest wall likely from CPR performed and initial presentation. Ordered lidocaine patch for pain management. Patient has not had a bowel movement and continues to be distended. We are increasing Reglan to 10 mg every 6 hours scheduled. Discontinued PPN, scheduled Colace. Patient needs daily physical DVT as well as getting up from bed to chair with assistance and attempts to encourage bowel movements and passing gas. Exam Vital Signs Temp Pulse Resp BP Pulse Ox O2 Del Method O2 Flow Rate 97.4 F 65 18 139/70 H 94 L Nasal Cannula 2 12/06/24 08:00 12/06/24 08:26 12/06/24 08:00 12/06/24 08:26 12/06/24 08:00 12/06/24 08:00 12/06/24 08:00 FiO2 35 11/30/24 10:17 Narrative Exam Constitutional: Well nourished and in no acute distress. NGT in place CVS: RRR, S1 and S2 present, no murmurs, rubs or gallops . RESP: CTAB, no SOB, no rales, rhonchi or wheezing. No respiratory Distress GI: Distended but nontender with bowel sounds present. MSK: Full range of motion, No trauma or deformities or masses. Skin: Warm to touch, Dry. No rashes or lesions. No hematomas Neuro: block mechanic II-XII grossly intact. Sensation grossly intact. Psych: (AAO) x3 . Appropriate mood and affect. Objective Labs 12/06/24 05:02 12/06/24 05:02 Labs: Laboratory Results - last 24 hr 12/05/24 12/06/24 22:10 05:02 WBC 11.3 H RBC 3.56 L Hgb 10.4 L Hct 33.2 L MCV 93 MCH 29.2 MCHC 31.3 RDW Std Deviation 48.2 H Plt Count 284 D Neut % (Auto) 72 Lymph % (Auto) 17 [place] % (Auto) 7 Eos % (Auto) 4 Baso % (Auto) 1 Neut # (Auto) 8.1 H Lymph # (Auto) 1.9 [place] # (Auto) 0.8 Eos # (Auto) 0.4 Baso # (Auto) 0.1 Immature Gran # (Auto) 0.04 H Absolute Nucleated RBC 0.00 Immature Gran % 0 Nucleated RBC % 0 Sodium 145 Potassium 4.0 D Chloride 108 H Carbon Dioxide 30.5 Anion Gap 7 BUN 17 Creatinine 0.8 Estim Creat Clear Calc 86.7 eGFR > 60 BUN/Creatinine Ratio 21 H Glucose 149 H Calculated Osmolality 293 Calcium 8.4 Corrected Calcium 9.0 Phosphorus 3.0 Magnesium 2.2 Total Bilirubin 0.5 AST 20 ALT 16 Alkaline Phosphatase 99 Troponin I < 0.020 Total Protein 6.2 Albumin 3.3 L Globulin 2.9 Albumin/Globulin Ratio 1.1 L ABG Interpretation ABG results: 11/25/24 11/25/24 11/25/24 12:15 13:59 16:51 ABG pH 7.15 L* 7.18 L* 7.14 L* ABG pCO2 83 H* 71 H* D 82 H* D ABG pO2 43 L* 87 D 69 L ABG HCO3 29 H 26 28 H ABG O2 Saturation 72 L 96 91 ABG Base Excess -1 -3 -2 11/25/24 11/25/24 11/26/24 19:23 23:21 04:48 ABG pH 7.27 L D 7.29 L 7.28 L ABG pCO2 58 H D 54 H 56 H ABG pO2 87 92 76 L ABG HCO3 27 H 26 26 ABG O2 Saturation 97 98 95 ABG Base Excess -1 -2 -1 11/26/24 11/27/24 11/28/24 12:15 07:01 04:38 ABG pH 7.28 L 7.32 L 7.35 ABG pCO2 59 H 55 H 50 H ABG pO2 67 L 80 L 148 H D ABG HCO3 26 28 H 27 H ABG O2 Saturation 92 94 98 ABG Base Excess -1 1 1 11/29/24 11/29/24 11/30/24 04:45 15:40 04:50 ABG pH 7.38 7.41 7.39 ABG pCO2 21 L D 54 H D 57 H ABG pO2 98 D 63 L D 59 L* ABG HCO3 12 L 34 H 34 H ABG O2 Saturation 99 H 90 L 90 L ABG Base Excess -12 L 8 H 8 H 12/03/24 15:33 ABG pH 7.41 ABG pCO2 55 H ABG pO2 55 L* ABG HCO3 35 H ABG O2 Saturation 87 L ABG Base Excess 9 H Quality Measures Quality Measures none Advance care planning discussed with:: patient Assessment & Plan Assessment Current Active Medications: Generic Name Dose Route Start Last Admin Trade Name Freq PRN Reason Stop Dose Admin Acetaminophen 650 mg 11/25/24 08:49 12/05/24 20:37 Acetaminophen 325 Mg Tablet PO 12/25/24 08:48 650 mg Q6HR PRN Administration PAIN Hydrocodone Bitart/Acetaminophen 1 tab 12/05/24 23:48 12/05/24 23:56 Hydrocodone/Apap 5/325 Tablet PO 12/10/24 23:47 1 tab Q8HR PRN Administration PAIN Albuterol/Ipratropium 3 ml 11/25/24 23:00 12/06/24 07:04 Albuterol/Ipratropium (Duoneb) Rt Pati 3 Ml Nebu INH 12/25/24 22:59 3 ml Q4HRRT PRINCESS Administration Carvedilol 25 mg 12/01/24 08:00 12/06/24 08:25 Carvedilol 12.5 Mg Tablet PO 12/31/24 07:59 25 mg BIDWM PRINCESS Administration Clonidine 0.1 mg 11/30/24 21:00 12/06/24 08:25 Clonidine Hcl 0.1 Mg Tablet PO 12/30/24 20:59 0.1 mg BID PRINCESS Administration Dextrose 25 ml 11/23/24 21:21 Dextrose 50%-Water Inj 50 Ml Syringe IV 12/23/24 21:20 Q15MIN PRN BG 50-70 responsive npo pt Docusate Sodium 100 mg 12/06/24 09:00 Docusate Sod Liqd 100 Mg/10 Ml Udc PO 01/05/25 08:59 BID PRINCESS Protocol Finasteride 5 mg 11/24/24 09:00 12/06/24 08:24 Finasteride 5 Mg Tablet PO 12/24/24 08:59 5 mg QDAY PRINCESS Administration Fluticasone Propionate 1 spray 11/24/24 09:00 12/05/24 12:32 Fluticasone [place] 0.05% 16 Gm Btl NASAL 12/24/24 08:59 Not Given QDAY PRINCESS Glucagon 1 mg 11/23/24 21:21 Glucagon Inj 1 Mg Vial IM Q15MIN PRN BG <70, and no IV access Heparin Sodium (Porcine) 5,000 unit 12/04/24 21:00 12/06/24 08:26 Heparin Sod Inj 5000 Unit/Ml Vial SC 12/18/24 20:59 5,000 unit Q12HR PRINCESS Administration Hydralazine HCl 10 mg 12/02/24 10:10 Hydralazine Inj 20 Mg/Ml Vial IV 01/01/25 10:09 Q6H PRN SBP > 160 Fat Emulsion Intravenous 500 mls @ 32 mls/hr 12/04/24 18:00 12/04/24 18:33 Intralipid 20% Iv IV 01/03/25 17:59 32 mls/hr [id number] PRINCESS Administration Potassium Acetate 40 meq/ 2,035 mls @ 100 mls/hr 12/05/24 18:00 12/05/24 17:12 Potassium Phosphate 15 mmol/ IV 12/06/24 14:20 100 mls/hr Multivitamins/Minerals 10 ml/ .[id number] PRINCESS Administration Amino Acids Insulin Human Lispro 0 unit 11/26/24 00:00 12/06/24 06:00 Insulin Lispro (Admelog) 1 Unit/0.01 Ml Unit SC 12/26/24 00:00 Not Given Q6H [facility] Protocol Lorazepam 0.5 mg 12/03/24 20:22 Lorazepam 2 Mg/Ml Vial IVP 12/08/24 20:21 Q8HR PRN ANXIETY Metoclopramide HCl 10 mg 12/06/24 12:00 Metoclopramide Inj 5 Mg/Ml Vial 2 Ml IVP 01/05/25 11:59 Q6HR [facility] Protocol Nifedipine 30 mg 12/02/24 10:15 12/06/24 08:26 Nifedipine Xl 30 Mg Tabcr PO 01/01/25 10:14 30 mg QDAY PRINCESS Administration Pantoprazole Sodium 40 mg 12/06/24 09:00 12/06/24 08:44 Pantoprazole 40 Mg Tablet PO 01/05/25 08:59 Not Given BID PRINCESS Simethicone 80 mg 12/02/24 17:00 12/06/24 05:18 Simethicone 80 Mg Chew PO 01/01/25 16:59 80 mg QID PRINCESS Administration Valsartan 160 mg 12/02/24 10:15 12/06/24 08:25 Valsartan 80 Mg Tablet PO 01/01/25 10:14 160 mg QDAY PRINCESS Administration Plan In summary: 70-year-old male PMHx of CAD with stents, HTN, DM, BPH with self-catheterization, presented to ED with SOB. Admitted for AHRF 2/2 suspected sepsis in settings of UTI. S/p ICU admission following cardiac arrest 2/2 AHRF/ARDS 2/2 aspiration. Appreciate recommendations from GI team. Working with PT, still requires max assistance. Discharge to SNF tomorrow 12/06. Abdominal distention CT negative for perforation or bowel obstruction. CXR earlier showed gas in stomach. Hep panel negative EGD showed distal esophageal ulcers, erosive gastritis with hemorrhage, biopsy obtained, recommendations as below. NG tube discontinued ? Continue REGLAN 10 mg IV every 6 hours ? Continue PROTONIX 40 mg PO BID ? Advancing diet to dysphagia 2 peptic ulcer diet ? Follow-up EGD biopsy results ?Scheduled Colace 100 mg twice daily ? Encouraged physical therapy with getting out of bed with assistance Hypernatremia?resolved Sodium 146 D5W discontinued ? On free water flushes to 200 cc every 4 hours likely dehydrational Hypokalemia Hypophosphatemia Likely malnutrition, NPO. Potassium 3.3, repleted Phosphorus 2.3, repleted ?Paraxismal Afib Post cardiac arrest CAD s/p stent HFpEF EF 55-60% Had cardiac arrest 2/2 regurgitation and hypoxemia. Required ICU admission and pressure support, downgraded. ECHO showed EF of 55 to 60% with some mild MR and TR as well as mild to moderate . No signs of arrythmia Acute hypoxic respiratory failure (improving) Aspiration pneumonia? vs pneumonitis Aspirated while on BiPAP, followed by cardiac arrest. S/p ICU admission for MV 2/2 AHRF, ARDS, bronch showed bile in lungs and friable mucosa. Previously on VANC and ZOSYN, de-esculated to CTX. Extubated successfuly on 12/30/24 On OXIMASK, satting well. Completed CEFTRIAXONE 11/28 to 12/01 Blood and ET cx negative, afebrile, leukocytosis resolving ROSEANNE (resolved) Renal function stable and normal. No electrolyte abnormalities. Off pressors, BP 170/79, HR 62. Had 2.8L urine output following LASIX. Trace peripheral edema on exam ? Renally dose meds, avoid overdiuresis and NEPHROTOXINS ? Daily CMP Complicated E. coli UTI Urine grew E. coli Currently afebrile, WBC improving Completed CEFTRIAXONE HTN HLD BP 147/79m HR 74 ? On COREG 25 mg daily ? On CLONIDINE 0.1 mg BID ? Added NIFEDIPINE 30 mg QDAY ? Increased VALSARTAIN to 160 mg daily ? HYDRALAZINE 10 mg PRN for SBP > 160 T2DM A1c 6.8 this visit. ? INSULIN sliding scale ? Accu-Cheks Hepatomegaly Transaminitis Possible gallstones US from previous admission showed mild hepatomegaly Previously had transaminitis US this admission showed possible gallstones vs sludge, negative cholecystitis. Hepatitis panel negative LFTs down trending ? Daily labs Normocytic normochromic anemia Chronic, Hgb 10.3 (baseline 12-13) Likely dilutional No s/s of abnormal bleed, normal coag studies ? Daily CBC ? Transfuse if Hgb < 8 BPH ? On FINASTERIDE 5 mg daily Acute encephalopathy (resolved) Off sedation Following command without focal neurological deficits ? PT Lactic acidosis (resolved) Shock (resolved) ARDS (resolved) In setting of cardiac arrest. Health maintenance Diet: Dysphagia 2 peptic ulcer diet GI prophylaxis: PROTONIX DVT prophylaxis: HEPARIN subQ Antibiotics: CEFTRIAXONE CODE STATUS: FULL CODE Disposition: Patient will continue to advance his p.o. intake in preparation to discharge with improved 24 to 48 hours I discussed patient's care with attending physician, Dr Nelly Alonso PGY3 Attending Provider Attestation/Addendum Patient seen and examined with resident physician Dr. Alonso. Patient was confused and short of breath. NGT was inserted. Patient was started on PPN. Dr. Quick was consulted. Endoscopy showed gastritis. He removed the NG tube and recommended clear liquid diet after 12 hours. Recommended Reglan and PPI. Patient more alert and awake today. 12/06 patient more alert and awake. Daughter at bedside. Abdominal distention still persists although better than yesterday. Continue with IV Protonix, Reglan, simethicone. Emphasized to ambulate with physical therapy, out of bed to chair. Will send him to rehab in the next couple of days if stable. Patient complaining of rib cage pain-probably related to the CPR.
[2024-12-06] MEDS: DOCUSATE SOD LIQD 100 MG/10 ML UDC PO ×2 (09:18→20:28)
[2024-12-06] MEDS: LIDOCAINE 5% 1 PATCH TOP (09:19)
[2024-12-06] MEDS: FLUTICASONE NAS SPRAY 0.05% 16 GM BTL 1 SPRAY NASAL (09:52)
[2024-12-06] MEDS: INSULIN LISPRO (AdmeLOG) 1 UNIT/0.01 ML UNIT SC (11:16)
--- NOTE | 2024-12-06 14:35 | PC.SS ---
SS follow up note; Patient is currently on IV ABX. On clear liquids. Sodium is being managed. SS followed up with patient's daughter and the plan is for patient to discharge back home with HH. No prefrence in HH agency.
--- NOTE | 2024-12-06 16:18 | PC.PT ---
Patient is safe to ambulate to the bathroom with a FWW and 1 staff assist. Patient is also safe to sit at the EOB or in a chair at bedside with 1 staff assistance and a FWW. RN made aware.
[2024-12-06] MEDS: METOCLOPRAMIDE INJ 5 MG/ML VIAL 2 ML 10 MG IVP (18:41)
--- NOTE | 2024-12-06 20:11 | PD.IMPROG ---
Documentation for date of: 12/06/24 Subjective Subjective Interval history: Some distention remains of the abdomen increase the Reglan to 10 mg IV Q6 No vomiting Exam Vital Signs Temp Pulse Resp BP Pulse Ox O2 Del Method O2 Flow Rate 97.1 F 64 20 99/53 L 98 Nasal Cannula 3 12/06/24 15:46 12/06/24 18:25 12/06/24 18:25 12/06/24 17:48 12/06/24 18:25 12/06/24 12:00 12/06/24 18:25 FiO2 35 11/30/24 10:17 Objective Labs 12/06/24 05:02 12/06/24 05:02 Labs: Laboratory Results - last 24 hr 12/05/24 12/06/24 22:10 05:02 WBC 11.3 H RBC 3.56 L Hgb 10.4 L Hct 33.2 L MCV 93 MCH 29.2 MCHC 31.3 RDW Std Deviation 48.2 H Plt Count 284 D Neut % (Auto) 72 Lymph % (Auto) 17 [place] % (Auto) 7 Eos % (Auto) 4 Baso % (Auto) 1 Neut # (Auto) 8.1 H Lymph # (Auto) 1.9 [place] # (Auto) 0.8 Eos # (Auto) 0.4 Baso # (Auto) 0.1 Immature Gran # (Auto) 0.04 H Absolute Nucleated RBC 0.00 Immature Gran % 0 Nucleated RBC % 0 Sodium 145 Potassium 4.0 D Chloride 108 H Carbon Dioxide 30.5 Anion Gap 7 BUN 17 Creatinine 0.8 Estim Creat Clear Calc 86.7 eGFR > 60 BUN/Creatinine Ratio 21 H Glucose 149 H Calculated Osmolality 293 Calcium 8.4 Corrected Calcium 9.0 Phosphorus 3.0 Magnesium 2.2 Total Bilirubin 0.5 AST 20 ALT 16 Alkaline Phosphatase 99 Troponin I < 0.020 Total Protein 6.2 Albumin 3.3 L Globulin 2.9 Albumin/Globulin Ratio 1.1 L Impressions Impression: Abdominal distention without any evidence of gastric outlet obstruction Esophageal ulceration Continue current management ABG Interpretation ABG results: 11/25/24 11/25/24 11/25/24 12:15 13:59 16:51 ABG pH 7.15 L* 7.18 L* 7.14 L* ABG pCO2 83 H* 71 H* D 82 H* D ABG pO2 43 L* 87 D 69 L ABG HCO3 29 H 26 28 H ABG O2 Saturation 72 L 96 91 ABG Base Excess -1 -3 -2 11/25/24 11/25/24 11/26/24 19:23 23:21 04:48 ABG pH 7.27 L D 7.29 L 7.28 L ABG pCO2 58 H D 54 H 56 H ABG pO2 87 92 76 L ABG HCO3 27 H 26 26 ABG O2 Saturation 97 98 95 ABG Base Excess -1 -2 -1 11/26/24 11/27/24 11/28/24 12:15 07:01 04:38 ABG pH 7.28 L 7.32 L 7.35 ABG pCO2 59 H 55 H 50 H ABG pO2 67 L 80 L 148 H D ABG HCO3 26 28 H 27 H ABG O2 Saturation 92 94 98 ABG Base Excess -1 1 1 11/29/24 11/29/24 11/30/24 04:45 15:40 04:50 ABG pH 7.38 7.41 7.39 ABG pCO2 21 L D 54 H D 57 H ABG pO2 98 D 63 L D 59 L* ABG HCO3 12 L 34 H 34 H ABG O2 Saturation 99 H 90 L 90 L ABG Base Excess -12 L 8 H 8 H 12/03/24 15:33 ABG pH 7.41 ABG pCO2 55 H ABG pO2 55 L* ABG HCO3 35 H ABG O2 Saturation 87 L ABG Base Excess 9 H Assessment & Plan A&P Narrative # Gastroparesis versus gastric outlet obstruction Plan Continue with the NGT suction Consent will be obtained for fiberoptic esophagogastroduodenoscopy with possible therapeutic intervention possible biopsies for further evaluation which has been scheduled for tomorrow Keep the patient n.p.o. Other medical problems include Coronary artery disease status post PTCA Essential hypertension Morbid obesity Hyperlipidemia BPH with bladder outlet obstruction requiring self-catheterization ordered in the care of urologist Hepatomegaly with hepatocellular disease possible cirrhosis Thank you very much for the opportunity to participate in the care of this patient Time Spent With Patient Time: Total time spent is greater than 50% in coordination of care (as documented) at patient's floor/unit and/or counseling patient: Procedures Arterial Line Size (Gauge): 20
[2024-12-06] MEDS: PANTOPRAZOLE 40 MG TABLET PO (20:27)
[2024-12-07] VITALS (15 sets, daily range): BP systolic 90–127; BP diastolic 50–87; PULSE 60–86; RESP 15–94; TEMP 36.2–36.9; O2SAT 90–100; BMI 39.6; BMI 41.3
[2024-12-07] MEDS: METOCLOPRAMIDE INJ 5 MG/ML VIAL 2 ML 10 MG IVP ×5 (00:31→23:09)
[2024-12-07] MEDS: HYDROcodone/APAP 5/325 TABLET 1 TAB PO ×2 (01:06→14:11)
[2024-12-07] MEDS: ALBUTEROL/IPRATROPIUM (Duoneb) RT SOL 3 ML NEBU INH ×6 (03:38→23:18)
[2024-12-07] MEDS: SIMETHICONE 80 MG CHEW PO ×4 (05:58→20:51)
[2024-12-07] MEDS: FLUTICASONE NAS SPRAY 0.05% 16 GM BTL 1 SPRAY NASAL (09:21)
[2024-12-07] MEDS: DOCUSATE SOD LIQD 100 MG/10 ML UDC PO ×2 (09:22→20:52)
[2024-12-07] MEDS: carVEDILOL 12.5 MG TABLET 25 MG PO (09:28)
[2024-12-07] MEDS: PANTOPRAZOLE 40 MG TABLET PO ×2 (09:28→20:51)
[2024-12-07] MEDS: FINASTERIDE 5 MG TABLET PO (09:28)
[2024-12-07] MEDS: NIFEdipine XL 30 MG TABCR PO (09:28)
[2024-12-07] MEDS: VALSARTAN 80 MG TABLET 160 MG PO (09:29)
[2024-12-07] MEDS: HEPARIN SOD INJ 5000 UNIT/ML VIAL SC ×2 (09:30→20:55)
--- NOTE | 2024-12-07 14:09 | PD.RESPRO ---
Documentation for date of: 12/07/24 Subjective Subjective Interval history: Patient was seen and examined at the bedside this morning. No acute overnight events were reported. Patient reported to have bowel movement and was having less firm abdomen than yesterday and was slightly improved and distention. vitals showed soft blood pressure therefore we stopped clonidine and held nifedipine and valsartan for tomorrow morning and will continue with Coreg and hold if SBP drops below 100.Labs showed stable white count and hemoglobin at 10.1. Chemistry panel was unremarkable.Kidney functions were stable. Rest of the labs unremarkable. Plan is to continue with Reglan and Protonix as well as Colace as patient is improving. Will keep a close eye on the vitals and monitor for dizziness or lightheadedness. Anticipating discharge tomorrow. Exam Vital Signs Temp Pulse Resp BP Pulse Ox O2 Del Method O2 Flow Rate 97.6 F 63 20 109/58 L 100 Nasal Cannula 2 12/07/24 08:00 12/07/24 12:00 12/07/24 10:57 12/07/24 09:29 12/07/24 10:57 12/07/24 08:00 12/07/24 10:57 FiO2 35 11/30/24 10:17 Narrative Exam Constitutional: Well nourished and in no acute distress. CVS: RRR, S1 and S2 present, no murmurs, rubs or gallops . RESP: CTAB, no SOB, no rales, rhonchi or wheezing. No respiratory Distress GI: Distended but nontender with bowel sounds present. MSK: Full range of motion, No trauma or deformities or masses. Skin: Warm to touch, Dry. No rashes or lesions. No hematomas Neuro: senior controls analyst II-XII grossly intact. Sensation grossly intact. Psych: (AAO) x3 . Appropriate mood and affect. Objective Labs 12/07/24 10:20 12/07/24 15:09 ABG Interpretation ABG results: 11/25/24 11/25/24 11/25/24 12:15 13:59 16:51 ABG pH 7.15 L* 7.18 L* 7.14 L* ABG pCO2 83 H* 71 H* D 82 H* D ABG pO2 43 L* 87 D 69 L ABG HCO3 29 H 26 28 H ABG O2 Saturation 72 L 96 91 ABG Base Excess -1 -3 -2 11/25/24 11/25/24 11/26/24 19:23 23:21 04:48 ABG pH 7.27 L D 7.29 L 7.28 L ABG pCO2 58 H D 54 H 56 H ABG pO2 87 92 76 L ABG HCO3 27 H 26 26 ABG O2 Saturation 97 98 95 ABG Base Excess -1 -2 -1 11/26/24 11/27/24 11/28/24 12:15 07:01 04:38 ABG pH 7.28 L 7.32 L 7.35 ABG pCO2 59 H 55 H 50 H ABG pO2 67 L 80 L 148 H D ABG HCO3 26 28 H 27 H ABG O2 Saturation 92 94 98 ABG Base Excess -1 1 1 11/29/24 11/29/24 11/30/24 04:45 15:40 04:50 ABG pH 7.38 7.41 7.39 ABG pCO2 21 L D 54 H D 57 H ABG pO2 98 D 63 L D 59 L* ABG HCO3 12 L 34 H 34 H ABG O2 Saturation 99 H 90 L 90 L ABG Base Excess -12 L 8 H 8 H 12/03/24 15:33 ABG pH 7.41 ABG pCO2 55 H ABG pO2 55 L* ABG HCO3 35 H ABG O2 Saturation 87 L ABG Base Excess 9 H Quality Measures Quality Measures VTE prophylaxis Advance care planning discussed with:: other Assessment & Plan Assessment Current Active Medications: Generic Name Dose Route Start Last Admin Trade Name Freq PRN Reason Stop Dose Admin Acetaminophen 650 mg 11/25/24 08:49 12/05/24 20:37 Acetaminophen 325 Mg Tablet PO 12/25/24 08:48 650 mg Q6HR PRN Administration PAIN Hydrocodone Bitart/Acetaminophen 1 tab 12/05/24 23:48 12/07/24 01:06 Hydrocodone/Apap 5/325 Tablet PO 12/10/24 23:47 1 tab Q8HR PRN Administration PAIN Albuterol/Ipratropium 3 ml 11/25/24 23:00 12/07/24 10:57 Albuterol/Ipratropium (Duoneb) Rt Pati 3 Ml Nebu INH 12/25/24 22:59 3 ml Q4HRRT PRINCESS Administration Carvedilol 25 mg 12/01/24 08:00 12/07/24 09:28 Carvedilol 12.5 Mg Tablet PO 12/31/24 07:59 25 mg BIDWM PRINCESS Administration Dextrose 25 ml 11/23/24 21:21 Dextrose 50%-Water Inj 50 Ml Syringe IV 12/23/24 21:20 Q15MIN PRN BG 50-70 responsive npo pt Docusate Sodium 100 mg 12/06/24 09:00 12/07/24 09:22 Docusate Sod Liqd 100 Mg/10 Ml Udc PO 01/05/25 08:59 100 mg BID PRINCESS Administration Protocol Finasteride 5 mg 11/24/24 09:00 12/07/24 09:28 Finasteride 5 Mg Tablet PO 12/24/24 08:59 5 mg QDAY PRINCESS Administration Fluticasone Propionate 1 spray 11/24/24 09:00 12/07/24 09:21 Fluticasone [place] 0.05% 16 Gm Btl NASAL 12/24/24 08:59 1 spray QDAY PRINCESS Administration Glucagon 1 mg 11/23/24 21:21 Glucagon Inj 1 Mg Vial IM Q15MIN PRN BG <70, and no IV access Heparin Sodium (Porcine) 5,000 unit 12/04/24 21:00 12/07/24 09:30 Heparin Sod Inj 5000 Unit/Ml Vial SC 12/18/24 20:59 5,000 unit Q12HR PRINCESS Administration Hydralazine HCl 10 mg 12/02/24 10:10 Hydralazine Inj 20 Mg/Ml Vial IV 01/01/25 10:09 Q6H PRN SBP > 160 Insulin Human Lispro 0 unit 11/26/24 00:00 12/07/24 11:48 Insulin Lispro (Admelog) 1 Unit/0.01 Ml Unit SC 12/26/24 00:00 Not Given Q6H PRINCESS Protocol Lorazepam 0.5 mg 12/03/24 20:22 Lorazepam 2 Mg/Ml Vial IVP 12/08/24 20:21 Q8HR PRN ANXIETY Metoclopramide HCl 10 mg 12/06/24 12:00 12/07/24 12:09 Metoclopramide Inj 5 Mg/Ml Vial 2 Ml IVP 01/05/25 11:59 10 mg Q6HR PRINCESS Administration Protocol Nifedipine 30 mg 12/07/24 08:50 12/07/24 09:28 Nifedipine Xl 30 Mg Tabcr PO 01/01/25 10:14 30 mg QDAY PRINCESS Administration Pantoprazole Sodium 40 mg 12/06/24 09:00 12/07/24 09:28 Pantoprazole 40 Mg Tablet PO 01/05/25 08:59 40 mg BID PRINCESS Administration Simethicone 80 mg 12/02/24 17:00 12/07/24 12:08 Simethicone 80 Mg Chew PO 01/01/25 16:59 80 mg QID PRINCESS Administration Valsartan 160 mg 12/07/24 08:50 12/07/24 09:29 Valsartan 80 Mg Tablet PO 01/01/25 10:14 160 mg QDAY PRINCESS Administration Plan In summary: 70-year-old male PMHx of CAD with stents, HTN, DM, BPH with self-catheterization, presented to ED with SOB. Admitted for AHRF 2/2 suspected sepsis in settings of UTI. S/p ICU admission following cardiac arrest 2/2 AHRF/ARDS 2/2 aspiration. Appreciate recommendations from GI team. Working with PT, still requires max assistance. Discharge to SNF tomorrow 12/06. #Abdominal distention CT negative for perforation or bowel obstruction. CXR earlier showed gas in stomach. Hep panel negative EGD showed distal esophageal ulcers, erosive gastritis with hemorrhage, biopsy obtained, recommendations as below. NG tube discontinued Patient is passing bowel movement and appeared to be less distended today ? Continue REGLAN 10 mg IV every 6 hours ? Continue PROTONIX 40 mg PO BID ? Advancing diet to dysphagia 2 peptic ulcer diet ? Follow-up EGD biopsy results ?Scheduled Colace 100 mg twice daily ? Encouraged physical therapy with getting out of bed with assistance ?Anticipating discharge tomorrow #Hypernatremia?resolved Sodium 146 D5W discontinued ? On free water flushes to 200 cc every 4 hours likely dehydrational #Hypokalemia, resolved #Hypophosphatemia Likely malnutrition, NPO. Potassium 3.3, repleted Phosphorus 2.3, repleted #?Paraxismal Afib #Post cardiac arrest #CAD s/p stent #HFpEF EF 55-60% Had cardiac arrest 2/2 regurgitation and hypoxemia. Required ICU admission and pressure support, downgraded. ECHO showed EF of 55 to 60% with some mild MR and TR as well as mild to moderate . No signs of arrythmia #Acute hypoxic respiratory failure (improving) #Aspiration pneumonia? vs pneumonitis Aspirated while on BiPAP, followed by cardiac arrest. S/p ICU admission for MV 2/2 AHRF, ARDS, bronch showed bile in lungs and friable mucosa. Previously on VANC and ZOSYN, de-esculated to CTX. Extubated successfuly on 12/30/24 On OXIMASK, satting well. Completed CEFTRIAXONE 11/28 to 12/01 Blood and ET cx negative, afebrile, leukocytosis resolving #ROSEANNE (resolved) Renal function stable and normal. No electrolyte abnormalities. Off pressors, BP 170/79, HR 62. Had 2.8L urine output following LASIX. Trace peripheral edema on exam ? Renally dose meds, avoid overdiuresis and NEPHROTOXINS ? Daily CMP #Complicated E. coli UTI Urine grew E. coli Currently afebrile, WBC improving Completed CEFTRIAXONE #Hypotension #HTN #HLD BP 147/79m HR 74 ?Stopped clonidine due to low blood pressure, ?Held nifedipine and valsartan due to soft blood pressure and hold Coreg if SBP drops below 100 ? On COREG 25 mg daily, hold if SBP drops below 100 ? Stopped CLONIDINE 0.1 mg BID ?Held NIFEDIPINE 30 mg QDAY and VALSARTAIN to 160 mg daily ? HYDRALAZINE 10 mg PRN for SBP > 160 #T2DM A1c 6.8 this visit. ? INSULIN sliding scale ? Accu-Cheks #Hepatomegaly #Transaminitis #Possible gallstones US from previous admission showed mild hepatomegaly Previously had transaminitis US this admission showed possible gallstones vs sludge, negative cholecystitis. Hepatitis panel negative LFTs down trending ? Daily labs #Normocytic normochromic anemia Chronic, Hgb 10.3 (baseline 12-13) Likely dilutional No s/s of abnormal bleed, normal coag studies ? Daily CBC ? Transfuse if Hgb < 8 #BPH ? On FINASTERIDE 5 mg daily #Acute encephalopathy (resolved) Off sedation Following command without focal neurological deficits ? PT #Lactic acidosis (resolved) #Shock (resolved) #ARDS (resolved) In setting of cardiac arrest. Health maintenance Diet: Dysphagia 2 peptic ulcer diet GI prophylaxis: PROTONIX DVT prophylaxis: HEPARIN subQ Antibiotics: CEFTRIAXONE CODE STATUS: FULL CODE Disposition: Patient will continue to advance his p.o. intake in preparation to discharge with improved 24 to 48 hours Plan of care discussed with attending physician, Dr. Nelly Lyons MD, PGY 2 Attending Provider Attestation/Addendum Patient seen and examined with resident physician Dr. Lyons. Patient was confused and short of breath. NGT was inserted. Patient was started on PPN. Dr. Quick was consulted. Endoscopy showed gastritis. He removed the NG tube and recommended clear liquid diet after 12 hours. Recommended Reglan and PPI. Patient more alert and awake today. 12/06 patient more alert and awake. Daughter at bedside. Abdominal distention still persists although better than yesterday. Continue with IV Protonix, Reglan, simethicone. Emphasized to ambulate with physical therapy, out of bed to chair. Will send him to rehab in the next couple of days if stable. Patient complaining of rib cage pain-probably related to the CPR. 12/07/2024 patient more alert and awake. had a bowel movement. Abdominal distention seems to be slightly better. Continue with present management. Out of bed to chair and rehab in a.m.
[2024-12-07 14:56] LABS: Basophils # (Auto) 0.1 Thou/mm3 (0.0-0.2); Basophils % (Auto) 1 % (0-2.5); Eosinophils # (Auto) 0.3 Thou/mm3 (0.0-0.5); Eosinophils % (Auto) 3 % (0-10); Hematocrit 33.9 % (41.0-53.0); Hemoglobin 10.1 g/dL (13.5-16.0); Immature Granulocytes % (Auto) 0 % (0-0); Immature Granulocytes Auto 0.03 Thou/mm3 (0.00-0.00); Lymphocytes # (Auto) 1.6 Thou/mm3 (1.0-4.8); Lymphocytes % (Auto) 15 % (10-50); Mean Corpuscular HGB Conc 29.8 g/dl (31.0-37.0); Mean Corpuscular Hemoglobin 28.9 pg (25.0-35.0); Mean Corpuscular Volume 97 fL (80-100); Monocytes # (Auto) 0.6 Thou/mm3 (0.0-0.8); Monocytes % (Auto) 6 % (0-12); Neutrophils # (Auto) 7.9 Thou/mm3 (1.8-7.7); Neutrophils % (Auto) 76 % (37-80); Nucleated Red Blood Cell % 0 /100 WBC (0); Platelet Count 350 Thou/mm3 (140-440); RDW Standard Deviation 49.5 fL (35.1-43.9); White Blood Count 10.5 Thou/mm3 (3.8-10.6)
[2024-12-07 15:48] LABS: Alanine Aminotransferase 17 U/L (10-49); Albumin, Serum 3.6 gm/dL (3.4-4.8); Albumin/Globulin Ratio 1.2 (1.2-2.2); Alkaline Phosphatase 123 U/L (46-116); Anion Gap 4 (7-16); Aspartate Amino Transferase 24 U/L (0-34); BUN/Creatinine Ratio 21 Ratio (12-20); Bilirubin,Total 0.9 mg/dL (0.3-1.2); Blood Urea Nitrogen 23 mg/dL (9-23); Calcium 8.6 mg/dL (8.3-10.6); Calcium (Corrected) 8.9 mg/dL (8.5-10.1); Carbon Dioxide 31.1 mMol/L (20.0-31.0); Chloride 105 mMol/L (98-107); Creatinine (Component) 1.1 mg/dL (0.6-1.3); Estimated Creatinine Clearance 64.5 mL/min (>60); Glucose 141 mg/dL (74-106); Osmolality,Calculated 285 (275-295); Phosphorous 3.1 mg/dL (2.4-5.1); Potassium 4.8 mMol/L (3.4-5.1); Sodium 140 mMol/L (136-145); Total Protein 6.6 gm/dL (5.7-8.2); eGFR > 60 See Note
--- NOTE | 2024-12-07 21:33 | PD.IMPROG ---
Documentation for date of: 12/07/24 Subjective Subjective Interval history: Less abdominal distention had a bowel movement Exam Vital Signs Temp Pulse Resp BP Pulse Ox O2 Del Method O2 Flow Rate 98.5 F 65 22 H 105/57 L 96 Nasal Cannula 4 12/07/24 20:00 12/07/24 20:07 12/07/24 20:07 12/07/24 20:00 12/07/24 20:07 12/07/24 20:00 12/07/24 20:07 FiO2 35 11/30/24 10:17 Objective Labs 12/07/24 10:20 12/07/24 15:09 Labs: Laboratory Results - last 24 hr 12/07/24 12/07/24 10:20 15:09 WBC 10.5 RBC 3.50 L Hgb 10.1 L Hct 33.9 L MCV 97 MCH 28.9 MCHC 29.8 L RDW Std Deviation 49.5 H Plt Count 350 D Neut % (Auto) 76 Lymph % (Auto) 15 [place] % (Auto) 6 Eos % (Auto) 3 Baso % (Auto) 1 Neut # (Auto) 7.9 H Lymph # (Auto) 1.6 [place] # (Auto) 0.6 Eos # (Auto) 0.3 Baso # (Auto) 0.1 Immature Gran # (Auto) 0.03 H Absolute Nucleated RBC 0.00 Immature Gran % 0 Nucleated RBC % 0 Sodium 140 Potassium 4.8 D Chloride 105 Carbon Dioxide 31.1 H Anion Gap 4 L BUN 23 Creatinine 1.1 Estim Creat Clear Calc 64.5 eGFR > 60 BUN/Creatinine Ratio 21 H Glucose 141 H Calculated Osmolality 285 Calcium 8.6 Corrected Calcium 8.9 Phosphorus 3.1 Magnesium 2.0 Total Bilirubin 0.9 AST 24 ALT 17 Alkaline Phosphatase 123 H D Total Protein 6.6 Albumin 3.6 Globulin 3.0 Albumin/Globulin Ratio 1.2 Impressions Impression: abdominal distention No evidence of gastric outlet obstruction Continue current management ABG Interpretation ABG results: 11/25/24 11/25/24 11/25/24 12:15 13:59 16:51 ABG pH 7.15 L* 7.18 L* 7.14 L* ABG pCO2 83 H* 71 H* D 82 H* D ABG pO2 43 L* 87 D 69 L ABG HCO3 29 H 26 28 H ABG O2 Saturation 72 L 96 91 ABG Base Excess -1 -3 -2 11/25/24 11/25/24 11/26/24 19:23 23:21 04:48 ABG pH 7.27 L D 7.29 L 7.28 L ABG pCO2 58 H D 54 H 56 H ABG pO2 87 92 76 L ABG HCO3 27 H 26 26 ABG O2 Saturation 97 98 95 ABG Base Excess -1 -2 -1 11/26/24 11/27/24 11/28/24 12:15 07:01 04:38 ABG pH 7.28 L 7.32 L 7.35 ABG pCO2 59 H 55 H 50 H ABG pO2 67 L 80 L 148 H D ABG HCO3 26 28 H 27 H ABG O2 Saturation 92 94 98 ABG Base Excess -1 1 1 11/29/24 11/29/24 11/30/24 04:45 15:40 04:50 ABG pH 7.38 7.41 7.39 ABG pCO2 21 L D 54 H D 57 H ABG pO2 98 D 63 L D 59 L* ABG HCO3 12 L 34 H 34 H ABG O2 Saturation 99 H 90 L 90 L ABG Base Excess -12 L 8 H 8 H 12/03/24 15:33 ABG pH 7.41 ABG pCO2 55 H ABG pO2 55 L* ABG HCO3 35 H ABG O2 Saturation 87 L ABG Base Excess 9 H Assessment & Plan A&P Narrative # Gastroparesis versus gastric outlet obstruction Plan Continue with the NGT suction Consent will be obtained for fiberoptic esophagogastroduodenoscopy with possible therapeutic intervention possible biopsies for further evaluation which has been scheduled for tomorrow Keep the patient n.p.o. Other medical problems include Coronary artery disease status post PTCA Essential hypertension Morbid obesity Hyperlipidemia BPH with bladder outlet obstruction requiring self-catheterization ordered in the care of urologist Hepatomegaly with hepatocellular disease possible cirrhosis Thank you very much for the opportunity to participate in the care of this patient Time Spent With Patient Time: Total time spent is greater than 50% in coordination of care (as documented) at patient's floor/unit and/or counseling patient: Procedures Arterial Line Size (Gauge): 20
[2024-12-08] VITALS (12 sets, daily range): BP systolic 98–127; BP diastolic 54–61; PULSE 60–637; RESP 16–98; TEMP 35.9–36.5; O2SAT 91–100; BMI 41.3
[2024-12-08] MEDS: ALBUTEROL/IPRATROPIUM (Duoneb) RT SOL 3 ML NEBU INH ×4 (02:25→15:34)
[2024-12-08] MEDS: SIMETHICONE 80 MG CHEW PO ×3 (05:09→17:07)
[2024-12-08] MEDS: METOCLOPRAMIDE INJ 5 MG/ML VIAL 2 ML 10 MG IVP ×3 (05:11→17:07)
[2024-12-08 06:01] LABS: Basophils # (Auto) 0.1 Thou/mm3 (0.0-0.2); Basophils % (Auto) 1 % (0-2.5); Eosinophils # (Auto) 0.3 Thou/mm3 (0.0-0.5); Eosinophils % (Auto) 3 % (0-10); Hematocrit 30.7 % (41.0-53.0); Hemoglobin 9.4 g/dL (13.5-16.0); Immature Granulocytes % (Auto) 0 % (0-0); Immature Granulocytes Auto 0.02 Thou/mm3 (0.00-0.00); Lymphocytes # (Auto) 1.6 Thou/mm3 (1.0-4.8); Lymphocytes % (Auto) 17 % (10-50); Mean Corpuscular HGB Conc 30.6 g/dl (31.0-37.0); Mean Corpuscular Hemoglobin 29.1 pg (25.0-35.0); Mean Corpuscular Volume 95 fL (80-100); Monocytes # (Auto) 0.8 Thou/mm3 (0.0-0.8); Monocytes % (Auto) 8 % (0-12); Neutrophils % (Auto) 71 % (37-80); Nucleated Red Blood Cell % 0 /100 WBC (0); Platelet Count 247 Thou/mm3 (140-440); RDW Standard Deviation 48.7 fL (35.1-43.9); Red Blood Count 3.23 Miln/mm3 (4.50-5.90); White Blood Count 9.9 Thou/mm3 (3.8-10.6)
[2024-12-08] MEDS: PANTOPRAZOLE 40 MG TABLET PO (08:28)
[2024-12-08] MEDS: HEPARIN SOD INJ 5000 UNIT/ML VIAL SC (08:28)
[2024-12-08] MEDS: FLUTICASONE NAS SPRAY 0.05% 16 GM BTL 1 SPRAY NASAL (08:28)
[2024-12-08] MEDS: FINASTERIDE 5 MG TABLET PO (08:28)
[2024-12-08] MEDS: DOCUSATE SOD LIQD 100 MG/10 ML UDC PO (08:29)
[2024-12-08 08:41] LABS: Alanine Aminotransferase 19 U/L (10-49); Albumin, Serum 3.6 gm/dL (3.4-4.8); Albumin/Globulin Ratio 1.2 (1.2-2.2); Alkaline Phosphatase 125 U/L (46-116); Anion Gap 4 (7-16); Aspartate Amino Transferase 22 U/L (0-34); BUN/Creatinine Ratio 18 Ratio (12-20); Bilirubin,Total 0.7 mg/dL (0.3-1.2); Blood Urea Nitrogen 22 mg/dL (9-23); Calcium 8.6 mg/dL (8.3-10.6); Calcium (Corrected) 8.9 mg/dL (8.5-10.1); Carbon Dioxide 31.9 mMol/L (20.0-31.0); Chloride 101 mMol/L (98-107); Creatinine (Component) 1.2 mg/dL (0.6-1.3); Estimated Creatinine Clearance 59.1 mL/min (>60); Glucose 157 mg/dL (74-106); Magnesium 2.1 mg/dL (1.6-2.6); Osmolality,Calculated 280 (275-295); Phosphorous 2.9 mg/dL (2.4-5.1); Potassium 4.4 mMol/L (3.4-5.1); Sodium 137 mMol/L (136-145); Total Protein 6.6 gm/dL (5.7-8.2); eGFR > 60 See Note
--- NOTE | 2024-12-08 08:50 | PD.RESDS ---
Planned Discharge Date 12/08/24 DS: Providers Provider Date of admission: 11/23/24 21:21 Primary care physician: Brandin Villegas MD Admitting Provider: Brandin Villegas MD Attending Provider on Admission: Brandin Villegas MD Consults: 11/24/24 09:19 Referral Physical Therapy Routine Comment: Physician Instructions: 11/30/24 16:35 Referral Physical Therapy Routine Comment: Physician Instructions: 12/02/24 10:07 Referral Discharge Planning Routine Comment: Rehab 12/04/24 09:24 Referral Registered Dietitian Stat Comment: PPN 12/04/24 09:41 Consult to Gastroenterology Routine Comment: Consulting Provider: Rakesh Quick 12/06/24 13:04 Referral Discharge Planning Routine Comment: rehab Attending Provider on DC: Kwasi Alonso MD Discharging Provider: Kwasi Alonso MD DS: Diagnosis Problem List Completed Was Problem List Reviewed/Reconciled?: Yes Hospital Course Hospital Course Hospital course: Patient is a 17-year-old male with past medical history of CAD with stents, hypertension, diabetes, BPH with self-catheterization who had initially presented on to the ED due to shortness of breath 2 days prior to presentation. Patient was found to have acute hypoxic respiratory failure with suspected underlying sepsis as well as an acute kidney injury on initial presentation. On the night of admission patient became lethargic and hypotensive as well as hemodynamically unstable which required intubation with pressor support. Patient was started on antibiotics and cultures were obtained. Patient was also found to be notably distended in his abdomen for which she required NG tube insertion placed on intermittent suction. Patient was weaned off of pressors and he was following commands. An echocardiogram revealed patient had an EF of 55 to 60% with moderate aortic stenosis. Patient's ICU stay was prolonged due to agitation as well as ARDS, however he was stabilized and extubated on 11/30/2024. Patient was subsequently downgraded from the ICU on 12/01/2024 and his urine culture was found to have E. coli which was pansensitive. Patient's stay in the hospital continued to be prolonged due to abdominal distention with imaging showing an enlarged gastric bubble but patient denied any tenderness. Patient was unable to tolerate advancement diet and GI was consulted. An EGD was performed which revealed patient had esophageal ulcers, erosive gastritis with hemorrhage and biopsies were obtained. Patient was started on Reglan as per GI recommendations and continued on Protonix. Patient subsequently started tolerating diet and he had bowel movements and passed gas and his abdominal distention improved and was stable by the time of discharge. #Abdominal distention #Hypernatremia?resolved #Hypokalemia, resolved #Hypophosphatemia #Paraxismal Afib #Post cardiac arrest #CAD s/p stent #HFpEF EF 55-60% #Acute hypoxic respiratory failure (improving) #Aspiration pneumonia? vs pneumonitis #ROSEANNE (resolved) #Complicated E. coli UTI #Hypotension # Hypertension # Hyperlipidemia # Type 2 diabetes mellitus #Hepatomegaly #Transaminitis #Possible gallstones #Normocytic normochromic anemia # Benign prostatic hyperplasia #Acute encephalopathy (resolved) #Lactic acidosis (resolved) #Shock (resolved) #ARDS (resolved) Plan: Patient is stable for discharge and needs to take Reglan 10 mg every 6 hours Patient needs to take Protonix 40 mg twice daily Patient needs to take simethicone 80 mg 4 times a day Patient can continue all other medications except for clonidine which was discontinued. He can continue on his home dose of losartan, spironolactone and carvedilol Patient is to follow with PCP in 1 to 2 weeks Thank you for allowing us to care for the patient during his time at [facility] I discussed patient's care with attending physician, Dr Nelly Alonso PGY3 Time Spent with Patient Time attestation: Total time spent providing and/or coordinating discharge services: Time spent: Greater than 30 minutes Exam Vital Signs Temp Pulse Resp BP Pulse Ox O2 Del Method O2 Flow Rate 96.7 F L 66 18 99/61 92 L Nasal Cannula 3 12/08/24 08:00 12/08/24 08:42 12/08/24 08:00 12/08/24 08:42 12/08/24 08:00 12/08/24 08:00 12/08/24 08:00 FiO2 35 11/30/24 10:17 Narrative Exam Constitutional: Well nourished and in no acute distress. CVS: RRR, S1 and S2 present, no murmurs, rubs or gallops . RESP: CTAB, no SOB, no rales, rhonchi or wheezing. No respiratory Distress GI: Distended but nontender with bowel sounds present. MSK: Full range of motion, No trauma or deformities or masses. Skin: Warm to touch, Dry. No rashes or lesions. No hematomas Neuro: hand sprayer II-XII grossly intact. Sensation grossly intact. Psych: (AAO) x3 . Appropriate mood and affect. Discharge Plan Plan Patient Disposition: Home w/HOME HEALTH Patient condition on transfer: Stable Care Plan Goals: Patient is stable for discharge and needs to take Reglan 10 mg every 6 hours Patient needs to take Protonix 40 mg twice daily Patient needs to take simethicone 80 mg 4 times a day Patient can continue all other medications except for clonidine which was discontinued. He can continue on his home dose of losartan, spironolactone and carvedilol Patient is to follow with PCP in 1 to 2 weeks El paciente se encuentra estable para el sameer y necesita alma Reglan 10 mg cada 6 horas. El paciente necesita alma Protonix 40 mg dos veces al d?a. El paciente necesita alma simeticona 80 mg 4 veces al d?a. El paciente puede continuar con todos los dem?s medicamentos, excepto la clonidina, que se suspendi?. Puede continuar con loaiza dosis habitual de losart?n, espironolactona y carvedilol. El paciente debe realizar un seguimiento con loaiza Doctor de cuidados primarios en 1 o 2 semanas Prescriptions/Referrals Prescriptions/Med Rec: New pantoprazole 40 mg Tablet,Delayed Release (Dr/Ec) 40 mg PO BID 30 Days Qty: 60 0RF simethicone 80 mg Tablet,Chewable 80 mg PO QID 30 Days Qty: 120 0RF metformin 500 mg tablet 500 mg PO BID 30 Days Qty: 60 0RF metoclopramide HCl 5 mg tablet 5 mg PO BID Qty: 60 0RF Continued carvedilol [Coreg] 25 MG tablet 25 mg PO QDAY Qty: 0 spironolactone 25 MG tablet 25 mg PO BID Qty: 0 tamsulosin [Flomax] 0.4 MG capsule,extended release 24hr 0.4 mg PO BID Qty: 0 valsartan [Diovan] 40 MG tablet 40 mg PO QDAY Qty: 0 gemfibrozil [Lopid] 600 MG tablet 600 mg PO HS Qty: 0 finasteride [Proscar] 5 MG tablet 5 mg PO QDAY Qty: 0 atorvastatin 10 mg Tablet 10 mg PO QPM furosemide 20 mg Tablet 20 mg PO QDAY gabapentin 100 mg capsule 100 mg PO BID fluticasone propionate 50 mcg/actuation [place],Suspension 1 spray INTRANASAL QDAY Rx Instructions: administer into each nostril albuterol sulfate [Ventolin HFA] 90 mcg/actuation Hfa Aerosol Inhaler 1 inh INHALATION QID Discontinued metformin 500 mg Tablet 500 mg PO BID clonidine HCl 0.1 mg tablet 0.1 mg PO BID Referrals: Brandin Villegas MD [Primary Care Provider] - Patient/Caregiver Discharge Instructions Discharge Activity: walk with walker only, as per physical therapy and wear oxygen at all times Education Materials: Preventing Pneumonia, Treating Pneumonia, Understanding Urinary Tract ..., Sepsis, Understanding Sepsis Print Language: [place] Stand Alone Forms: Lavinia Award Info., Patient Portal Info Letter Discharge Order Discharge Orders: Discharge (Routine); Ordered 12/08/24 Ordered By: Kwasi Alonso Quality Discharge Quality Measures VTE prophylaxis MD Attestestation MD Attestation Patient seen and examined with resident physician Dr. Alonso. Patient was confused and short of breath. NGT was inserted. Patient was started on PPN. Dr. Quick was consulted. Endoscopy showed gastritis. He removed the NG tube and recommended clear liquid diet after 12 hours. Recommended Reglan and PPI. Patient more alert and awake today. 12/06 patient more alert and awake. Daughter at bedside. Abdominal distention still persists although better than yesterday. Continue with IV Protonix, Reglan, simethicone. Emphasized to ambulate with physical therapy, out of bed to chair. Will send him to rehab in the next couple of days if stable. Patient complaining of rib cage pain-probably related to the CPR. 12/08/2024 patient more alert and awake. had a bowel movement. Abdominal distention seems to be slightly better. Continue with present management. Out of bed to chair and will arrange home health care and discharge today. Plan of care discussed with the daughter. Dr. Quick on the case.
--- NOTE | 2024-12-08 11:54 | PC.NURSE ---
Pt. at rest oxygen saturation at 85% on room air. Put patient on 1L via nasal cannula, oxygen saturation improved to 94%.
--- NOTE | 2024-12-08 13:23 | PC.RT ---
SS follow up note; SS was contacted by patient's daughter, Ludy inquired about having patient discharge to SNF VS HH. SS met with patient and patient's at bedside and inquired about SNF, Patient's convinced patient to discharge to SNF, Due to her not being able to assist patient at home. Patient agreeable to discharge to SNF. First SNF preference [facility] accepted patient. She informed SS she would be submitted for auth.
--- NOTE | 2024-12-08 13:51 | PD.RESPRO ---
Documentation for date of: 12/08/24 Subjective Subjective Interval history: Patient was seen and examined at the bedside this morning. No acute overnight events were reported. Patient reported to have bowel movement and was having less firm abdomen than yesterday and was slightly improved and distention. vitals showed soft blood pressure therefore we stopped clonidine and held nifedipine and valsartan for tomorrow morning and will continue with Coreg and hold if SBP drops below 100.Labs showed stable white count and hemoglobin at 10.1. Chemistry panel was unremarkable.Kidney functions were stable. Rest of the labs unremarkable. Plan is to continue with Reglan and Protonix as well as Colace as patient is improving. Will keep a close eye on the vitals and monitor for dizziness or lightheadedness. Anticipating discharge tomorrow. 12/08/24: Patient seen and examined in [facility] today. There were no major overnight events and patient states that he had a very small bowel movement yesterday and he is passing gas. Patient's abdomen continues to be largely distended but he is tolerating diet and able to pass gas. Will repeat a KUB today and and try erythromycin with meals for gastric motility. Appreciate further GI recommendations Exam Vital Signs Temp Pulse Resp BP Pulse Ox O2 Del Method O2 Flow Rate 97.5 F 85 20 127/57 L 96 Nasal Cannula 3 12/08/24 11:33 12/08/24 11:33 12/08/24 11:33 12/08/24 11:33 12/08/24 11:33 12/08/24 11:33 12/08/24 11:33 FiO2 35 11/30/24 10:17 Narrative Exam Constitutional: Well nourished and in no acute distress. CVS: RRR, S1 and S2 present, no murmurs, rubs or gallops . RESP: CTAB, no SOB, no rales, rhonchi or wheezing. No respiratory Distress GI: More distended distended but nontender with bowel sounds present. MSK: Full range of motion, No trauma or deformities or masses. Skin: Warm to touch, Dry. No rashes or lesions. No hematomas Neuro: resolution analyst II-XII grossly intact. Sensation grossly intact. Psych: (AAO) x3 . Appropriate mood and affect. Objective Labs 12/08/24 04:49 12/08/24 08:00 Labs: Laboratory Results - last 24 hr 12/07/24 12/07/24 12/08/24 10:20 15:09 04:49 WBC 10.5 9.9 RBC 3.50 L 3.23 L Hgb 10.1 L 9.4 L Hct 33.9 L 30.7 L MCV 97 95 MCH 28.9 29.1 MCHC 29.8 L 30.6 L RDW Std Deviation 49.5 H 48.7 H Plt Count 350 D 247 D Neut % (Auto) 76 71 Lymph % (Auto) 15 17 [place] % (Auto) 6 8 Eos % (Auto) 3 3 Baso % (Auto) 1 1 Neut # (Auto) 7.9 H 7.0 Lymph # (Auto) 1.6 1.6 [place] # (Auto) 0.6 0.8 Eos # (Auto) 0.3 0.3 Baso # (Auto) 0.1 0.1 Immature Gran # (Auto) 0.03 H 0.02 H Absolute Nucleated RBC 0.00 0.00 Immature Gran % 0 0 Nucleated RBC % 0 0 Sodium 140 Potassium 4.8 D Chloride 105 Carbon Dioxide 31.1 H Anion Gap 4 L BUN 23 Creatinine 1.1 Estim Creat Clear Calc 64.5 eGFR > 60 BUN/Creatinine Ratio 21 H Glucose 141 H Calculated Osmolality 285 Calcium 8.6 Corrected Calcium 8.9 Phosphorus 3.1 Magnesium 2.0 Total Bilirubin 0.9 AST 24 ALT 17 Alkaline Phosphatase 123 H D Total Protein 6.6 Albumin 3.6 Globulin 3.0 Albumin/Globulin Ratio 1.2 12/08/24 08:00 WBC RBC Hgb Hct MCV MCH MCHC RDW Std Deviation Plt Count Neut % (Auto) Lymph % (Auto) [place] % (Auto) Eos % (Auto) Baso % (Auto) Neut # (Auto) Lymph # (Auto) [place] # (Auto) Eos # (Auto) Baso # (Auto) Immature Gran # (Auto) Absolute Nucleated RBC Immature Gran % Nucleated RBC % Sodium 137 Potassium 4.4 Chloride 101 Carbon Dioxide 31.9 H Anion Gap 4 L BUN 22 Creatinine 1.2 Estim Creat Clear Calc 59.1 L eGFR > 60 BUN/Creatinine Ratio 18 Glucose 157 H Calculated Osmolality 280 Calcium 8.6 Corrected Calcium 8.9 Phosphorus 2.9 Magnesium 2.1 Total Bilirubin 0.7 AST 22 ALT 19 Alkaline Phosphatase 125 H Total Protein 6.6 Albumin 3.6 Globulin 3.0 Albumin/Globulin Ratio 1.2 ABG Interpretation ABG results: 11/25/24 11/25/24 11/25/24 12:15 13:59 16:51 ABG pH 7.15 L* 7.18 L* 7.14 L* ABG pCO2 83 H* 71 H* D 82 H* D ABG pO2 43 L* 87 D 69 L ABG HCO3 29 H 26 28 H ABG O2 Saturation 72 L 96 91 ABG Base Excess -1 -3 -2 11/25/24 11/25/24 11/26/24 19:23 23:21 04:48 ABG pH 7.27 L D 7.29 L 7.28 L ABG pCO2 58 H D 54 H 56 H ABG pO2 87 92 76 L ABG HCO3 27 H 26 26 ABG O2 Saturation 97 98 95 ABG Base Excess -1 -2 -1 11/26/24 11/27/24 11/28/24 12:15 07:01 04:38 ABG pH 7.28 L 7.32 L 7.35 ABG pCO2 59 H 55 H 50 H ABG pO2 67 L 80 L 148 H D ABG HCO3 26 28 H 27 H ABG O2 Saturation 92 94 98 ABG Base Excess -1 1 1 11/29/24 11/29/24 11/30/24 04:45 15:40 04:50 ABG pH 7.38 7.41 7.39 ABG pCO2 21 L D 54 H D 57 H ABG pO2 98 D 63 L D 59 L* ABG HCO3 12 L 34 H 34 H ABG O2 Saturation 99 H 90 L 90 L ABG Base Excess -12 L 8 H 8 H 12/03/24 15:33 ABG pH 7.41 ABG pCO2 55 H ABG pO2 55 L* ABG HCO3 35 H ABG O2 Saturation 87 L ABG Base Excess 9 H Quality Measures Quality Measures VTE prophylaxis Advance care planning discussed with:: patient Assessment & Plan Assessment Current Active Medications: Generic Name Dose Route Start Last Admin Trade Name Freq PRN Reason Stop Dose Admin Acetaminophen 650 mg 12/08/24 10:28 Acetaminophen 325 Mg Tablet PO 12/25/24 08:48 Q6HR PRN PAIN SCALE 1-3 (mild Hydrocodone Bitart/Acetaminophen 1 tab 12/08/24 10:28 Hydrocodone/Apap 5/325 Tablet PO 12/10/24 23:47 Q8HR PRN PAIN SCALE 4-10(Mod-Sev Albuterol/Ipratropium 3 ml 11/25/24 23:00 12/08/24 11:09 Albuterol/Ipratropium (Duoneb) Rt Pati 3 Ml Nebu INH 12/25/24 22:59 3 ml Q4HRRT PRINCESS Administration Carvedilol 25 mg 12/07/24 14:22 12/08/24 08:42 Carvedilol 12.5 Mg Tablet PO 12/31/24 07:59 Not Given BIDWM PRINCESS Dextrose 25 ml 11/23/24 21:21 Dextrose 50%-Water Inj 50 Ml Syringe IV 12/23/24 21:20 Q15MIN PRN BG 50-70 responsive npo pt Docusate Sodium 100 mg 12/06/24 09:00 12/08/24 08:29 Docusate Sod Liqd 100 Mg/10 Ml Udc PO 01/05/25 08:59 100 mg BID PRINCESS Administration Protocol Finasteride 5 mg 11/24/24 09:00 12/08/24 08:28 Finasteride 5 Mg Tablet PO 12/24/24 08:59 5 mg QDAY PRINCESS Administration Fluticasone Propionate 1 spray 11/24/24 09:00 12/08/24 08:28 Fluticasone Rahul Hershey 0.05% 16 Gm Btl NASAL 12/24/24 08:59 1 spray QDAY PRINCESS Administration Glucagon 1 mg 11/23/24 21:21 Glucagon Inj 1 Mg Vial IM Q15MIN PRN BG <70, and no IV access Heparin Sodium (Porcine) 5,000 unit 12/04/24 21:00 12/08/24 08:28 Heparin Sod Inj 5000 Unit/Ml Vial SC 12/18/24 20:59 5,000 unit Q12HR PRINCESS Administration Hydralazine HCl 10 mg 12/02/24 10:10 Hydralazine Inj 20 Mg/Ml Vial IV 01/01/25 10:09 Q6H PRN SBP > 160 Insulin Human Lispro 0 unit 11/26/24 00:00 12/08/24 12:27 Insulin Lispro (Admelog) 1 Unit/0.01 Ml Unit SC 12/26/24 00:00 Not Given Q6H PRINCESS Protocol Lorazepam 0.5 mg 12/03/24 20:22 Lorazepam 2 Mg/Ml Vial IVP 12/08/24 20:21 Q8HR PRN ANXIETY Metoclopramide HCl 10 mg 12/06/24 12:00 12/08/24 11:51 Metoclopramide Inj 5 Mg/Ml Vial 2 Ml IVP 01/05/25 11:59 10 mg Q6HR PRINCESS Administration Protocol Pantoprazole Sodium 40 mg 12/06/24 09:00 12/08/24 08:28 Pantoprazole 40 Mg Tablet PO 01/05/25 08:59 40 mg BID PRINCESS Administration Simethicone 80 mg 12/02/24 17:00 12/08/24 11:51 Simethicone 80 Mg Chew PO 01/01/25 16:59 80 mg QID PRINCESS Administration Plan In summary: 70-year-old male PMHx of CAD with stents, HTN, DM, BPH with self-catheterization, presented to ED with SOB. Admitted for AHRF 2/2 suspected sepsis in settings of UTI. S/p ICU admission following cardiac arrest 2/2 AHRF/ARDS 2/2 aspiration. Appreciate recommendations from GI team. Working with PT, still requires max assistance. Discharge to SNF tomorrow 12/06. #Abdominal distention CT negative for perforation or bowel obstruction. CXR earlier showed gas in stomach. Hep panel negative EGD showed distal esophageal ulcers, erosive gastritis with hemorrhage, biopsy obtained, recommendations as below. NG tube discontinued Patient is passing bowel movement and appeared to be less distended today ? Continue REGLAN 10 mg IV every 6 hours ? Continue PROTONIX 40 mg PO BID ? Advancing diet to dysphagia 2 peptic ulcer diet ? Follow-up EGD biopsy results ?Scheduled Colace 100 mg twice daily ? Encouraged physical therapy with getting out of bed with assistance ? Repeating KUB today ? Erythromycin to 50 mg 3 times daily with meals for gastric motility #Hypernatremia?resolved Sodium 146 D5W discontinued ? On free water flushes to 200 cc every 4 hours likely dehydrational #Hypokalemia, resolved #Hypophosphatemia Likely malnutrition, NPO. Potassium 3.3, repleted Phosphorus 2.3, repleted #?Paraxismal Afib #Post cardiac arrest #CAD s/p stent #HFpEF EF 55-60% Had cardiac arrest 2/2 regurgitation and hypoxemia. Required ICU admission and pressure support, downgraded. ECHO showed EF of 55 to 60% with some mild MR and TR as well as mild to moderate . No signs of arrythmia #Acute hypoxic respiratory failure (improving) #Aspiration pneumonia? vs pneumonitis Aspirated while on BiPAP, followed by cardiac arrest. S/p ICU admission for MV 2/2 AHRF, ARDS, bronch showed bile in lungs and friable mucosa. Previously on VANC and ZOSYN, de-esculated to CTX. Extubated successfuly on 12/30/24 On OXIMASK, satting well. Completed CEFTRIAXONE 11/28 to 12/01 Blood and ET cx negative, afebrile, leukocytosis resolving #ROSEANNE (resolved) Renal function stable and normal. No electrolyte abnormalities. Off pressors, BP 170/79, HR 62. Had 2.8L urine output following LASIX. Trace peripheral edema on exam ? Renally dose meds, avoid overdiuresis and NEPHROTOXINS ? Daily CMP #Complicated E. coli UTI Urine grew E. coli Currently afebrile, WBC improving Completed CEFTRIAXONE #Hypotension #HTN #HLD BP 147/79m HR 74 ?Stopped clonidine due to low blood pressure, ?Held nifedipine and valsartan due to soft blood pressure and hold Coreg if SBP drops below 100 ? On COREG 25 mg daily, hold if SBP drops below 100 ? Stopped CLONIDINE 0.1 mg BID ?Held NIFEDIPINE 30 mg QDAY and VALSARTAIN to 160 mg daily ? HYDRALAZINE 10 mg PRN for SBP > 160 #T2DM A1c 6.8 this visit. ? INSULIN sliding scale ? Accu-Cheks #Hepatomegaly #Transaminitis #Possible gallstones US from previous admission showed mild hepatomegaly Previously had transaminitis US this admission showed possible gallstones vs sludge, negative cholecystitis. Hepatitis panel negative LFTs down trending ? Daily labs #Normocytic normochromic anemia Chronic, Hgb 10.3 (baseline 12-13) Likely dilutional No s/s of abnormal bleed, normal coag studies ? Daily CBC ? Transfuse if Hgb < 8 #BPH ? On FINASTERIDE 5 mg daily #Acute encephalopathy (resolved) Off sedation Following command without focal neurological deficits ? PT #Lactic acidosis (resolved) #Shock (resolved) #ARDS (resolved) In setting of cardiac arrest. Health maintenance Diet: Dysphagia 2 peptic ulcer diet GI prophylaxis: PROTONIX DVT prophylaxis: HEPARIN subQ Antibiotics: CEFTRIAXONE CODE STATUS: FULL CODE Disposition: Patient will continue to advance his p.o. intake in preparation to discharge with improved 24 to 48 hours I discussed patient's care with attending physician, Dr Nelly Alonso PGY3 Attending Provider Attestation/Addendum Patient seen and examined with resident physician Dr. Alonso. Note reviewed, agree with findings and recommendations. Discharged today.
--- NOTE | 2024-12-08 13:53 | XR_ITS ---
Examination: Abdomen AP single view Technique: AP portable supine abdomen, single view Exam date and time: December 08, 2024 1515 hours INDICATIONS: Sepsis, urinary tract infection diagnosis with abdominal distention FINDINGS: Mildly air distended stomach Mild colonic ileus No bowel obstruction No free air IMPRESSION: Mild colonic ileus
--- NOTE | 2024-12-08 14:16 | PC.SS ---
Addendum entered by Jayne Ware 12/08/24 15:10: SS follow up note; SS was contacted by [facility] with 02 ETA for 2-3 hours for 02 delivery. Original Note: SS follow up note; SS was contacted by Raegan from [facility], she informed SS that patient's insurance denied SNF stay. SS met with patient and patient's and informed them that patient got denied for SNF. SS updated patients nurse, Sharda as well as contacted Dr. Sullivan. SS also submitted 02 and Wheel chair referral through [employer]. Patient could discharge once DME agency.
--- NOTE | 2024-12-08 15:18 | PC.SS ---
WheelChairs Patients diagnosis creates mobility limitations that significantly impairs ability to participate in the patient?s activities of daily living either in their entirety, or in a reasonable time frame in the home and the patient?s mobility limitations cannot be sufficiently resolved with an appropriately fitted cane or walker. Also the use of a manual wheelchair will sufficiently improve patient?s ability to participate in the activities of daily living in the home and the patient is willing to use the wheelchair that is provided in the home. The patient has some one in the home that is available, willing and able to provide assistance with the wheelchair.
[2024-12-08] MEDS: carVEDILOL 12.5 MG TABLET 25 MG PO (17:06)
[2024-12-08] MEDS: ERYTHROMYCIN E-SUCC SUSP 200 MG/5 ML 250 MG PO (17:07)
--- NOTE | 2024-12-08 19:58 | PD.IMPROG ---
Documentation for date of: 12/08/24 Subjective Subjective Interval history: Case discussed with internal medicine team Abdominal distention not going down Abdominal x-ray obtained and reviewed no obstruction of the colon of the small intestine Much less air in the gastric cavity and stomach is not distended Exam Vital Signs Temp Pulse Resp BP Pulse Ox O2 Del Method O2 Flow Rate 96.9 F 69 20 115/58 L 97 Nasal Cannula 3 12/08/24 16:00 12/08/24 17:06 12/08/24 16:00 12/08/24 17:06 12/08/24 16:00 12/08/24 16:00 12/08/24 16:00 FiO2 35 11/30/24 10:17 Objective Labs 12/08/24 04:49 12/08/24 08:00 Labs: Laboratory Results - last 24 hr 12/08/24 12/08/24 04:49 08:00 WBC 9.9 RBC 3.23 L Hgb 9.4 L Hct 30.7 L MCV 95 MCH 29.1 MCHC 30.6 L RDW Std Deviation 48.7 H Plt Count 247 D Neut % (Auto) 71 Lymph % (Auto) 17 [place] % (Auto) 8 Eos % (Auto) 3 Baso % (Auto) 1 Neut # (Auto) 7.0 Lymph # (Auto) 1.6 [place] # (Auto) 0.8 Eos # (Auto) 0.3 Baso # (Auto) 0.1 Immature Gran # (Auto) 0.02 H Absolute Nucleated RBC 0.00 Immature Gran % 0 Nucleated RBC % 0 Sodium 137 Potassium 4.4 Chloride 101 Carbon Dioxide 31.9 H Anion Gap 4 L BUN 22 Creatinine 1.2 Estim Creat Clear Calc 59.1 L eGFR > 60 BUN/Creatinine Ratio 18 Glucose 157 H Calculated Osmolality 280 Calcium 8.6 Corrected Calcium 8.9 Phosphorus 2.9 Magnesium 2.1 Total Bilirubin 0.7 AST 22 ALT 19 Alkaline Phosphatase 125 H Total Protein 6.6 Albumin 3.6 Globulin 3.0 Albumin/Globulin Ratio 1.2 Impressions Impression: Gastrointestinal motility disorder No signs of any small bowel or colonic obstruction or gastric distention Plan Continue IV Reglan Trial of erythromycin ABG Interpretation ABG results: 11/25/24 11/25/24 11/25/24 12:15 13:59 16:51 ABG pH 7.15 L* 7.18 L* 7.14 L* ABG pCO2 83 H* 71 H* D 82 H* D ABG pO2 43 L* 87 D 69 L ABG HCO3 29 H 26 28 H ABG O2 Saturation 72 L 96 91 ABG Base Excess -1 -3 -2 11/25/24 11/25/24 11/26/24 19:23 23:21 04:48 ABG pH 7.27 L D 7.29 L 7.28 L ABG pCO2 58 H D 54 H 56 H ABG pO2 87 92 76 L ABG HCO3 27 H 26 26 ABG O2 Saturation 97 98 95 ABG Base Excess -1 -2 -1 11/26/24 11/27/24 11/28/24 12:15 07:01 04:38 ABG pH 7.28 L 7.32 L 7.35 ABG pCO2 59 H 55 H 50 H ABG pO2 67 L 80 L 148 H D ABG HCO3 26 28 H 27 H ABG O2 Saturation 92 94 98 ABG Base Excess -1 1 1 11/29/24 11/29/24 11/30/24 04:45 15:40 04:50 ABG pH 7.38 7.41 7.39 ABG pCO2 21 L D 54 H D 57 H ABG pO2 98 D 63 L D 59 L* ABG HCO3 12 L 34 H 34 H ABG O2 Saturation 99 H 90 L 90 L ABG Base Excess -12 L 8 H 8 H 12/03/24 15:33 ABG pH 7.41 ABG pCO2 55 H ABG pO2 55 L* ABG HCO3 35 H ABG O2 Saturation 87 L ABG Base Excess 9 H Assessment & Plan A&P Narrative # Gastroparesis versus gastric outlet obstruction Plan Continue with the NGT suction Consent will be obtained for fiberoptic esophagogastroduodenoscopy with possible therapeutic intervention possible biopsies for further evaluation which has been scheduled for tomorrow Keep the patient n.p.o. Other medical problems include Coronary artery disease status post PTCA Essential hypertension Morbid obesity Hyperlipidemia BPH with bladder outlet obstruction requiring self-catheterization ordered in the care of urologist Hepatomegaly with hepatocellular disease possible cirrhosis Thank you very much for the opportunity to participate in the care of this patient Time Spent With Patient Time: Total time spent is greater than 50% in coordination of care (as documented) at patient's floor/unit and/or counseling patient: Procedures Arterial Line Size (Gauge): 20
--- NOTE | 2024-12-09 09:22 | PC.CC ---
Addendum entered by Jennifer Villafana RN 12/09/24 10:30: [facility] accepted the pt. Booked [facility]. Start of care date with [facility] is Wednesday12/12/24. Original Note: No preference of HH agency per SS notes. HH referral sent on [facility]. Awaiting responses. Pending Start of care date.
== END 2024-12-08 19:36 | disposition home health service (06) | DRG 871 ==
LOC: SERX 16:24 → SERHOLD 21:43 → S2NX 11-24 02:00 → S3SX 11-25 06:53 → S2SX 11-25 16:35 → S3NX 12-02 16:58
PROVIDERS: Internal Medicine; Nurse Practitioner Family; Specialist; Student in an Organized Health Care Education/Training Program; Admitting Provider Internal Medicine; Emergency Provider Emergency Medicine; PCP Internal Medicine; Visit Provider Internal Medicine
PROC: (CPT 43239; principal; 2024-12-05 07:45)
DX: A41.51 Sepsis due to Escherichia coli [E. coli] (principal); G93.41 Metabolic encephalopathy; J96.01 Acute respiratory failure with hypoxia; J69.0 Pneumonitis due to inhalation of food and vomit; J18.9 Pneumonia, unspecified organism; K29.61 Other gastritis with bleeding; K22.11 Ulcer of esophagus with bleeding; I46.8 Cardiac arrest due to other underlying condition; N17.9 Acute kidney failure, unspecified; N39.0 Urinary tract infection, site not specified; E87.0 Hyperosmolality and hypernatremia; K56.609 Unspecified intestinal obstruction, unspecified as to partial versus complete obstruction; K56.7 Ileus, unspecified; I50.32 Chronic diastolic (congestive) heart failure; R57.9 Shock, unspecified; E46 Unspecified protein-calorie malnutrition; E87.29 Other acidosis; R18.8 Other ascites; N13.8 Other obstructive and reflux uropathy; Z68.41 Body mass index [BMI] 40.0-44.9, adult; N40.0 Benign prostatic hyperplasia without lower urinary tract symptoms; E86.0 Dehydration; E78.5 Hyperlipidemia, unspecified; I25.10 Atherosclerotic heart disease of native coronary artery without angina pectoris; E11.40 Type 2 diabetes mellitus with diabetic neuropathy, unspecified; E87.6 Hypokalemia; E83.39 Other disorders of phosphorus metabolism; I48.91 Unspecified atrial fibrillation; D64.9 Anemia, unspecified; I11.0 Hypertensive heart disease with heart failure; R16.0 Hepatomegaly, not elsewhere classified; E87.5 Hyperkalemia; E66.01 Morbid (severe) obesity due to excess calories; N40.1 Benign prostatic hyperplasia with lower urinary tract symptoms; I35.0 Nonrheumatic aortic (valve) stenosis; K81.9 Cholecystitis, unspecified; K74.60 Unspecified cirrhosis of liver; Z95.5 Presence of coronary angioplasty implant and graft; Z79.84 Long term (current) use of oral hypoglycemic drugs; Z79.899 Other long term (current) drug therapy
CPT/HCPCS: 36415; 36600; 71045; 74018; 74176; 76700; 80053; 80061; 80074; 80202; 81001; 82140; 82803; 83036; 83605; 83615; 83690; 83735; 83880; 84100; 84145; 84484; 85025; 85610; 85730; 87040; 87077; 87081; 87086; 87186; 87205; 92610; 92950; 93005; 93306; 94002; 94003; 94640; 94660; 94664; 94667; 96360; 96361; 96365; 96372; 97162; 99285; A4649; A9270; J0696; J1200; J1643; J1815; J1938; J2250; J2470; J2543; J2598; J2704; J2765; J3010; J3370; J3475; J3480; J3490; J7030; J7040; J7070; J7120; J7999

== ENCOUNTER → 2024-12-28 | Outpatient (BNVA) | payer OTHER, MEDICAID, SELFPAY | END | disposition home or self-care (01) | PROVIDERS: PCP Internal Medicine; Referring Provider Internal Medicine; Visit Provider Urology | DX: N40.1 Benign prostatic hyperplasia with lower urinary tract symptoms (principal); N13.8 Other obstructive and reflux uropathy; R33.8 Other retention of urine; N31.9 Neuromuscular dysfunction of bladder, unspecified; I11.0 Hypertensive heart disease with heart failure; I50.32 Chronic diastolic (congestive) heart failure; E78.5 Hyperlipidemia, unspecified; I25.110 Atherosclerotic heart disease of native coronary artery with unstable angina pectoris; I42.9 Cardiomyopathy, unspecified; I65.23 Occlusion and stenosis of bilateral carotid arteries; F32.1 Major depressive disorder, single episode, moderate; E11.9 Type 2 diabetes mellitus without complications; E66.01 Morbid (severe) obesity due to excess calories; Z68.39 Body mass index [BMI] 39.0-39.9, adult | CPT/HCPCS: 81003; 99212; G0463 ==

== ENCOUNTER → 2025-02-05 | Outpatient (CLI) | payer OTHER, MEDICAID, SELFPAY ==
[2025-02-05 08:46] LABS: Basophils # (Auto) 0.1 Thou/mm3 (0.0-0.2); Basophils % (Auto) 1 % (0-2.5); Eosinophils # (Auto) 0.4 Thou/mm3 (0.0-0.5); Eosinophils % (Auto) 3 % (0-10); Hematocrit 36.1 % (41.0-53.0); Hemoglobin 11.4 g/dL (13.5-16.0); Immature Granulocytes % (Auto) 0 % (0-0); Immature Granulocytes Auto 0.04 Thou/mm3 (0.00-0.00); Lymphocytes # (Auto) 3.6 Thou/mm3 (1.0-4.8); Lymphocytes % (Auto) 32 % (10-50); Mean Corpuscular HGB Conc 31.6 g/dl (31.0-37.0); Mean Corpuscular Hemoglobin 28.5 pg (25.0-35.0); Mean Corpuscular Volume 90 fL (80-100); Monocytes # (Auto) 0.7 Thou/mm3 (0.0-0.8); Monocytes % (Auto) 6 % (0-12); Neutrophils # (Auto) 6.7 Thou/mm3 (1.8-7.7); Neutrophils % (Auto) 58 % (37-80); Nucleated Red Blood Cell % 0 /100 WBC (0); Platelet Count 355 Thou/mm3 (140-440); RDW Standard Deviation 43.9 fL (35.1-43.9); White Blood Count 11.5 Thou/mm3 (3.8-10.6)
[2025-02-05 08:52] LABS: Albumin, Serum 4.5 gm/dL (3.4-4.8); Anion Gap 7 (7-16); BUN/Creatinine Ratio 20 Ratio (12-20); Blood Urea Nitrogen 16 mg/dL (9-23); Calcium 9.9 mg/dL (8.3-10.6); Calcium (Corrected) 9.9 mg/dL (8.5-10.1); Carbon Dioxide 30.9 mMol/L (20.0-31.0); Chloride 98 mMol/L (98-107); Creatinine (Component) 0.8 mg/dL (0.6-1.3); Glucose 123 mg/dL (74-106); Osmolality,Calculated 274 (275-295); Phosphorous 3.3 mg/dL (2.4-5.1); Potassium 4.2 mMol/L (3.4-5.1); Sodium 136 mMol/L (136-145); eGFR > 60 See Note
[2025-02-05 08:53] LABS: Creatinine MALB Rnd Ur 34 mg/dL (30-125); Microalbumin Creat Ratio 21 mg/gCrea (<30); Microalbumin, Random Urine 7 mg/L (0-300)
[2025-02-05 09:24] LABS: Glucose Estimated Average 131 mg/dL (80-131); Hemoglobin A1C 6.2 % Hgb (4.8-6.0)
== END | disposition home or self-care (01) ==
LOC: COPL 07:10
PROVIDERS: PCP Internal Medicine; Referring Provider Internal Medicine; Visit Provider Internal Medicine
DX: E11.9 Type 2 diabetes mellitus without complications (principal); I10 Essential (primary) hypertension; E78.5 Hyperlipidemia, unspecified
CPT/HCPCS: 36415; 80069; 82043; 82570; 83036; 85025

== ENCOUNTER → 2025-02-12 | Outpatient (BNVA) | payer OTHER, MEDICAID, SELFPAY | END | disposition home or self-care (01) | PROVIDERS: PCP Internal Medicine; Referring Provider Internal Medicine; Visit Provider Urology | DX: N40.1 Benign prostatic hyperplasia with lower urinary tract symptoms (principal); N13.8 Other obstructive and reflux uropathy; R33.8 Other retention of urine; N31.9 Neuromuscular dysfunction of bladder, unspecified; E11.9 Type 2 diabetes mellitus without complications; I10 Essential (primary) hypertension; I25.10 Atherosclerotic heart disease of native coronary artery without angina pectoris; E78.00 Pure hypercholesterolemia, unspecified; I25.2 Old myocardial infarction | CPT/HCPCS: 76872 ==

== ENCOUNTER → 2025-02-26 | Outpatient (BNVA) | payer OTHER, MEDICAID, SELFPAY | END | disposition home or self-care (01) | PROVIDERS: PCP Internal Medicine; Referring Provider Internal Medicine; Visit Provider Urology | DX: N32.89 Other specified disorders of bladder (principal); N40.1 Benign prostatic hyperplasia with lower urinary tract symptoms; N13.8 Other obstructive and reflux uropathy; E66.01 Morbid (severe) obesity due to excess calories; Z68.39 Body mass index [BMI] 39.0-39.9, adult; I10 Essential (primary) hypertension; E11.9 Type 2 diabetes mellitus without complications; E78.00 Pure hypercholesterolemia, unspecified; I25.10 Atherosclerotic heart disease of native coronary artery without angina pectoris; I21.9 Acute myocardial infarction, unspecified | CPT/HCPCS: 52000; 81003; A4217; A4649; C1894; J1580; A9270 ==

== ENCOUNTER → 2025-03-26 | Outpatient (BNVA) | payer OTHER, MEDICAID, SELFPAY | END | disposition home or self-care (01) | PROVIDERS: PCP Internal Medicine; Referring Provider Internal Medicine; Visit Provider Urology | DX: N40.1 Benign prostatic hyperplasia with lower urinary tract symptoms (principal); N13.8 Other obstructive and reflux uropathy; E66.01 Morbid (severe) obesity due to excess calories; Z68.41 Body mass index [BMI] 40.0-44.9, adult; I10 Essential (primary) hypertension; E78.00 Pure hypercholesterolemia, unspecified; I25.10 Atherosclerotic heart disease of native coronary artery without angina pectoris; I25.2 Old myocardial infarction; E11.9 Type 2 diabetes mellitus without complications | CPT/HCPCS: 76872 ==

== ENCOUNTER → 2025-06-15 | Outpatient (CLI) | payer OTHER, MEDICAID, SELFPAY ==
[2025-06-15 08:06] LABS: Collection Type, Urine Clean Catch
[2025-06-15 08:37] LABS: Basophils # (Auto) 0.1 Thou/mm3 (0.0-0.2); Basophils % (Auto) 1 % (0-2.5); Eosinophils # (Auto) 0.4 Thou/mm3 (0.0-0.5); Eosinophils % (Auto) 4 % (0-10); Hematocrit 36.2 % (41.0-53.0); Hemoglobin 11.5 g/dL (13.5-16.0); Immature Granulocytes Auto 0.03 Thou/mm3 (0.00-0.00); Lymphocytes # (Auto) 3.2 Thou/mm3 (1.0-4.8); Lymphocytes % (Auto) 37 % (10-50); Mean Corpuscular HGB Conc 31.8 g/dl (31.0-37.0); Mean Corpuscular Hemoglobin 28.2 pg (25.0-35.0); Mean Corpuscular Volume 89 fL (80-100); Monocytes # (Auto) 0.5 Thou/mm3 (0.0-0.8); Monocytes % (Auto) 6 % (0-12); Neutrophils # (Auto) 4.5 Thou/mm3 (1.8-7.7); Neutrophils % (Auto) 52 % (37-80); Nucleated Red Blood Cell # 0.00 Thou/mm3 (0.00-0.00); Nucleated Red Blood Cell % 0 /100 WBC (0); Platelet Count 365 Thou/mm3 (140-440); RDW Standard Deviation 44.9 fL (35.1-43.9); Red Blood Count 4.08 Miln/mm3 (4.50-5.90); White Blood Count 8.8 Thou/mm3 (3.8-10.6)
[2025-06-15 08:40] LABS: Glucose Estimated Average 146 mg/dL (80-131); Hemoglobin A1C 6.7 % Hgb (4.8-6.0)
[2025-06-15 08:41] LABS: Creatinine MALB Rnd Ur 34 mg/dL (30-125); Microalbumin Creat Ratio 100 mg/gCrea (<30); Microalbumin, Random Urine 34 mg/L (0-300)
[2025-06-15 08:45] LABS: Prostate Specific Antigen 0.15 ng/mL (0-4.00)
[2025-06-15 08:47] LABS: Alanine Aminotransferase 36 U/L (10-49); Albumin, Serum 4.6 gm/dL (3.4-4.8); Albumin/Globulin Ratio 1.6 (1.2-2.2); Alkaline Phosphatase 113 U/L (46-116); Anion Gap 12 (7-16); Aspartate Amino Transferase 43 U/L (0-34); BUN/Creatinine Ratio 10 Ratio (12-20); Bilirubin,Total 0.3 mg/dL (0.3-1.2); Blood Urea Nitrogen 8 mg/dL (9-23); Calcium 9.4 mg/dL (8.3-10.6); Calcium (Corrected) 9.4 mg/dL (8.5-10.1); Carbon Dioxide 29.4 mMol/L (20.0-31.0); Cardiac Risk Estimate 4.5 RATIO (4.0-6.7); Chloride 102 mMol/L (98-107); Cholesterol 216 mg/dL (132-200); Creatinine (Component) 0.8 mg/dL (0.6-1.3); Globulin 2.8 gm/dL (2.3-3.5); Glucose 149 mg/dL (74-106); HDL Cholesterol 48 mg/dL (40-60); LDL Cholesterol,Calculated 101 mg/dL (0-130); Osmolality,Calculated 286 (275-295); Potassium 4.0 mMol/L (3.4-5.1); Sodium 143 mMol/L (136-145); Thyroid Stimulating Hormone 5.28 uIU/mL (0.55-4.78); Total Protein 7.4 gm/dL (5.7-8.2); Triglycerides 334 mg/dL (30-150); Uric Acid 5.9 mg/dL (3.7-9.2); eGFR > 60 See Note
[2025-06-15 08:49] LABS: Vitamin B12 549 pg/mL (211-911); Vitamin D 25 Hydroxy Total 27.2 ng/mL (7.3-40.2)
[2025-06-15 09:13] LABS: Bacteria,Urine 4+; Bilirubin,Urine Negative (Negative); Blood,Urine Negative (Negative); Color,Urine Lt-Yellow (Lt Yel-Yel); Glucose, Urine Negative (Negative); Ketones,Urine Negative (Negative); Leukocyte Esterase,Urine Positive (Negative); Nitrite,Urine Positive (Negative); PH,Urine 7.0 (5.0-7.0); Protein,Urine Negative (Neg - Trace); RBC,Urine 3 /hpf (0-3); Specific Gravity,Urine 1.009 (1.001-1.035); Squamous Epithelial Cell,Urine < 1 /hpf (0-5); Urobilinogen,Urine Negative mg/dL (0.0-1.0); WBC,Urine 44 /hpf (0-5)
[2025-06-15 10:00] LABS: Clarity,Urine Hazy (Clear/Hazy)
== END | disposition home or self-care (01) ==
LOC: COPL 06:49
PROVIDERS: PCP Internal Medicine; Referring Provider Internal Medicine; Visit Provider Internal Medicine
DX: Z00.00 Encounter for general adult medical examination without abnormal findings (principal); E11.9 Type 2 diabetes mellitus without complications; I10 Essential (primary) hypertension; E78.5 Hyperlipidemia, unspecified
CPT/HCPCS: 36415; 80053; 80061; 81001; 82043; 82306; 82570; 82607; 83036; 84153; 84443; 84550; 85025